=== PATIENT | female | born 1955 | race Caucasian/White ===

== ENCOUNTER 2016-11-12 10:17 | Emergency (ER) | payer MEDICARE ==
[2016-11-12 11:44] LABS: Add Diff/Slide Review? Manual Diff Added; Comments Flag Yes; Hematocrit 35 % (35-47); Hemoglobin 10.8 g/dl (12.0-16.0); Mean Corpuscular HGB Conc 31 g/dl (31-36); Mean Corpuscular Hemoglobin 25 pg (27-31); Mean Corpuscular Volume 81 fL (80-97); Mean Platelet Volume 10 um3 (7.4-10.4); Red Blood Count 4.38 10^6/ul (4.0-5.4); Red Cell Distribution Width 19 % (10.5-15); White Blood Count 8.1 10^3/ul (3.5-10.8)
[2016-11-12 11:49] LABS: BUN/Creatinine Ratio 10.8 (8-20); Potassium 4.1 mmol/L (3.5-5.0)
[2016-11-12 11:50] LABS: Albumin 3.7 g/dL (3.2-5.2); Calcium 10.3 mg/dL (8.6-10.3); EGFR African American 45.8 (>60); EGFR Non-African American 35.6 (>60); Globulin 3.8 g/dL (2-4); Total Bilirubin 0.9 mg/dL (0.2-1.0); Total Protein 7.5 g/dL (6.4-8.9)
[2016-11-12 12:14] LABS: Eosinophils % 4 % (0-6); Hypochromasia 1+; Neutrophil % 61 % (38-83)
[2016-11-12 12:15] LABS: Schistocytes 1+
--- NOTE | 2016-11-12 12:36 | RAD ---
INDICATION: Left hip and knee pain after a fall COMPARISON: Left hip radiograph dated November 12, 2013 TECHNIQUE: 4 views of the left hip and 5 views of the left knee were obtained. FINDINGS: Radiographic imaging of the left hip is obscured by the patient's obese body habitus. Mild degenerative changes are seen at the bilateral hips including joint space narrowing and mild sclerotic change of the acetabular roof. There is no definite fracture or dislocation identified at the left hip. Degenerative changes of the left knee include medial greater than lateral joint space narrowing and mild marginal osteophyte formation. There is a mild degree of patellofemoral joint space narrowing as well as superior patellar osteophyte formation. There is a small left joint effusion. IMPRESSION: 1. Degenerative changes of the left hip without identification of definite fracture or dislocation. 2. Degenerative changes of the left knee with a small joint effusion without radiographic evidence of acute fracture or dislocation. If the patient's symptoms persist follow-up imaging is recommended.
[2016-11-12] MEDS ORDERED: oxyCODONE/Acetamin 5/325 MG* TAB PO ONE (12:54)
[2016-11-12 13:23] VITALS: BP 145/64
--- NOTE | 2016-11-12 16:13 | ED ---
Almita Clancy SooYoung, scribed for Jose J Thompson MD on 11/12/16 at 1100 . Lower Extremity - HPI Summary HPI Summary: A 61 y/o F presents to ED with c/o L knee pain after a fall from standing this morning, hours KNIFER UP. She says she landed on her L-knee and L-side. Pain radiates down to L foot and up to hip. Associated sx: ecchymosis, edema. Denies CP, back pain. Pt has baseline edema in LLE. Pt is on Coumadin. She denies hitting her head. Non-smoker, non-drinker. - History of Current Complaint Chief Complaint: EDExtremityLower Stated Complaint: FALL Time Seen by Provider: 11/12/16 10:43 Hx Obtained From: Patient Mechanism Of Injury: Fall From A Standing Position Onset of Pain: Hours, Prior to Arrival Onset/Duration: Still Present Severity Currently: Moderate Timing: Constant Location: Radiates To - L knee radiates to hip and foot Associated Signs And Symptoms: Positive: Swelling, Bruising - Allergies/Home Medications Allergies/Adverse Reactions: Allergies Allergy/AdvReac Type Severity Reaction Status Date / Time Albuterol Allergy Tachycardia Verified 11/12/16 10:28 Amoxicillin [From Augmentin] Allergy Palpitation Verified 11/12/16 10:28 s Clavulanic Acid Allergy Palpitation Verified 11/12/16 10:28 [From Augmentin] s PMH/Surg Hx/FS Hx/Imm Hx Previously Healthy: No Endocrine/Hematology History: Reports: Hx Anticoagulant Therapy - on Coumadin, Hx Blood Disorders - TTP, Hx Blood Transfusions, Hx Thyroid Disease - s/p successful radio-iodine therapy, Hx Anemia, Other Endocrine/Hematological Disorders - TPP, hx bleeding Denies: Hx Diabetes, Hx Unexplained Bleeding - hemetemesis Cardiovascular History: Reports: Hx Congestive Heart Failure, Hx Deep Vein Thrombosis, Hx Embolism, Hx Hypertension, Other Cardiovascular Problems/ Disorders - DVT Denies: Hx Pacemaker/ICD, Hx Rheumatic Fever, Hx Syncope Respiratory History: Reports: Hx Asthma, Hx Chronic Bronchitis - frequent bronchitis, not chronic, Hx Chronic Obstructive Pulmonary Disease (COPD), Hx Pneumonia, Hx Pulmonary Edema, Hx Pulmonary Embolism, Hx Seasonal Allergies, Hx Sleep Apnea - has BIPAP at home, Other Respiratory Problems/Disorders - wears O2 at home GI History: Reports: Hx Gall Bladder Disease - removed 1979, Hx Gastroesophageal Reflux Disease, Hx Gastrointestinal Bleed - October 2012 admission, Hx Hiatal Hernia, Other GI Disorders - s/p bariatric surgery, hx GI bleed Denies: Hx Jaundice History: Denies: Hx Renal Disease Musculoskeletal History: Reports: Hx Arthritis, Hx Back Problems - neck, Hx Bursitis, Other Musculoskeletal History - lymphedema, goiter Denies: Hx Rheumatoid Arthritis, Hx Gout, Hx Orthopedic Injury, Hx Osteoporosis Sensory History: Reports: Hx Contacts or Glasses, Hx Vision Problem - 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 Denies: Hx Hearing Aid, Hx Hearing Problem Opthamlomology History: Reports: Hx Contacts or Glasses, Hx Vision Problem - 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 GROIN - SKIN GRAFTING DUE TO BLEEDING AND INFECTION. TONSILECTOMY Hx Anesthesia Reactions: No Infectious Disease History: No Infectious Disease History: Denies: Hx Clostridium Difficile, Hx Hepatitis, Hx Human Immunodeficiency Virus (HIV), Hx Shingles, Hx Tuberculosis, Traveled Outside the [place] in Last 30 Days - Family History Known Family History: Positive: Other - parents fhx gastric ulcers - Social History Occupation: Disabled Lives: Alone Alcohol Use: None Hx Substance Use: No Substance Use Type: Reports: None Hx Tobacco Use: Yes Smoking Status (MU): Former Smoker Type: Cigarettes Amount Used/How Often: 1-2 Length of Time of Smoking/Using Tobacco: 32 Have You Smoked in the Last Year: No Review of Systems Negative: Chest Pain Positive: Arthralgia - L knee pain, radiating to L hip, L foot, Other - neg: back pain All Other Systems Reviewed And Are Negative: Yes Physical Exam - Summary Physical Exam Summary: The patient is well-nourished in no acute distress and in no acute pain. The skin is warm and dry and skin color reflects adequate perfusion. HEENT: The head is normocephalic and atraumatic. The pupils are equal and reactive. The conjunctivae are clear and without drainage. Nares are patent and without drainage. Mouth reveals moist mucous membranes and the throat is without erythema and exudate. The external ears are intact. The ear canals are patent and without drainage. The tympanic membranes are intact. Neck is supple with full range of motion and non-tender. There are no carotid bruits. There is no neck vein distension. Respiratory: Chest is non-tender. Lungs are clear to auscultation and breath sounds are symmetrical and equal. Cardiovascular: Heart is regular rate and rhythm. There is no murmur or rub auscultated. There is no peripheral edema and pulses are symmetrical and equal. Abdomen: The abdomen is soft and non-tender and obese. There is no organomegaly palpated. Musculoskeletal: There is no back pain noted. Extremities are non-tender with full range of motion. There is good capillary refill. There is no peripheral edema or calf tenderness elicited. TENDERNESS OF L HIP, NO SHORTENING OF LEG. MARKED ECCHYMOSIS AND SWELLING OF L KNEE. UNABLE TO FLEX. MILD TENDERNESS AT PROXIMAL TIBIA AREA. LLE IS MARKEDLY EDEMATOUS COMPARED TO R, HX OF LYMPHADENOPAHTY. Neurological: Patient is alert and oriented to person, place and time. The patient has symmetrical motor strength in all four extremities. Cranial nerves are grossly intact. Deep tendon reflexes are symmetrical and equal in all four extremities. DENIES STRIKING HER HEAD. Psychiatric: The patient has an appropriate affect and does not exhibit any anxiety or depression. Triage Information Reviewed: Yes Vital Signs On Initial Exam: Initial Vitals Temp Pulse Resp BP Pulse Ox 97.4 F 64 16 125/69 98 11/12/16 10:19 11/12/16 10:19 11/12/16 10:19 11/12/16 10:19 11/12/16 10:19 Vital Signs Reviewed: Yes - [place] Coma Scale Coma Scale Total: 15 Diagnostics - Vital Signs Vital Signs Temp Pulse Resp BP Pulse Ox 11/12/16 10:26 67 76 11/12/16 10:20 97.4 F 64 16 125/69 98 11/12/16 10:19 97.4 F 64 16 125/69 98 - Laboratory Lab Results: Lab Results 11/12/16 11/12/16 11/12/16 Range/Units 11:26 11:26 11:26 WBC 8.1 (3.5-10.8) 10^3/ul RBC 4.38 (4.0-5.4) 10^6/ul Hgb 10.8 L (12.0-16.0) g/dl Hct 35 (35-47) % MCV 81 (80-97) fL MCH 25 L (27-31) pg MCHC 31 (31-36) g/dl RDW 19 H (10.5-15) % Plt Count 236 (150-450) 10^3/ul MPV 10 (7.4-10.4) um3 Absolute Neuts (auto) 4.9 (1.5-7.7) 10^3/ul Absolute Lymphs (auto) 2.0 (1.0-4.8) 10^3/ul Absolute Monos (auto) 0.8 (0-0.8) 10^3/ul Absolute Eos (auto) 0.3 (0-0.6) 10^3/ul Absolute Basos (auto) 0 (0-0.2) 10^3/ul Absolute Nucleated RBC Not Reportable Neutrophils % 61 (38-83) % Lymphocytes % 25 (25-47) % Monocytes % 10 (0-13) % Eosinophils % 4 (0-6) % Normal RBC Morphology Not Reportable Hypochromasia 1+ Elliptocytes 1+ Acanthocytes (Spur) 1+ Schistocytes 1+ INR (Anticoag Therapy) 1.72 H (0.89-1.11) Sodium 139 (133-145) mmol/L Potassium 4.1 (3.5-5.0) mmol/L Chloride 99 L (101-111) mmol/L Carbon Dioxide 37 H (22-32) mmol/L Anion Gap 3 (2-11) mmol/L BUN 16 (6-24) mg/dL Creatinine 1.48 H (0.51-0.95) mg/dL Est GFR ( Amer) 45.8 (>60) Est GFR (Non-Af Amer) 35.6 (>60) BUN/Creatinine Ratio 10.8 (8-20) Glucose 95 (70-100) mg/dL Calcium 10.3 (8.6-10.3) mg/dL Total Bilirubin 0.90 (0.2-1.0) mg/dL AST 15 (13-39) U/L ALT 6 L (7-52) U/L Alkaline Phosphatase 89 (34-104) U/L Total Protein 7.5 (6.4-8.9) g/dL Albumin 3.7 (3.2-5.2) g/dL Globulin 3.8 (2-4) g/dL Albumin/Globulin Ratio 1.0 (1-3) Result Diagrams: 11/12/16 11:26 11/12/16 11:26 Lab Statement: Any lab studies that have been ordered have been reviewed, and results considered in the medical decision making process. - Radiology L KNEE Xray Interpretation: No Acute Changes - IMPRESSION: 1. Degenerative changes of the left hip without identification of definite fracture or dislocation. 2. Degenerative changes of the left knee with a small joint effusion without radiographic evidence of acute fracture or dislocation. If the patient's symptoms persist follow-up imaging is recommended. Radiology Interpretation Completed By: Radiologist HIP/PELVIS Xray Interpretation: No Acute Changes - IMPRESSION: 1. Degenerative changes of the left hip without identification of definite fracture or dislocation. 2. Degenerative changes of the left knee with a small joint effusion without radiographic evidence of acute fracture or dislocation. If the patient's symptoms persist follow-up imaging is recommended. Radiology Interpretation Completed By: Radiologist Re-Evaluation - Re-Evaluation 1 Re-Evaluation Time: 13:16 Change: Improved Comment: Discussing XR results with pt. Lower Extremity Course/Dx - Course Course Of Treatment: Pt is a 61 y/o F presenting with c/o L knee pain after a fall from standing this morning. She says she landed on her L-knee and L-side, did not her head. Pain radiates down to L foot and up to hip. Associated sx: ecchymosis and edema at knee. Denies CP, back pain. Pt has baseline edema in LLE. Pt is on Coumadin. Pt given Percocet. Lab work shows elevated INR and CRP. Hip/Pelvis and L Knee XR impressions: 1. Degenerative changes of the left hip without identification of definite fracture or dislocation. 2. Degenerative changes of the left knee with a small joint effusion without radiographic evidence of acute fracture or dislocation. If the patient's symptoms persist follow-up imaging is recommended. Will D/C home with Percocet for pain. - Diagnoses Provider Diagnoses: Contusion of left hip, Contusion of left knee Discharge - Discharge Plan Condition: Stable Disposition: HOME Prescriptions: oxyCODONE/Acetamin 5/325 MG* [Percocet 5/325 TAB*] 1 tab PO Q6H PRN #20 tab MDD 4 PRN Reason: pain Patient Education Materials: Oxycodone/Acetaminophen (By mouth), Knee Pain (ED) , Hip Contusion (ED) Referrals: Scott Parkinson MD [Primary Care Provider] - The documentation as recorded by the Almita case SooYoung accurately reflects the service I personally performed and the decisions made by me, Jose J Thompson MD.
== END 2016-11-12 14:06 | disposition home or self-care (01) ==
LOC: ED 10:17
DX: S70.02XA Contusion of left hip, initial encounter (principal); S80.02XA Contusion of left knee, initial encounter; Z87.891 Personal history of nicotine dependence; Z79.01 Long term (current) use of anticoagulants; I50.9 Heart failure, unspecified; Z88.0 Allergy status to penicillin; W19.XXXA Unspecified fall, initial encounter; Y92.9 Unspecified place or not applicable
CPT/HCPCS: 36415; 80053; 85025; 85610; 99282; A9270-GY

== ENCOUNTER 2016-11-22 14:17 | Inpatient (IN) | payer MEDICARE ==
[2016-11-22] MEDS ORDERED: NS 0.9% 1000 ML* 2,000 ML IV ONE (15:45)
[2016-11-22 16:19] LABS: Albumin 3.8 g/dL (3.2-5.2); BUN/Creatinine Ratio 16.1 (8-20); Calcium 10.2 mg/dL (8.6-10.3); EGFR African American 59.5 (>60); EGFR Non-African American 46.3 (>60); Magnesium 1.7 mg/dL (1.9-2.7); Total Bilirubin 1.8 mg/dL (0.2-1.0); Total Protein 7.8 g/dL (6.4-8.9)
[2016-11-22 16:22] LABS: Hematocrit 39 % (35-47); Hemoglobin 12.3 g/dl (12.0-16.0); Mean Corpuscular HGB Conc 31 g/dl (31-36); Mean Corpuscular Hemoglobin 25 pg (27-31); Mean Corpuscular Volume 80 fL (80-97); Mean Platelet Volume 12 um3 (7.4-10.4); Red Blood Count 4.93 10^6/ul (4.0-5.4); Red Cell Distribution Width 19 % (10.5-15); White Blood Count 10.3 10^3/ul (3.5-10.8)
[2016-11-22 16:24] LABS: Add Diff/Slide Review? Slide Review Added; Comments Flag Yes
[2016-11-22 16:27] LABS: Troponin I 0.18 ng/mL (<0.04)
--- NOTE | 2016-11-22 17:09 | RAD ---
Indication: Fall, left facial swelling, headache. CT of the brain was performed without IV contrast. Comparison is made with previous exam dated November 12, 2013. Ventricular structures are midline. No midline shift is noted. The extra-axial spaces are unremarkable. Hypodensity is noted in the left occipital lobe from prior infarct unchanged from previous exam. Ex vacuo dilatation of the right lateral ventricle in the frontal horn is noted with adjacent encephalomalacia. Additional hypodensity is noted in the right insular cortex consistent with old infarct. Central and cortical atrophy is noted. There is no evidence of intracranial mass or hemorrhage. The orbits are grossly unremarkable. Air-fluid level is noted in the left maxillary sinus consistent with left maxillary sinusitis. Mastoid air cells are grossly unremarkable. 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 Findings are unchanged from previous examination. No intracranial mass or hemorrhage is noted. No changes noted since November 12, 2013.
--- NOTE | 2016-11-22 17:21 | RAD ---
Indication: Fall, neck injury. CT of the cervical spine was obtained in the axial plane. Sagittal and coronal reconstructed images were obtained. The skull base demonstrates mastoid air cells to be unremarkable. The C1 ring is intact. The vertebral bodies appear normal in height. No evidence of fracture is noted. Alignment appears to be satisfactory. At C2-C3 there may be a small central disc protrusion indenting the thecal sac. No central or foraminal stenosis is noted. At C3-C4 spondylitic ridge flattens the thecal sac. Bilateral uncovertebral joint hypertrophy narrows both foramen. At C4-C5 spondylitic ridge with broad-based protrusion flattens the thecal sac. No central or foraminal stenosis is noted. At C5-C6 spondylitic ridge with broad-based protrusion flattens the thecal sac. Bilateral uncovertebral joint hypertrophy is noted. At C6-C7 and C7-T1 spinal canal cannot be evaluated. The lung apices are unremarkable. IMPRESSION: Degenerative disc disease at C2-C3, C3-C4, C4-C5 and C5-C6. No fracture of the cervical spine is present.
--- NOTE | 2016-11-22 17:29 | RAD ---
Indication: Facial injury and swelling. CT of the facial bones was obtained in the axial plane. Sagittal and coronal reconstructed images were obtained. The orbits are intact. No evidence of fracture is noted. The zygomatic arch bilaterally are intact. No fractures identified. The maxilla and pterygoid plates are intact with no evidence of fracture. Air-fluid level is noted in the left maxillary sinus with mucosal thickening. Minimal air-fluid level is noted in the right maxillary sinus. The mandible demonstrates no evidence of fracture. The nasal arch is intact. There is soft tissue edema and reticulation likely representing a hematoma involving the left subcutaneous tissues superficial to the left zygomatic arch. The visualized cervical spine is unremarkable. IMPRESSION: NO FRACTURE OF THE FACIAL BONES IS IDENTIFIED. AIR-FLUID LEVELS IN BOTH MAXILLARY SINUSES WORSE ON THE LEFT THAN ON THE RIGHT. SOFT TISSUE SWELLING OVER THE LEFT ZYGOMATIC ARCH. THIS MAY BE FROM MINIMAL HEMATOMA.
[2016-11-22 18:22] LABS: Target Cells 2+
[2016-11-22 18:23] LABS: Hypochromasia 2+
--- NOTE | 2016-11-22 18:56 | RAD ---
Indication: Fall, chest pain. Single frontal view of the chest performed at 1811 hours was reviewed. Comparison is made with previous exam dated February 16, 2016. There is cardiomegaly noted. Interstitial edema consistent with vascular congestion is noted. No definite pneumonia is identified. IMPRESSION: CARDIOMEGALY WITH LIKELY INTERSTITIAL EDEMA.
--- NOTE | 2016-11-22 18:57 | RAD ---
Indication: Fall, pelvic pain. Single view of the pelvis demonstrates pelvic ring to be intact. There is no evidence of fracture. Sacroiliac joints are unremarkable. IMPRESSION: No fracture of the pelvis is noted.
--- NOTE | 2016-11-22 18:58 | RAD ---
Indication: Arm injury. 2 views of the right forearm demonstrates no fracture. No other bone or joint abnormality is identified. IMPRESSION: No fracture of the right humerus is noted.
--- NOTE | 2016-11-22 18:58 | RAD ---
Indication: Fall, arm injury 4 views of the right shoulder demonstrates no fracture or dislocation. AC joint arthritis is noted. IMPRESSION: No fracture of the right shoulder is noted.
[2016-11-22] MEDS ORDERED: Levalbuterol 1.25MG/0.5ML NEB INH PRN (19:17)
[2016-11-22] MEDS ORDERED: Cyclobenzaprine TAB* 10 MG PO PRN (19:17)
[2016-11-22] MEDS ORDERED: Ondansetron TAB* 4 MG PO PRN (19:17)
[2016-11-22] MEDS ORDERED: NS 0.9% 1000 ML* 1,000 ML IV SCH (19:45)
--- NOTE | 2016-11-22 19:52 | ED ---
Braden Clancy Anna, scribed for KarleyubirmaiMeri MD on 11/22/16 at 1532 . Syncope/Near Syncope - HPI Summary HPI Summary: Patient is a 61 y/o female coming to [facility] following ta fall that occurred yesterday at 1830. She states that her knees buckled, causing her to fall. She could not get up following the syncopal episode and stayed on the floor for 18 hours. She is unsure of whether or not she hit her head when she fell. There is blood on her mouth. She reports that she has bad denition and is missing teeth at baseline. The patient reports current hip pain, and right shoulder pain. Her history is significant for CVA, CHF, HTN, DVT, embolism, and a fib. She currently takes Coumadin. She has COPD and asthma and uses 2 L O2 at baseline. Patient medications were reviewed this visit. - History Of Current Complaint Chief Complaint: EDGeneral Hx Obtained From: Patient, EMS Onset/Duration: Sudden Onset, Resolved Context: Unwitnessed, Loss Of Consciousness Activity At Onset: Unknown - Allergies/Home Medications Allergies/Adverse Reactions: Allergies Allergy/AdvReac Type Severity Reaction Status Date / Time Amoxicillin [From Augmentin] Allergy Palpitation Verified 11/22/16 14:34 s Clavulanic Acid Allergy Palpitation Verified 11/22/16 14:34 [From Augmentin] s Albuterol AdvReac Tachycardia Verified 11/22/16 19:32 Home Medications: Home Medications Acetaminophen W/ Codeine [Acetaminophen/Codeine 300-15 mg] 1 - 2 tab PO Q4HR PRN 11/22/16 [History Confirmed 11/22/16] Cyclobenzaprine TAB* [Flexeril 10 MG TAB*] 10 mg PO TID PRN 11/22/16 [History Confirmed 11/22/16] Pantoprazole TAB (NF) [Protonix TAB (NF)] 40 mg PO DAILY 11/22/16 [History Confirmed 11/22/16] PMH/Surg Hx/FS Hx/Imm Hx Endocrine/Hematology History: Reports: Hx Anticoagulant Therapy - on Coumadin, Hx Blood Disorders - TTP, Hx Blood Transfusions, Hx Thyroid Disease - s/p successful radio-iodine therapy, Hx Anemia, Other Endocrine/Hematological Disorders - TPP, hx bleeding Denies: Hx Diabetes, Hx Unexplained Bleeding - hemetemesis Cardiovascular History: Reports: Hx Congestive Heart Failure, Hx Deep Vein Thrombosis, Hx Embolism, Hx Hypertension, Other Cardiovascular Problems/ Disorders - DVT Denies: Hx Pacemaker/ICD, Hx Rheumatic Fever, Hx Syncope Respiratory History: Reports: Hx Asthma, Hx Chronic Bronchitis - frequent bronchitis, not chronic, Hx Chronic Obstructive Pulmonary Disease (COPD), Hx Pneumonia, Hx Pulmonary Edema, Hx Pulmonary Embolism, Hx Seasonal Allergies, Hx Sleep Apnea - has BIPAP at home, Other Respiratory Problems/Disorders - wears O2 at home GI History: Reports: Hx Gall Bladder Disease - removed 1979, Hx Gastroesophageal Reflux Disease, Hx Gastrointestinal Bleed - October 2012 admission, Hx Hiatal Hernia, Other GI Disorders - s/p bariatric surgery, hx GI bleed Denies: Hx Jaundice History: Denies: Hx Renal Disease Musculoskeletal History: Reports: Hx Arthritis, Hx Back Problems - neck, Hx Bursitis, Other Musculoskeletal History - lymphedema, goiter Denies: Hx Rheumatoid Arthritis, Hx Gout, Hx Orthopedic Injury, Hx Osteoporosis Sensory History: Reports: Hx Contacts or Glasses, Hx Vision Problem - 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 Denies: Hx Hearing Aid, Hx Hearing Problem Opthamlomology History: Reports: Hx Contacts or Glasses, Hx Vision Problem - 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 GROIN - SKIN GRAFTING DUE TO BLEEDING AND INFECTION. TONSILECTOMY Hx Anesthesia Reactions: No Infectious Disease History: No Infectious Disease History: Denies: Hx Clostridium Difficile, Hx Hepatitis, Hx Human Immunodeficiency Virus (HIV), Hx Shingles, Hx Tuberculosis, Traveled Outside the [place] in Last 30 Days - Family History Known Family History: Positive: Other - parents fhx gastric ulcers - Social History Alcohol Use: None Hx Substance Use: No Substance Use Type: Reports: None Hx Tobacco Use: Yes Smoking Status (MU): Former Smoker Type: Cigarettes Amount Used/How Often: 1-2 Length of Time of Smoking/Using Tobacco: 32 Have You Smoked in the Last Year: No Review of Systems Positive: Arthralgia, Edema All Other Systems Reviewed And Are Negative: Yes Physical Exam Triage Information Reviewed: Yes Vital Signs On Initial Exam: Initial Vitals Temp Pulse Resp BP Pulse Ox 98.5 F 86 20 115/48 99 11/22/16 14:34 11/22/16 14:34 11/22/16 14:34 11/22/16 14:34 11/22/16 14:34 Vital Signs Reviewed: Yes Appearance: Positive: No Pain Distress, Well-Nourished Skin: Positive: Warm, Skin Color Reflects Adequate Perfusion, Dry, Other - + chronic venous stasis skin changes of b/l LE Head/Face: Positive: Other - edema of left eyelid and left cheek Eyes: Positive: EOMI, PIO, Conjunctiva Clear, Other: - edema of left eyelid ENT: Positive: Pharynx normal, TMs normal, Other - Dry, bloody lips Dental: Positive: Other - Several dental caries with missing teeth. Dry blood intraorally. No acute bleeding. Neck: Positive: Supple, Nontender Respiratory/Lung Sounds: Positive: Clear to Auscultation, Breath Sounds Present. Negative: Rales, Rhonchi, Wheezes Cardiovascular: Positive: IRR, Tachycardia, S1, S2 Abdomen Description: Positive: Nontender, Soft, Other: - Large pannus formation. No rebound.. Negative: Distended, Guarding Bowel Sounds: Positive: Present Musculoskeletal: Positive: Strength/ROM Intact, Other - Chronic venous stasis changes bilaterally with left leg larger than right, chronically. Ecchymosis of right arm. Right shoulder tender to palpation on lateral aspect. no deformity noted. Neurological: Positive: Normal, Sensory/Motor Intact, Alert, Oriented to Person Place, Time, CN Intact II-III. Negative: Cerebellar Dysfunction Psychiatric: Positive: Affect/Mood Appropriate Diagnostics - Vital Signs Vital Signs Temp Pulse Resp BP Pulse Ox 11/22/16 15:19 111 27 184/86 94 11/22/16 15:12 107 92 11/22/16 15:10 161/100 11/22/16 14:57 100 20 164/90 96 11/22/16 14:34 98.5 F 86 20 115/48 99 - Laboratory Lab Results: Lab Results 11/22/16 11/22/16 11/22/16 Range/Units 15:10 15:10 15:10 WBC 10.3 (3.5-10.8) 10^3/ul RBC 4.93 (4.0-5.4) 10^6/ul Hgb 12.3 (12.0-16.0) g/dl Hct 39 (35-47) % MCV 80 (80-97) fL MCH 25 L (27-31) pg MCHC 31 (31-36) g/dl RDW 19 H (10.5-15) % Plt Count 371 (150-450) 10^3/ul MPV 12 H (7.4-10.4) um3 Neut % (Auto) 79.7 (38-83) % Lymph % (Auto) 11.6 L (25-47) % Garfield % (Auto) 8.2 (1-9) % Eos % (Auto) 0.1 (0-6) % Baso % (Auto) 0.4 (0-2) % Absolute Neuts (auto) 8.2 H (1.5-7.7) 10^3/ul Absolute Lymphs (auto) 1.2 (1.0-4.8) 10^3/ul Absolute Monos (auto) 0.8 (0-0.8) 10^3/ul Absolute Eos (auto) 0 (0-0.6) 10^3/ul Absolute Basos (auto) 0 (0-0.2) 10^3/ul Absolute Nucleated RBC 0.01 10^3/ul Nucleated RBC % 0.1 Normal RBC Morphology Not Reportable Hypochromasia 2+ Target Cells 2+ Elliptocytes 1+ Acanthocytes (Spur) 2+ INR (Anticoag Therapy) 2.54 H (0.89-1.11) APTT 40.1 H (26.0-36.3) seconds Sodium 136 (133-145) mmol/L Potassium 4.0 (3.5-5.0) mmol/L Chloride 98 L (101-111) mmol/L Carbon Dioxide 30 (22-32) mmol/L Anion Gap 8 (2-11) mmol/L BUN 19 (6-24) mg/dL Creatinine 1.18 H (0.51-0.95) mg/dL Est GFR ( Amer) 59.5 (>60) Est GFR (Non-Af Amer) 46.3 (>60) BUN/Creatinine Ratio 16.1 (8-20) Glucose 136 H (70-100) mg/dL Lactic Acid (0.5-2.0) mmol/L Calcium 10.2 (8.6-10.3) mg/dL Magnesium 1.7 L (1.9-2.7) mg/dL Total Bilirubin 1.80 H (0.2-1.0) mg/dL AST 66 H (13-39) U/L ALT 16 (7-52) U/L Alkaline Phosphatase 106 H (34-104) U/L Total Creatine Kinase 2190 H (10-223) U/L CK-MB (CK-2) 28.5 H (0.6-6.3) ng/mL Troponin I 0.18 H* (<0.04) ng/mL B-Natriuretic Peptide ( - 100) pg/mL Total Protein 7.8 (6.4-8.9) g/dL Albumin 3.8 (3.2-5.2) g/dL Globulin 4.0 (2-4) g/dL Albumin/Globulin Ratio 1.0 (1-3) 11/22/16 11/22/16 Range/Units 15:10 15:10 WBC (3.5-10.8) 10^3/ul RBC (4.0-5.4) 10^6/ul Hgb (12.0-16.0) g/dl Hct (35-47) % MCV (80-97) fL MCH (27-31) pg MCHC (31-36) g/dl RDW (10.5-15) % Plt Count (150-450) 10^3/ul MPV (7.4-10.4) um3 Neut % (Auto) (38-83) % Lymph % (Auto) (25-47) % Garfield % (Auto) (1-9) % Eos % (Auto) (0-6) % Baso % (Auto) (0-2) % Absolute Neuts (auto) (1.5-7.7) 10^3/ul Absolute Lymphs (auto) (1.0-4.8) 10^3/ul Absolute Monos (auto) (0-0.8) 10^3/ul Absolute Eos (auto) (0-0.6) 10^3/ul Absolute Basos (auto) (0-0.2) 10^3/ul Absolute Nucleated RBC 10^3/ul Nucleated RBC % Normal RBC Morphology Hypochromasia Target Cells Elliptocytes Acanthocytes (Spur) INR (Anticoag Therapy) (0.89-1.11) APTT (26.0-36.3) seconds Sodium (133-145) mmol/L Potassium (3.5-5.0) mmol/L Chloride (101-111) mmol/L Carbon Dioxide (22-32) mmol/L Anion Gap (2-11) mmol/L BUN (6-24) mg/dL Creatinine (0.51-0.95) mg/dL Est GFR ( Amer) (>60) Est GFR (Non-Af Amer) (>60) BUN/Creatinine Ratio (8-20) Glucose (70-100) mg/dL Lactic Acid 2.0 (0.5-2.0) mmol/L Calcium (8.6-10.3) mg/dL Magnesium (1.9-2.7) mg/dL Total Bilirubin (0.2-1.0) mg/dL AST (13-39) U/L ALT (7-52) U/L Alkaline Phosphatase (34-104) U/L Total Creatine Kinase (10-223) U/L CK-MB (CK-2) (0.6-6.3) ng/mL Troponin I (<0.04) ng/mL B-Natriuretic Peptide 1127 H ( - 100) pg/mL Total Protein (6.4-8.9) g/dL Albumin (3.2-5.2) g/dL Globulin (2-4) g/dL Albumin/Globulin Ratio (1-3) Result Diagrams: 11/22/16 15:10 11/22/16 15:10 Lab Statement: Any lab studies that have been ordered have been reviewed, and results considered in the medical decision making process. - Radiology R humerus XR Xray Interpretation: No Acute Changes Radiology Interpretation Completed By: Radiologist - No evidence of fracture Pelvis XR Xray Interpretation: No Acute Changes Radiology Interpretation Completed By: Radiologist - No evidence of fracture R shoulder XR Xray Interpretation: No Acute Changes Radiology Interpretation Completed By: Radiologist - No evidence of fracture CXR Xray Interpretation: Positive (See Comments) Radiology Interpretation Completed By: Radiologist - IMPRESSION: CARDIOMEGALY WITH LIKELY INTERSTITIAL EDEMA. - CT Maxillofacial CT CT Interpretation: Positive (See Comments) CT Interpretation Completed By: Radiologist - IMPRESSION: NO FRACTURE OF THE FACIAL BONES IS IDENTIFIED. AIR-FLUID LEVELS IN BOTH MAXILLARY SINUSES WORSE ON THE LEFT THAN ON THE RIGHT. SOFT TISSUE SWELLING OVER THE LEFT ZYGOMATIC ARCH. THIS MAY BE FROM MINIMAL HEMATOMA. C-Spine CT CT Interpretation: No Acute Changes CT Interpretation Completed By: Radiologist - IMPRESSION: Degenerative disc disease at C2-C3, C3-C4, C4-C5 and C5-C6. No fracture of the cervical spine is present. Brain CT CT Interpretation: No Acute Changes CT Interpretation Completed By: Radiologist - IMPRESSION: Old infarct left occipital lobe and right frontal temporal area with ex vacuo dilatation of the frontal horn of the right lateral ventricle. Findings are unchanged from previous examination. No intracranial mass or hemorrhage is noted. No changes noted since November 12, 2013. Course/Dx Assessment/Plan: Patient is a 61 y/o female coming to [facility] following the sudden onset of a syncopal episode that occurred yesterday at 1830. Labs reveal INR of 2.54, APTT of 40.1, glucose of 136, magnesium of 1.7, AST of 66, Creatine Kinase of 2190, CK-MB of 28.5, troponin of 0.18, BNP of 1127. Right humerus XR, pelvis XR, and R shoulder XR reveal no evidence for fracture. CXR reveals cardiomegaly with likely interstitial edema. Maxillofacial CT reveals soft tissue swelling. C-Spine CT reveals degenerative disc disease but no evidence of fracture. Brain CT reveals old infarct, unchanged since 2013. Discussed care of patient with Dr. Robertson (hospitalist), who accepts patient for admission. - Diagnoses Provider Diagnoses: Fall, Closed head injury, Facial swelling, Anticoagulated, Cardiac enzymes elevated - Physician Notifications Discussed Care Of Patient With: Dr. Robertson (hospitalist) at 1805. Agrees to accept patient for admission. Discharge - Discharge Plan Condition: Fair Disposition: ADMITTED TO [facility] documentation as recorded by the Braden case Anna accurately reflects the service I personally performed and the decisions made by Fermín beltran,Meri Singh MD.
[2016-11-22] MEDS ORDERED: Spiriva Inhaler DEVICE* 1 EACH DEVICE INH ONE (20:00)
[2016-11-22] MEDS ORDERED: Warfarin TAB(*) 5 MG PO SCH (20:00)
[2016-11-22] MEDS: Diltiazem CD CAP* 120 MG PO SCH (21:16)
[2016-11-22] MEDS: Metoprolol Tartrate TAB* 25 MG PO SCH (21:16)
[2016-11-22] MEDS ORDERED: Warfarin TAB(*) 2.5 MG PO SCH (22:00)
--- NOTE | 2016-11-22 22:35 | HP ---
HISTORY AND PHYSICAL: DATE OF ADMISSION: 11/22/16 PRIMARY CARE PROVIDER: Scott Parkinson MD CHIEF COMPLAINT: Fall. HISTORY OF PRESENT ILLNESS: Ms. Roy is a 61-year-old female with a past medical history significant for atrial fibrillation; CHF; COPD with chronic hypoxic respiratory failure requiring 2 L of oxygen continuously and asthma who presents to the emergency room with complaints of fall. The patient states at approximately 8:30 last evening, she was doing her laundry. She states that she had just moved her clothes from the washer into dryer and walked back to her apartment. She states that once in her apartment, her legs "gave out" and she was unable to maintain a standing position despite having a walker with her. The patient landed on her left side. She did not have any loss of consciousness with this. The patient states that she did not have her Life Alert bracelet on despite having one and she was too far away from the pull cord to get help immediately. The patient believes that she had laid on her floor until approximately 3 p.m. when a neighbor noted that she had not picked up a package outside of her door. Neighbor knocked on her door and the patient was able to call out to her that she had fallen and needed help. The patient states that she fell this past Monday was well. At that time, she hurt her left knee. At this point, the patient does complain of pain in her left knee as well as her bilateral shoulders. She states that she again was lying on the left side and unable to even roll on to her back. The patient states that when she fell, she also did not have her oxygen on for the entire duration of the time that she was on the floor. PAST MEDICAL HISTORY: 1. AFib. 2. CHF. 3. Chronic hypoxic respiratory failure secondary to COPD, on 2 L O2 continuously. 4. Asthma. PAST SURGICAL HISTORY: None. MEDICATIONS: 1. Tramadol 50 mg p.o. q.6 hours p.r.n. pain. 2. Percocet 5/325 mg 1 tab p.o. q.6 hours p.r.n. pain. 3. Robitussin AC 5 mL p.o. q.h.s. p.r.n. cough. 4. Ambien 5 mg p.o. q.h.s. p.r.n. insomnia. 5. Coumadin 5 mg p.o. daily. 6. Spiriva 1 puff inhaled daily. 7. Protonix 40 mg daily. 8. Orphenadrine 100 mg p.o. b.i.d. 9. Zofran 4 mg p.o. q.6 hours p.r.n. nausea. 10. Metoprolol tartrate 25 mg p.o. b.i.d. 11. Melatonin 5 mg p.o. q.p.m. 12. Magnesium oxide 400 mg p.o. daily. 13. Xopenex 1 neb inhaled q.4 hours p.r.n. shortness of breath. 14. Gabapentin 600 mg p.o. t.i.d. 15. Lasix 20 mg p.o. daily. 16. Diltiazem CD 120 mg p.o. daily. 17. Flexeril 10 mg p.o. t.i.d. p.r.n. spasm. 18. Zyrtec 10 mg p.o. daily. 19. Tylenol with Codeine 1 to 2 tabs p.o. q.4 hours p.r.n. pain. ALLERGIES: ALBUTEROL and AUGMENTIN. FAMILY HISTORY: Mom at the age of 83 of heart failure. Dad in his 90s of a brain aneurysm. SOCIAL HISTORY: The patient is a former smoker. She quit approximately 3 years ago. She does not drink alcohol. 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 She is not . She has no children. She indicates that her sister, Rasheeda Chapman, would be her healthcare proxy. REVIEW OF SYSTEMS: The patient denies any fevers, chills, or anorexia. No chest pain. No palpations. She denies any cough or shortness of breath worse than usual. She states that she did vomit once overnight. She has no abdominal pain. No constipation, diarrhea, or hematochezia. No hematuria. No dysuria. No focal weakness or sensory loss. She denies any stroke-like symptoms. No sudden changes in vision. No dysphagia. She does complain again of bilateral shoulder pain and left knee pain. No rashes. No anxiety or depression. PHYSICAL EXAMINATION GENERAL: The patient is a well-developed, middle-aged obese female, sitting in the stretcher, appearing to be in no acute distress. VITAL SIGNS: Blood pressure 177/95, pulse 99, respirations 24, temp 98.5, and O2 sat is 99% on 2 L. HEENT: The left eyelid is swollen and partially covers the left eye. Otherwise , pupils are intact. Extraocular muscles are intact. Oropharynx is markedly dry. There is crusting on her tongue as well as thick secretions in the back of her mouth. NECK: There is no submandibular, cervical, or supraclavicular adenopathy. Thyroid is not enlarged. No thyroid nodules are noted. PULMONARY: Clear to auscultation bilaterally. CARDIAC: Normal S1, S2. Heart rate is irregularly irregular and tachycardic. The patient has marked left lower extremity edema. Right lower extremity does not appear edematous, so there is compression stocking in place. The patient states ordinarily she wears compression stockings on the left, but this was taken off prior to her fall last evening. She does state that the left leg is always larger than the right. ABDOMEN: Bowel sounds present. Abdomen is obese, soft, nontender, and nondistended. MUSCULOSKELETAL: There is mild cyanosis of the bilateral hands of the fingers. They are cool to touch. She states that this is chronic. There is no clubbing. Range of motion is limited due to pain but the patient is able to pull herself up to a seated position on the stretcher. NEUROLOGIC: Cranial nerves II through XII appeared to be grossly intact. Sensation is intact to light touch throughout. Strength is not tested at this time due to pain. SKIN: Warm and dry. There are no obvious rashes. There is a brownish color discoloration about the left eyebrow. She has erythema of the right cheek and again the swelling of the left upper eyelid. The patient has a bruise noted on the left lateral knee. No other obvious bruising is noted though it is difficult to perform this exam on the stretcher and in her current position. PSYCH: The patient is alert. She is oriented x3. Affect appears appropriate. DIAGNOSTIC STUDIES/LAB DATA: WBC 10.3, hemoglobin 12.3, hematocrit 39, and platelets 371. INR 2.54. Sodium 136, potassium 4.0, chloride 98, CO2 30, BUN 19, creatinine 1.18, glucose 136, lactic acid 2.0, calcium 10.2, and magnesium 1.7. Bilirubin 1.8, AST 66, ALT 16, and alk phos 106. CPK 2190 and CK-MB 28.5. Troponin 0.18. BNP 1127. Albumin 3.8. EKG reveals atrial fibrillation with rapid ventricular response with perhaps slight ST depression in the lateral leads. CT brain reveals old infarct in the left occipital lobe and right frontotemporal area with ex vacuo dilation of the frontal horn of the right lateral ventricle. Findings are unchanged from previous examination. No intracranial mass or hemorrhage is noted. No changes noted since November 2013. CT cervical spine: Degenerative disk disease at C2-3, C3-4, C4-5, and C5-6. No fracture of the cervical spine is present. Maxillofacial CT: No fracture of the facial bones is identified. Air fluid levels in both maxillary sinuses, worse on the left than the right. There is soft tissue swelling over the left zygomatic arch. This maybe from a minimal hematoma. X-rays of the humerus, pelvis, shoulder, and chest are pending. ASSESSMENT AND PLAN: Ms. Roy is a 61-year-old female who sustained a mechanical fall on the evening of 11/21/16 and was not found until the afternoon of 11/22/16 and presented to the emergency room, where she was found to be in rapid atrial fibrillation, rhabdomyolysis, and with an elevated troponin. 1. Fall: This sounds to be purely mechanical. The patient states that she has had recent falls. She will undergo PT and OT evaluations. I suspect given her rhabdomyolysis and prolonged time on the floor, she will need subacute rehab following this hospitalization. 2. Rhabdomyolysis: The patient states that the floor she laid on was carpet over cement. Her CPK level was 2190 on presentation to the emergency room. We will get a followup CPK tomorrow. The patient will be hydrated with normal saline at 75 mL per hour. We will have to be cautious with fluid, however, as she has history of congestive heart failure. 3. Elevated troponin: The patient's troponin is elevated and there is questionable ST depression in the lateral leads. I will go ahead and get a followup EKG with the next troponin draw as well as transthoracic echocardiogram. Her CK-MB percentage, however, is not elevated at 1.4%. I suspect the elevated troponin is most likely related to her rhabdomyolysis. This will, however, be trended and we will evaluate and monitor for signs of acute coronary syndrome. 4. Atrial fibrillation: Currently, the patient is in rapid atrial fibrillation. She has not had her medications today. She will go ahead and get her diltiazem and her metoprolol now. Additionally, she will have her usual dose of Coumadin. Her INR is therapeutic at this time, but we will need to watch this closely. 5. History of congestive heart failure: The patient's last echo in our system was from 2013. At that time, her EF was estimated to be 50% to 55% making her congestive heart failure likely diastolic in nature. Again, a followup echocardiogram will be obtained this hospitalization. 6. Chronic obstructive pulmonary disease: There are no signs of exacerbation at this time. She will be continued on her usual home inhaler regimen. She will continue on 2 L of nasal cannula oxygen. 7. DVT prophylaxis: According to the Adult Thrombosis Prophylaxis Risk Factor Assessment Guide, the patient has a total risk factor score of 5 making her the highest risk. She is already on Coumadin with a therapeutic INR. 8. Code status is full. TIME SPENT: 65 minutes were spent admitting this patient. CC: Dr. Parkinson* [id number]/CPS #: [id number]
[2016-11-23 00:41] LABS: Troponin I 0.32 ng/mL (<0.04)
[2016-11-23 04:29] LABS: Hematocrit 35 % (35-47); Hemoglobin 10.8 g/dl (12.0-16.0); Mean Corpuscular HGB Conc 31 g/dl (31-36); Mean Corpuscular Hemoglobin 25 pg (27-31); Mean Corpuscular Volume 79 fL (80-97); Mean Platelet Volume 10 um3 (7.4-10.4); Red Cell Distribution Width 18 % (10.5-15); White Blood Count 9.7 10^3/ul (3.5-10.8)
[2016-11-23 04:42] LABS: BUN/Creatinine Ratio 15.6 (8-20); Calcium 9.3 mg/dL (8.6-10.3); EGFR African American 65.2 (>60); EGFR Non-African American 50.7 (>60); Potassium 3.9 mmol/L (3.5-5.0)
[2016-11-23 05:12] LABS: Troponin I 0.28 ng/mL (<0.04)
[2016-11-23] MEDS: Omeprazole CAP* 20 MG PO SCH (08:05)
[2016-11-23] MEDS: Metoprolol Tartrate TAB* 25 MG PO SCH ×2 (08:05→19:37)
[2016-11-23] MEDS: Diltiazem CD CAP* 120 MG PO SCH (08:05)
[2016-11-23] MEDS: Tiotropium CAP.INH* CAP.INH/18 MCG INH SCH (08:05)
[2016-11-23] MEDS: oxyCODONE/Acetamin 5/325 MG* TAB PO PRN ×2 (13:00→19:38)
--- NOTE | 2016-11-23 17:58 | PN ---
Subjective Date of Service: 11/23/16 Interval History: Pt is feeling better. She does c/o pain in her R shoulder though this has been an ongoing issue. Additionally she c/o knee pain. No SOB. She did ok with walking with PT earlier today. Objective Active Medications: Cyclobenzaprine HCl (Flexeril Tab*) 10 mg PO TID PRN PRN Reason: PAIN Diltiazem HCl (Cardizem Cd Cap*) 120 mg PO DAILY [facility] Last Admin: 11/23/16 08:05 Dose: 120 mg Gabapentin (Neurontin Cap(*)) 600 mg PO TID [facility] Levalbuterol HCl (Xopenex 1.25 Mg/0.5 Ml Neb.[place]yanne*) 1.25 mg INH Q4HR PRN PRN Reason: SOB/WHEEZING Metoprolol Tartrate (Lopressor Tab*) 25 mg PO BID [facility] Last Admin: 11/23/16 08:05 Dose: 25 mg Omeprazole (Prilosec Cap*) 20 mg PO DAILY [facility] Last Admin: 11/23/16 08:05 Dose: 20 mg Ondansetron HCl (Zofran Tab*) 4 mg PO Q6HR PRN PRN Reason: HEARTBURN Oxycodone/Acetaminophen (Percocet 5/325 Tab*) 1 tab PO Q6H PRN PRN Reason: pain Last Admin: 11/23/16 13:00 Dose: 1 tab Tiotropium [place] (Spiriva Cap.Inh*) 1 cap INH DAILY [facility] Last Admin: 11/23/16 08:05 Dose: 1 cap Zolpidem Tartrate (Ambien Tab*) 5 mg PO BEDTIME PRN PRN Reason: SLEEP Vital Signs 11/22/16 11/22/16 11/22/16 19:30 19:36 19:59 Temperature Pulse Rate Respiratory 16 17 24 Rate Blood Pressure 161/104 161/97 (mmHg) O2 Sat by Pulse Oximetry 11/22/16 11/22/16 11/22/16 20:00 20:05 20:23 Temperature 99.0 F 98.4 F Pulse Rate 97 Respiratory 18 Rate Blood Pressure 171/85 158/84 (mmHg) O2 Sat by Pulse 100 Oximetry 11/23/16 11/23/16 11/23/16 00:03 03:59 04:44 Temperature 100.1 F 98.1 F Pulse Rate 92 134 118 Respiratory 24 20 Rate Blood Pressure 154/79 128/68 (mmHg) O2 Sat by Pulse 100 95 Oximetry 11/23/16 11/23/16 11/23/16 07:19 08:00 11:15 Temperature 98.9 F 98.1 F Pulse Rate 142 110 Respiratory 22 16 16 Rate Blood Pressure 143/71 135/80 (mmHg) O2 Sat by Pulse 97 98 Oximetry 11/23/16 11/23/16 11/23/16 13:00 15:00 15:24 Temperature 98.3 F Pulse Rate 77 Respiratory 16 16 20 Rate Blood Pressure 120/64 (mmHg) O2 Sat by Pulse 99 Oximetry Oxygen Devices in Use Now: Nasal Cannula - 2L Appearance: Middle aged female sitting up in bed, NAD Eyes: No Scleral Icterus Ears/Nose/Mouth/Throat: Mucous Membranes Moist Respiratory: Symmetrical Chest Expansion and Respiratory Effort, Clear to Auscultation Cardiovascular: NL Sounds; No Murmurs; No JVD, RRR, No Edema Abdominal: NL Sounds; No Tenderness; No Distention Extremities: No Clubbing, Cyanosis Skin: No Rash or Ulcers, No Nodules or Sclerosis Neurological: Alert and Oriented x 3 Result Diagrams: 11/23/16 04:16 11/23/16 04:16 Additional Lab and Data: Lab Results 11/22/16 11/22/16 11/22/16 Range/Units 15:10 15:10 15:10 WBC 10.3 (3.5-10.8) 10^3/ul RBC 4.93 (4.0-5.4) 10^6/ul Hgb 12.3 (12.0-16.0) g/dl Hct 39 (35-47) % MCV 80 (80-97) fL MCH 25 L (27-31) pg MCHC 31 (31-36) g/dl RDW 19 H (10.5-15) % Plt Count 371 (150-450) 10^3/ul MPV 12 H (7.4-10.4) um3 Neut % (Auto) 79.7 (38-83) % Lymph % (Auto) 11.6 L (25-47) % [place] % (Auto) 8.2 (1-9) % Eos % (Auto) 0.1 (0-6) % Baso % (Auto) 0.4 (0-2) % Absolute Neuts (auto) 8.2 H (1.5-7.7) 10^3/ul Absolute Lymphs (auto) 1.2 (1.0-4.8) 10^3/ul Absolute Monos (auto) 0.8 (0-0.8) 10^3/ul Absolute Eos (auto) 0 (0-0.6) 10^3/ul Absolute Basos (auto) 0 (0-0.2) 10^3/ul Absolute Nucleated RBC 0.01 10^3/ul Nucleated RBC % 0.1 Normal RBC Morphology Not Reportable Hypochromasia 2+ Target Cells 2+ Elliptocytes 1+ Acanthocytes (Spur) 2+ INR (Anticoag Therapy) 2.54 H (0.89-1.11) APTT 40.1 H (26.0-36.3) seconds Sodium 136 (133-145) mmol/L Potassium 4.0 (3.5-5.0) mmol/L Chloride 98 L (101-111) mmol/L Carbon Dioxide 30 (22-32) mmol/L Anion Gap 8 (2-11) mmol/L BUN 19 (6-24) mg/dL Creatinine 1.18 H (0.51-0.95) mg/dL Est GFR ( Amer) 59.5 (>60) Est GFR (Non-Af Amer) 46.3 (>60) BUN/Creatinine Ratio 16.1 (8-20) Glucose 136 H (70-100) mg/dL Lactic Acid (0.5-2.0) mmol/L Calcium 10.2 (8.6-10.3) mg/dL Magnesium 1.7 L (1.9-2.7) mg/dL Total Bilirubin 1.80 H (0.2-1.0) mg/dL AST 66 H (13-39) U/L ALT 16 (7-52) U/L Alkaline Phosphatase 106 H (34-104) U/L Total Creatine Kinase 2190 H (10-223) U/L CK-MB (CK-2) 28.5 H (0.6-6.3) ng/mL Troponin I 0.18 H* (<0.04) ng/mL B-Natriuretic Peptide ( - 100) pg/mL Total Protein 7.8 (6.4-8.9) g/dL Albumin 3.8 (3.2-5.2) g/dL Globulin 4.0 (2-4) g/dL Albumin/Globulin Ratio 1.0 (1-3) 11/22/16 11/22/16 Range/Units 15:10 15:10 WBC (3.5-10.8) 10^3/ul RBC (4.0-5.4) 10^6/ul Hgb (12.0-16.0) g/dl Hct (35-47) % MCV (80-97) fL MCH (27-31) pg MCHC (31-36) g/dl RDW (10.5-15) % Plt Count (150-450) 10^3/ul MPV (7.4-10.4) um3 Neut % (Auto) (38-83) % Lymph % (Auto) (25-47) % [place] % (Auto) (1-9) % Eos % (Auto) (0-6) % Baso % (Auto) (0-2) % Absolute Neuts (auto) (1.5-7.7) 10^3/ul Absolute Lymphs (auto) (1.0-4.8) 10^3/ul Absolute Monos (auto) (0-0.8) 10^3/ul Absolute Eos (auto) (0-0.6) 10^3/ul Absolute Basos (auto) (0-0.2) 10^3/ul Absolute Nucleated RBC 10^3/ul Nucleated RBC % Normal RBC Morphology Hypochromasia Target Cells Elliptocytes Acanthocytes (Spur) INR (Anticoag Therapy) (0.89-1.11) APTT (26.0-36.3) seconds Sodium (133-145) mmol/L Potassium (3.5-5.0) mmol/L Chloride (101-111) mmol/L Carbon Dioxide (22-32) mmol/L Anion Gap (2-11) mmol/L BUN (6-24) mg/dL Creatinine (0.51-0.95) mg/dL Est GFR ( Amer) (>60) Est GFR (Non-Af Amer) (>60) BUN/Creatinine Ratio (8-20) Glucose (70-100) mg/dL Lactic Acid 2.0 (0.5-2.0) mmol/L Calcium (8.6-10.3) mg/dL Magnesium (1.9-2.7) mg/dL Total Bilirubin (0.2-1.0) mg/dL AST (13-39) U/L ALT (7-52) U/L Alkaline Phosphatase (34-104) U/L Total Creatine Kinase (10-223) U/L CK-MB (CK-2) (0.6-6.3) ng/mL Troponin I (<0.04) ng/mL B-Natriuretic Peptide 1127 H ( - 100) pg/mL Total Protein (6.4-8.9) g/dL Albumin (3.2-5.2) g/dL Globulin (2-4) g/dL Albumin/Globulin Ratio (1-3) Assess/Plan/Problems-Billing Ms Roy is a 61 yo F who has a h/o COPD, afib and CHF who presented to the ER after being found down on her floor for approximately 18-19hr and was admitted for treatment of rhabdomyolysis and elevated troponin. - Patient Problems (1) Traumatic rhabdomyolysis Current Visit: Yes Status: Acute Code(s): T79.6XXA - TRAUMATIC ISCHEMIA OF MUSCLE, INITIAL ENCOUNTER SNOMED Code(s): 393162294 Comment: The patient had a fall with resultant development of rhabdomyolysis. Her CPK is trending down. PT has been working with the patient. Likely ready for home tomorrow. (2) HTN (hypertension) Current Visit: Yes Status: Chronic Code(s): I10 - ESSENTIAL (PRIMARY) HYPERTENSION SNOMED Code(s): 51335615 Comment: BP is under good control. Continue home medication regimen. (3) COPD (chronic obstructive pulmonary disease) Current Visit: Yes Status: Chronic Code(s): J44.9 - CHRONIC OBSTRUCTIVE PULMONARY DISEASE, UNSPECIFIED SNOMED Code(s): 12302913 Comment: No signs of exacerbation. Continue current inhaler/neb regimen. (4) GERD (gastroesophageal reflux disease) Current Visit: Yes Status: Chronic Code(s): K21.9 - GASTRO-ESOPHAGEAL REFLUX DISEASE WITHOUT ESOPHAGITIS SNOMED Code(s): 845463865 Comment: Continue omeprazole. (5) DVT prophylaxis Current Visit: Yes Status: Acute Code(s): DJP9603 - SNOMED Code(s): 219222072 Comment: Supratherapeutic INR (6) Full code status Current Visit: Yes Status: Acute Code(s): Z78.9 - OTHER SPECIFIED HEALTH STATUS SNOMED Code(s): 637377849
[2016-11-23] MEDS: Gabapentin CAP(*) 300 MG PO SCH (19:37)
[2016-11-23] MEDS ORDERED: Zolpidem TAB* 5 MG PO PRN (21:00)
[2016-11-24 05:00] LABS: Hematocrit 33 % (35-47); Hemoglobin 9.9 g/dl (12.0-16.0); Mean Corpuscular HGB Conc 31 g/dl (31-36); Mean Corpuscular Hemoglobin 25 pg (27-31); Mean Corpuscular Volume 82 fL (80-97); Mean Platelet Volume 11 um3 (7.4-10.4); Red Blood Count 3.99 10^6/ul (4.0-5.4); Red Cell Distribution Width 18 % (10.5-15); White Blood Count 7.6 10^3/ul (3.5-10.8)
[2016-11-24 05:04] LABS: Comments Flag Yes
[2016-11-24 05:11] LABS: BUN/Creatinine Ratio 15.4 (8-20); Calcium 8.8 mg/dL (8.6-10.3); EGFR African American 60.1 (>60); EGFR Non-African American 46.7 (>60); Potassium 3.7 mmol/L (3.5-5.0)
[2016-11-24] MEDS: Tiotropium CAP.INH* CAP.INH/18 MCG INH SCH (07:35)
[2016-11-24] MEDS: Omeprazole CAP* 20 MG PO SCH (08:57)
[2016-11-24] MEDS: Gabapentin CAP(*) 300 MG PO SCH ×2 (08:58→13:55)
[2016-11-24] MEDS: Metoprolol Tartrate TAB* 25 MG PO SCH (08:58)
[2016-11-24] MEDS: Diltiazem CD CAP* 120 MG PO SCH (08:58)
[2016-11-24] MEDS: oxyCODONE/Acetamin 5/325 MG* TAB PO PRN (08:58)
--- NOTE | 2016-11-24 09:48 | ECHO ---
Patient: LOBO WEEKS [facility] Rec#: [id number] : 1955 Date: 11/24/2016 Age: 61y Height: 177.8 cm / 70.0 in Weight: 123.4 kg / 272.0 lbs Sex: F BSA: 2.4 Room#: 440 Admit Date#: 11/22/2016 Type: Inpatient Referring: Raegan Robertson DO Reading: Mitra Hickey MD Purchasing Coordinator: Taryn Tucker RN RDCS CC: Mauro Gleason MD CC: Scott Parkinson MD Transthoracic Echocardiogram Indication: Atrial fib, elevated troponin levels BP: 112/61 HR: 82 Rhythm: A-Fib Findings History: COPD, CVA, A. fib, CHF, DVT, PE, SVT, asthma, former smoker Technical Comments: The study is technically limited due to patient body habitus. The study is technically limited due to the patient's history of COPD. The study is technically limited due to the patient's smoking history. The study was technically limited due to the patient's inability to lay in the left lateral decubitus position. Completed at 0905. Left Ventricle: The left ventricular chamber size is normal. Moderate concentric left ventricular hypertrophy is observed. Global left ventricular wall motion and contractility are within normal limits. Left ventricular systolic function is at the lower limits of normal. The estimated ejection fraction is 50-55%. There is septal flattening of the interventricular septum consistent with right ventricular volume or pressure overload. The assessment of diastolic function is non-diagnostic. Left Atrium: The left atrium is moderate to severely dilated. Right Ventricle: The right ventricle is mild to moderately dilated. The right ventricular global systolic function is mildly to moderately reduced. Right Atrium: The right atrial cavity size is severely dilated. Aortic Valve: The aortic valve is trileaflet. The aortic valve leaflets are moderately thickened. There is aortic annular calcification. There is no evidence of aortic regurgitation. There is no evidence of aortic stenosis. Mitral Valve: There is mitral annular calcification. The mitral valve leaflets are moderately thickened. There is mild to moderate mitral regurgitation. There is no evidence of mitral stenosis. Tricuspid Valve: The tricuspid valve leaflets are normal. There is moderate tricuspid regurgitation. There is evidence of mild pulmonary hypertension. There is no tricuspid stenosis. Pulmonic Valve: The pulmonic valve structure is not well visualized. There is trace to mild pulmonic regurgitation. There is no pulmonic stenosis. Pericardium: There is no significant pericardial effusion. A pericardial fat pad is visualized. Aorta: There is mild dilatation of the ascending aorta. There is no dilatation of the aortic arch. There is no dilation of the aortic root. Pulmonary Artery: The main pulmonary artery is not well visualized. Venous: The venous system is not well visualized. The inferior vena cava is not visualized. Summary: There are changes noted when compared to the previous study done on 11/11/2013, MR is now mild-moderate instead of mild then. PHTN is now mild instead of moderate then. TR is moderate now instead of moderate - severe then. Conclusions The study is technically limited due to patient body habitus. The left ventricular chamber size is normal. Moderate concentric left ventricular hypertrophy is observed. Left ventricular systolic function is at the lower limits of normal. The estimated ejection fraction is 50-55%. There is septal flattening of the interventricular septum consistent with right ventricular volume or pressure overload. The assessment of diastolic function is non-diagnostic. The left atrium is moderate to severely dilated. The right ventricle is mild to moderately dilated. The right ventricular global systolic function is mildly to moderately reduced. The right atrial cavity size is severely dilated. There is mild to moderate mitral regurgitation. There is moderate tricuspid regurgitation. There is evidence of mild pulmonary hypertension. There is trace to mild pulmonic regurgitation. There is no significant pericardial effusion. There is mild dilatation of the ascending aorta. There are changes noted when compared to the previous study done on 11/11/2013, MR is now mild-moderate instead of mild then. PHTN is now mild instead of moderate then. TR is moderate now instead of moderate - severe then. Measurements Name Value Normal Range RVDdMajor (2D) 4.7 cm (2.2 - 4.4) RAd ISD 4CH 7.3 cm (3.4 - 4.9) RA (A4C)W 4.2 cm (2.9 - 4.6) IVSd (2D) 1.6 cm (0.6 - 1) LVPWd (2D) 1.6 cm (0.6 - 1) LVIDd (2D) 4.2 cm (3.6 - 5.4) LVIDs (2D) 2.7 cm - LV FS (2D) 35 % (25 - 45) Aortic Annulus 1.8 cm (1.4 - 2.6) Ao root diameter (2D) 3 cm (2.1 - 3.5) Ascending Ao 3.6 cm (2.1 - 3.4) Aortic arch 2.4 cm (1.8 - 3.4) LA dimension (AP) 2D 3.9 cm (2.3 - 3.8) LAd ISD 4CH 6.3 cm (2.9 - 5.3) LA ISD 4CH W 5 cm (2.5 - 4.5) Name Value Normal Range MV E-wave Vmax 0.85 m/sec - MV deceleration time 187 msec - LV septal e' Vmax 0.07 m/sec - LV lateral e' Vmax 0.09 m/sec - LV E:e' septal ratio 12.1 ratio - LV E:e' lateral ratio 9.4 ratio - Name Value Normal Range AV Vmax 1.3 m/sec - AV VTI 25.3 cm - AV peak gradient 7 mmHg - AV mean gradient 4 mmHg - LVOT Vmax 0.83 m/sec - LVOT VTI 16 cm - LVOT peak gradient 3 mmHg - LVOT mean gradient 1.5 mmHg - [place] Vmax 0.54 m/sec - Name Value Normal Range TR Vmax 2.7 m/sec - TR peak gradient 29 mmHg - RAP 8 mmHg - RVSP 37 mmHg - Name Value Normal Range PV Vmax 0.54 m/sec -
[2016-11-24 13:25] VITALS: BP 120/49
--- NOTE | 2016-11-24 13:40 | PN ---
Subjective Date of Service: 11/24/16 Interval History: Pt is feeling well. She states she feels ready to go home. She had no difficult with getting in/out of bed today. She has no significant pain at this time. No SOB. Objective Active Medications: Cyclobenzaprine HCl (Flexeril Tab*) 10 mg PO TID PRN PRN Reason: PAIN Diltiazem HCl (Cardizem Cd Cap*) 120 mg PO DAILY [facility] Last Admin: 11/24/16 08:58 Dose: 120 mg Gabapentin (Neurontin Cap(*)) 600 mg PO TID [facility] Last Admin: 11/24/16 08:58 Dose: 600 mg Levalbuterol HCl (Xopenex 1.25 Mg/0.5 Ml Neb.[place]*) 1.25 mg INH Q4HR PRN PRN Reason: SOB/WHEEZING Metoprolol Tartrate (Lopressor Tab*) 25 mg PO BID [facility] Last Admin: 11/24/16 08:58 Dose: 25 mg Omeprazole (Prilosec Cap*) 20 mg PO DAILY [facility] Last Admin: 11/24/16 08:57 Dose: 20 mg Ondansetron HCl (Zofran Tab*) 4 mg PO Q6HR PRN PRN Reason: HEARTBURN Oxycodone/Acetaminophen (Percocet 5/325 Tab*) 1 tab PO Q6H PRN PRN Reason: pain Last Admin: 11/24/16 08:58 Dose: 1 tab Tiotropium [place] (Spiriva Cap.Inh*) 1 cap INH DAILY [facility] Last Admin: 11/24/16 07:35 Dose: 1 cap Zolpidem Tartrate (Ambien Tab*) 5 mg PO BEDTIME PRN PRN Reason: SLEEP Vital Signs 11/23/16 11/23/16 11/23/16 15:00 15:24 19:27 Temperature 98.3 F 98.6 F Pulse Rate 77 86 Respiratory 16 20 20 Rate Blood Pressure 120/64 122/56 (mmHg) O2 Sat by Pulse 99 100 Oximetry 11/23/16 11/23/16 11/23/16 19:37 19:38 20:00 Temperature Pulse Rate Respiratory 16 16 16 Rate Blood Pressure (mmHg) O2 Sat by Pulse Oximetry 11/23/16 11/23/16 11/23/16 21:37 21:38 23:21 Temperature 98.2 F Pulse Rate 69 Respiratory 16 16 16 Rate Blood Pressure 117/58 (mmHg) O2 Sat by Pulse 98 Oximetry 11/24/16 11/24/16 11/24/16 03:30 07:18 08:00 Temperature 97.6 F 97.3 F Pulse Rate 78 88 Respiratory 16 18 16 Rate Blood Pressure 113/53 112/61 (mmHg) O2 Sat by Pulse 98 100 Oximetry 11/24/16 11/24/16 11/24/16 08:58 10:58 11:07 Temperature 97.6 F Pulse Rate 89 Respiratory 16 16 16 Rate Blood Pressure 120/49 (mmHg) O2 Sat by Pulse 97 Oximetry Oxygen Devices in Use Now: Nasal Cannula - 2L Appearance: Middle aged female sitting up in a chair, NAD Eyes: No Scleral Icterus Ears/Nose/Mouth/Throat: Mucous Membranes Moist Respiratory: Symmetrical Chest Expansion and Respiratory Effort, Clear to Auscultation Cardiovascular: NL Sounds; No Murmurs; No JVD, RRR, - - trace-1+ pitting edema of the B/L LE Abdominal: NL Sounds; No Tenderness; No Distention Extremities: No Clubbing, Cyanosis Skin: No Rash or Ulcers, No Nodules or Sclerosis Neurological: Alert and Oriented x 3 Result Diagrams: 11/24/16 04:15 11/24/16 04:15 Additional Lab and Data: Lab Results 11/22/16 11/22/16 11/22/16 Range/Units 15:10 15:10 15:10 WBC 10.3 (3.5-10.8) 10^3/ul RBC 4.93 (4.0-5.4) 10^6/ul Hgb 12.3 (12.0-16.0) g/dl Hct 39 (35-47) % MCV 80 (80-97) fL MCH 25 L (27-31) pg MCHC 31 (31-36) g/dl RDW 19 H (10.5-15) % Plt Count 371 (150-450) 10^3/ul MPV 12 H (7.4-10.4) um3 Neut % (Auto) 79.7 (38-83) % Lymph % (Auto) 11.6 L (25-47) % [place] % (Auto) 8.2 (1-9) % Eos % (Auto) 0.1 (0-6) % Baso % (Auto) 0.4 (0-2) % Absolute Neuts (auto) 8.2 H (1.5-7.7) 10^3/ul Absolute Lymphs (auto) 1.2 (1.0-4.8) 10^3/ul Absolute Monos (auto) 0.8 (0-0.8) 10^3/ul Absolute Eos (auto) 0 (0-0.6) 10^3/ul Absolute Basos (auto) 0 (0-0.2) 10^3/ul Absolute Nucleated RBC 0.01 10^3/ul Nucleated RBC % 0.1 Normal RBC Morphology Not Reportable Hypochromasia 2+ Target Cells 2+ Elliptocytes 1+ Acanthocytes (Spur) 2+ INR (Anticoag Therapy) 2.54 H (0.89-1.11) APTT 40.1 H (26.0-36.3) seconds Sodium 136 (133-145) mmol/L Potassium 4.0 (3.5-5.0) mmol/L Chloride 98 L (101-111) mmol/L Carbon Dioxide 30 (22-32) mmol/L Anion Gap 8 (2-11) mmol/L BUN 19 (6-24) mg/dL Creatinine 1.18 H (0.51-0.95) mg/dL Est GFR ( Amer) 59.5 (>60) Est GFR (Non-Af Amer) 46.3 (>60) BUN/Creatinine Ratio 16.1 (8-20) Glucose 136 H (70-100) mg/dL Lactic Acid (0.5-2.0) mmol/L Calcium 10.2 (8.6-10.3) mg/dL Magnesium 1.7 L (1.9-2.7) mg/dL Total Bilirubin 1.80 H (0.2-1.0) mg/dL AST 66 H (13-39) U/L ALT 16 (7-52) U/L Alkaline Phosphatase 106 H (34-104) U/L Total Creatine Kinase 2190 H (10-223) U/L CK-MB (CK-2) 28.5 H (0.6-6.3) ng/mL Troponin I 0.18 H* (<0.04) ng/mL B-Natriuretic Peptide ( - 100) pg/mL Total Protein 7.8 (6.4-8.9) g/dL Albumin 3.8 (3.2-5.2) g/dL Globulin 4.0 (2-4) g/dL Albumin/Globulin Ratio 1.0 (1-3) 11/22/16 11/22/16 Range/Units 15:10 15:10 WBC (3.5-10.8) 10^3/ul RBC (4.0-5.4) 10^6/ul Hgb (12.0-16.0) g/dl Hct (35-47) % MCV (80-97) fL MCH (27-31) pg MCHC (31-36) g/dl RDW (10.5-15) % Plt Count (150-450) 10^3/ul MPV (7.4-10.4) um3 Neut % (Auto) (38-83) % Lymph % (Auto) (25-47) % [place] % (Auto) (1-9) % Eos % (Auto) (0-6) % Baso % (Auto) (0-2) % Absolute Neuts (auto) (1.5-7.7) 10^3/ul Absolute Lymphs (auto) (1.0-4.8) 10^3/ul Absolute Monos (auto) (0-0.8) 10^3/ul Absolute Eos (auto) (0-0.6) 10^3/ul Absolute Basos (auto) (0-0.2) 10^3/ul Absolute Nucleated RBC 10^3/ul Nucleated RBC % Normal RBC Morphology Hypochromasia Target Cells Elliptocytes Acanthocytes (Spur) INR (Anticoag Therapy) (0.89-1.11) APTT (26.0-36.3) seconds Sodium (133-145) mmol/L Potassium (3.5-5.0) mmol/L Chloride (101-111) mmol/L Carbon Dioxide (22-32) mmol/L Anion Gap (2-11) mmol/L BUN (6-24) mg/dL Creatinine (0.51-0.95) mg/dL Est GFR ( Amer) (>60) Est GFR (Non-Af Amer) (>60) BUN/Creatinine Ratio (8-20) Glucose (70-100) mg/dL Lactic Acid 2.0 (0.5-2.0) mmol/L Calcium (8.6-10.3) mg/dL Magnesium (1.9-2.7) mg/dL Total Bilirubin (0.2-1.0) mg/dL AST (13-39) U/L ALT (7-52) U/L Alkaline Phosphatase (34-104) U/L Total Creatine Kinase (10-223) U/L CK-MB (CK-2) (0.6-6.3) ng/mL Troponin I (<0.04) ng/mL B-Natriuretic Peptide 1127 H ( - 100) pg/mL Total Protein (6.4-8.9) g/dL Albumin (3.2-5.2) g/dL Globulin (2-4) g/dL Albumin/Globulin Ratio (1-3) Assess/Plan/Problems-Billing Ms Roy is a 61 yo F who has a h/o COPD, afib and CHF who presented to the ER after being found down on her floor for approximately 18-19hr and was admitted for treatment of rhabdomyolysis and elevated troponin. - Patient Problems (1) Traumatic rhabdomyolysis Current Visit: Yes Status: Acute Code(s): T79.6XXA - TRAUMATIC ISCHEMIA OF MUSCLE, INITIAL ENCOUNTER SNOMED Code(s): 710651266 Comment: The patient had a fall with resultant development of traumatic rhabdomyolysis. Her CPK is down further today. She has done well with PT and is ready for d/c home. (2) HTN (hypertension) Current Visit: Yes Status: Chronic Code(s): I10 - ESSENTIAL (PRIMARY) HYPERTENSION SNOMED Code(s): 65408329 Comment: BP is under good control. Continue home medication regimen. (3) COPD (chronic obstructive pulmonary disease) Current Visit: Yes Status: Chronic Code(s): J44.9 - CHRONIC OBSTRUCTIVE PULMONARY DISEASE, UNSPECIFIED SNOMED Code(s): 99791443 Comment: No signs of exacerbation. Continue current inhaler/neb regimen. (4) GERD (gastroesophageal reflux disease) Current Visit: Yes Status: Chronic Code(s): K21.9 - GASTRO-ESOPHAGEAL REFLUX DISEASE WITHOUT ESOPHAGITIS SNOMED Code(s): 851708368 Comment: Continue omeprazole. (5) DVT prophylaxis Current Visit: Yes Status: Acute Code(s): NVK5665 - SNOMED Code(s): 427884267 Comment: Supratherapeutic INR (6) Full code status Current Visit: Yes Status: Acute Code(s): Z78.9 - OTHER SPECIFIED HEALTH STATUS SNOMED Code(s): 125215247
--- NOTE | 2016-11-25 04:00 | DS ---
DISCHARGE SUMMARY: DATE OF ADMISSION: 11/22/16 DATE OF DISCHARGE: 11/24/16 PRIMARY CARE PROVIDER: Dr. Parkinson. PRINCIPAL DIAGNOSES: 1. Traumatic rhabdomyolysis. 2. Elevated troponin secondary to rhabdomyolysis. SECONDARY DIAGNOSES: 1. Chronic obstructive pulmonary disease. 2. Atrial fibrillation. 3. History of diastolic congestive heart failure. DISCHARGE MEDICATIONS: 1. Tramadol 50 mg p.o. q.6 hours p.r.n. pain. 2. Percocet 5/325 one tab p.o. q.6 hours p.r.n. pain. 3. Robitussin AC 5 mL p.o. q.h.s. p.r.n. cough. 4. Ambien 5 mg p.o. q.h.s. p.r.n. insomnia. 5. Coumadin 5 mg p.o. daily to be started on 11/25/16. 6. Spiriva 1 puff inhaled daily. 7. Protonix 40 mg p.o. daily. 8. Orphenadrine 100 mg p.o. b.i.d. 9. Zofran 4 mg p.o. q.6 hours p.r.n. nausea. 10. Metoprolol tartrate 25 mg p.o. b.i.d. 11. Melatonin 5 mg p.o. q.h.s. 12. Magnesium oxide 400 mg p.o. daily. 13. Xopenex 1 neb inhaled q.4 hours p.r.n. shortness of breath. 14. Gabapentin 600 mg p.o. t.i.d. 15. Lasix 20 mg p.o. daily. 16. Diltiazem CD 120 mg p.o. daily. 17. Flexeril 10 mg p.o. t.i.d. p.r.n. spasm. 18. Zyrtec 10 mg p.o. daily. Discontinued medications: Tylenol with codeine 1 to 2 tabs p.o. q.4 hours p.r.n. pain. HOSPITAL COURSE: Ms. Roy is a 61-year-old female who presented to the emergency room on 11/22/16 after being found on the floor for approximately 18 to 19 hours after sustaining a mechanical fall. The patient was found to have an elevated CPK consistent with traumatic rhabdomyolysis and an elevated troponin. The patient was aggressively hydrated and her CPK has trended down to the 650 range on the day of discharge. She did not have any evidence of kidney dysfunction related to the rhabdomyolysis. In evaluating the elevated troponin, her CK-MB presented as noted to be only 1.3% to 1.4%. This makes me believe that the elevated troponin was likely secondary to the rhabdomyolysis and not a cardiac issue. The patient did undergo transthoracic echocardiogram, which revealed a low normal EF, but no wall motion abnormalities. The patient has not had any further workup for the elevated troponin. Overall, the patient is feeling well and ready for discharge home. I have not made any adjustments to her home medication regimen outside of holding her Coumadin tonight as her INR is supratherapeutic and requesting an INR for tomorrow as well as discontinuing the Tylenol plus Codeine as she has 2 other pain medications ordered. FOLLOWUP CONCERNS: The patient is being discharged home today, 11/24/16. ACTIVITY LEVEL: As tolerated. DIET: Low fat. CONDITION ON DISCHARGE: Stable. TIME SPENT: 35 minutes were spent discharging this patient. CC: Dr. Parkinson* [id number]/CPS #: [id number] MTDD
== END 2016-11-24 15:07 | disposition home health service (06) | DRG 565 ==
LOC: ED 14:17 → MEDTELE 19:16
PROVIDERS: ADMIT Hospitalist; ATTEND Hospitalist
DX: T79.6XXA Traumatic ischemia of muscle, initial encounter (principal); J96.11 Chronic respiratory failure with hypoxia; I11.0 Hypertensive heart disease with heart failure; I50.32 Chronic diastolic (congestive) heart failure; I69.359 Hemiplegia and hemiparesis following cerebral infarction affecting unspecified side; W18.30XA Fall on same level, unspecified, initial encounter; I48.91 Unspecified atrial fibrillation; J44.9 Chronic obstructive pulmonary disease, unspecified; H54.7 Unspecified visual loss; M19.90 Unspecified osteoarthritis, unspecified site; R79.1 Abnormal coagulation profile; T45.515A Adverse effect of anticoagulants, initial encounter; K21.9 Gastro-esophageal reflux disease without esophagitis; K44.9 Diaphragmatic hernia without obstruction or gangrene; G47.30 Sleep apnea, unspecified; E66.9 Obesity, unspecified; R79.89 Other specified abnormal findings of blood chemistry; Z82.49 Family history of ischemic heart disease and other diseases of the circulatory system; Z68.39 Body mass index [BMI] 39.0-39.9, adult; Y92.009 Unspecified place in unspecified non-institutional (private) residence as the place of occurrence of the external cause; Z86.718 Personal history of other venous thrombosis and embolism; Z98.84 Bariatric surgery status; Z87.01 Personal history of pneumonia (recurrent); Z90.49 Acquired absence of other specified parts of digestive tract; Z83.79 Family history of other diseases of the digestive system; Z87.891 Personal history of nicotine dependence; Z86.711 Personal history of pulmonary embolism; Z99.81 Dependence on supplemental oxygen; Z88.8 Allergy status to other drugs, medicaments and biological substances; Z88.1 Allergy status to other antibiotic agents; Z88.0 Allergy status to penicillin; I69.398 Other sequelae of cerebral infarction; Z79.01 Long term (current) use of anticoagulants
CPT/HCPCS: 36415; 70450; 70486; 71010; 72125; 72170; 80048; 80053; 82550; 82553; 83605; 83735; 83880; 84484; 85025; 85027; 85610; 85730; 93005; 93306; 94640; A9270-GY

== ENCOUNTER 2017-02-24 14:48 | Emergency (ER) | payer MEDICARE ==
--- NOTE | 2017-02-24 16:48 | RAD ---
INDICATION: Left shoulder injury. TECHNIQUE: 4 views of the left shoulder were obtained. FINDINGS: The bones are in normal alignment. No fracture is seen. Joint spaces appear maintained. IMPRESSION: NO EVIDENCE OF FRACTURE.
[2017-02-24] MEDS ORDERED: Ketorolac INJ* 60 MG/2 ML VIAL IM ONE (16:53)
[2017-02-24 18:35] VITALS: BP 157/80
--- NOTE | 2017-02-25 11:58 | ED ---
Jerald Clancy Nikita, scribed for Patel Leong MD on 02/24/17 at 1610 . Upper Extremity Pain - HPI Summary HPI Summary: Pt is a 62 y/o F BIBA who presents to ED c/o L shoulder pain s/p mechanical fall. At approximately 1415 today the pt was walking off a curb, using her walker, and fell "in slow motion." Pt report she landed on the L shoulder and was unable to get up after fall. Pt had a sling applied [employer] and pain is currently moderate, ranked 6/10. Sx aggravated by movement, alleviated by nothing. Denies any other pain including hip and knee pain. - History of Current Complaint Chief Complaint: Yazan Stated Complaint: LT SHOUDER PAIN Time Seen by Provider: 02/24/17 15:34 Hx Obtained From: Patient Mechanism Of Injury: Fall From A Standing Position Onset/Duration: Started Hours Ago, Still Present Severity Currently: Moderate - 6/10 Pain Location: Shoulder - Left Aggravating Factor(s): Movement Alleviating Factor(s): Nothing Associated Signs & Symptoms: Positive: Negative - Allergies/Home Medications Allergies/Adverse Reactions: Allergies Allergy/AdvReac Type Severity Reaction Status Date / Time Amoxicillin [From Augmentin] Allergy Palpitation Verified 02/24/17 15:02 s Clavulanic Acid Allergy Palpitation Verified 02/24/17 15:02 [From Augmentin] s Albuterol AdvReac Tachycardia Verified 02/24/17 15:02 PMH/Surg Hx/FS Hx/Imm Hx Endocrine/Hematology History: Reports: Hx Anticoagulant Therapy - on Coumadin, Hx Blood Disorders - TTP, Hx Blood Transfusions, Hx Thyroid Disease - s/p successful radio-iodine therapy, Hx Anemia, Other Endocrine/Hematological Disorders - TPP, hx bleeding Denies: Hx Diabetes, Hx Unexplained Bleeding - hemetemesis Cardiovascular History: Reports: Hx Congestive Heart Failure, Hx Deep Vein Thrombosis, Hx Embolism, Hx Hypertension, Other Cardiovascular Problems/ Disorders - DVT Denies: Hx Pacemaker/ICD, Hx Rheumatic Fever, Hx Syncope Respiratory History: Reports: Hx Asthma, Hx Chronic Bronchitis - frequent bronchitis, not chronic, Hx Chronic Obstructive Pulmonary Disease (COPD) - chronic hypoxic resp failure, on 2L O2, Hx Pneumonia, Hx Pulmonary Edema, Hx Pulmonary Embolism, Hx Seasonal Allergies, Hx Sleep Apnea - has BIPAP at home, Other Respiratory Problems/Disorders - wears O2 at home GI History: Reports: Hx Gall Bladder Disease - removed 1979, Hx Gastroesophageal Reflux Disease, Hx Gastrointestinal Bleed - October 2012 admission, Hx Hiatal Hernia, Other GI Disorders - s/p bariatric surgery, hx GI bleed Denies: Hx Jaundice History: Denies: Hx Renal Disease Musculoskeletal History: Reports: Hx Arthritis, Hx Back Problems - neck, Hx Bursitis, Other Musculoskeletal History - lymphedema, goiter Denies: Hx Rheumatoid Arthritis, Hx Gout, Hx Orthopedic Injury, Hx Osteoporosis Sensory History: Reports: Hx Contacts or Glasses, Hx Vision Problem - 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 Denies: Hx Hearing Aid, Hx Hearing Problem Opthamlomology History: Reports: Hx Contacts or Glasses, Hx Vision Problem - 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 GROIN - SKIN GRAFTING DUE TO BLEEDING AND INFECTION. TONSILECTOMY Hx Anesthesia Reactions: No - Immunization History Date of Tetanus Vaccine: unknown Date of Influenza Vaccine: UTD Infectious Disease History: No Infectious Disease History: Denies: Hx Clostridium Difficile, Hx Hepatitis, Hx Human Immunodeficiency Virus (HIV), Hx Shingles, Hx Tuberculosis, Traveled Outside the [place] in Last 30 Days - Family History Known Family History: Positive: Other - parents fhx gastric ulcers - Social History Alcohol Use: None Hx Substance Use: No Substance Use Type: Reports: None Hx Tobacco Use: Yes Smoking Status (MU): Former Smoker Type: Cigarettes Amount Used/How Often: 1-2 Length of Time of Smoking/Using Tobacco: 32 Have You Smoked in the Last Year: No Review of Systems Negative: Fever Positive: Arthralgia - L shoulder pain; NEGATIVE: Hip and neck pain All Other Systems Reviewed And Are Negative: Yes Physical Exam Triage Information Reviewed: Yes Vital Signs On Initial Exam: Initial Vitals Pulse Ox 2 02/24/17 14:53 Vital Signs Reviewed: Yes Appearance: Positive: Well-Appearing, No Pain Distress Skin: Positive: Warm, Skin Color Reflects Adequate Perfusion, Dry Head/Face: Positive: Normal Head/Face Inspection Eyes: Positive: Normal ENT: Positive: Normal ENT inspection Neck: Positive: Supple, Nontender Respiratory/Lung Sounds: Positive: Clear to Auscultation, Breath Sounds Present Cardiovascular: Positive: RRR Abdomen Description: Positive: Nontender, Soft Bowel Sounds: Positive: Present Musculoskeletal: Positive: Other - Tender over her posterior shoulder, not very tender to passive ROM Neurological: Positive: Normal Psychiatric: Positive: Normal, Affect/Mood Appropriate Diagnostics - Vital Signs Vital Signs Temp Pulse Resp BP Pulse Ox 02/24/17 14:56 97.4 F 75 14 132/60 97 02/24/17 14:53 2 - Laboratory Lab Statement: Any lab studies that have been ordered have been reviewed, and results considered in the medical decision making process. - Radiology L shoulder XR Xray Interpretation: No Acute Changes - NO EVIDENCE OF FRACTURE. Radiology Interpretation Completed By: Radiologist Re-Evaluation - Re-Evaluation First Eval Re-Evaluation Time: 17:36 Change: Improved Comment: Discussed XR results and discharge plan. Will get a shoulder immobilizer for shoulder injury. Course/Dx - Course Course Of Treatment: Ms. Roy fell onto her left shoulder and presented with a lot of pain with movement. Her x-ray was negative and she was placed in an immobilizer, warned not to use it for longer than a week and sent for Ortho F/U. - Diagnoses Provider Diagnoses: Shoulder injury Discharge - Discharge Plan Condition: Stable Disposition: HOME Patient Education Materials: Shoulder Pain (ED) Referrals: Scott Parkinson MD [Primary Care Provider] - 7 Days (Follow up within a week.) The documentation as recorded by the Jerald case Nikita accurately reflects the service I personally performed and the decisions made by , Patel Leong MD.
== END 2017-02-24 18:37 | disposition home or self-care (01) ==
LOC: ED 14:48
DX: M25.512 Pain in left shoulder (principal); Z87.891 Personal history of nicotine dependence
CPT/HCPCS: 96372; 99283; J1885

== ENCOUNTER 2017-07-25 01:40 | Inpatient (IN) | payer MEDICARE ==
[2017-07-25] MEDS ORDERED: Levalbuterol 1.25MG/0.5ML NEB INH ONE ×2 (02:04→03:16)
[2017-07-25] MEDS ORDERED: Levofloxacin 750 MG IVPREMIX(* 750 MG/150 ML BAG IVPB ONE (02:05)
[2017-07-25] MEDS ORDERED: methylPREDNISolone 125 MG* 2 ML VIAL IV ONE (02:05)
[2017-07-25] MEDS ORDERED: Furosemide IV* 10 MG/ML VIAL (40 MG) IV ONE (02:41)
[2017-07-25 02:46] LABS: INR 1.96 (0.77-1.02)
[2017-07-25 02:48] LABS: Hematocrit 37 % (35-47); Hemoglobin 11.7 g/dl (12.0-16.0); Mean Corpuscular HGB Conc 31 g/dl (31-36); Mean Corpuscular Hemoglobin 25 pg (27-31); Mean Corpuscular Volume 81 fL (80-97); Mean Platelet Volume 11 um3 (7.4-10.4); Platelet Count 271 10^3/ul (150-450); Red Blood Count 4.62 10^6/ul (4.0-5.4); Red Cell Distribution Width 19 % (10.5-15); White Blood Count 6.9 10^3/ul (3.5-10.8)
[2017-07-25 02:49] LABS: ABS Basophils 0.1 10^3/ul (0-0.2); ABS Eosinophils 0.1 10^3/ul (0-0.6); ABS Lymphocytes 0.9 10^3/ul (1.0-4.8); ABS Monocytes 0.8 10^3/ul (0-0.8); ABS Nucleated RBC 0 10^3/ul; Eosinophil % 0.8 % (0-6); Lymphocyte % 13.2 % (25-47); Nucleated Red Blood Cells % 0.1
[2017-07-25] MEDS ORDERED: Magnesium Sulfate 2 GM IV* 2 GM/50 ML BAG IVPB ONE (03:15)
[2017-07-25 03:20] LABS: EGFR Non-African American 56.5 (>60)
[2017-07-25 03:43] LABS: Urine Appearance Clear; Urine Blood 2+ (Negative); Urine Color Yellow; Urine Ketones Trace (Negative); Urine Protein 1+(30 mg/dL) (Negative); Urine Specific Gravity 1.015 (1.010-1.030); Urine Urobilinogen Negative (Negative)
--- NOTE | 2017-07-25 04:46 | ED ---
Josie Clancy Nilda, scribed for Susie Clancy MD on 07/25/17 at 0207 . Shortness of Breath - HPI Summary HPI Summary: This patient is a 62 year old F BIBA with a chief complaint of constant SOB while at rest for the past 3 days. Patient reports fever (for 4 days, now resolved) and edema, but denies pain. PMHx includes CHF and lymphedema in left leg. Symptoms aggravated and alleviated by nothing. Pt states she had one nebulizer treatment [employer] with no relief. Medications include Lasix 40 mg. - History of Current Complaint Chief Complaint: EDShortnessOfBreath Time Seen by Provider: 07/25/17 01:49 Hx Obtained From: Patient Onset/Duration: Sudden Onset, Lasting Days, Still Present Timing: Constant Dyspnea At: Rest Aggrevating Factors: Nothing Alleviating Factors: Nothing Associated Signs & Symptoms: Fever - resolved, Edema - Allergy/Home Medications Allergies/Adverse Reactions: Allergies Allergy/AdvReac Type Severity Reaction Status Date / Time Amoxicillin [From Augmentin] Allergy Palpitation Verified 02/24/17 15:02 s Clavulanic Acid Allergy Palpitation Verified 02/24/17 15:02 [From Augmentin] s Albuterol AdvReac Tachycardia Verified 02/24/17 15:02 PMH/Surg Hx/FS Hx/Imm Hx Endocrine/Hematology History: Reports: Hx Anticoagulant Therapy - on Coumadin, Hx Blood Disorders - TTP, Hx Blood Transfusions, Hx Thyroid Disease - s/p successful radio-iodine therapy, Hx Anemia, Other Endocrine/Hematological Disorders - TPP, hx bleeding Denies: Hx Diabetes, Hx Unexplained Bleeding - hemetemesis Cardiovascular History: Reports: Hx Congestive Heart Failure, Hx Deep Vein Thrombosis, Hx Embolism, Hx Hypertension, Other Cardiovascular Problems/ Disorders - DVT Denies: Hx Pacemaker/ICD, Hx Rheumatic Fever, Hx Syncope Respiratory History: Reports: Hx Asthma, Hx Chronic Bronchitis - frequent bronchitis, not chronic, Hx Chronic Obstructive Pulmonary Disease (COPD) - chronic hypoxic resp failure, on 2L O2, Hx Pneumonia, Hx Pulmonary Edema, Hx Pulmonary Embolism, Hx Seasonal Allergies, Hx Sleep Apnea - has BIPAP at home, Other Respiratory Problems/Disorders - wears O2 at home GI History: Reports: Hx Gall Bladder Disease - removed 1979, Hx Gastroesophageal Reflux Disease, Hx Gastrointestinal Bleed - October 2012 admission, Hx Hiatal Hernia, Other GI Disorders - s/p bariatric surgery, hx GI bleed Denies: Hx Jaundice History: Denies: Hx Renal Disease Musculoskeletal History: Reports: Hx Arthritis, Hx Back Problems - neck, Hx Bursitis, Other Musculoskeletal History - lymphedema, goiter Denies: Hx Rheumatoid Arthritis, Hx Gout, Hx Orthopedic Injury, Hx Osteoporosis Sensory History: Reports: Hx Contacts or Glasses, Hx Vision Problem - 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 Denies: Hx Hearing Aid, Hx Hearing Problem Opthamlomology History: Reports: Hx Contacts or Glasses, Hx Vision Problem - 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 GROIN - SKIN GRAFTING DUE TO BLEEDING AND INFECTION. TONSILECTOMY Hx Anesthesia Reactions: No - Immunization History Date of Tetanus Vaccine: unknown Date of Influenza Vaccine: UTD Infectious Disease History: No Infectious Disease History: Denies: Hx Clostridium Difficile, Hx Hepatitis, Hx Human Immunodeficiency Virus (HIV), Hx Shingles, Hx Tuberculosis, Traveled Outside the [place] in Last 30 Days - Family History Known Family History: Positive: Other - parents fhx gastric ulcers - Social History Lives: Alone Alcohol Use: None Hx Substance Use: No Substance Use Type: Reports: None Hx Tobacco Use: Yes Smoking Status (MU): Former Smoker Type: Cigarettes Amount Used/How Often: 1-2 Length of Time of Smoking/Using Tobacco: 32 Have You Smoked in the Last Year: No Review of Systems Positive: Fever, Other - negative pain Positive: Shortness Of Breath Positive: Edema All Other Systems Reviewed And Are Negative: Yes Physical Exam - Summary Physical Exam Summary: VITAL SIGNS: Reviewed. GENERAL: Patient is a well-developed and nourished female who is lying comfortable in the stretcher. HEAD AND FACE: No signs of trauma. No ecchymosis, hematomas or skull depressions. No sinus tenderness. EYES: PERRLA, EOMI x 2, No injected conjunctiva, no nystagmus. EARS: Hearing grossly intact. Ear canals and tympanic membranes are within normal limits. MOUTH: Oropharynx within normal limits. NECK: Supple, trachea is midline, no adenopathy, no JVD, no carotid bruit, no c- spine tenderness, neck with full ROM. CHEST: Symmetric, no tenderness at palpation LUNGS: Bilat expiratory and inspiratory wheezes. CVS: Regular rate and rhythm, S1 and S2 present, no murmurs or gallops appreciated. ABDOMEN: Soft, non-tender. No signs of distention. No rebound no guarding, and no masses palpated. Bowel sounds are normal. EXTREMITIES: FROM in all major joints, no cyanosis or clubbing. Bilat LE edema 2 + NEURO: Alert and oriented x 3. No acute neurological deficits. Speech is normal and follows commands. SKIN: Dry and warm Triage Information Reviewed: Yes Vital Signs On Initial Exam: Initial Vitals Temp Pulse Resp BP Pulse Ox 98 F 100 26 171/101 100 07/25/17 01:45 07/25/17 01:45 07/25/17 01:45 07/25/17 01:45 07/25/17 01:45 Vital Signs Reviewed: Yes Diagnostics - Vital Signs Vital Signs Temp Pulse Resp BP Pulse Ox 07/25/17 01:45 98 F 100 26 171/101 100 - Laboratory Result Diagrams: 07/25/17 01:26 07/25/17 01:26 Lab Statement: Any lab studies that have been ordered have been reviewed, and results considered in the medical decision making process. - Radiology CXR Radiology Interpretation Completed By: ED Physician - Bilat interstitial infiltrate more over the bases. PNA cannot be ruled out. - EKG 225 Cardiac Rate: Other Rate EKG Rhythm: Atrial Fibrillation - 101 bpm EKG Interpretation: L-axis deviation. No ischemic changes Re-Evaluation - Re-Evaluation First Eval Re-Evaluation Time: 03:13 Comment: Reviewed imaging and lab results with pt. Discussed plan to admit. Course/Dx - Course Assessment/Plan: Pt is a 62 y/o F with Hx of COPD, CHF, and A-fib who presents to ED with dyspnea for last few days and fever. CXR consistent with PNA and volume overload. Pt was wheezing on exam. Pt did not receive IV fluid because shes in volume overload due to CHF. 0312 Dr. Peña (hospitalist) agrees to admit pt. Pt is stable and will be admitted with Dx of PNA, CHF, and COPD. Pt understands and is agreeable with this plan. - Diagnoses Provider Diagnoses: PNA (pneumonia), CHF (congestive heart failure), COPD (chronic obstructive pulmonary disease) - Physician Notifications Discussed Care of Patient With: Russel Peña - Hospitalist Time Discussed With Above Provider: 03:12 Instructed by Provider To: Admit As Inpatient Discharge - Discharge Plan Condition: Stable Disposition: ADMITTED TO [facility] Referrals: Scott Parkinson MD [Primary Care Provider] - The documentation as recorded by the Josie case Nilda accurately reflects the service I personally performed and the decisions made by Julieth beltran Abdul, MD.
[2017-07-25] MEDS: Bumetanide IV* 0.25 MG/ML 4 ML VIAL SLOW PUSH SCH ×2 (05:55→17:55)
--- NOTE | 2017-07-25 07:47 | RAD ---
INDICATION: Short of breath COMPARISON: November 22, 2016 TECHNIQUE: An AP portable view obtained at 0217 hours is submitted. FINDINGS: Bones/Soft Tissues: There are no acute bony findings. Cardiomediastinal: The cardiac silhouette is enlarged. There is central pulmonary vascular prominence with interstitial and alveolar edema. Lungs: Interstitial and alveolar infiltrate consistent with edema. Given these diffuse abnormalities, coexistent infiltrates are not excluded. Pleura: Suspect small bilateral effusions. Other: None IMPRESSION: MODERATE VASCULAR CONGESTION WITH MILD IMPROVEMENT
[2017-07-25] MEDS: Tiotropium CAP.INH* CAP.INH/18 MCG (USE ORDER SET !) INH SCH (08:25)
[2017-07-25] MEDS: Omeprazole CAP* 20 MG PO SCH (08:57)
[2017-07-25] MEDS: Metoprolol Tartrate TAB* 25 MG PO SCH ×2 (08:58→21:36)
[2017-07-25] MEDS: traMADol TAB* 50 MG PO PRN ×2 (08:58→17:53)
[2017-07-25] MEDS: Magnesium Oxide TAB* 400 MG PO SCH (08:59)
[2017-07-25] MEDS: Diltiazem CD CAP* 120 MG PO SCH (08:59)
[2017-07-25] MEDS: predniSONE TAB* 20 MG PO SCH (08:59)
[2017-07-25] MEDS ORDERED: Spiriva Inhaler DEVICE* 1 EACH DEVICE INH ONE (09:00)
[2017-07-25] MEDS ORDERED: Perflutren Lipid Microsphere* 3 ML VIAL ONE (10:15)
[2017-07-25 11:28] LABS: EGFR Non-African American 52.8 (>60)
--- NOTE | 2017-07-25 12:02 | ECHO ---
Patient: LOBO WEEKS [facility] Rec#: [id number] : 1955 Date: 07/25/2017 Age: 62y Height: 177.8 cm / 70.0 in Weight: 113.4 kg / 249.9 lbs Sex: F BSA: 2.29 Room#: [facility] Admit Date#: 07/25/2017 Type: Inpatient Referring: Russel Peña Reading: Syd Bowser MD Belting Cutter: Naa Li RDCS CC: Scott Parkinson MD Transthoracic Echocardiogram Indication: Acute CHF BP: 156/81 HR: 112 Rhythm: A-Fib Findings History: COPD, CVA, A-fib, CHF, DVT, PE, SVT, former smoker. Technical Comments: The study is technically difficult. The study is technically limited due to patient body habitus. Completed at 1100. Left Ventricle: The left ventricular chamber size is normal. Moderate concentric left ventricular hypertrophy is observed. There is a prominent septal knuckle. Global left ventricular wall motion and contractility are within normal limits. There is normal left ventricular systolic function. The estimated ejection fraction is 60-65%. The assessment of diastolic function is non-diagnostic. Left Atrium: The left atrium is not well visualized. The left atrium is moderate to severely dilated. Right Ventricle: Moderator Band present. The right ventricle is mild to moderately dilated. The right ventricular global systolic function is low normal. Right Atrium: The right atrial cavity size is severely dilated. Aortic Valve: The aortic valve is trileaflet. The aortic valve leaflets are mildly thickened. There is evidence of aortic sclerosis without stenosis. There is no evidence of aortic regurgitation. There is no evidence of aortic stenosis. Mitral Valve: There is mitral annular calcification. The mitral valve leaflets are mildly thickened. There is mild mitral regurgitation. There is no evidence of mitral stenosis. Tricuspid Valve: The tricuspid valve leaflets are normal. There is mild to moderate tricuspid regurgitation.Not seen well in multiple views, may be underestimated. The right ventricular systolic pressure is estimated at 49 mmHg. There is evidence of moderate pulmonary hypertension. There is no tricuspid stenosis. Pulmonic Valve: The pulmonic valve appears normal. There is a trace pulmonic regurgitation. There is no pulmonic stenosis. Pericardium: There is no significant pericardial effusion. A pericardial fat pad is visualized. Aorta: There is mild dilatation of the ascending aorta. There is no dilatation of the aortic arch. The aortic root is normal in size. Pulmonary Artery: The main pulmonary artery appears normal. Venous: The inferior vena cava is dilated. There is less than 50% respiratory change in the inferior vena cava dimension. Contrast: Definity was used to optimize study. 2 mL of diluted Definity was utilized. Intravenous contrast was used to enhance endocardial border definition. Conclusions The study is technically limited due to patient body habitus. Suboptimal and at times off axis views limits accurate interpretation. Moderate concentric left ventricular hypertrophy is observed. Global left ventricular wall motion and contractility are within normal limits. The estimated ejection fraction is 60-65%. There is mild mitral regurgitation. There is mild to moderate tricuspid regurgitation.Not seen well in multiple views, may be underestimated. There is evidence of moderate pulmonary hypertension. There is a trace pulmonic regurgitation. Compared to report of study from 11/11/2013 the degree of tricuspid regurgitation is less, however it may be due to poor visualization. Overall LV systolic function is better (was 50-55%). Measurements Name Value Normal Range RVIDd (AP) 2D 3.3 cm (0.9 - 2.6) RVDdMajor (2D) 5.2 cm (2.2 - 4.4) RAd ISD 4CH 8.9 cm (3.4 - 4.9) RA (A4C)W 6.8 cm (2.9 - 4.6) IVSd (2D) 1.4 cm (0.6 - 1) LVPWd (2D) 1.4 cm (0.6 - 1) LVIDd (2D) 4.2 cm (3.6 - 5.4) LVIDs (2D) 3.6 cm - LV FS (2D) 14 % (25 - 45) Aortic Annulus 1.6 cm (1.4 - 2.6) Ao root diameter (2D) 3.4 cm (2.1 - 3.5) Ascending Ao 3.5 cm (2.1 - 3.4) Aortic arch 2.2 cm (1.8 - 3.4) LA dimension (AP) 2D 4.3 cm (2.3 - 3.8) LAd ISD 4CH 7 cm (2.9 - 5.3) LA ISD 4CH W 5.9 cm (2.5 - 4.5) Name Value Normal Range LA ESV SP 4CH (A/L) 242 ml - LA ESV SP 2CH (A/L) 120 ml - LA ESV BP (A/L) 172 ml - LA ESV BP (A/L) index 75 ml/m2 - LA ESV SP 4CH (MOD) 205 ml - LA ESV SP 2CH (MOD) 109 ml - Name Value Normal Range MV E-wave Vmax 0.88 m/sec - MV deceleration time 114.9 msec - LV septal e' Vmax 0.09 m/sec - LV lateral e' Vmax 0.12 m/sec - LV E:e' septal ratio 9.78 ratio - LV E:e' lateral ratio 7.33 ratio - Name Value Normal Range AV Vmax 1.8 m/sec - AV VTI 28.18 cm - AV peak gradient 13.9 mmHg - AV mean gradient 7.25 mmHg - LVOT diameter 2.1 cm - LVOT Vmax 0.99 m/sec - LVOT VTI 18.67 cm - LVOT peak gradient 3.98 mmHg - LVOT mean gradient 2.44 mmHg - NORMA (continuity Vmax) 1.9 cm2 - NORMA (continuity VTI) 2.29 cm2 - STAN[place]ORD Vmax 0.74 m/sec - Name Value Normal Range TR Vmax 2.9 m/sec - TR peak gradient 34 mmHg - RAP 15 mmHg - RVSP 49 mmHg - IVC diameter 3 cm - Name Value Normal Range PV Vmax 1.02 m/sec - PV peak gradient 4.3 mmHg -
--- NOTE | 2017-07-25 13:16 | HP ---
HISTORY AND PHYSICAL: DATE OF ADMISSION: 07/25/17 ADMITTING PROVIDER: Russel Peña MD. PRIMARY CARE PROVIDER: Scott Parkinson MD. CHIEF COMPLAINT: Shortness of breath, wheezing, subjective fevers. HISTORY OF PRESENT ILLNESS: Ms. Jess Roy is a 62-year-old female with past medical history of paroxysmal AFib, on Coumadin; congestive heart failure; chronic hypoxic respiratory failure secondary to COPD, on 2 L home oxygen; asthma, presenting with increasing shortness of breath 6 days prior to admission , starting on 07/19/17. The patient started developing a sneeze and thought she had cold like symptoms. Next day she developed subjective fevers, felt miserable. Next day, 07/21/17 developed a cough with clear scant sputum production. Monday she developed trouble breathing, which was progressive throughout the next 3 days up until admission. She denied any palpitations, but historically cannot sense when she has her atrial fibrillation episodes. Denies any chest pain, chest pressure, she noticed some increase in swelling in her right lower extremity. She does have lymphedema in the left extremity, chronically at baseline. She presents to the emergency room , was found to have elevated BNP at 1862, troponin 0.06, flu negative, chest x- ray with evidence of pulmonary edema. She was in AFib with heart rates in the low 100s, and she was given 1 dose of Levaquin, 40mg of IV Lasix, Xopenex and Solu-Medrol 125 mg x1 by the ED physician. She is being admitted to inpatient status for acute CHF with a likely multifactorial respiratory failure. MEDICATIONS: Verified medications include, 1. Tramadol 50 mg p.o. q. 6 hours p.r.n. 2. Coumadin 2.5 mg. 3. Spiriva 1 capsule inhaled daily. 4. Protonix 40 mg daily. 5. Metoprolol 25 mg p.o. b.i.d. 6. Xopenex 1.25 mg inhaled q. 4 hours p.r.n. 7. Lasix 40 mg p.o. daily. 8. Diltiazem 120 mg p.o. daily. 9. Flexeril 10 mg p.o. t.i.d. p.r.n. (but needs refill, for the last week has not been taking it). The following have not been verified yet, they are listed as, 1. Robitussin AC 5 mg q. h.s. p.r.n. 2. Percocet 5/325 mg q. 6 hours p.r.n. 3. Orphenadrine citrate CR 100 mg p.o. b.i.d. 4. Zofran 4 mg p.o. q. 6 hours p.r.n. 5. Melatonin 5/10. 6. Paroxetine 5 mg p.o. q. p.m. 7. Magnesium oxide 400 mg p.o. daily. 8. Gabapentin 600 mg p.o. t.i.d. 9. Zyrtec 10 mg p.o. daily. ALLERGIES: Include AMOXICILLIN/CLAVULANIC ACID, ALBUTEROL, (which gives heart racing, palpitations). FAMILY HISTORY: Mom in age 80s, dad age 79 of a burst blood vessel in his brain. SOCIAL HISTORY: The patient is a former smoker, quit 5 years ago, no current alcohol use. Medical surrogate is sister Ynes Chapman. She desires to be full code. REVIEW OF SYSTEMS: Complete 12-point review of systems was negative except as per HPI. PHYSICAL EXAMINATION GENERAL APPEARANCE: No acute distress. VITAL SIGNS: Pulse rate 100 to 112, irregularly irregular; respiratory rate 18 to 26, Sat'ting 95% to 100% on 4 L nasal cannula. Blood pressure 171/101 initially now 157/84, repeat 191/100. HEENT: Normocephalic, atraumatic. Pupils equal, round, and reactive to light. NECK: Supple. PULMONARY: Decreased at bilateral bases. Slightly decreased air exchange bilaterally. No cristina wheezing currently. CARDIOVASCULAR: Irregularly irregular, tachycardic. No murmurs appreciated. ABDOMEN: Soft, nontender, slightly distended/obese. No peritoneal signs. EXTREMITIES: Lymphedema in the left leg with 1 to 2+ pitting edema in the right lower extremity, some erythema in both feet bilaterally and chronic venous stasis changes. NEUROLOGIC: Cranial nerves II through XII grossly intact, moving all extremities. Sensation intact. SKIN: No other lesions or rashes. LABORATORY DATA: White count 6.9, hemoglobin 11.7, platelets 271, INR 1.96. Sodium 133, potassium 4.0, chloride 96, carbon dioxide 31, BUN 21, creatinine 0.99, glucose 95, lactic acid 1.6. Total bili 1.40, magnesium pending. Troponin 0.06. CRP 30. BNP 1862. Urinalysis 1+ protein, trace ketones, 2+ blood. Chest x-ray, per my read: Pulmonary vascular congestion, difficult to exclude other infiltrates. EKG: Atrial fibrillation, heart rate 101, no T-wave inversions, poor R-wave progression. No ST changes. ASSESSMENT AND PLAN: Jess Roy is a 62-year-old female with complex past medical history with chronic hypoxic respiratory failure, chronic obstructive pulmonary disease, congestive heart failure, atrial fibrillation presenting with likely multifactorial worsening hypoxic respiratory failure and signs of acute congestive heart failure exacerbation. She is status post 40 mg IV Lasix in the ED, did not put out much. I am going to give her 2 mg IV Bumex every 8 hours x2 doses, strict I's and O's, daily weights, repeat transthoracic echo last in our system was November 2013 with preserved ejection fraction at 50% to 55%, trace aortic regurgitation and mild mitral valve regurgitation. Continue her Xopenex inhalers, Spiriva. Continue rapid prednisone taper as I suspect this is more cardiogenic. She is status post 125 mg of Solu-Medrol in the ED, we will give prednisone 40 mg daily for now. Try to confirm the rest of her medication list, continue her metoprolol tartrate 25 mg p.o. b.i.d. and diltiazem 120 mg p.o. daily. Aggressively replete lytes, follow up her mag level , consider digoxin if hemodynamically unstable. Consider cardiology consult ( Dr. Mauro Gleason follows her). Continue on telemetry. She is a full code. Medical surrogate is her sister Ynes Chapman. She can eat a cardiac heart healthy diet. We will trend troponins (initial 0.06), every 4 hours to peak. [id number]/[facility] #: [id number] [facility]
[2017-07-25] MEDS ORDERED: Bumetanide IV* 0.25 MG/ML 4 ML VIAL SLOW PUSH ONE (14:00)
[2017-07-25] MEDS ORDERED: Furosemide IV* 10 MG/ML VIAL (40 MG) IV SLOW PU ONE (16:33)
--- NOTE | 2017-07-25 16:40 | PN ---
Subjective Date of Service: 07/25/17 Interval History: Feels "100%" better Oxygen requirement still higher than home has not been OOB to ambulate Objective Active Medications: Diltiazem HCl (Cardizem Cd Cap*) 120 mg PO DAILY [facility] Last Admin: 07/25/17 08:59 Dose: 120 mg Furosemide (Lasix Iv*) 40 mg IV SLOW PU ONCE ONE Stop: 07/25/17 16:34 Magnesium Oxide (Magox 400 Tab*) 400 mg PO DAILY [facility] Last Admin: 07/25/17 08:59 Dose: 400 mg Metoprolol Tartrate (Lopressor Tab*) 25 mg PO BID [facility] Last Admin: 07/25/17 08:58 Dose: 25 mg Omeprazole (Prilosec Cap*) 20 mg PO DAILY@0730 [facility] Last Admin: 07/25/17 08:57 Dose: 20 mg Prednisone (Deltasone Tab*) 40 mg PO DAILY [facility] Last Admin: 07/25/17 08:59 Dose: 40 mg Tiotropium [place] (Spiriva Cap.Inh*) 1 cap INH DAILY [facility] Last Admin: 07/25/17 08:25 Dose: 1 cap Tramadol HCl (Ultram*) 50 mg PO Q6H PRN PRN Reason: PAIN Last Admin: 07/25/17 08:58 Dose: 50 mg Warfarin Sodium (Coumadin Tab(*)) 2.5 mg PO DAILY@1700 [facility] PRN Reason: Protocol Vital Signs - 8 hr 07/25/17 08:58 Respiratory 20 Rate Oxygen Devices in Use Now: Nasal Cannula Appearance: obese, NAD Eyes: No Scleral Icterus, PERRLA Ears/Nose/Mouth/Throat: Clear Oropharnyx, Mucous Membranes Moist Neck: NL Appearance and Movements; NL JVP, Trachea Midline Respiratory: Symmetrical Chest Expansion and Respiratory Effort, - - rhonchi 1/ 3 up b/l Cardiovascular: - - IRIR Extremities: - - left 2+ pitting edema Result Diagrams: 07/25/17 01:26 07/25/17 10:53 Assess/Plan/Problems-Billing Assessment: 62 yo F p/w acute hyspoci resp failure 1 week after viral prodrome - Patient Problems (1) Acute respiratory failure with hypoxia Comment: In setting of COPD and acute dCHF exacerbation c/w steroids PO lasix 40IV now check BMP in AM (2) Afib Comment: coumadin diltiazem
[2017-07-25] MEDS: Warfarin TAB(*) 2.5 MG PO SCH (17:53)
[2017-07-26 06:53] LABS: EGFR Non-African American 44.8 (>60)
[2017-07-26 07:00] LABS: INR 2.61 (0.77-1.02)
[2017-07-26] MEDS: Tiotropium CAP.INH* CAP.INH/18 MCG (USE ORDER SET !) INH SCH (08:04)
[2017-07-26] MEDS: Omeprazole CAP* 20 MG PO SCH (08:29)
[2017-07-26] MEDS: Metoprolol Tartrate TAB* 25 MG PO SCH (08:29)
[2017-07-26] MEDS: Diltiazem CD CAP* 120 MG PO SCH (08:30)
[2017-07-26] MEDS: predniSONE TAB* 20 MG PO SCH (08:30)
[2017-07-26] MEDS: Magnesium Oxide TAB* 400 MG PO SCH (08:30)
[2017-07-26] MEDS: traMADol TAB* 50 MG PO PRN (08:30)
[2017-07-26] MEDS ORDERED: Potassium Chlor TAB* 20 MEQ TAB.ER PO ONE (11:17)
[2017-07-26 15:55] VITALS: BP 133/49
[2017-07-26] MEDS: Warfarin TAB(*) 2.5 MG PO SCH (17:00)
--- NOTE | 2017-07-27 01:25 | DS ---
CC: Scott Parkinson MD * DISCHARGE SUMMARY: DATE OF ADMISSION: 07/25/17 DATE OF DISCHARGE: 07/26/17 PRIMARY CARE PROVIDER: Scott Parkinson MD. PRIMARY DIAGNOSIS: Congestive heart failure exacerbation. SECONDARY DIAGNOSES: Include: 1. Atrial fibrillation. 2. Chronic obstructive pulmonary disease with chronic respiratory failure. 3. Morbid obesity. 4. Suspected diastolic heart dysfunction. 5. Moderate pulmonary hypertension. MEDICATIONS ON DISCHARGE: Include: 1. Cetirizine 10 mg daily. 2. Melatonin with pyridoxine 5 mg in the evening. 3. Magnesium 400 mg daily. 4. Gabapentin 900 mg 3 times daily. 5. Flexeril 10 mg 3 times a day as needed. 6. Guaifenesin and codeine 5 mL at bedtime as needed. 7. Zofran 4 mg every 6 hours as needed. 8. Metoprolol tartrate 25 mg twice daily. 9. Xopenex 1.25 mg inhaler every 4 hours as needed. 10. Tramadol 50 mg every 6 hours as needed for pain. 11. Coumadin 2.5 mg daily. 12. Tiotropium 1 cap inhale daily. 13. Pantoprazole 40 mg daily. 14. Lasix 20 mg daily. 15. Diltiazem CD 120 mg daily. 16. Prednisone 50 mg for 5 additional days. PERTINENT LABORATORY DATA: Troponin I 0.06 on 3 consecutive checks. BNP 1862. Influenza A and B negative. PERTINENT IMAGING DATA: Transthoracic echocardiogram; moderate concentric left ventricular hypertrophy is observed. LVEF is estimated at 60% to 65% with mild MR, [id number] TR, evidence of moderate pulmonary hypertension and trace pulmonary regurgitation. Diastolic dysfunction was not characterized on this exam. Chest x-ray on presentation; moderate vascular congestion with mild improvement from prior exam. HISTORY OF PRESENT ILLNESS AND HOSPITAL COURSE: A 62-year-old female with past medical history as outlined in history of present illness on the day of admission including paroxysmal atrial fibrillation, on anticoagulation, congestive heart failure, and chronic respiratory failure secondary to COPD, presented to the hospital with several days of increasing shortness of breath associated with upper respiratory tract infection, infectious symptomatology. Presumptive diagnosis of CHF exacerbation was made and the patient received treatment for both COPD exacerbation with steroids as well as diuresis with Bumex and then Lasix. On the day of discharge, her respiratory status has improved. She is back to baseline using 2 L oxygen. It was notable that her BUN was 23 and creatinine increased to 1.21 from 0.99 on admission, evidence that the patient was now at or near her dry weight. Her weight on the day of discharge was 109.3 kilograms compared to 113 on presentation. Approximately negative 2000 cc was recorded over 24 hours of her hospital stay. The patient felt back to her baseline on the day of discharge, was able to ambulate back and forth to the bathroom without difficulty, was tolerating her diet. We counseled the patient on low sodium diet. She felt comfortable returning home. At followup, please; 1. Evaluate continued stability of the patient's respiratory status. Extend steroid taper longer as needed or consider further diuresis. 2. Recheck BMP in 2 to 4 weeks to evaluate for resolution of slowly increased creatinine in the setting of diuresis in the hospital. 3. No other specific labs or vitals that need followup. Reasons to return to the hospital including, but not limited to recurrent or worsening symptoms, chest pain, shortness of breath, nausea, vomiting, lightheadedness, loss of consciousness, fevers, chills, night sweats, inability to obtain or tolerate medications were discussed with the patient. Greater than 45 minutes were spent on the discharge of this patient, greater than half was spent [id number] with the patient. [id number]/[facility] #: [id number] [facility]
== END 2017-07-26 17:07 | disposition home or self-care (01) | DRG 291 ==
LOC: ED 01:40 → MEDTELE 03:39
PROVIDERS: ADMIT Internal Medicine; ATTEND Internal Medicine
DX: I11.0 Hypertensive heart disease with heart failure (principal); J96.21 Acute and chronic respiratory failure with hypoxia; I27.20 Pulmonary hypertension, unspecified; E66.01 Morbid (severe) obesity due to excess calories; I07.1 Rheumatic tricuspid insufficiency; I08.1 Rheumatic disorders of both mitral and tricuspid valves; J44.1 Chronic obstructive pulmonary disease with (acute) exacerbation; Z99.81 Dependence on supplemental oxygen; I48.0 Paroxysmal atrial fibrillation; I50.33 Acute on chronic diastolic (congestive) heart failure; G47.30 Sleep apnea, unspecified; K21.9 Gastro-esophageal reflux disease without esophagitis; M19.90 Unspecified osteoarthritis, unspecified site; Z90.81 Acquired absence of spleen; Z87.891 Personal history of nicotine dependence; Z79.01 Long term (current) use of anticoagulants; Z86.718 Personal history of other venous thrombosis and embolism; Z86.711 Personal history of pulmonary embolism; Z90.49 Acquired absence of other specified parts of digestive tract; Z98.84 Bariatric surgery status; Z68.34 Body mass index [BMI] 34.0-34.9, adult; Z88.8 Allergy status to other drugs, medicaments and biological substances; Z88.0 Allergy status to penicillin
CPT/HCPCS: 36415; 71045; 80048; 80053; 81003; 81015; 83605; 83735; 83880; 84484; 85025; 85610; 85730; 86140; 87040; 87502; 93005; 93306; 94640; 94760; 99284; A9270-GY; C8929; J1940; J2930; J3475; J7512

== ENCOUNTER 2017-11-21 11:06 | Inpatient (IN) | payer MEDICARE ==
[2017-11-21] MEDS ORDERED: Levalbuterol 1.25MG/0.5ML NEB INH ONE (11:09)
[2017-11-21] MEDS ORDERED: cefTRIAXone(*) 1 GM in NS 0.9% 50 ML* 50 ML IVPB ONE (11:11)
[2017-11-21] MEDS ORDERED: Azithromycin IV(*) 500 MG in NS 0.9% 250 ML* 250 ML IVPB ONE (11:11)
[2017-11-21] MEDS ORDERED: methylPREDNISolone 125 MG* 2 ML VIAL IV ONE (11:11)
[2017-11-21] MEDS ORDERED: Furosemide IV* 10 MG/ML VIAL (40 MG) IV ONE (11:24)
[2017-11-21 11:42] LABS: ABS Basophils 0.1 10^3/ul (0-0.2); ABS Eosinophils 0.2 10^3/ul (0-0.6); ABS Lymphocytes 1.4 10^3/ul (1.0-4.8); ABS Monocytes 0.8 10^3/ul (0-0.8); ABS Neutrophils 9.1 10^3/ul (1.5-7.7); ABS Nucleated RBC 0 10^3/ul; Eosinophil % 1.3 % (0-6); Hematocrit 36 % (35-47); Hemoglobin 11.2 g/dl (12.0-16.0); Lymphocyte % 11.9 % (25-47); Mean Corpuscular HGB Conc 31 g/dl (31-36); Mean Corpuscular Hemoglobin 26 pg (27-31); Mean Corpuscular Volume 84 fL (80-97); Nucleated Red Blood Cells % 0.1; Platelet Count 260 10^3/ul (150-450); Red Blood Count 4.34 10^6/ul (4.0-5.4); Red Cell Distribution Width 19 % (10.5-15); White Blood Count 11.5 10^3/ul (3.5-10.8)
[2017-11-21 11:55] LABS: INR 2.06 (0.77-1.02)
--- NOTE | 2017-11-21 11:59 | RAD ---
HISTORY: Shortness of breath COMPARISONS: July 25, 2015 VIEWS: 1: frontal portable view of the chest at 11:34 AM. The patient is obliqued to the left. FINDINGS: LINES AND TUBES: None. CARDIOMEDIASTINAL SILHOUETTE: The cardiac silhouette is enlarged. The cardiomediastinal silhouette is otherwise normal for portable technique. PLEURA: The costophrenic angles are sharp. No pleural abnormalities are noted. LUNG PARENCHYMA: There is a diffuse reticular pattern with indistinct pulmonary vessels. There is confluent alveolar opacification of the left upper lung. ABDOMEN: The upper abdomen is clear. There is no subphrenic gas. BONES AND SOFT TISSUES: No bone or soft tissue abnormalities are noted. IMPRESSION: 1. CARDIOMEGALY. 2. PULMONARY INTERSTITIAL EDEMA. 3. LEFT UPPER LUNG CONSOLIDATION. 4. RECOMMEND FOLLOW-UP UNTIL RESOLUTION TO EXCLUDE UNDERLYING PULMONARY PARENCHYMAL PATHOLOGY.
[2017-11-21] MEDS ORDERED: Cyclobenzaprine TAB* 10 MG PO PRN (13:07)
[2017-11-21] MEDS ORDERED: Albuterol 2.5 MG/3 ML NEB.SOL* (0.083%) INH PRN (13:25)
[2017-11-21] MEDS ORDERED: Ipratropium 0.5MG/2.5ML NEB* 0.5 MG/2.5 ML NEB.SOLN INH PRN (13:25)
--- NOTE | 2017-11-21 13:25 | HP ---
H&P (Free Text) History and Physical: History and Physical - Critical Care Limitations in history/physical: none Date of admission: 11/21/2017 HPI: 62y F pmhx of Afib on AC, LV diastolic dysfunction, pulmonary hypertension , COPD on 2L home O2, Obesity, ROSENDO; comes to hospital for complaints of increasing SOB for 1 day. Started yesterday with increasing sob overnight, no cough/sputum. Sneezing past few days. No chest pain. No abd pain/n/v/diarrhea. No sick contacts. No recent hospitalization, last time was 07/2017. No fever/ chills. No change in weights or increase in LE swelling, has chronic lymphedema as per patient. Compliant with Lasix and other medications. Patient brought in by EMS, they noted sats in 80s at home, started on oxygen and changed to CPAP, and they noted temp 100.3. in ER, kept on NIV, tmax 97, mild tachycardia, stats 90s on 40% fio2. CXR noted to have mild congestion as prior but left upper lobe infiltrate/ consolidation+ Currently awake/alert, tachypnea+ but no acc muscle use. Speaking through NIV mask clearly. ED/floor Course: as above ROS: negative except for pertinent positives mentioned above. PMHx: Afib on warfarin, LV diastolic dysfunction, pulmonary hypertension, COPD on 2L home O2, Obesity, ROSENDO PSHx: cholecystectomy, splenectomy, IVF filter+, abd surgeries for stomach stapling and GI hemorrhage, tonsillectomy. Family History: gastric ulcers Social History: Alcohol-none, Smoking-former smoker for 32 years, Drug use-none Allergies: Allergies Allergy/AdvReac Type Severity Reaction Status Date / Time albuterol Allergy Tachycardia Verified 11/21/17 11:31 amoxicillin [From Augmentin] Allergy Palpitation Verified 11/21/17 11:31 s clavulanic acid Allergy Palpitation Verified 11/21/17 11:31 [From Augmentin] s Home Medications: Ondansetron TAB* [Zofran 4 MG Tab*] 4 mg PO Q6HR PRN 08/01/12 [History Confirmed 11/21/17] Tiotropium CAP.INH* [Spiriva CAP.INH*] 1 cap INH DAILY 08/01/12 [History Confirmed 11/21/17] traMADol TAB* [Ultram*] 50 mg PO Q6HR PRN 08/01/12 [History Confirmed 11/21/17] Metoprolol Tartrate TAB* [Lopressor TAB*] 25 mg PO BID 10/16/12 [History Confirmed 11/21/17] Furosemide TAB* [Lasix TAB*] 20 mg PO DAILY 08/07/13 [History Confirmed 11/21/17 ] Pantoprazole TAB (NF) [Protonix TAB (NF)] 40 mg PO DAILY 11/22/16 [History Confirmed 11/21/17] Warfarin TAB(*) [Coumadin TAB(*)] 2.5 mg PO QPM 07/25/17 [History Confirmed ] Cyclobenzaprine (NF) [Cyclobenzaprine 5 MG (NF)] 5 mg PO TID PRN 11/21/17 [ History Confirmed 11/21/17] Diclofenac 1% GEL (NF) [Voltaren 1% GEL (NF)] 1 applic TOPICAL QID PRN 11/21/17 [History Confirmed 11/21/17] Gabapentin TAB(NF) [Neurontin 600 mg TAB(NF)] 600 mg PO TID 11/21/17 [History Confirmed 11/21/17] Levalbuterol HCl [Xopenex] 1.25 mg INH QID PRN 11/21/17 [History Confirmed 11/21] Lisinopril TAB* [Prinivil TAB*] 5 mg PO DAILY 11/21/17 [History Confirmed ] Magnesium Oxide TAB* [MagOx 400 TAB*] 400 mg PO DAILY 11/21/17 [History Confirmed 11/21/17] Melatonin 5 mg PO BEDTIME PRN 11/21/17 [History Confirmed 11/21/17] dilTIAZem HCl [Diltiazem 24Hr ER] 180 mg PO DAILY 11/21/17 [History Confirmed ] Tele: afib Vitals: Vital Signs Temp 97.0 F 11/21/17 11:07 Pulse 94 11/21/17 12:12 Resp 26 11/21/17 12:12 BP 174/114 11/21/17 12:12 Pulse Ox 75 11/21/17 12:12 Intake & Output 11/20/17 11/21/17 11/21/17 18:59 06:59 18:59 Weight 241 lb O2/Vent: NIV 12/5 40% Infusions: heplock Current Medications: Cyclobenzaprine HCl (Cyclobenzaprine (Nf)) 5 mg PO TID PRN PRN Reason: PAIN Diltiazem HCl (Cardizem Cd Cap*) 180 mg PO DAILY [facility] Furosemide (Lasix Tab*) 20 mg PO DAILY [facility] Azithromycin 500 mg/ Dextrose 250 mls @ 250 mls/hr IVPB Q24H [facility] Stop: 11/26/17 09:59 Ceftriaxone Sodium 1 gm/ (Sodium Chloride) 50 mls @ 200 mls/hr IVPB Q24H [facility] Lisinopril (Prinivil Tab*) 5 mg PO DAILY [facility] Metoprolol Tartrate (Lopressor Tab*) 25 mg PO BID [facility] Pantoprazole Sodium (Protonix Tab (Nf)) 40 mg PO DAILY [facility] Tiotropium [place] (Spiriva Cap.Inh*) 1 cap INH DAILY [facility] Warfarin Sodium (Coumadin Tab(*)) 2.5 mg PO QPM [facility] PRN Reason: Protocol Physical Exam: General: awake, alert, mild tachypnea/resp distress, no diaphoresis Head: normocephalic, atraumatic HEENT: no pallor, no icterus, moist mucous membranes Neck: soft, supple, no jvd, no stridor CVS: mild tachy, irregular, no murmur Resp: dec air entry on left with scattered rhales on left; no wheezing; right side with distant but clear air entry. Abdomen: soft, nontender, nondistended, bowel sounds present Ext: pulses+, warm, mild LE edema, chronic changes+ Skin: intact, no breakdown, no dryness Neuro: awake, alert, orientedx3, moving all extremities, no gross focal deficit Labs: Laboratory Results - last 24 hr 11/21/17 11/21/17 11/21/17 11:23 11:23 11:23 WBC 11.5 H RBC 4.34 Hgb 11.2 L Hct 36 MCV 84 MCH 26 L MCHC 31 RDW 19 H Plt Count 260 MPV 10.0 Neut % (Auto) 79.1 Lymph % (Auto) 11.9 L [place] % (Auto) 6.6 Eos % (Auto) 1.3 Baso % (Auto) 1.1 Absolute Neuts (auto) 9.1 H Absolute Lymphs (auto) 1.4 Absolute Monos (auto) 0.8 Absolute Eos (auto) 0.2 Absolute Basos (auto) 0.1 Absolute Nucleated RBC 0 Nucleated RBC % 0.1 INR (Anticoag Therapy) APTT D-Dimer, Quantitative VBG pH VBG pCO2 VBG pO2 VBG HCO3 VBG O2 Saturation VBG Base Excess Sodium 139 Potassium 4.0 Chloride 99 L Carbon Dioxide 35 H Anion Gap 5 BUN 17 Creatinine 1.16 H Est GFR ( Amer) 60.5 Est GFR (Non-Af Amer) 47.0 BUN/Creatinine Ratio 14.7 Glucose 143 H Lactic Acid Calcium 9.2 Magnesium 1.8 L Total Bilirubin 0.90 AST 15 ALT 4 L Alkaline Phosphatase 111 H Total Creatine Kinase 27 CK-MB (CK-2) 1.6 Troponin I 0.03 C-Reactive Protein 6.26 H B-Natriuretic Peptide 947 H Total Protein 7.5 Albumin 3.7 Globulin 3.8 Albumin/Globulin Ratio 1.0 Lipase 23 TSH 2.10 11/21/17 11/21/17 11/21/17 11:23 11:24 11:33 WBC RBC Hgb Hct MCV MCH MCHC RDW Plt Count MPV Neut % (Auto) Lymph % (Auto) [place] % (Auto) Eos % (Auto) Baso % (Auto) Absolute Neuts (auto) Absolute Lymphs (auto) Absolute Monos (auto) Absolute Eos (auto) Absolute Basos (auto) Absolute Nucleated RBC Nucleated RBC % INR (Anticoag Therapy) 2.06 H APTT 38.7 H D-Dimer, Quantitative 216 VBG pH 7.31 L VBG pCO2 67 H VBG pO2 34 L VBG HCO3 28.5 H VBG O2 Saturation 67.2 L VBG Base Excess 5.6 H Sodium Potassium Chloride Carbon Dioxide Anion Gap BUN Creatinine Est GFR ( Amer) Est GFR (Non-Af Amer) BUN/Creatinine Ratio Glucose Lactic Acid 1.7 Calcium Magnesium Total Bilirubin AST ALT Alkaline Phosphatase Total Creatine Kinase CK-MB (CK-2) Troponin I C-Reactive Protein B-Natriuretic Peptide Total Protein Albumin Globulin Albumin/Globulin Ratio Lipase TSH Imaging: cxr 11/21 - mild congestion, left upper lobe consolidation Assessment: 62y F pmhx of Afib on AC, LV diastolic dysfunction, pulmonary hypertension, COPD on 2L home O2, Obesity, ROSENDO; comes to hospital for complaints of increasing SOB for 1 day. Started yesterday with increasing sob overnight. EMS found her be sats 80s, started on NIV. CXR with congestion and left upper lobe consolidation -Acute on chronic hypoxic respiratory failure -Suspected left upper lobe pneumonia -acute on chronic decompensated LV diastolic heart failure COPD, without exaccerbation Chronic hypercapnea Afib Plan: Neuro- awake/alert. no distress. delirium prec. CVS- afib, rate controlled. cont CCB. cont antihypertensives. some volume overload but picture more suspicious for pneumonia than CHF exaccerbation. Cont lasix daily PO. re-eval if IVF needed. IV abx. Cont warfarin for Afib AC, target INR 2-3. Resp- acute on chr hypoxia; Cont NIV for now. CXR with congestion + left upper lobe consolidation. IV abx. Bronchodilators prn. No wheezing, hold IV steroids. sputum culture if able. ID- tmax 97. wbc 11. CXR with congestion + likely left upper lobe consolidation. suspicious viral symptoms prior to this exaccerbation. nontoxic appearing. WIll tx with CAP coverage, Ceftriaxone and Azithro IV. CXR tomorrow. Send urine leg/strept ag. sputum culture. blood culture. GI- cardiac diet. cont PPI. Renal- Chronic renal insuff, last Cr 1-1.2. K okay, no acidosis. Monitor urine output. no whitt indicated at this time. Heme- mild anemia, hg 11s. Plt okay. INR 2.0, cont warfarin for Afib AC. DVT proph with scd/warfarin Endo- fingersticks as needed. Musculsk- pressure ulcer proph. Wounds- LE wounds with excoriations noted, local wound care. Nutrition- cardiac diet DVT prophylaxis: scds, warfarin GI prophylaxis: protonix po Central Line: no Arterial Line: no Whitt Cathetor: no Disposition: admit to ICU expected length of stay >2 midnights Code Status: full code Total Critical Care time is 50 minutes, excluding procedures/teaching Clyde Doherty MD Transitional Care Manager (Electronically Signed)
--- NOTE | 2017-11-21 14:12 | ED ---
Laci Clancy Natalie, scribed for Luc Mcmahan MD on 11/21/17 at 1120 . Shortness of Breath - HPI Summary HPI Summary: The patient is a 62 y/o F BIBA to ED c/o SOB starting this morning. Per EMS, the pt woke up this morning, fell back asleep, and awoke again at 10:00 and was unable to breathe. In the ambulance, the pt's O2 Sat% was ranging from 70s-80s with the CPAP on. Arriving to the ED, the pt's O2: 93%, BP: 136, Temp: 100.3F. The pt states that she is "breathing through concrete." She additionally c/o coughing and feeling sick for a few days. The pt denies pain, CP, abnormal edema in BLE. She has hx of Afib, COPD, and CHF. She uses 2L O2 at home. She is allergic to Albuterol, so she takes Xopenex. - History of Current Complaint Time Seen by Provider: 11/21/17 11:07 Hx Obtained From: Patient Onset/Duration: Sudden Onset, Still Present Timing: Constant Current Severity: Severe Alleviating Factors: Other - CPAP Associated Signs & Symptoms: Negative - CP, edema, Cough (Productive), Fever - 100.3F - Allergy/Home Medications Allergies/Adverse Reactions: Allergies Allergy/AdvReac Type Severity Reaction Status Date / Time albuterol Allergy Tachycardia Verified 11/21/17 11:31 amoxicillin [From Augmentin] Allergy Palpitation Verified 11/21/17 11:31 s clavulanic acid Allergy Palpitation Verified 11/21/17 11:31 [From Augmentin] s Home Medications: Home Medications Cyclobenzaprine (NF) [Cyclobenzaprine 5 MG (NF)] 5 mg PO TID PRN 11/21/17 [ History Confirmed 11/21/17] Diclofenac 1% GEL (NF) [Voltaren 1% GEL (NF)] 1 applic TOPICAL QID PRN 11/21/17 [History Confirmed 11/21/17] Gabapentin TAB(NF) [Neurontin 600 mg TAB(NF)] 600 mg PO TID 11/21/17 [History Confirmed 11/21/17] Levalbuterol HCl [Xopenex] 1.25 mg INH QID PRN 11/21/17 [History Confirmed 11/21] Lisinopril TAB* [Prinivil TAB*] 5 mg PO DAILY 11/21/17 [History Confirmed ] Magnesium Oxide TAB* [MagOx 400 TAB*] 400 mg PO DAILY 11/21/17 [History Confirmed 11/21/17] Melatonin 5 mg PO BEDTIME PRN 11/21/17 [History Confirmed 11/21/17] dilTIAZem HCl [Diltiazem 24Hr ER] 180 mg PO DAILY 11/21/17 [History Confirmed ] PMH/Surg Hx/FS Hx/Imm Hx Endocrine/Hematology History: Reports: Hx Anticoagulant Therapy - on Coumadin, Hx Blood Disorders - TTP, Hx Blood Transfusions, Hx Thyroid Disease - s/p successful radio-iodine therapy, Hx Anemia, Other Endocrine/Hematological Disorders - TPP, hx bleeding Denies: Hx Diabetes, Hx Unexplained Bleeding - hemetemesis Cardiovascular History: Reports: Hx Congestive Heart Failure, Hx Deep Vein Thrombosis, Hx Embolism, Hx Hypertension, Other Cardiovascular Problems/ Disorders - DVT Denies: Hx Pacemaker/ICD, Hx Rheumatic Fever, Hx Syncope Respiratory History: Reports: Hx Asthma, Hx Chronic Bronchitis - frequent bronchitis, not chronic, Hx Chronic Obstructive Pulmonary Disease (COPD) - chronic hypoxic resp failure, on 2L O2, Hx Pneumonia, Hx Pulmonary Edema, Hx Pulmonary Embolism, Hx Seasonal Allergies, Hx Sleep Apnea - has BIPAP at home, Other Respiratory Problems/Disorders - wears O2 at home GI History: Reports: Hx Gall Bladder Disease - 1979, Hx Gastroesophageal Reflux Disease, Hx Gastrointestinal Bleed - October 2012 admission, Hx Hiatal Hernia, Other GI Disorders - s/p bariatric surgery, hx GI bleed Denies: Hx Jaundice History: Denies: Hx Renal Disease Musculoskeletal History: Reports: Hx Arthritis, Hx Back Problems - neck, Hx Bursitis, Other Musculoskeletal History - lymphedema, goiter Denies: Hx Rheumatoid Arthritis, Hx Gout, Hx Orthopedic Injury, Hx Osteoporosis Sensory History: Reports: Hx Contacts or Glasses, Hx Vision Problem - 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 Denies: Hx Hearing Aid, Hx Hearing Problem Opthamlomology History: Reports: Hx Contacts or Glasses, Hx Vision Problem - 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 GROIN - SKIN GRAFTING DUE TO BLEEDING AND INFECTION. TONSILECTOMY Hx Anesthesia Reactions: No - Immunization History Date of Tetanus Vaccine: unknown Date of Influenza Vaccine: UTD Infectious Disease History: Denies: Hx Clostridium Difficile, Hx Hepatitis, Hx Human Immunodeficiency Virus (HIV), Hx Shingles, Hx Tuberculosis - Family History Known Family History: Positive: Other - parents fhx gastric ulcers - Social History Alcohol Use: None Hx Substance Use: No Substance Use Type: Reports: None Hx Tobacco Use: Yes Smoking Status (MU): Former Smoker Type: Cigarettes Amount Used/How Often: 1-2 Length of Time of Smoking/Using Tobacco: 32 Have You Smoked in the Last Year: No Review of Systems Positive: Fever Negative: Chest Pain Positive: Shortness Of Breath, Cough Negative: Edema All Other Systems Reviewed And Are Negative: Yes Physical Exam - Summary Physical Exam Summary: General: well-appearing, mild respiratory distress Skin: warm, color reflects adequate perfusion, dry, erythema in LLE Head: normal Eyes: EOMI, PIO ENT: normal Neck: supple, nontender Respiratory: Breath sounds present, rhonchi bilaterally, on CPAP in ED, mild respiratory distress Cardiovascular: RRR Abdomen: soft, nontender Bowel: present Musculoskeletal: normal, strength/ROM intact, bilateral pitting edema Neurological: normal, sensory/motor intact, A&O x3 Psychological: affect/mood appropriate Triage Information Reviewed: Yes Vital Signs On Initial Exam: Initial Vitals Temp Pulse Resp BP Pulse Ox 97.0 F 92 34 197/113 97 11/21/17 11:07 11/21/17 11:07 11/21/17 11:07 11/21/17 11:07 11/21/17 11:07 Vital Signs Reviewed: Yes Diagnostics - Vital Signs Vital Signs Temp Pulse Resp BP Pulse Ox 11/21/17 13:00 85 20 98 11/21/17 12:12 94 26 174/114 75 05/15/18 12:00 100 94 11/21/17 11:42 92 26 197/118 86 11/21/17 11:27 93 24 95 11/21/17 11:13 94 35 194/137 92 11/21/17 11:11 88 33 100 11/21/17 11:07 97.0 F 92 34 197/113 97 - Laboratory Lab Results: Lab Results 11/21/17 11/21/17 11/21/17 Range/Units 11:23 11:23 11:23 WBC 11.5 H (3.5-10.8) 10^3/ul RBC 4.34 (4.0-5.4) 10^6/ul Hgb 11.2 L (12.0-16.0) g/dl Hct 36 (35-47) % MCV 84 (80-97) fL MCH 26 L (27-31) pg MCHC 31 (31-36) g/dl RDW 19 H (10.5-15) % Plt Count 260 (150-450) 10^3/ul MPV 10.0 (7.4-10.4) um3 Neut % (Auto) 79.1 (38-83) % Lymph % (Auto) 11.9 L (25-47) % [place] % (Auto) 6.6 (0-7) % Eos % (Auto) 1.3 (0-6) % Baso % (Auto) 1.1 (0-2) % Absolute Neuts (auto) 9.1 H (1.5-7.7) 10^3/ul Absolute Lymphs (auto) 1.4 (1.0-4.8) 10^3/ul Absolute Monos (auto) 0.8 (0-0.8) 10^3/ul Absolute Eos (auto) 0.2 (0-0.6) 10^3/ul Absolute Basos (auto) 0.1 (0-0.2) 10^3/ul Absolute Nucleated RBC 0 10^3/ul Nucleated RBC % 0.1 INR (Anticoag Therapy) (0.77-1.02) APTT (26.0-36.3) seconds D-Dimer, Quantitative (Less Than 230) ng/mL VBG pH (7.33-7.43) VBG pCO2 (41-51) mmHg VBG pO2 (35-45) mmHg VBG HCO3 (24-28) mmol/L VBG O2 Saturation (70-80) % VBG Base Excess (0-4) Sodium 139 (139-145) mmol/L Potassium 4.0 (3.5-5.0) mmol/L Chloride 99 L (101-111) mmol/L Carbon Dioxide 35 H (22-32) mmol/L Anion Gap 5 (2-11) mmol/L BUN 17 (6-24) mg/dL Creatinine 1.16 H (0.51-0.95) mg/dL Est GFR ( Amer) 60.5 (>60) Est GFR (Non-Af Amer) 47.0 (>60) BUN/Creatinine Ratio 14.7 (8-20) Glucose 143 H (70-100) mg/dL Lactic Acid (0.5-2.0) mmol/L Calcium 9.2 (8.6-10.3) mg/dL Magnesium 1.8 L (1.9-2.7) mg/dL Total Bilirubin 0.90 (0.2-1.0) mg/dL AST 15 (13-39) U/L ALT 4 L (7-52) U/L Alkaline Phosphatase 111 H (34-104) U/L Total Creatine Kinase 27 (10-223) U/L CK-MB (CK-2) 1.6 (0.6-6.3) ng/mL Troponin I 0.03 (<0.04) ng/mL C-Reactive Protein 6.26 H (< 5.00) mg/L B-Natriuretic Peptide 947 H ( - 100) pg/mL Total Protein 7.5 (6.4-8.9) g/dL Albumin 3.7 (3.2-5.2) g/dL Globulin 3.8 (2-4) g/dL Albumin/Globulin Ratio 1.0 (1-3) Lipase 23 (11.0-82.0) U/L TSH 2.10 (0.34-5.60) mcIU/mL 11/21/17 11/21/17 11/21/17 Range/Units 11:23 11:24 11:33 WBC (3.5-10.8) 10^3/ul RBC (4.0-5.4) 10^6/ul Hgb (12.0-16.0) g/dl Hct (35-47) % MCV (80-97) fL MCH (27-31) pg MCHC (31-36) g/dl RDW (10.5-15) % Plt Count (150-450) 10^3/ul MPV (7.4-10.4) um3 Neut % (Auto) (38-83) % Lymph % (Auto) (25-47) % [place] % (Auto) (0-7) % Eos % (Auto) (0-6) % Baso % (Auto) (0-2) % Absolute Neuts (auto) (1.5-7.7) 10^3/ul Absolute Lymphs (auto) (1.0-4.8) 10^3/ul Absolute Monos (auto) (0-0.8) 10^3/ul Absolute Eos (auto) (0-0.6) 10^3/ul Absolute Basos (auto) (0-0.2) 10^3/ul Absolute Nucleated RBC 10^3/ul Nucleated RBC % INR (Anticoag Therapy) 2.06 H (0.77-1.02) APTT 38.7 H (26.0-36.3) seconds D-Dimer, Quantitative 216 (Less Than 230) ng/mL VBG pH 7.31 L (7.33-7.43) VBG pCO2 67 H (41-51) mmHg VBG pO2 34 L (35-45) mmHg VBG HCO3 28.5 H (24-28) mmol/L VBG O2 Saturation 67.2 L (70-80) % VBG Base Excess 5.6 H (0-4) Sodium (139-145) mmol/L Potassium (3.5-5.0) mmol/L Chloride (101-111) mmol/L Carbon Dioxide (22-32) mmol/L Anion Gap (2-11) mmol/L BUN (6-24) mg/dL Creatinine (0.51-0.95) mg/dL Est GFR ( Amer) (>60) Est GFR (Non-Af Amer) (>60) BUN/Creatinine Ratio (8-20) Glucose (70-100) mg/dL Lactic Acid 1.7 (0.5-2.0) mmol/L Calcium (8.6-10.3) mg/dL Magnesium (1.9-2.7) mg/dL Total Bilirubin (0.2-1.0) mg/dL AST (13-39) U/L ALT (7-52) U/L Alkaline Phosphatase (34-104) U/L Total Creatine Kinase (10-223) U/L CK-MB (CK-2) (0.6-6.3) ng/mL Troponin I (<0.04) ng/mL C-Reactive Protein (< 5.00) mg/L B-Natriuretic Peptide ( - 100) pg/mL Total Protein (6.4-8.9) g/dL Albumin (3.2-5.2) g/dL Globulin (2-4) g/dL Albumin/Globulin Ratio (1-3) Lipase (11.0-82.0) U/L TSH (0.34-5.60) mcIU/mL Result Diagrams: 11/21/17 11:23 11/21/17 11:23 Lab Statement: Any lab studies that have been ordered have been reviewed, and results considered in the medical decision making process. - Radiology CXR Xray Interpretation: Positive (See Comments) - 1. Cardiomegaly. 2. Pulmonary interstitial edema. 3. Left upper lung consolidation. 4. Recommend follow-up until resolution to exclude underlying pulmonary parenchymal pathology. ED physician has reviewed this report. Radiology Interpretation Completed By: Radiologist - EKG 11:11 Cardiac Rate: NL EKG Rhythm: Atrial Fibrillation - [address] Segment: Normal Ectopy: PVCs Course/Dx - Course Course Of Treatment: Pts medications reviewed this visit. Allergies noted. High blood pressure noted and patient advised to follow up with PCP. dr fan, icu, saw the patient in the ed. - Diagnoses Provider Diagnoses: Poorly controlled blood pressure, CHF (congestive heart failure), Hypoxia - Physician Notifications Discussed Care of Patient With: Ysabel Medrano Time Discussed With Above Provider: 12:15 - I spoke with Dr. Medrano, hospitalist, concerning possible admittance of the patient to [facility]. Pt will be admitted. - Critical Care Time Critical Care Time: 30-74 min Discharge - Sign-Out/Discharge Documenting (check all that apply): Discharge/Admit/Transfer - Discharge Plan Condition: Guarded Disposition: ADMITTED TO [facility] - Billing Disposition and Condition Condition: GUARDED Disposition: HOSP-[facility] The documentation as recorded by the Laci case Natalie accurately reflects the service I personally performed and the decisions made by me, Luc Mcmahan MD.
[2017-11-21] MEDS ORDERED: Levalbuterol 1.25MG/0.5ML NEB INH PRN (14:22)
[2017-11-21 17:15] LABS: Urine Appearance Clear; Urine Blood 1+ (Negative); Urine Color Straw; Urine Ketones Negative (Negative); Urine Protein Negative (Negative); Urine Specific Gravity 1.006 (1.010-1.030); Urine Urobilinogen Negative (Negative)
[2017-11-21] MEDS: Warfarin TAB(*) 2.5 MG PO SCH (17:45)
[2017-11-21] MEDS: Metoprolol Tartrate TAB* 25 MG PO SCH (20:38)
[2017-11-22 05:36] LABS: Hematocrit 33 % (35-47); Hemoglobin 10.1 g/dl (12.0-16.0); Mean Corpuscular HGB Conc 31 g/dl (31-36); Mean Corpuscular Hemoglobin 26 pg (27-31); Mean Corpuscular Volume 83 fL (80-97); Mean Platelet Volume 9.6 um3 (7.4-10.4); Platelet Count 217 10^3/ul (150-450); Red Cell Distribution Width 20 % (10.5-15); White Blood Count 17.3 10^3/ul (3.5-10.8)
[2017-11-22 05:39] LABS: INR 2.26 (0.77-1.02)
--- NOTE | 2017-11-22 08:24 | RAD ---
HISTORY: Pneumonia COMPARISONS: November 21, 2017 VIEWS: 2: frontal portable view of the chest at 6:04 AM. The patient is obliqued to the left. FINDINGS: LINES AND TUBES: None. CARDIOMEDIASTINAL SILHOUETTE: The cardiac silhouette is enlarged. The cardiomediastinal silhouette is otherwise normal for portable technique. PLEURA: The costophrenic angles are sharp. No pleural abnormalities are noted. LUNG PARENCHYMA: There is a diffuse reticular pattern with indistinct pulmonary vessels. There has been improved aeration of the left upper lung. ABDOMEN: The upper abdomen is clear. There is no subphrenic gas. BONES AND SOFT TISSUES: No bone or soft tissue abnormalities are noted. IMPRESSION: 1. CARDIOMEGALY. 2. PULMONARY INTERSTITIAL EDEMA. 3. THERE HAS BEEN IMPROVED AERATION OF THE LEFT UPPER LUNG.
[2017-11-22] MEDS: Tiotropium CAP.INH* CAP.INH/18 MCG (USE ORDER SET !) INH SCH (08:28)
[2017-11-22] MEDS: Omeprazole CAP* 20 MG PO SCH (08:32)
[2017-11-22] MEDS: Metoprolol Tartrate TAB* 25 MG PO SCH ×2 (08:32→21:11)
[2017-11-22] MEDS: Diltiazem CD CAP* 180 MG PO SCH (08:32)
[2017-11-22] MEDS: Lisinopril TAB* 5 MG PO SCH (08:32)
[2017-11-22] MEDS ORDERED: Spiriva Inhaler DEVICE* 1 EACH DEVICE INH ONE (09:00)
[2017-11-22] MEDS ORDERED: Furosemide IV* 10 MG/ML 2 ML VIAL (20 MG) IV SLOW PU ONE ×2 (09:00)
[2017-11-22] MEDS ORDERED: Furosemide TAB* 20 MG PO SCH (09:00)
--- NOTE | 2017-11-22 09:04 | PN ---
Progress Note - Progress Note Date of Service: 11/22/17 Note: Progress Note - Critical Care 24 hour events -on NC and NIV overnight for ROSENDO -slept well, no cough/sob/cp -made adequate urine yesterday -no fevers/chills/abd pain/n/v Tele: afib Vitals: Vital Signs Temp 97.1 F 11/22/17 07:40 Pulse 81 11/22/17 08:28 Resp 17 11/22/17 08:28 BP 125/71 11/22/17 08:00 Pulse Ox 100 11/22/17 08:00 Intake & Output 11/21/17 11/22/17 11/22/17 18:59 06:59 18:59 Intake Total 300 50 Output Total 1350 250 0 Balance -1050 -200 0 Weight 241 lb 256 lb 13.416 oz Intake: Oral 300 50 Output: Urine 1350 250 0 O2/Vent: NC 3 L Infusions: heplock Current Medications: Cyclobenzaprine HCl (Flexeril Tab*) 5 mg PO TID PRN PRN Reason: PAIN Diltiazem HCl (Cardizem Cd Cap*) 180 mg PO DAILY [facility] Last Admin: 11/22/17 08:32 Dose: 180 mg Furosemide (Lasix Tab*) 20 mg PO DAILY [facility] Furosemide (Lasix Iv*) 20 mg IV SLOW PU ONCE ONE Stop: 11/22/17 09:01 Azithromycin 500 mg/ Sodium (Chloride) 250 mls @ 250 mls/hr IVPB Q24H AZAEL Stop: 11/26/17 10:59 Ceftriaxone Sodium 1 gm/ (Sodium Chloride) 50 mls @ 200 mls/hr IVPB Q24H [facility] Ipratropium [place] (Atrovent 0.5 Mg Neb.[place]*) 0.5 mg INH Q6H PRN PRN Reason: SOB/WHEEZING Levalbuterol HCl (Xopenex 1.25 Mg/0.5 Ml Neb.[place]*) 1.25 mg INH Q6H PRN PRN Reason: SOB/WHEEZING Lisinopril (Prinivil Tab*) 5 mg PO DAILY [facility] Last Admin: 11/22/17 08:32 Dose: 5 mg Metoprolol Tartrate (Lopressor Tab*) 25 mg PO BID [facility] Last Admin: 11/22/17 08:32 Dose: 25 mg Omeprazole (Prilosec Cap*) 20 mg PO DAILY@0730 [facility] Last Admin: 11/22/17 08:32 Dose: 20 mg Tiotropium [place] (Spiriva Cap.Inh*) 1 cap INH DAILY [facility] Last Admin: 11/22/17 08:28 Dose: 1 cap Warfarin Sodium (Coumadin Tab(*)) 2.5 mg PO DAILY@1700 [facility] PRN Reason: Protocol Last Admin: 11/21/17 17:45 Dose: 2.5 mg Physical Exam: General: awake, alert, no resp distress, no diaphoresis Head: normocephalic, atraumatic HEENT: no pallor, no icterus, moist mucous membranes Neck: soft, supple, no jvd, no stridor CVS: mild tachy, irregular, no murmur Resp: improved air entry on left, mild scattered crackles at base and midway, improved from yesterday; no wheezing; right side with distant but clear air entry. Abdomen: soft, nontender, nondistended, bowel sounds present Ext: pulses+, warm, mild LE edema, chronic changes+ Skin: intact, no breakdown, no dryness Neuro: awake, alert, orientedx3, moving all extremities, no gross focal deficit Labs: Laboratory Results - last 24 hr 11/21/17 11/21/17 11/21/17 11:23 11:23 11:23 WBC 11.5 H RBC 4.34 Hgb 11.2 L Hct 36 MCV 84 MCH 26 L MCHC 31 RDW 19 H Plt Count 260 MPV 10.0 Neut % (Auto) 79.1 Lymph % (Auto) 11.9 L [place] % (Auto) 6.6 Eos % (Auto) 1.3 Baso % (Auto) 1.1 Absolute Neuts (auto) 9.1 H Absolute Lymphs (auto) 1.4 Absolute Monos (auto) 0.8 Absolute Eos (auto) 0.2 Absolute Basos (auto) 0.1 Absolute Nucleated RBC 0 Nucleated RBC % 0.1 INR (Anticoag Therapy) APTT D-Dimer, Quantitative VBG pH VBG pCO2 VBG pO2 VBG HCO3 VBG O2 Saturation VBG Base Excess Sodium 139 Potassium 4.0 Chloride 99 L Carbon Dioxide 35 H Anion Gap 5 BUN 17 Creatinine 1.16 H Est GFR ( Amer) 60.5 Est GFR (Non-Af Amer) 47.0 BUN/Creatinine Ratio 14.7 Glucose 143 H Lactic Acid Calcium 9.2 Magnesium 1.8 L Total Bilirubin 0.90 AST 15 ALT 4 L Alkaline Phosphatase 111 H Total Creatine Kinase 27 CK-MB (CK-2) 1.6 Troponin I 0.03 C-Reactive Protein 6.26 H B-Natriuretic Peptide 947 H Total Protein 7.5 Albumin 3.7 Globulin 3.8 Albumin/Globulin Ratio 1.0 Lipase 23 TSH 2.10 Urine Color Urine Appearance Urine pH Ur Specific [place] Urine Protein Urine Ketones Urine Blood Urine Nitrate Urine Bilirubin Urine Urobilinogen Ur Leukocyte Esterase Urine WBC (Auto) Urine RBC (Auto) Ur Squamous Epith Cells Urine Bacteria Hyaline Casts Urine Glucose 11/21/17 11/21/17 11/21/17 11:23 11:24 11:33 WBC RBC Hgb Hct MCV MCH MCHC RDW Plt Count MPV Neut % (Auto) Lymph % (Auto) [place] % (Auto) Eos % (Auto) Baso % (Auto) Absolute Neuts (auto) Absolute Lymphs (auto) Absolute Monos (auto) Absolute Eos (auto) Absolute Basos (auto) Absolute Nucleated RBC Nucleated RBC % INR (Anticoag Therapy) 2.06 H APTT 38.7 H D-Dimer, Quantitative 216 VBG pH 7.31 L VBG pCO2 67 H VBG pO2 34 L VBG HCO3 28.5 H VBG O2 Saturation 67.2 L VBG Base Excess 5.6 H Sodium Potassium Chloride Carbon Dioxide Anion Gap BUN Creatinine Est GFR ( Amer) Est GFR (Non-Af Amer) BUN/Creatinine Ratio Glucose Lactic Acid 1.7 Calcium Magnesium Total Bilirubin AST ALT Alkaline Phosphatase Total Creatine Kinase CK-MB (CK-2) Troponin I C-Reactive Protein B-Natriuretic Peptide Total Protein Albumin Globulin Albumin/Globulin Ratio Lipase TSH Urine Color Urine Appearance Urine pH Ur Specific [place] Urine Protein Urine Ketones Urine Blood Urine Nitrate Urine Bilirubin Urine Urobilinogen Ur Leukocyte Esterase Urine WBC (Auto) Urine RBC (Auto) Ur Squamous Epith Cells Urine Bacteria Hyaline Casts Urine Glucose 11/21/17 11/21/17 11/22/17 16:40 17:44 05:24 WBC RBC Hgb Hct MCV MCH MCHC RDW Plt Count MPV Neut % (Auto) Lymph % (Auto) [place] % (Auto) Eos % (Auto) Baso % (Auto) Absolute Neuts (auto) Absolute Lymphs (auto) Absolute Monos (auto) Absolute Eos (auto) Absolute Basos (auto) Absolute Nucleated RBC Nucleated RBC % INR (Anticoag Therapy) APTT D-Dimer, Quantitative VBG pH VBG pCO2 VBG pO2 VBG HCO3 VBG O2 Saturation VBG Base Excess Sodium 140 Potassium 3.9 Chloride 100 L Carbon Dioxide 36 H Anion Gap 4 BUN 19 Creatinine 1.16 H Est GFR ( Amer) 60.5 Est GFR (Non-Af Amer) 47.0 BUN/Creatinine Ratio 16.4 Glucose 152 H Lactic Acid Calcium 9.0 Magnesium Total Bilirubin AST ALT Alkaline Phosphatase Total Creatine Kinase CK-MB (CK-2) Troponin I 0.22 H* 0.15 H* C-Reactive Protein B-Natriuretic Peptide Total Protein Albumin Globulin Albumin/Globulin Ratio Lipase TSH Urine Color Straw Urine Appearance Clear Urine pH 5.0 Ur Specific [place] 1.006 L Urine Protein Negative Urine Ketones Negative Urine Blood 1+ A Urine Nitrate Negative Urine Bilirubin Negative Urine Urobilinogen Negative Ur Leukocyte Esterase Negative Urine WBC (Auto) Trace(0-5/hpf) Urine RBC (Auto) Trace(0-2/hpf) Ur Squamous Epith Cells Present A Urine Bacteria Absent Hyaline Casts Present A Urine Glucose Negative 11/22/17 11/22/17 05:24 05:24 WBC 17.3 H RBC 3.90 L Hgb 10.1 L Hct 33 L MCV 83 MCH 26 L MCHC 31 RDW 20 H Plt Count 217 MPV 9.6 Neut % (Auto) Lymph % (Auto) [place] % (Auto) Eos % (Auto) Baso % (Auto) Absolute Neuts (auto) Absolute Lymphs (auto) Absolute Monos (auto) Absolute Eos (auto) Absolute Basos (auto) Absolute Nucleated RBC Nucleated RBC % INR (Anticoag Therapy) 2.26 H APTT D-Dimer, Quantitative VBG pH VBG pCO2 VBG pO2 VBG HCO3 VBG O2 Saturation VBG Base Excess Sodium Potassium Chloride Carbon Dioxide Anion Gap BUN Creatinine Est GFR ( Amer) Est GFR (Non-Af Amer) BUN/Creatinine Ratio Glucose Lactic Acid Calcium Magnesium Total Bilirubin AST ALT Alkaline Phosphatase Total Creatine Kinase CK-MB (CK-2) Troponin I C-Reactive Protein B-Natriuretic Peptide Total Protein Albumin Globulin Albumin/Globulin Ratio Lipase TSH Urine Color Urine Appearance Urine pH Ur Specific [place] Urine Protein Urine Ketones Urine Blood Urine Nitrate Urine Bilirubin Urine Urobilinogen Ur Leukocyte Esterase Urine WBC (Auto) Urine RBC (Auto) Ur Squamous Epith Cells Urine Bacteria Hyaline Casts Urine Glucose Imaging: cxr 11/21 - mild congestion, left upper lobe consolidation cxr 11/22 - left sided infiltrates improved, +pulm congestion Assessment: 62y F pmhx of Afib on AC, LV diastolic dysfunction, pulmonary hypertension, COPD on 2L home O2, Obesity, ROSENDO; comes to hospital for complaints of increasing SOB for 1 day. Started yesterday with increasing sob overnight. EMS found her be sats 80s, started on NIV. CXR with congestion and left upper lobe consolidation -Acute on chronic hypoxic respiratory failure -Suspected left upper lobe pneumonia -pulmonary edema+ -acute on chronic decompensated LV diastolic heart failure COPD, without exaccerbation Chronic hypercapnea Afib Plan: Neuro- awake/alert. no distress. delirium prec. CVS- afib, rate controlled. cont CCB. cont antihypertensives. some volume overload, chest xray and clinicaly hypoxia improved. cont lasix 40mg iv x1 today. IV abx empiric tx. Cont warfarin for Afib AC, target INR 2-3. Resp- acute on chr hypoxia; on NC and less distress. Bipap at night for ROSENDO. CXR improved congestio and left sided infiltrate. Will cont diuretics and empiric abx. no sputum prod. Bronchodilators prn. ID- tmax 97. wbc 17. CXR with improved congestion and left upper infiltrate. Cont empiric CAP coverage, Ceftriaxone and Azithro IV. Urine leg/strept neg. GI- cardiac diet. cont PPI. Renal- Chronic renal insuff, last Cr 1-1.2. K okay, no acidosis. Monitor urine output. no whitt indicated at this time. Good urine output, repeat lasix 40mg iv x1 today Heme- mild anemia, hg 11s. Plt okay. INR 2.0, cont warfarin for Afib AC. DVT proph with warfarin Endo- fingersticks as needed. Musculsk- pressure ulcer proph; can d/c scds and ambulate patient as tolerated Wounds- LE wounds with excoriations noted, local wound care. Nutrition- cardiac diet DVT prophylaxis: warfarin GI prophylaxis: protonix po Central Line: no Arterial Line: no Whitt Cathetor: no Disposition: can be stable for transfer to medical floor Code Status: full code Clyde Doherty MD Film Printer (Electronically Signed)
[2017-11-22] MEDS: Azithromycin IV(*) 500 MG in NS 0.9% 250 ML* 250 ML IVPB SCH (09:22)
[2017-11-22] MEDS: cefTRIAXone(*) 1 GM in NS 0.9% 50 ML* 50 ML IVPB SCH (14:15)
[2017-11-22] MEDS: Warfarin TAB(*) 2.5 MG PO SCH (17:24)
[2017-11-22] MEDS ORDERED: Ondansetron ODT TAB* 4 MG SL PRN (18:18)
[2017-11-23] MEDS: Lisinopril TAB* 5 MG PO SCH (08:01)
[2017-11-23] MEDS: Furosemide TAB* 20 MG PO SCH (08:01)
[2017-11-23] MEDS: Diltiazem CD CAP* 180 MG PO SCH (08:01)
[2017-11-23] MEDS: Omeprazole CAP* 20 MG PO SCH (08:01)
[2017-11-23] MEDS: Metoprolol Tartrate TAB* 25 MG PO SCH ×2 (08:01→20:40)
[2017-11-23] MEDS: Tiotropium CAP.INH* CAP.INH/18 MCG (USE ORDER SET !) INH SCH (08:46)
[2017-11-23 09:05] LABS: INR 2.72 (0.77-1.02)
[2017-11-23 09:07] LABS: EGFR Non-African American 43.5 (>60)
[2017-11-23 09:17] LABS: Hematocrit 34 % (35-47); Hemoglobin 10.4 g/dl (12.0-16.0); Mean Corpuscular HGB Conc 31 g/dl (31-36); Mean Corpuscular Hemoglobin 25 pg (27-31); Mean Corpuscular Volume 82 fL (80-97); Mean Platelet Volume 9.6 um3 (7.4-10.4); Platelet Count 230 10^3/ul (150-450); Red Blood Count 4.14 10^6/ul (4.0-5.4); Red Cell Distribution Width 20 % (10.5-15); White Blood Count 8.9 10^3/ul (3.5-10.8)
[2017-11-23] MEDS ORDERED: Perflutren Lipid Microsphere* 3 ML VIAL ONE (10:35)
[2017-11-23] MEDS: Azithromycin IV(*) 500 MG in NS 0.9% 250 ML* 250 ML IVPB SCH (10:59)
[2017-11-23] MEDS: cefTRIAXone(*) 1 GM in NS 0.9% 50 ML* 50 ML IVPB SCH (12:27)
--- NOTE | 2017-11-23 14:06 | ECHO ---
Patient: LOBO WEEKS [facility] Rec#: [id number] : 1955 Date: 11/23/2017 Age: 62y Height: 179.07 cm / 70.5 in Weight: 114.31 kg / 251.9 lbs Sex: F BSA: 2.31 Room#: [facility] Admit Date#: 11/21/2017 Type: Inpatient Referring: Siomne Campbell Reading: Bahman Spann MD [place] Service Captain: Naa Li RDCS CC: Scott Parkinson MD Transthoracic Echocardiogram Indication: CHF, elevated troponin level. BP: 122/53 HR: 79 Rhythm: A-Fib Findings History: COPD, CVA, A-fib, CHF, DVT, PE, SVT, former smoker, obesity, home O2, ROSENDO. Technical Comments: The study is technically difficult. The study is technically limited due to patient body habitus. Completed at 1250. Left Ventricle: The left ventricular chamber size is normal. Moderate concentric left ventricular hypertrophy is observed. Global left ventricular wall motion and contractility are within normal limits. There is normal left ventricular systolic function. The estimated ejection fraction is 55-60%. There is septal flattening of the interventricular septum consistent with right ventricular volume or pressure overload. The assessment of diastolic function is non-diagnostic. Left Atrium: The left atrium is severely dilated. Right Ventricle: The right ventricle is moderate to severely dilated. The right ventricular global systolic function is mildly to moderately reduced. Right Atrium: The right atrial cavity size is severely dilated. Aortic Valve: The aortic valve is trileaflet. The aortic valve leaflets are mildly thickened. There is evidence of aortic sclerosis without stenosis. There is no evidence of aortic regurgitation. There is no evidence of aortic stenosis. Mitral Valve: There is mitral annular calcification. The mitral valve leaflets are mildly thickened. There is trace to mild mitral regurgitation. Tricuspid Valve: The tricuspid valve leaflets are normal. There is moderate tricuspid regurgitation. The right ventricular systolic pressure is estimated at 42 mmHg. There is evidence of mild to moderate pulmonary hypertension. Pulmonic Valve: The pulmonic valve appears normal. There is a trace pulmonic regurgitation. There is no pulmonic stenosis. Pericardium: There is no significant pericardial effusion. A pericardial fat pad is visualized. Aorta: There is mild dilatation of the ascending aorta. There is no dilatation of the aortic arch. The aortic root is normal in size. Pulmonary Artery: The main pulmonary artery is not well visualized. Venous: The inferior vena cava is dilated. There is less than 50% respiratory change in the inferior vena cava dimension. Contrast: Definity was used to optimize study. 3 mL of diluted Definity was utilized. Intravenous contrast was used to enhance endocardial border definition. Conclusions There is normal left ventricular systolic function. The estimated ejection fraction is 55-60%. Global left ventricular wall motion and contractility are within normal limits. The left ventricular chamber size is normal. Moderate concentric left ventricular hypertrophy is observed. There is septal flattening of the interventricular septum consistent with right ventricular volume or pressure overload. The left atrium is severely dilated. The right ventricle is moderate to severely dilated. The right ventricular global systolic function is mildly to moderately reduced. The right atrial cavity size is severely dilated. There is moderate tricuspid regurgitation. There is evidence of mild to moderate pulmonary hypertension. There is mild dilatation of the ascending aorta. Since the prior echocardiogram completed 07/25/17, pertinent changes are prior mild to moderately dilated right ventricular size noted and prior low normal right ventricular function noted. Measurements Name Value Normal Range RVIDd (AP) 2D 3.8 cm (0.9 - 2.6) RVDdMajor (2D) 6.1 cm (2.2 - 4.4) RAd ISD 4CH 8.7 cm (3.4 - 4.9) RA (A4C)W 5.7 cm (2.9 - 4.6) IVSd (2D) 1.6 cm (0.6 - 1) LVPWd (2D) 1.6 cm (0.6 - 1) LVIDd (2D) 3.6 cm (3.6 - 5.4) LVIDs (2D) 2.7 cm - LV FS (2D) 25 % (25 - 45) Aortic Annulus 2 cm (1.4 - 2.6) Ao root diameter (2D) 3.4 cm (2.1 - 3.5) Ascending Ao 3.6 cm (2.1 - 3.4) Aortic arch 2.5 cm (1.8 - 3.4) LA dimension (AP) 2D 4.3 cm (2.3 - 3.8) LAd ISD 4CH 7.6 cm (2.9 - 5.3) LA ISD 4CH W 6.2 cm (2.5 - 4.5) Name Value Normal Range LA ESV SP 4CH (A/L) 228 ml - LA ESV SP 2CH (A/L) 166 ml - LA ESV BP (A/L) 203 ml - LA ESV BP (A/L) index 87 ml/m2 - LA ESV SP 4CH (MOD) 192 ml - LA ESV SP 2CH (MOD) 158 ml - Name Value Normal Range MV E-wave Vmax 0.81 m/sec - MV deceleration time 221.1 msec - LV septal e' Vmax 0.09 m/sec - LV lateral e' Vmax 0.12 m/sec - LV E:e' septal ratio 10.13 ratio - LV E:e' lateral ratio 6.75 ratio - Name Value Normal Range AV Vmax 1.59 m/sec - AV VTI 31.55 cm - AV peak gradient 10.15 mmHg - AV mean gradient 5.54 mmHg - LVOT diameter 2 cm - LVOT Vmax 0.82 m/sec - LVOT VTI 15.72 cm - LVOT peak gradient 2.7 mmHg - LVOT mean gradient 1.38 mmHg - DOI (VTI) 0.5 ratio - NORMA (continuity Vmax) 1.66 cm2 - NORMA (continuity VTI) 1.61 cm2 - STANFORD Vmax 1 m/sec - Name Value Normal Range MR Vmax 3.99 m/sec - MR VTI 101.3 cm - MR flow (PISA) 70.3 ml/sec - MR ERO 0.18 cm2 - MR PISA radius 0.6 cm - MR alias Vmax 32 cm/sec - Name Value Normal Range TR Vmax 2.6 m/sec - TR peak gradient 27 mmHg - RAP 15 mmHg - RVSP 42 mmHg - IVC diameter 3.2 cm - Name Value Normal Range PV Vmax 0.73 m/sec - PV peak gradient 2.17 mmHg -
[2017-11-23] MEDS: Warfarin TAB(*) 2.5 MG PO SCH (16:38)
--- NOTE | 2017-11-23 17:41 | PN ---
Hospitalist Progress Note Date of Service: 11/23/17 Pt seen and examined. Meds and labs reviewed. ROS: Denied LORENZO/dizziness, F/C, N/V, CP, SOB, increased cough, sputum production , abd pain, diarrhea, constipation, dysuria, myalgias, arthralgias, throat pain , and new skin lesions. The rest of the 14 point ROS are unremarkable. PHYSICAL EXAM: GEN APPEARANCE: Awake, not in acute distress HEENT: NC/AT, PERRLA, moist oral mucosa, (-) throat erythema NECK: Soft, supple, (-) cervical LAD, (-)JVD HEART: S1S2 WNL, RRR, No MRG CHEST: CTA, BL, GAE, No W/R/R ABD: Soft, ND/NT, NABS 4x Q EXT: No C/C/E SKIN: Warm to touch PSYCH: No active psychosis, hallucinations, depression, SI/HI ASSESSMENT AND PLAN: #PNA: -Continue Rocephin and Azithromycin -(-)Legionella and S. pna antigen -Urine Cx (-), final -Blood Cx (-)x2D #CHF: -Continue Lasix #COPD: -Continue Tiotropium and Levalbuterol #Mildly elevated troponin, likely due to demand ischemia: -2D echo done today does not show any wall motion abnormalities with preserved EF = 55-60% #A. fib: -Continue Warfarin, Metoprolol, and Diltiazem -Continue to follow INR #DVT Prophylaxis: -Pt fully anticoagulated on Coumadin as described #Dispo: -For PT eval
[2017-11-23] MEDS: Gabapentin CAP(*) 300 MG PO SCH (20:39)
[2017-11-24] MEDS ORDERED: traMADol TAB* 50 MG PO PRN (00:17)
[2017-11-24] MEDS: Tiotropium CAP.INH* CAP.INH/18 MCG (USE ORDER SET !) INH SCH (08:25)
[2017-11-24 08:39] LABS: INR 2.51 (0.77-1.02)
[2017-11-24 08:46] LABS: Hematocrit 34 % (35-47); Hemoglobin 10.4 g/dl (12.0-16.0); Mean Corpuscular HGB Conc 31 g/dl (31-36); Mean Corpuscular Hemoglobin 26 pg (27-31); Mean Corpuscular Volume 82 fL (80-97); Mean Platelet Volume 9.5 um3 (7.4-10.4); Platelet Count 239 10^3/ul (150-450); Red Cell Distribution Width 19 % (10.5-15); White Blood Count 6.2 10^3/ul (3.5-10.8)
[2017-11-24] MEDS: Gabapentin CAP(*) 300 MG PO SCH ×2 (09:15→13:18)
[2017-11-24] MEDS: Diltiazem CD CAP* 180 MG PO SCH (09:15)
[2017-11-24] MEDS: Metoprolol Tartrate TAB* 25 MG PO SCH (09:16)
[2017-11-24] MEDS: Omeprazole CAP* 20 MG PO SCH (09:16)
[2017-11-24] MEDS: Furosemide TAB* 20 MG PO SCH (09:16)
[2017-11-24] MEDS: Lisinopril TAB* 5 MG PO SCH (09:16)
[2017-11-24] MEDS: Azithromycin IV(*) 500 MG in NS 0.9% 250 ML* 250 ML IVPB SCH (09:50)
[2017-11-24] MEDS: cefTRIAXone(*) 1 GM in NS 0.9% 50 ML* 50 ML IVPB SCH (13:18)
[2017-11-24] MEDS: Warfarin TAB(*) 2.5 MG PO SCH (16:09)
[2017-11-24 18:45] VITALS: BP 102/57
--- NOTE | 2017-11-25 05:35 | DS ---
CC: Dr. Tang; Dr. Mcmahan; Scott Parkinson MD DISCHARGE SUMMARY: DATE OF ADMISSION: 11/21/17 DATE OF DISCHARGE: 11/24/17 DISCHARGE DIAGNOSES: 1. Community acquired pneumonia. 2. Mild congestive heart failure likely induced by #1, improved now at baseline. 3. Chronic obstructive pulmonary disease, not in acute exacerbation. 4. Mildly elevated troponins likely due to demand ischemia, a 2D echo did not show any wall motion abnormalities. 5. History of atrial fibrillation. DISCHARGE MEDICATIONS: 1. Cyclobenzaprine 5 mg p.o. t.i.d. 2. Diltiazem 180 mg p.o. daily. 3. Furosemide 20 mg p.o. daily. 4. Gabapentin 600 mg p.o. t.i.d. 5. Lisinopril 5 mg p.o. daily. 6. Metoprolol tartrate 25 mg p.o. b.i.d. 7. Pantoprazole 40 mg p.o. daily. 8. Tiotropium 1 cap inhalation daily. 9. Tramadol 50 mg p.o. q.6 p.r.n. 10. Warfarin 2.5 mg p.o. q.p.m. 11. Azithromycin 250 mg p.o. daily for the next 3 days. 12. Cefpodoxime 200 mg p.o. q.12 for the next 8 days. 13. Diclofenac 1% gel 1 application topical 4 times a day, which is her home med. 14. L acidophilus and L bulgaricus 1 tab p.o. q.12. 15. Magnesium oxide 400 mg p.o. daily. 16. Melatonin 5 mg p.o. q.h.s. 17. Ondansetron 4 mg p.o. q.6 p.r.n. HISTORY OF PRESENT ILLNESS/HOSPITAL COURSE: The patient is a 62-year-old lady with history of atrial fibrillation on warfarin, LV diastolic dysfunction, pulmonary dysfunction, COPD on 2 L of home O2 who presented to the hospital for complaints of increasing shortness of breath for 1 day. She denied any chest pain. She was then found to have community acquired pneumonia with possible mild CHF exacerbation, which has subsequently improved with continuation of her diuretics and treatment of her pneumonia. She was initially admitted to the ICU and was subsequently transferred to the floor on 11/23/17 for a step down of care given her improvement. Today, she appears clinically improved, and her activity is at baseline per physical therapy. VNS has been set up for her as an outpatient upon discharge. Of note, during her evaluation she had mildly elevated troponins with a peak of 0.22. She did have a transthoracic echocardiogram on 11/23/17, which revealed no wall motion abnormalities with a preserved EF of 55% to 60%. Hence, her elevated troponin was thought to be due to demand ischemia. She had been advised to take her azithromycin for 3 more days and 8 more days of Vantin. The patient was also advised to follow up with her primary care physician within 3 days to 1 week post discharge and to take her medications as prescribed. PHYSICAL EXAMINATION: Reveals the most recent vitals signs of records with blood pressure of 103/54, heart rate of 60 per minute, 24 per minute respiratory rate, temperature of 97.6 degrees Fahrenheit. General Appearance: The patient is awake, alert and oriented x3, not in acute distress. HEENT: Normocephalic, atraumatic. PERRLA. Extraocular muscles intact. Negative for icterus. Moist oral mucosa. Negative throat erythema. Neck is soft, supple with no cervical lymphadenopathy. No JVD. Heart: S1, S2 within normal limits. Regular rate and rhythm. No murmurs, rubs and gallops. Chest is clear to auscultation bilaterally. Good air entry. No wheezes, rales or rhonchi. Abdomen is soft, nondistended, nontender. Normoactive bowel sounds x4. Extremities: No cyanosis, clubbing. With 1+ bilateral lower extremity edema. Psychiatric: No active psychosis, depression. No suicidal or homicidal ideation. Skin is warm to touch. TIME SPENT: The total time spent evaluating the patient, reviewing pertinent data and appropriate documentation is greater than 30 minutes. [id number]/[facility] #: [id number] HODA
== END 2017-11-24 18:15 | disposition home health service (06) | DRG 291 ==
LOC: ED 11:06 → ICU 13:01 → MED 11-22 12:16
PROVIDERS: ADMIT Internal Medicine Critical Care Medicine; ATTEND Student in an Organized Health Care Education/Training Program
DX: I13.0 Hypertensive heart and chronic kidney disease with heart failure and stage 1 through stage 4 chronic kidney disease, or unspecified chronic kidney disease (principal); J18.9 Pneumonia, unspecified organism; J96.21 Acute and chronic respiratory failure with hypoxia; I50.33 Acute on chronic diastolic (congestive) heart failure; J44.0 Chronic obstructive pulmonary disease with (acute) lower respiratory infection; J96.12 Chronic respiratory failure with hypercapnia; I24.8 Other forms of acute ischemic heart disease; K21.9 Gastro-esophageal reflux disease without esophagitis; M19.90 Unspecified osteoarthritis, unspecified site; E04.9 Nontoxic goiter, unspecified; I27.20 Pulmonary hypertension, unspecified; G47.33 Obstructive sleep apnea (adult) (pediatric); E66.9 Obesity, unspecified; N18.9 Chronic kidney disease, unspecified; D63.1 Anemia in chronic kidney disease; I48.91 Unspecified atrial fibrillation; Z86.73 Personal history of transient ischemic attack (TIA), and cerebral infarction without residual deficits; Z83.79 Family history of other diseases of the digestive system; Z90.49 Acquired absence of other specified parts of digestive tract; Z98.84 Bariatric surgery status; Z90.81 Acquired absence of spleen; Z87.891 Personal history of nicotine dependence; Z68.36 Body mass index [BMI] 36.0-36.9, adult; Z88.1 Allergy status to other antibiotic agents; Z88.0 Allergy status to penicillin; Z88.8 Allergy status to other drugs, medicaments and biological substances; Z86.718 Personal history of other venous thrombosis and embolism; Z86.711 Personal history of pulmonary embolism; Z99.81 Dependence on supplemental oxygen; Z79.01 Long term (current) use of anticoagulants
CPT/HCPCS: 36415; 71045; 80048; 80053; 81003; 81015; 82550; 82553; 82803; 83605; 83690; 83735; 83880; 84443; 84484; 85025; 85027; 85379; 85610; 85730; 86140; 87040; 87077; 87086; 87150; 87205; 87641; 87899; 93005; 93306; 94640; 94660; 99285; A9270-GY; C8929; G8978-GP-CH; G8979-GP-CH; G8980-GP-CH; J0456; J0696; J1940; J2930

== ENCOUNTER 2018-02-06 12:40 | Inpatient (IN) | payer MEDICARE, OTHER ==
--- NOTE | 2018-02-06 13:02 | ED ---
Respiratory - HPI Summary HPI Summary: This is evie Marques documenting for attending Roberth Smyth MD. This patient is a 62 year old F presenting to ED with a chief complaint of difficulty breathing since this morning s/p waking up around 0800. The patient rates the pain 6/10 in severity. Symptoms aggravated by nothing. Symptoms alleviated by nothing. Patient reports bilateral leg swelling, fever, and non- productive cough. Patient denies CP and chills. Patient uses 2L O2 at home. PMHx of COPD, CHF, and afib. - History of Current Complaint Chief Complaint: EDShortnessOfBreath Stated Complaint: DIFF BREATHING Hx Obtained From: Patient Onset/Duration: Sudden Onset, Lasting Hours - since 0800 this morning, Still Present Timing: Constant Initial Severity: Moderate Current Severity: Moderate Pain Intensity: 6 Character: Cough (Nonproductive) Sputum Amount: None Aggravating Factor(s): Nothing Alleviating Factor(s): Nothing Associated Signs and Symptoms: Fever - Patient reports bilateral leg swelling, fever, and non-productive cough. Patient denies CP and chills. - Allergy/Home Medications Allergies/Adverse Reactions: Allergies Allergy/AdvReac Type Severity Reaction Status Date / Time albuterol AdvReac Tachycardia Verified 02/06/18 14:02 amoxicillin [From Augmentin] AdvReac vomiting Verified 02/06/18 14:02 and diarrhea clavulanic acid AdvReac vomiting Verified 02/06/18 14:02 [From Augmentin] and diarrhea PMH/Surg Hx/FS Hx/Imm Hx Endocrine/Hematology History: Reports: Hx Anticoagulant Therapy, Hx Thyroid Disease - HYPERTHYROID, Hx Anemia Denies: Hx Blood Disorders, Hx Blood Transfusions, Hx Bone Marrow Disease, Hx Diabetes, Hx Systemic Lupus Erythematosus, Hx Sickle Cell Disease, Hx Unexplained Bleeding - hemetemesis, Other Endocrine/Hematological Disorders Cardiovascular History: Reports: Hx Congestive Heart Failure, Hx Deep Vein Thrombosis, Hx Embolism, Hx Hypertension, Other Cardiovascular Problems/ Disorders - DVT, IVF FILTER, LV DIASTOLIC DYSFUNCTION Denies: Hx Aneurysm, Hx Angina, Hx Angioplasty, Hx Auto Implanted Cardiovert Defib, Hx Cardiac Arrest, Hx Cardiomegaly, Hx Congenital Heart Disease, Hx Hypercholesterolemia, Hx Hypotension, Hx Pacemaker/ICD, Hx Peripheral Vascular Disease, Hx Rheumatic Fever, Hx Syncope, Hx Valvular Heart Disease Respiratory History: Reports: Hx Asthma, Hx Chronic Bronchitis - frequent bronchitis, not chronic, Hx Chronic Obstructive Pulmonary Disease (COPD) - chronic hypoxic resp failure, on 2L O2, Hx Pneumonia, Hx Pulmonary Edema, Hx Pulmonary Embolism, Hx Seasonal Allergies, Hx Sleep Apnea - has BIPAP at home, Other Respiratory Problems/Disorders - wears O2 at home Denies: Hx Cystic Fibrosis, Hx Lung Cancer, Hx Pleural Effusion GI History: Reports: Hx Gall Bladder Disease - removed 1979, Hx Gastroesophageal Reflux Disease, Hx Gastrointestinal Bleed - October 2012 admission, Hx Hiatal Hernia, Other GI Disorders - s/p bariatric surgery, hx GI bleed Denies: Hx Cirrhosis, Hx Crohn's Disease, Hx Diverticulosis, Hx Irritable Bowel, Hx Jaundice, Hx Obstructive Bowel, Hx Ileostomy, Hx Pyloric Stenosis, Hx Ulcer History: Denies: Hx Renal Disease Musculoskeletal History: Reports: Hx Arthritis, Hx Back Problems - neck, Hx Bursitis, Other Musculoskeletal History - lymphedema, goiter Denies: Hx Rheumatoid Arthritis, Hx Congenital Bone Abnormalities, Hx Fibromyalgia, Hx Gout, Hx Orthopedic Injury, Hx Osteoporosis, Hx Scoliosis, Hx Tendonitis Sensory History: Reports: Hx Contacts or Glasses, Hx Vision Problem - 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 Denies: Hx Cataracts, Hx Eye Injury, Hx Eye Prosthesis, Hx Glaucoma, Hx Legally Blind, Hx Macular Degeneration, Hx Deafness, Hx Hearing Aid, Hx Hearing Problem, Other Sensory Impairments Opthamlomology History: Reports: Hx Contacts or Glasses, Hx Vision Problem - 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 Denies: Hx Cataracts, Hx Eye Injury, Hx Eye Prosthesis, Hx Glaucoma, Hx Legally Blind, Hx Macular Degeneration, Other Sensory Impairments Neurological History: Denies: Hx Dementia, Hx Developmental Delay, Hx Headaches, Hx Migraine, Hx Nerve Disease, Hx Seizures, Hx Spinal Cord Injury, Hx Transient Ischemic Attacks (TIA), Other Neuro Impairments/Disorders - PT DENIES RESIDUAL FROM CVA Psychiatric History: Denies: Hx Panic Disorder - Surgical History Surgery Procedure, Year, and Place: Cholecystectomy, splenectomy, stomach stapling surgery 1978,avery filter placed ,2 exploratory surgeries for unexplained bleeding in 1996;blood clot removed from right arm 2012;. GROIN - SKIN GRAFTING DUE TO BLEEDING AND INFECTION. TONSILECTOMY Hx Anesthesia Reactions: No - Immunization History Date of Tetanus Vaccine: unknown Date of Influenza Vaccine: UTD Infectious Disease History: Yes Infectious Disease History: Denies: Hx Clostridium Difficile, Hx Hepatitis, Hx Human Immunodeficiency Virus (HIV), Hx Shingles, Hx Tuberculosis, Traveled Outside the [place] in Last 30 Days - Family History Known Family History: Positive: Other - parents fhx gastric ulcers Family History: parents fhx gastric ulcers - Social History Alcohol Use: None Hx Substance Use: No Substance Use Type: Reports: None Hx Tobacco Use: Yes Smoking Status (MU): Former Smoker Type: Cigarettes Amount Used/How Often: 1-2 Length of Time of Smoking/Using Tobacco: 32 Have You Smoked in the Last Year: No Review of Systems Positive: Fever. Negative: Chills Negative: Chest Pain Positive: Shortness Of Breath - difficulty breathing, Cough - non-productive Positive: Other - bilateral leg swelling All Other Systems Reviewed And Are Negative: Yes Physical Exam - Summary Physical Exam Summary: VITAL SIGNS: Reviewed. GENERAL: Patient is an elderly FEMALE who is lying comfortable in the stretcher. Patient is in mild acute respiratory distress. She is able to speak full sentences. HEAD AND FACE: No signs of trauma. No ecchymosis, hematomas or skull depressions. No sinus tenderness. EYES: PERRLA, EOMI x 2, No injected conjunctiva, no nystagmus. EARS: Hearing grossly intact. Ear canals and tympanic membranes are within normal limits. MOUTH: Oropharynx within normal limits. NECK: Supple, trachea is midline, no adenopathy, no JVD, no carotid bruit, no c- spine tenderness, neck with full ROM. CHEST: Symmetric, no tenderness at palpation LUNGS: She is in mild respiratory distress. Crackles in both bases of the lungs. CVS: Regular rate and rhythm, S1 and S2 present, no murmurs or gallops appreciated. ABDOMEN: Soft, non-tender. No signs of distention. No rebound no guarding, and no masses palpated. Bowel sounds are normal. EXTREMITIES: FROM in all major joints, no cyanosis or clubbing. Bilateral lower extremity swelling. NEURO: Alert and oriented x 3. No acute neurological deficits. Speech is normal and follows commands. SKIN: Dry and warm Triage Information Reviewed: Yes Vital Signs On Initial Exam: Initial Vitals Temp Pulse Resp BP Pulse Ox 98.7 F 102 32 215/101 93 02/06/18 12:51 02/06/18 12:51 02/06/18 12:51 02/06/18 12:51 02/06/18 12:51 Vital Signs Reviewed: Yes Diagnostics - Vital Signs Vital Signs Temp Pulse Resp BP Pulse Ox 02/06/18 12:51 98.7 F 102 32 215/101 93 - Laboratory Result Diagrams: 02/06/18 12:57 02/06/18 12:57 Lab Statement: Any lab studies that have been ordered have been reviewed, and results considered in the medical decision making process. - Radiology CXR Radiology Interpretation Completed By: Radiologist - 1. CARDIOMEGALY. 2. MULTIFOCAL CONSOLIDATION IN BOTH LUNGS. RECOMMEND FOLLOW-UP UNTIL RESOLUTION TO EXCLUDE UNDERLYING PULMONARY PARENCHYMAL PATHOLOGY. ED physician has reviewed this radiology report. - EKG 1314 Cardiac Rate: Other Rate - afib at 100 BPM EKG Rhythm: Atrial Fibrillation EKG Comparison: No Significant Change - similar to EKG done on 11/21/17 Disposition - Course Assessment/Plan: This patient is a 62 year old F presenting to ED with a chief complaint of difficulty breathing since this morning s/p waking up around 0800. The patient rates the pain 6/10 in severity. Symptoms aggravated by nothing. Symptoms alleviated by nothing. Patient reports bilateral leg swelling, fever, and non-productive cough. Patient denies CP and chills. Patient uses 2L O2 at home. PMHx of COPD, CHF, and afib. Blood test results without any significant abnormality except for what was a count of 15.8, chloride 96, CO2 34, creatinine 1.06, glucose 137, alkaline phosphatase 133, BNP 630. In the ER course the patient was recently therefore the patient was given 1 DuoNeb. Chest x-ray impression: Cardiomegaly. Multifocal consolidations in both lungs resolution to exclude underlying pulmonary parenchymal pathology. Patient also was given cefepime and levofloxacin here the patient is allergic to amoxicillin. The patient is feeling better. Therefore I discussed my physical exam, findings and test results with Dr. Robertson from the hospitalist services who accepted the patient for admission. The patient is hemodynamically stable and she is alert and oriented 3. - Differential Dx - Cardiopulmonary Differential Diagnoses - Cardiopulmonary: Atrial Fibrillation, Bronchitis, CHF, Chest Wall Pain, Exacerbation Of COPD, Lower Resp Infection, Myocardial Infarction, Pneumothorax, Pulmonary Edema - Diagnoses Provider Diagnoses: Bilateral pneumonia, CHF (congestive heart failure) - Physician Notifications Discussed Care Of Patient With: Raegan Robertson Time Discussed With Above Provider: 14:22 Instructed by Provider To: Other - Consulted Dr. Robertson at 1422 who accepts the patient for admission. Discharge - Sign-Out/Discharge Documenting (check all that apply): Patient Departure - Discharge Plan Condition: Stable Disposition: ADMITTED TO [facility] Referrals: Scott Parkinson MD [Primary Care Provider] - - Billing Disposition and Condition Condition: STABLE Disposition: Admitted to [facility]
[2018-02-06 13:33] LABS: EGFR Non-African American 52.2 (>60)
[2018-02-06 13:40] LABS: ABS Nucleated RBC 0 10^3/ul; Hematocrit 39 % (35-47); Hemoglobin 12.2 g/dl (12.0-16.0); Mean Corpuscular HGB Conc 31 g/dl (31-36); Mean Corpuscular Hemoglobin 26 pg (27-31); Mean Corpuscular Volume 83 fL (80-97); Mean Platelet Volume 9.4 um3 (7.4-10.4); Nucleated Red Blood Cells % 0.1; Platelet Count 293 10^3/ul (150-450); Red Blood Count 4.72 10^6/ul (4.00-5.40); Red Cell Distribution Width 21 % (10.5-15); White Blood Count 15.8 10^3/ul (3.5-10.8)
[2018-02-06 13:45] LABS: ABS Basophils 0 10^3/ul (0-0.2); ABS Neutrophils 14.4 10^3/ul (1.5-7.7); Monocytes % 3 % (0-7)
[2018-02-06] MEDS ORDERED: Albuterol/Ipratropium NEB.SOL* Albuterol 2.5 MG/Ipratropium 0.5 MG 3 ML INH ONE (14:01)
--- NOTE | 2018-02-06 14:12 | RAD ---
HISTORY: SOB COMPARISONS: November 22, 2017 VIEWS: 2: Frontal and lateral views of the chest. FINDINGS: CARDIOMEDIASTINAL SILHOUETTE: The cardiac silhouette is enlarged. The cardiomediastinal silhouette is otherwise normal. ADAIR: The adair are normal. PLEURA: The costophrenic angles are sharp. No pleural abnormalities are noted. LUNG PARENCHYMA: There is multifocal confluent alveolar opacification throughout both lungs. This has developed from the previous examination. ABDOMEN: The upper abdomen is clear. There is no subphrenic gas. BONES AND SOFT TISSUES: No bone or soft tissue abnormalities are noted. OTHER: None. IMPRESSION: 1. CARDIOMEGALY. 2. MULTIFOCAL CONSOLIDATION IN BOTH LUNGS. RECOMMEND FOLLOW-UP UNTIL RESOLUTION TO EXCLUDE UNDERLYING PULMONARY PARENCHYMAL PATHOLOGY.
[2018-02-06] MEDS ORDERED: Levalbuterol 1.25MG/0.5ML NEB ONE (14:15)
[2018-02-06] MEDS ORDERED: Ipratropium 0.5MG/2.5ML NEB* 0.5 MG/2.5 ML NEB.SOLN ONE (14:16)
[2018-02-06] MEDS ORDERED: Levalbuterol 1.25MG/0.5ML NEB INH ONE (14:22)
[2018-02-06] MEDS ORDERED: Cefepime(*) 2 GM in NS 0.9% 50 ML* 50 ML IVPB ONE (14:26)
[2018-02-06] MEDS ORDERED: Levofloxacin 750 MG IVPREMIX(* 750 MG/150 ML BAG IVPB ONE (14:26)
[2018-02-06] MEDS ORDERED: Cefepime 2 GM in Dextrose(*) 2 GM/50 ML BAG IV ONE (15:00)
[2018-02-06] MEDS ORDERED: Al Hydrox/Mg Hydrox/Simet LIQ* 30 ML UDC PO PRN (15:50)
[2018-02-06] MEDS ORDERED: Acetaminophen TAB* 325 MG PO PRN (15:50)
[2018-02-06] MEDS ORDERED: Cyclobenzaprine TAB* 10 MG PO PRN (15:54)
[2018-02-06] MEDS ORDERED: Diclofenac 1% GEL (NF) 100 GM TUBE TOPICAL PRN (15:54)
[2018-02-06] MEDS ORDERED: guaiFENesin LIQ* 100 MG/5 ML UDC PO PRN (15:54)
[2018-02-06] MEDS ORDERED: Levalbuterol 1.25MG/0.5ML NEB INH PRN (15:54)
[2018-02-06] MEDS ORDERED: Ondansetron TAB* 4 MG PO PRN (15:54)
[2018-02-06] MEDS ORDERED: Melatonin 3 MG TAB PO PRN (15:54)
[2018-02-06] MEDS ORDERED: hydrALAZINE IV* 20 MG/ML VIAL IV SLOW PU PRN (16:15)
[2018-02-06 16:39] LABS: INR 1.44 (0.77-1.02)
[2018-02-06] MEDS ORDERED: cefTAZidime* 1 GM in NS 0.9% 50 ML* 50 ML IVPB SCH (17:00)
[2018-02-06] MEDS ORDERED: Vancomycin 1500 MG IV - x ONCE IVPB ONE ×2 (17:00)
[2018-02-06] MEDS ORDERED: Ciprofloxacin 400MG IVPREMIX(* 400 MG/200 ML BAG IVPB SCH (17:00)
[2018-02-06] MEDS ORDERED: Vancomycin per Pharmacy* NOTE FOLLOW UP SCH (17:00)
[2018-02-06] MEDS ORDERED: Albuterol/Ipratropium NEB.SOL* Albuterol 2.5 MG/Ipratropium 0.5 MG 3 ML INH SCH (17:00)
[2018-02-06] MEDS ORDERED: Vancomycin(*) 1,250 MG in NS 0.9% 250 ML* 250 ML IVPB SCH (17:00)
[2018-02-06] MEDS: methylPREDNISolone SOD 40 MG* 1 ML VIAL IV SCH (18:35)
[2018-02-06] MEDS: Warfarin TAB(*) 2.5 MG PO SCH (18:35)
[2018-02-06] MEDS: traMADol TAB* 50 MG PO PRN (18:53)
[2018-02-06] MEDS: Gabapentin CAP(*) 300 MG PO SCH (19:47)
[2018-02-06] MEDS: Metoprolol Tartrate TAB* 25 MG PO SCH (19:48)
[2018-02-06] MEDS: Ciprofloxacin 400MG IVPREMIX(* 400 MG/200 ML BAG IVPB SCH (19:53)
[2018-02-06] MEDS: Levalbuterol 1.25MG/0.5ML NEB INH SCH (20:24)
[2018-02-06] MEDS: cefTAZidime* 1 GM in NS 0.9% 50 ML* 50 ML IVPB SCH (21:01)
[2018-02-06 21:05] LABS: Urine Appearance Clear; Urine Blood 1+ (Negative); Urine Color Straw; Urine Ketones Negative (Negative); Urine Protein Negative (Negative); Urine Red Blood Cell Trace(0-2/hpf) (Absent); Urine Specific Gravity 1.008 (1.010-1.030); Urine Urobilinogen Negative (Negative); Urine White Blood Cell Trace(0-5/hpf) (Absent)
--- NOTE | 2018-02-06 21:52 | HP ---
ADMISSION HISTORY AND PHYSICAL: DATE OF ADMISSION: 02/06/18 CHIEF COMPLAINT: Shortness of breath. HISTORY OF PRESENT ILLNESS: The patient is a 62-year-old lady with a history of atrial fibrillation, on warfarin; left ventricular diastolic dysfunction and pulmonary dysfunction; COPD, on 2 L of home O2 who was recently admitted to our facility on 11/21/17 and subsequently discharged 3 days later on 11/24/17 due to community-acquired pneumonia as well as mild CHF. Upon discharge, she was in her usual state of health until a few hours prior to admission when she mentioned that she woke up feeling very short of breath with subjective febrile episodes and chills. She also complains of some increasing cough without any sputum production and because of her complicated medical history, she presented to the ED for further evaluation where she was diagnosed to have pneumonia. In the ED, she had been given cefepime, levalbuterol, DuoNebs. PAST MEDICAL HISTORY: 1. Atrial fibrillation, on warfarin. 2. Left ventricular diastolic dysfunction. 3. Pulmonary hypertension. 4. COPD, on 2 L of O2. 5. Obesity. 6. ROSENDO. PAST SURGICAL HISTORY: 1. Cholecystectomy. 2. Splenectomy. 3. Abdominal surgeries for stomach stapling and GI hemorrhage. 4. Tonsillectomy. ALLERGIES: ALBUTEROL, AMOXICILLIN, and CLAVULANIC ACID. FAMILY HISTORY: Gastric ulcers. SOCIAL HISTORY: Alcohol, none. Smoking, former smoker for 32 years. Drug use , none. REVIEW OF SYSTEMS: The patient denied any recent incidents of chest pain. She does complain of some undocumented fever, chills, as well as increasing cough without any sputum production. She denied any headaches, dizziness, nausea, vomiting, chest pain, any abdominal pain, diarrhea, constipation, pain and/or increased frequency on urination, myalgias, arthralgias, throat pain, or new skin lesions. The rest of the 14-point review of systems are otherwise unremarkable. PHYSICAL EXAMINATION GENERAL APPEARANCE: The patient is awake, alert, and oriented x3, slightly tachypneic with respiratory rate in the 21 to 22. VITAL SIGNS: Most recent vital signs of records with blood pressure of 189/125 , heart rate of 100 per minute, saturating at 96%. CHEST: Positive bibasilar crackles from the mid through bibasilar area of the lungs. No rales, no rhonchi appreciated. ABDOMEN: Soft, nondistended, nontender. Normoactive bowel sounds x4 quadrants. EXTREMITIES: No cyanosis, clubbing with 3+ edema on the left with 1 to 2+ on the right. She mentions that this is chronic due to previous lymph node resection of the aforementioned extremity on the left. PSYCHIATRIC: No active psychosis, depression, suicidal or homicidal ideations. SKIN: Warm to touch. LABORATORY DATA/DIAGNOSTIC STUDIES: Most recent and pertinent laboratories shows leukocytosis of 15.8, normal H and H, and platelet count. BUN and creatinine of 20 and 1.06. BNP of 630, which is lower than previous data and troponin of 0.03. Chest x-ray shows multifocal consolidation of the bilateral lungs. ASSESSMENT AND PLAN: As follows: 1. Healthcare associated pneumonia. We will place the patient on cefepime, Levaquin, and vancomycin and we will continue watchful waiting. We would also check urinary Strep pneumoniae antigen as well as Legionella antigen. We will place the patient on DuoNebs q.4 [id number] while awake and albuterol q.2 p.r.n. as ordered. We will also order a VBG to determine whether she has any significant chronic obstructive pulmonary disease exacerbation given she does have history of chronic obstructive pulmonary disease; however, at this time, we will place her on rapid Solu-Medrol at 40 mg daily and certainly if VBG suggests significant hypoxia and/or hypercarbia or both, this should be readjusted as well. 2. Atrial fibrillation, on Coumadin. We will check INR stat. Continue Coumadin levels for now and we will recheck INR daily. We will continue with diltiazem. 3. Gastroesophageal reflux disease. Continue pantoprazole. 4. Hypertension. Uncontrolled. We will place the patient on p.r.n. 10 mg of hydralazine with threshold blood pressure of greater than or equal to 160/90. 5. DVT prophylaxis. The patient is on warfarin awaiting INR to check whether the patient is fully anticoagulated. 6. Disposition for PT maribellal. [id number]/[facility] #: [id number] MTDD
[2018-02-07] MEDS: Levalbuterol 1.25MG/0.5ML NEB INH SCH (00:56)
[2018-02-07] MEDS: Vancomycin(*) 1,000 MG in NS 0.9% 250 ML* 250 ML IVPB SCH ×3 (02:07→17:16)
[2018-02-07] MEDS: cefTAZidime* 1 GM in NS 0.9% 50 ML* 50 ML IVPB SCH ×3 (04:12→21:26)
[2018-02-07 05:50] LABS: Hematocrit 34 % (35-47); Hemoglobin 10.2 g/dl (12.0-16.0); Mean Corpuscular HGB Conc 31 g/dl (31-36); Mean Corpuscular Hemoglobin 25 pg (27-31); Mean Corpuscular Volume 82 fL (80-97); Mean Platelet Volume 9.5 um3 (7.4-10.4); Platelet Count 237 10^3/ul (150-450); Red Blood Count 4.07 10^6/ul (4.00-5.40); Red Cell Distribution Width 20 % (10.5-15); White Blood Count 17.2 10^3/ul (3.5-10.8)
[2018-02-07 05:55] LABS: INR 1.67 (0.77-1.02)
[2018-02-07] MEDS: Lisinopril TAB* 5 MG PO SCH (07:43)
[2018-02-07] MEDS: Metoprolol Tartrate TAB* 25 MG PO SCH ×3 (07:43→21:51)
[2018-02-07] MEDS: Gabapentin CAP(*) 300 MG PO SCH ×3 (07:47→21:26)
[2018-02-07] MEDS: Diltiazem CD CAP* 180 MG PO SCH (07:47)
[2018-02-07] MEDS: Magnesium Oxide TAB* 400 MG PO SCH (07:48)
[2018-02-07] MEDS: Cetirizine* 10 MG TAB PO SCH (07:48)
[2018-02-07] MEDS: Omeprazole CAP* 20 MG PO SCH (07:48)
[2018-02-07] MEDS: Furosemide TAB* 40 MG PO SCH (07:48)
[2018-02-07] MEDS: Tiotropium CAP.INH* CAP.INH/18 MCG (USE ORDER SET !) INH SCH (07:51)
[2018-02-07] MEDS: Ciprofloxacin 400MG IVPREMIX(* 400 MG/200 ML BAG IVPB SCH (08:55)
[2018-02-07] MEDS: methylPREDNISolone SOD 40 MG* 1 ML VIAL IV SCH (08:55)
[2018-02-07] MEDS ORDERED: Spiriva Inhaler DEVICE* 1 EACH DEVICE INH ONE (09:00)
[2018-02-07 09:34] LABS: EGFR Non-African American 50.5 (>60)
[2018-02-07] MEDS: traMADol TAB* 50 MG PO PRN (14:48)
[2018-02-07] MEDS ORDERED: Vancomycin Trough Check NOTE FOLLOW UP ONE (16:00)
[2018-02-07] MEDS: Warfarin TAB(*) 2.5 MG PO SCH (16:49)
--- NOTE | 2018-02-07 20:20 | PN ---
Subjective Date of Service: 02/07/18 Interval History: SOB feeling much improved today. Denies F/C, N/V, CP, abdominal pain, diarrhea, Dysuria, dizziness, SOb with exertion, or other pain. Feels as if she is back to baseline and able to ambulate around unit with PT. Family History: Unchanged from Admission Social History: Unchanged from Admission Past Medical History: Unchanged from Admission Objective Active Medications: Acetaminophen (Tylenol Tab*) 650 mg PO Q4H PRN PRN Reason: FEVER/PAIN Al Hydrox/Mg Hydrox/Simethicone (Maalox Plus*) 30 ml PO Q6H PRN PRN Reason: INDIGESTION Cetirizine HCl (Zyrtec*) 10 mg PO DAILY [facility]; Protocol Last Admin: 02/07/18 07:48 Dose: 10 mg Cyclobenzaprine HCl (Flexeril Tab*) 5 mg PO TID PRN PRN Reason: PAIN Diclofenac Sodium (Voltaren 1% Gel (Nf)) 1 applic TOPICAL QID PRN; Protocol PRN Reason: PAIN - ARTHRITIS Diltiazem HCl (Cardizem Cd Cap*) 180 mg PO DAILY [facility] Last Admin: 02/07/18 07:47 Dose: 180 mg Furosemide (Lasix Tab*) 40 mg PO DAILY [facility] Last Admin: 02/07/18 07:48 Dose: 40 mg Gabapentin (Neurontin Cap(*)) 600 mg PO TID [facility] Last Admin: 02/07/18 13:46 Dose: 600 mg Guaifenesin (Robitussin*) 10 ml PO BEDTIME PRN PRN Reason: COUGH Hydralazine HCl (Apresoline Iv*) 10 mg IV SLOW PU Q6H PRN PRN Reason: BLOOD PRESSURE Ceftazidime 1 gm/ Sodium (Chloride) 50 mls @ 100 mls/hr IVPB 0330,1130,1930 [facility] Last Admin: 02/07/18 11:53 Dose: 100 mls/hr Vancomycin HCl 1,000 mg/ (Sodium Chloride) 250 mls @ 166.667 mls/hr IVPB Q12H [facility] Levalbuterol HCl (Xopenex 1.25 Mg/0.5 Ml Neb.[place]yanne*) 1.25 mg INH QID PRN PRN Reason: SOB/WHEEZING Lisinopril (Prinivil Tab*) 5 mg PO DAILY [facility] Last Admin: 02/07/18 07:43 Dose: Not Given Magnesium Oxide (Magox 400 Tab*) 400 mg PO DAILY [facility] Last Admin: 02/07/18 07:48 Dose: 400 mg Melatonin (Melatonin) 3 mg PO BEDTIME PRN PRN Reason: SLEEP Metoprolol Tartrate (Lopressor Tab*) 25 mg PO BID [facility] Last Admin: 02/07/18 07:43 Dose: Not Given Omeprazole (Prilosec Cap*) 20 mg PO DAILY@0730 [facility] Last Admin: 02/07/18 07:48 Dose: 20 mg Ondansetron HCl (Zofran Tab*) 4 mg PO Q6HR PRN PRN Reason: NAUSEA Pharmacy Consult (Vancomycin Per Pharmacy*) 1 note FOLLOW UP .VANC PER PHARMACY [facility] Pharmacy Profile Note (Vancomycin Trough Check) 1 note FOLLOW UP ONCE ONE Stop: 02/09/18 08:31 Prednisone (Deltasone Tab*) 40 mg PO DAILY [facility] Tiotropium [place] (Spiriva Cap.Inh*) 1 cap INH DAILY [facility] Last Admin: 02/07/18 07:51 Dose: 1 cap Tramadol HCl (Ultram*) 50 mg PO Q6HR PRN PRN Reason: PAIN Last Admin: 02/07/18 14:48 Dose: 50 mg Warfarin Sodium (Coumadin Tab(*)) 2.5 mg PO 1700 [facility]; Protocol Last Admin: 02/07/18 16:49 Dose: 2.5 mg Vital Signs - 8 hr 02/07/18 02/07/18 02/07/18 12:21 13:46 14:48 Temperature 98.3 F Pulse Rate 58 Respiratory 16 18 18 Rate Blood Pressure 112/61 (mmHg) O2 Sat by Pulse 94 Oximetry 02/07/18 02/07/18 16:12 16:48 Temperature 97.6 F Pulse Rate 67 Respiratory 16 18 Rate Blood Pressure 113/62 (mmHg) O2 Sat by Pulse 100 Oximetry Oxygen Devices in Use Now: Nasal Cannula Appearance: Patient is a 62yo female who appears stated age and is sitting in the bed in [facility]. Eyes: No Scleral Icterus, PERRLA Ears/Nose/Mouth/Throat: NL Teeth, Lips, Gums, Clear Oropharnyx, Mucous Membranes Moist Neck: NL Appearance and Movements; NL JVP, Trachea Midline, No Thyroid Enlargement, Masses Respiratory: Symmetrical Chest Expansion and Respiratory Effort, Clear to Auscultation, - - Diminished throughout. Cardiovascular: NL Sounds; No Murmurs; No JVD, RRR, No Edema Abdominal: NL Sounds; No Tenderness; No Distention, No Hepatosplenomegaly Lymphatic: No Cervical Adenopathy Extremities: No Edema, No Clubbing, Cyanosis Skin: No Rash or Ulcers, No Nodules or Sclerosis Neurological: Alert and Oriented x 3, NL Sensation, NL Muscle Strength and Tone , - - CN II-XII intact. Result Diagrams: 02/07/18 05:34 02/07/18 05:34 Microbiology and Other Data: Microbiology 02/06/18 13:22 Aerobic Blood Culture - Preliminary Blood Venous No Growth Day 1 Anaerobic Blood Culture - Preliminary No Growth Day 1 02/06/18 13:06 Aerobic Blood Culture - Preliminary Blood Venous No Growth Day 1 Anaerobic Blood Culture - Preliminary No Growth Day 1 02/06/18 20:44 Legionella Urinary Antigen - Final Urine Negative Legionella Antigen Streptococcus pneumoniae Ag Screen - Final Negative S. pneumo Antigen 02/06/18 16:00 Nasal Screen MRSA (PCR) - Final Nasal Mrsa Not Detected Assess/Plan/Problems-Billing Assessment: Patient is a 62yo female with a PMH for COPD, Recent Pneumonia, ROSENDO, Afib, splenectomy, here with recurrent Pneumonia, concern for hospital acquired pneumonia due to recent IV antibiotic treatment in November who is greatly improved on IV antibiotics and steroids. - Patient Problems (1) Acute respiratory failure with hypoxia Current Visit: No Status: Acute Code(s): J96.01 - ACUTE RESPIRATORY FAILURE WITH HYPOXIA SNOMED Code(s): 18003617 Comment: Acute on Chronic, now back to home O2 requirement. PO steroids, IV antibiotics. Treatment for HAP. Home lasix dose. No signs of fluid overload. (2) Afib Current Visit: No Status: Acute Code(s): I48.91 - UNSPECIFIED ATRIAL FIBRILLATION SNOMED Code(s): 39936687 Comment: Rate controlled. On Coumadin and Diltiazem. Subtherapeutic. (3) COPD (chronic obstructive pulmonary disease) Current Visit: No Status: Chronic Code(s): J44.9 - CHRONIC OBSTRUCTIVE PULMONARY DISEASE, UNSPECIFIED SNOMED Code(s): 16460407 Comment: Likely mild exacerbation with pneumonia. Continue steroids, Inhalers. (4) GERD (gastroesophageal reflux disease) Current Visit: No Status: Chronic Code(s): K21.9 - GASTRO-ESOPHAGEAL REFLUX DISEASE WITHOUT ESOPHAGITIS SNOMED Code(s): 652673115 Comment: Continue omeprazole. (5) HTN (hypertension) Current Visit: No Status: Chronic Code(s): I10 - ESSENTIAL (PRIMARY) HYPERTENSION SNOMED Code(s): 68547414 Comment: Normotensive. Continue home medications. (6) Sleep apnea Current Visit: No Status: Chronic Code(s): G47.30 - SLEEP APNEA, UNSPECIFIED SNOMED Code(s): 50789270 Comment: Uses home O2. Not on PPV (7) DVT prophylaxis Current Visit: No Status: Acute Code(s): ZRO0438 - SNOMED Code(s): 325374226 Comment: Warfarin (8) Full code status Current Visit: No Status: Acute Code(s): Z78.9 - OTHER SPECIFIED HEALTH STATUS SNOMED Code(s): 888452456 Status and Disposition: Inpatient.
[2018-02-08] MEDS: cefTAZidime* 1 GM in NS 0.9% 50 ML* 50 ML IVPB SCH ×3 (03:49→20:21)
[2018-02-08] MEDS: traMADol TAB* 50 MG PO PRN ×2 (06:24→17:49)
[2018-02-08 06:54] LABS: ABS Basophils 0.1 10^3/ul (0-0.2); ABS Eosinophils 0 10^3/ul (0-0.6); ABS Lymphocytes 0.5 10^3/ul (1.0-4.8); ABS Monocytes 0.6 10^3/ul (0-0.8); ABS Neutrophils 12.2 10^3/ul (1.5-7.7); ABS Nucleated RBC 0 10^3/ul; Eosinophil % 0 % (0-6); Hematocrit 33 % (35-47); Hemoglobin 10.2 g/dl (12.0-16.0); INR 2.07 (0.77-1.02); Lymphocyte % 3.6 % (25-47); Mean Corpuscular HGB Conc 32 g/dl (31-36); Mean Corpuscular Hemoglobin 26 pg (27-31); Mean Corpuscular Volume 81 fL (80-97); Mean Platelet Volume 9.8 um3 (7.4-10.4); Nucleated Red Blood Cells % 0; Platelet Count 238 10^3/ul (150-450); Red Cell Distribution Width 20 % (10.5-15); White Blood Count 13.4 10^3/ul (3.5-10.8)
[2018-02-08] MEDS ORDERED: Magnesium Sulfate 2 GM IV* 2 GM/50 ML BAG IVPB ONE (07:16)
[2018-02-08] MEDS: Gabapentin CAP(*) 300 MG PO SCH ×3 (08:13→20:25)
[2018-02-08] MEDS: Magnesium Oxide TAB* 400 MG PO SCH (08:14)
[2018-02-08] MEDS: Diltiazem CD CAP* 180 MG PO SCH (08:14)
[2018-02-08] MEDS: Metoprolol Tartrate TAB* 25 MG PO SCH ×2 (08:15→20:31)
[2018-02-08] MEDS: Furosemide TAB* 40 MG PO SCH (08:16)
[2018-02-08] MEDS: Lisinopril TAB* 5 MG PO SCH (08:16)
[2018-02-08] MEDS: Omeprazole CAP* 20 MG PO SCH (08:17)
[2018-02-08] MEDS: Cetirizine* 10 MG TAB PO SCH (08:17)
[2018-02-08] MEDS ORDERED: predniSONE TAB* 20 MG PO SCH (09:00)
[2018-02-08] MEDS: Tiotropium CAP.INH* CAP.INH/18 MCG (USE ORDER SET !) INH SCH (09:36)
[2018-02-08] MEDS: Vancomycin(*) 1,000 MG in NS 0.9% 250 ML* 250 ML IVPB SCH ×2 (10:16→21:24)
[2018-02-08] MEDS: methylPREDNISolone SOD 40 MG* 1 ML VIAL IV SCH ×2 (12:29→23:56)
--- NOTE | 2018-02-08 17:08 | PN ---
Subjective Date of Service: 02/08/18 Interval History: Patient feels significantly worse from yesterday. Significantly more SOB with ambulation about unit. Feels more fatigue. No wheezing, cough, sputum production , Possible chills overnight. Denies CP, N/V, abdominal pain, fevers, dysuria, dizziness, or other pain. Family History: Unchanged from Admission Social History: Unchanged from Admission Past Medical History: Unchanged from Admission Objective Active Medications: Acetaminophen (Tylenol Tab*) 650 mg PO Q4H PRN PRN Reason: FEVER/PAIN Al Hydrox/Mg Hydrox/Simethicone (Maalox Plus*) 30 ml PO Q6H PRN PRN Reason: INDIGESTION Cetirizine HCl (Zyrtec*) 10 mg PO DAILY [facility]; Protocol Last Admin: 02/08/18 08:17 Dose: 10 mg Cyclobenzaprine HCl (Flexeril Tab*) 5 mg PO TID PRN PRN Reason: PAIN Diclofenac Sodium (Voltaren 1% Gel (Nf)) 1 applic TOPICAL QID PRN; Protocol PRN Reason: PAIN - ARTHRITIS Diltiazem HCl (Cardizem Cd Cap*) 180 mg PO DAILY [facility] Last Admin: 02/08/18 08:14 Dose: 180 mg Furosemide (Lasix Tab*) 40 mg PO DAILY [facility] Last Admin: 02/08/18 08:16 Dose: 40 mg Gabapentin (Neurontin Cap(*)) 600 mg PO TID [facility] Last Admin: 02/08/18 13:23 Dose: 600 mg Guaifenesin (Robitussin*) 10 ml PO BEDTIME PRN PRN Reason: COUGH Ceftazidime 1 gm/ Sodium (Chloride) 50 mls @ 100 mls/hr IVPB 0330,1130,1930 [facility] Last Admin: 02/08/18 12:31 Dose: 100 mls/hr Vancomycin HCl 1,000 mg/ (Sodium Chloride) 250 mls @ 166.667 mls/hr IVPB Q12H [facility] Last Admin: 02/08/18 10:16 Dose: 166.667 mls/hr Levalbuterol HCl (Xopenex 1.25 Mg/0.5 Ml Neb.[place]yanne*) 1.25 mg INH QID PRN PRN Reason: SOB/WHEEZING Lisinopril (Prinivil Tab*) 5 mg PO DAILY [facility] Last Admin: 02/08/18 08:16 Dose: 5 mg Magnesium Oxide (Magox 400 Tab*) 400 mg PO DAILY [facility] Last Admin: 02/08/18 08:14 Dose: 400 mg Melatonin (Melatonin) 3 mg PO BEDTIME PRN PRN Reason: SLEEP Methylprednisolone Sodium Succinate (Solu-Medrol 40 Mg) 40 mg IV Q12H [facility] Last Admin: 02/08/18 12:29 Dose: 40 mg Metoprolol Tartrate (Lopressor Tab*) 25 mg PO BID [facility] Last Admin: 02/08/18 08:15 Dose: 25 mg Omeprazole (Prilosec Cap*) 20 mg PO DAILY@0730 [facility] Last Admin: 02/08/18 08:17 Dose: 20 mg Ondansetron HCl (Zofran Tab*) 4 mg PO Q6HR PRN PRN Reason: NAUSEA Pharmacy Consult (Vancomycin Per Pharmacy*) 1 note FOLLOW UP .VANC PER PHARMACY [facility] Pharmacy Profile Note (Vancomycin Trough Check) 1 note FOLLOW UP ONCE ONE Stop: 02/09/18 08:31 Tiotropium [place] (Spiriva Cap.Inh*) 1 cap INH DAILY [facility] Last Admin: 02/08/18 09:36 Dose: 1 cap Tramadol HCl (Ultram*) 50 mg PO Q6HR PRN PRN Reason: PAIN Last Admin: 02/08/18 06:24 Dose: 50 mg Warfarin Sodium (Coumadin Tab(*)) 2.5 mg PO 1700 [facility]; Protocol Last Admin: 02/07/18 16:49 Dose: 2.5 mg Vital Signs - 8 hr 02/08/18 02/08/18 02/08/18 09:38 10:19 11:20 Temperature 98.3 F Pulse Rate 66 82 Respiratory 14 16 16 Rate Blood Pressure 124/62 (mmHg) O2 Sat by Pulse 99 100 Oximetry 02/08/18 02/08/18 13:23 15:00 Temperature 98.0 F Pulse Rate 76 Respiratory 16 16 Rate Blood Pressure 109/51 (mmHg) O2 Sat by Pulse 100 Oximetry Oxygen Devices in Use Now: Nasal Cannula Appearance: Patient is a 62yo female who appears stated age and is sitting in the bed in [facility]. Eyes: No Scleral Icterus, PERRLA Ears/Nose/Mouth/Throat: NL Teeth, Lips, Gums, Clear Oropharnyx, Mucous Membranes Moist Neck: NL Appearance and Movements; NL JVP, Trachea Midline Respiratory: Symmetrical Chest Expansion and Respiratory Effort, Clear to Auscultation, - - Diminished. Cardiovascular: NL Sounds; No Murmurs; No JVD, RRR, No Edema Abdominal: NL Sounds; No Tenderness; No Distention, No Hepatosplenomegaly Lymphatic: No Cervical Adenopathy Extremities: No Edema, No Clubbing, Cyanosis Skin: No Rash or Ulcers, No Nodules or Sclerosis Neurological: Alert and Oriented x 3, NL Sensation, NL Muscle Strength and Tone , - - CN II-XII intact. Result Diagrams: 02/08/18 06:27 02/08/18 06:27 Microbiology and Other Data: Microbiology 02/06/18 13:22 Aerobic Blood Culture - Preliminary Blood Venous No Growth Day 1 Anaerobic Blood Culture - Preliminary No Growth Day 1 02/06/18 13:06 Aerobic Blood Culture - Preliminary Blood Venous No Growth Day 1 Anaerobic Blood Culture - Preliminary No Growth Day 1 02/06/18 20:44 Legionella Urinary Antigen - Final Urine Negative Legionella Antigen Streptococcus pneumoniae Ag Screen - Final Negative S. pneumo Antigen 02/06/18 16:00 Nasal Screen MRSA (PCR) - Final Nasal Mrsa Not Detected Assess/Plan/Problems-Billing Assessment: Patient is a 62yo female with a PMH for COPD, Recent Pneumonia, ROSENDO, Afib, splenectomy, here with recurrent Pneumonia, concern for hospital acquired pneumonia due to recent IV antibiotic treatment in November who is greatly improved on IV antibiotics and steroids. - Patient Problems (1) Acute respiratory failure with hypoxia Current Visit: No Status: Acute Code(s): J96.01 - ACUTE RESPIRATORY FAILURE WITH HYPOXIA SNOMED Code(s): 50053724 Comment: Acute on Chronic, now back to home O2 requirement. IV steroids due to increased SOB, IV antibiotics. Treatment for HAP. Unable to determin pathogen. No growth on blood culture. Sputum culture pending if possible. Negative urine antigens. Home lasix dose. No signs of fluid overload. (2) Afib Current Visit: No Status: Acute Code(s): I48.91 - UNSPECIFIED ATRIAL FIBRILLATION SNOMED Code(s): 29900393 Comment: Rate controlled. On Coumadin and Diltiazem. Therapeutic. (3) COPD (chronic obstructive pulmonary disease) Current Visit: No Status: Chronic Code(s): J44.9 - CHRONIC OBSTRUCTIVE PULMONARY DISEASE, UNSPECIFIED SNOMED Code(s): 17004012 Comment: Likely mild exacerbation with pneumonia. Continue steroids, Inhalers. (4) GERD (gastroesophageal reflux disease) Current Visit: No Status: Chronic Code(s): K21.9 - GASTRO-ESOPHAGEAL REFLUX DISEASE WITHOUT ESOPHAGITIS SNOMED Code(s): 835497407 Comment: Continue omeprazole. (5) HTN (hypertension) Current Visit: No Status: Chronic Code(s): I10 - ESSENTIAL (PRIMARY) HYPERTENSION SNOMED Code(s): 38897946 Comment: Normotensive. Continue home medications. (6) Sleep apnea Current Visit: No Status: Chronic Code(s): G47.30 - SLEEP APNEA, UNSPECIFIED SNOMED Code(s): 39316345 Comment: Uses home O2. Not on PPV (7) DVT prophylaxis Current Visit: No Status: Acute Code(s): RRY7564 - SNOMED Code(s): 525923189 Comment: Warfarin, Therapeutic. (8) Full code status Current Visit: No Status: Acute Code(s): Z78.9 - OTHER SPECIFIED HEALTH STATUS SNOMED Code(s): 597675647 Status and Disposition: Inpatient.
[2018-02-08] MEDS: Warfarin TAB(*) 2.5 MG PO SCH (17:49)
[2018-02-09] MEDS: traMADol TAB* 50 MG PO PRN (00:01)
[2018-02-09] MEDS: cefTAZidime* 1 GM in NS 0.9% 50 ML* 50 ML IVPB SCH (03:33)
[2018-02-09 06:04] LABS: Hematocrit 32 % (35-47); Hemoglobin 9.8 g/dl (12.0-16.0); Mean Corpuscular HGB Conc 31 g/dl (31-36); Mean Corpuscular Hemoglobin 25 pg (27-31); Mean Corpuscular Volume 81 fL (80-97); Platelet Count 233 10^3/ul (150-450); Red Blood Count 3.89 10^6/ul (4.00-5.40); Red Cell Distribution Width 20 % (10.5-15); White Blood Count 6.6 10^3/ul (3.5-10.8)
[2018-02-09 06:19] LABS: EGFR Non-African American 51.1 (>60); INR 2.34 (0.77-1.02)
[2018-02-09 06:30] LABS: ABS Basophils 0 10^3/ul (0-0.2); ABS Eosinophils 0 10^3/ul (0-0.6); ABS Lymphocytes 0.2 10^3/ul (1.0-4.8); ABS Monocytes 0.3 10^3/ul (0-0.8); ABS Neutrophils 6.1 10^3/ul (1.5-7.7); ABS Nucleated RBC 0 10^3/ul; Eosinophil % 0 % (0-6); Lymphocyte % 3.7 % (25-47); Nucleated Red Blood Cells % 0.1; Tear Drop Cells 1+
[2018-02-09] MEDS: Tiotropium CAP.INH* CAP.INH/18 MCG (USE ORDER SET !) INH SCH (07:21)
[2018-02-09] MEDS ORDERED: Vancomycin Trough Check NOTE FOLLOW UP ONE (08:30)
[2018-02-09] MEDS: Magnesium Oxide TAB* 400 MG PO SCH (09:23)
[2018-02-09] MEDS: Lisinopril TAB* 5 MG PO SCH (09:23)
[2018-02-09] MEDS: Furosemide TAB* 40 MG PO SCH (09:23)
[2018-02-09] MEDS: Omeprazole CAP* 20 MG PO SCH (09:23)
[2018-02-09] MEDS: Cetirizine* 10 MG TAB PO SCH (09:24)
[2018-02-09] MEDS: Metoprolol Tartrate TAB* 25 MG PO SCH (09:25)
[2018-02-09] MEDS: Gabapentin CAP(*) 300 MG PO SCH (09:25)
[2018-02-09] MEDS: Diltiazem CD CAP* 180 MG PO SCH (09:25)
[2018-02-09] MEDS: Vancomycin(*) 1,000 MG in NS 0.9% 250 ML* 250 ML IVPB SCH (09:28)
[2018-02-09 11:49] VITALS: BP 117/48
[2018-02-10] MEDS ORDERED: Vancomycin Random Level* NOTE FOLLOW UP ONE (06:00)
--- NOTE | 2018-02-10 14:04 | DS ---
CC: Dr. Scott Parkinson * DISCHARGE SUMMARY: DATE OF ADMISSION: 02/06/18 DATE OF DISCHARGE: 02/09/18 PRIMARY CARE PROVIDER: Scott Parkinson MD MY ATTENDING WHILE IN THE HOSPITAL: Dr. Ysabel Medrano * (DICTATEED BY AUBREY MULLIGAN) PRIMARY DISCHARGE DIAGNOSIS: Pneumonia, concern for hospital-acquired pneumonia. SECONDARY DISCHARGE DIAGNOSES: 1. Atrial fibrillation, on warfarin. 2. Systolic dysfunction. 3. Pulmonary hypertension. 4. Chronic obstructive pulmonary disease with chronic respiratory failure, on 2 L of oxygen. 5. Obesity. 6. Obstructive sleep apnea. 7. Cervical spinal stenosis and radiculopathy. 8. Chronic lymphedema of the left lower extremity. 9. Severe osteoarthritis. STUDIES DONE WHILE IN THE HOSPITAL: Chest x-ray 02/06/18 read as multifocal consolidations in both lungs, recommended followup for resolution, to exclude underlying pulmonary parenchymal pathology, cardiomegaly. Electrocardiogram read as atrial fibrillation rate of 100, QTC of 451, left axis deviation, no hypertrophy or enlargement. No ST segment abnormalities. Consistent with previous exam. MEDICATIONS AT DISCHARGE: 1. Spiriva 1 cap inhalation daily. 2. Tramadol 50 mg p.o. q.6 hours as needed. 3. Zofran 4 mg p.o. q.6 hours as needed. 4. Metoprolol tartrate 25 mg p.o. b.i.d. 5. Furosemide 40 mg p.o. daily. 6. Pantoprazole 40 mg p.o. daily. 7. Warfarin 2.5 mg p.o. q.p.m. 8. Lisinopril 5 mg p.o. daily. 9. Magnesium oxide 400 mg p.o. daily. 10. Gabapentin 600 mg p.o. t.i.d. 11. Levalbuterol nebulizer 1.25 mg inhalation 4 times a day as needed. 12. Diltiazem 180 mg p.o. daily. 13. Cyclobenzaprine 5 mg p.o. t.i.d. as needed. 14. Diclofenac 1 application topically 4 times a day as needed. 15. Melatonin 5 mg p.o. at bedtime as needed. 16. Guaifenesin 5 to 10 mL p.o. at bedtime as needed. 17. Cetirizine 10 mg p.o. daily. 18. Tylenol 650 mg p.o. q.4 hours as needed. 19. Levofloxacin 750 mg p.o. daily x7. 20. Prednisone 60 mg p.o. daily, taper. New medications at discharge: 1. Tylenol. 2. Levofloxacin. 3. Prednisone. Medications discontinued at discharge: None. HOSPITAL COURSE: This is a brief summary of the patient's presentation. For more details, please see history and physical from Dr. Nasir Campbell on . In brief, the patient is a 62-year-old female with a past medical history significant for the above, presented to the emergency department with sudden onset of shortness of breath with febrile chills and cough without sputum production. Patient, in the emergency department, was given antibiotic including cefepime, levalbuterol, and DuoNeb. The patient's recent IV antibiotic administration with hospitalization were broadened to include cefepime, Levaquin, and vancomycin. The patient was also started on Solu- Medrol 40 mg IV daily. Continued on her chronic medical treatments. The patient was subtherapeutic on her Coumadin with an INR of 1.67, which increased to 2.07 on her second day of her hospitalization. The patient initially had a white blood cell count of 15.8, which increased to 17.2 and then decreased to 13.6. The patient had an ABG, which showed pCO2 of 64, pO2 of 71, elevated bicarbonate of 31.5, which was confirmed by a VBG, which was consistent with her ABG findings. Patient on admission had an elevated BNP, but appeared clinically euvolemic. The patient's BNP is improved from previous exam. The patient had a slightly elevated creatinine, also improved consistent with her baseline. The patient was continued on IV antibiotics and improved greatly from 02/06/18 to 02/07/18. The patient's IV Solu-Medrol was changed to p.o. prednisone. The patient felt worse again on 02/08/18 and the patient was given another dose of IV Solu-Medrol, which made her to feel better. The patient with nursing staff was able to ambulate entirely on the unit initially without getting short of breath, but with tapering off her steroids, she felt worse and got short of breath at the end of her walk, which was similar to the day before. The patient was initially on 4 L of oxygen, was able to taper down to her home dose of 2 L of oxygen. The patient had no fevers. The patient was initially tachycardic, but this resolved. Patient had no hypotension. The patient was initially hypertensive in the emergency department that has resolved without intervention. On 02/09/18, the patient felt she was back to her baseline and was stable and amenable for discharge to home. PHYSICAL EXAM ON THE DAY OF DISCHARGE: General: The patient is a 62-year-old female, who appears stated age, sitting comfortably in bed, in no acute distress. Vital Signs: At the time of evaluation, temperature 98.5, pulse rate 50, respiratory rate 16, oxygen saturation 100% on 2 L of oxygen, blood pressure 117/48. HEENT: Head, normocephalic, atraumatic. Sclerae anicteric. No conjunctival injection. Nasal mucosa moist. Oral mucosa moist. No pharyngeal erythema, discharge, or exudate. Neck: Supple, nontender. No lymphadenopathy. No carotid bruits auscultated. No JVD. Cardiac: Irregularly irregular rhythm. No clicks, murmurs, gallops, or rubs. Pulses 2+ in the bilateral dorsalis pedis, posterior tibialis, and radial areas. Respiratory: Clear to auscultation bilaterally, diminished throughout. No wheezing present. Abdomen: Soft, nontender, nondistended. Bowel sounds present. Normoactive in all 4 quadrants. No hepatosplenomegaly. No abdominal bruits auscultated. No hepatojugular reflux. Skin: Severe varicose and lymphedema with chronic ischemic changes in the left lower extremity. Severe varicose veins in the right lower extremity. Trace lower extremity edema. No other rash. Neuro: Cranial nerves II through XII intact. No focal deficits. Alert and oriented x3. Psychiatric: Pleasant and cooperative. DIAGNOSTIC STUDIES/LAB DATA: Laboratory data on day of discharge: White blood cell count is 6.6, hemoglobin 9.8, INR 2.34. Sodium 138, potassium 3.8, chloride 97, carbon dioxide 35, anion gap 6, BUN 25, creatinine 1.08, glucose 162, calcium 9.7, magnesium 2.1, , INR 2.34. DISCHARGE PLAN: The patient will be discharged to home with 7 more days of Levaquin for possible pneumonia. The patient will follow up primary care provider within 1 week or as soon as possible for general medical management. The patient's main complaint on her day of discharge was issues with her chronic pain. The patient to follow up with the pain clinic and her orthopedist as needed for her control her osteoarthritis and cervical spinal pathology. The patient has never seen a program developer, Pulmonary referral should be considered due to the patient's complex respiratory issues. The patient should return hospital for severe shortness of breath, chest pain, syncope or other alarming symptoms. The patient should have INR monitored as above. The patient should take her nebulizers as needed for wheezing or increased shortness of breath. TIME SPENT: Approximately 60 minutes were spent on this discharge of this patient, 30 of which were spent [id number] with the patient obtaining history and physical and discussing treatment plan. AUBREY MULLIGAN [id number]/[facility] #: [id number] HODA
== END 2018-02-09 13:55 | disposition home or self-care (01) | DRG 193 ==
LOC: ED 12:40 → MEDTELE 15:50
PROVIDERS: ADMIT Student in an Organized Health Care Education/Training Program; ATTEND Internal Medicine
DX: J18.9 Pneumonia, unspecified organism (principal); J96.21 Acute and chronic respiratory failure with hypoxia; J44.1 Chronic obstructive pulmonary disease with (acute) exacerbation; I50.20 Unspecified systolic (congestive) heart failure; I48.91 Unspecified atrial fibrillation; I11.0 Hypertensive heart disease with heart failure; I27.20 Pulmonary hypertension, unspecified; E66.9 Obesity, unspecified; G47.33 Obstructive sleep apnea (adult) (pediatric); M19.90 Unspecified osteoarthritis, unspecified site; I89.0 Lymphedema, not elsewhere classified; M54.12 Radiculopathy, cervical region; M48.02 Spinal stenosis, cervical region; K21.9 Gastro-esophageal reflux disease without esophagitis; Z99.81 Dependence on supplemental oxygen; Z68.34 Body mass index [BMI] 34.0-34.9, adult; Z79.01 Long term (current) use of anticoagulants; Z88.1 Allergy status to other antibiotic agents; Z88.8 Allergy status to other drugs, medicaments and biological substances; Z87.891 Personal history of nicotine dependence
CPT/HCPCS: 36415; 71046; 80048; 80053; 80202; 81003; 81015; 82550; 82553; 82803; 83605; 83735; 83880; 84100; 84145; 84484; 85025; 85027; 85610; 86140; 87040; 87086; 87641; 87899; 93005; 94640; 99284; A9270-GY; G8978-GP-CJ; G8979-GP-CJ; G8980-GP-CJ; J0692; J0713; J0744; J2920; J3370; J3475; J7512

== ENCOUNTER 2018-12-30 03:24 | Inpatient (IN) | payer MEDICARE ==
--- NOTE | 2018-12-30 03:42 | ED ---
Complex/Multi-Sys Presentation - HPI Summary HPI Summary: This patient is a 63 year old F brought in by ambulance to [facility] after two falls slid out of her lift chair at home tonight. She states the first time EMS was needed to help her off the ground, but after attempting to get out of her chair a second time she fell again. She reports a fever and weakness. Additionally reports mild headache, cough, rhinorrhea, and decreased PO intake due to inability to get herself out of the chair. Denies chills, abdominal pain , n/v/d, and SOB. Reports chronic LE edema and redness. PMHx of COPD, afib, CHF , and TTP - History Of Current Complaint Chief Complaint: EDWeakness Time Seen by Provider: 12/30/18 03:36 Hx Obtained From: Patient Onset/Duration: Lasting Days Timing: Constant Associated Signs And Symptoms: Positive: Weakness, Headache, Cough, Decreased Oral Intake, Fever. Negative: SOB, Abdominal Pain - Allergies/Home Medications Allergies/Adverse Reactions: Allergies Allergy/AdvReac Type Severity Reaction Status Date / Time albuterol AdvReac Tachycardia Verified 12/30/18 03:37 amoxicillin [From Augmentin] AdvReac vomiting Verified 12/30/18 03:37 and diarrhea clavulanic acid AdvReac vomiting Verified 12/30/18 03:37 [From Augmentin] and diarrhea PMH/Surg Hx/FS Hx/Imm Hx Endocrine/Hematology History: Reports: Hx Anticoagulant Therapy, Hx Thyroid Disease - HYPERTHYROID, goiter, radioactive iodine treatment, Hx Anemia Denies: Hx Blood Disorders, Hx Blood Transfusions, Hx Bone Marrow Disease, Hx Diabetes, Hx Systemic Lupus Erythematosus, Hx Sickle Cell Disease, Hx Unexplained Bleeding - hemetemesis, Other Endocrine/Hematological Disorders Cardiovascular History: Reports: Hx Congestive Heart Failure, Hx Deep Vein Thrombosis, Hx Embolism, Hx Hypertension, Other Cardiovascular Problems/ Disorders - DVT, IVF FILTER, LV DIASTOLIC DYSFUNCTION Denies: Hx Aneurysm, Hx Angina, Hx Angioplasty, Hx Auto Implanted Cardiovert Defib, Hx Cardiac Arrest, Hx Cardiomegaly, Hx Congenital Heart Disease, Hx Hypercholesterolemia, Hx Hypotension, Hx Pacemaker/ICD, Hx Peripheral Vascular Disease, Hx Rheumatic Fever, Hx Syncope, Hx Valvular Heart Disease Respiratory History: Reports: Hx Asthma, Hx Chronic Bronchitis - frequent bronchitis, not chronic, Hx Chronic Obstructive Pulmonary Disease (COPD) - chronic hypoxic resp failure, on 2L O2, Hx Pneumonia, Hx Pulmonary Edema, Hx Pulmonary Embolism, Hx Seasonal Allergies, Hx Sleep Apnea - has BIPAP at home, Other Respiratory Problems/Disorders - wears O2 at home Denies: Hx Cystic Fibrosis, Hx Lung Cancer, Hx Pleural Effusion GI History: Reports: Hx Gall Bladder Disease - removed 1979, Hx Gastroesophageal Reflux Disease, Hx Gastrointestinal Bleed - October 2012 admission, Hx Hiatal Hernia, Other GI Disorders - s/p bariatric surgery, history of bezoars Denies: Hx Cirrhosis, Hx Crohn's Disease, Hx Diverticulosis, Hx Irritable Bowel, Hx Jaundice, Hx Obstructive Bowel, Hx Ileostomy, Hx Pyloric Stenosis, Hx Ulcer History: Denies: Hx Renal Disease Musculoskeletal History: Reports: Hx Arthritis, Hx Back Problems - neck, Hx Bursitis, Other Musculoskeletal History - lymphedema Denies: Hx Rheumatoid Arthritis, Hx Congenital Bone Abnormalities, Hx Fibromyalgia, Hx Gout, Hx Orthopedic Injury, Hx Osteoporosis, Hx Scoliosis, Hx Tendonitis Sensory History: Reports: Hx Contacts or Glasses, Hx Vision Problem - r/t stroke Denies: Hx Cataracts, Hx Eye Injury, Hx Eye Prosthesis, Hx Glaucoma, Hx Legally Blind, Hx Macular Degeneration, Hx Deafness, Hx Hearing Aid, Hx Hearing Problem, Other Sensory Impairments Opthamlomology History: Reports: Hx Contacts or Glasses, Hx Vision Problem - r/ t stroke Denies: Hx Cataracts, Hx Eye Injury, Hx Eye Prosthesis, Hx Glaucoma, Hx Legally Blind, Hx Macular Degeneration, Other Sensory Impairments Neurological History: Denies: Hx Dementia, Hx Developmental Delay, Hx Headaches, Hx Migraine, Hx Nerve Disease, Hx Seizures, Hx Spinal Cord Injury, Hx Transient Ischemic Attacks (TIA), Other Neuro Impairments/Disorders Psychiatric History: Reports: Hx Depression - since of her sister/PCG Denies: Hx Panic Disorder - Surgical History Surgery Procedure, Year, and Place: Cholecystectomy, splenectomy, stomach stapling surgery 1978,avery filter placed ,2 exploratory surgeries for unexplained bleeding in 1996;blood clot removed from right arm 2012;. GROIN - SKIN GRAFTING DUE TO BLEEDING AND INFECTION. TONSILECTOMY Hx Anesthesia Reactions: No - Immunization History Date of Tetanus Vaccine: unknown Date of Influenza Vaccine: UTD Infectious Disease History: No Infectious Disease History: Denies: Hx Clostridium Difficile, Hx Hepatitis, Hx Human Immunodeficiency Virus (HIV), Hx Shingles, Hx Tuberculosis, Traveled Outside the [place] in Last 30 Days - Family History Known Family History: Positive: Other - parents fhx gastric ulcers Family History: parents fhx gastric ulcers - Social History Alcohol Use: None Hx Substance Use: No Substance Use Type: Reports: None Substance Use Comment - Amount & Last Used: hydrocodone Hx Tobacco Use: Yes Smoking Status (MU): Unknown if Ever Smoked Type: Cigarettes Amount Used/How Often: 1-2 Length of Time of Smoking/Using Tobacco: 32 Have You Smoked in the Last Year: No Review of Systems Positive: Fever, Chills Positive: Nasal Discharge Positive: Cough. Negative: Shortness Of Breath Negative: Abdominal Pain, Vomiting, Diarrhea, Nausea Positive: Headache, Weakness - general All Other Systems Reviewed And Are Negative: Yes Physical Exam - Summary Physical Exam Summary: Appearance: elderly woman in the stretcher appearing older than stated age with no respiratory distress Skin: Warm, dry, no obvious rash Superficial excoriations on the LLE Eyes: sclera anicteric, no conjunctival pallor ENT: mucous membranes moist, pharynx appears normal Neck: Supple, nontender Respiratory: Clear to auscultation, no signs of respiratory distress Cardiovascular: Normal S1, S2. No murmurs. Normal distal pulses in tibial and radial bilaterally. Abdomen: Soft, nontender, normal active bowel sounds present Musculoskeletal: , Strength/ROM Intact, Lower extremities have marked lymphedema especially on left Neurological: A&Ox3, awake and alert, mentation is normal, speech is fluent and appropriate Psychiatric: affect is normal, does not appear anxious or depressed Triage Information Reviewed: Yes Vital Signs On Initial Exam: Initial Vitals Temp Pulse Resp BP Pulse Ox 98.9 F 97 18 147/85 97 12/30/18 03:30 12/30/18 03:30 12/30/18 03:30 12/30/18 03:30 12/30/18 03:30 Vital Signs Reviewed: Yes Diagnostics - Vital Signs Vital Signs Temp Pulse Resp BP Pulse Ox 12/30/18 03:30 98.9 F 97 18 147/85 97 - Laboratory Result Diagrams: 01/03/19 05:43 01/03/19 05:43 Lab Statement: Any lab studies that have been ordered have been reviewed, and results considered in the medical decision making process. - Radiology CXR Radiology Interpretation Completed By: ED Physician Summary of Radiographic Findings: Marked cardiomegally. No acute process. - EKG 0355 Cardiac Rate: Tachycardia - 105 EKG Rhythm: Atrial Fibrillation - 105 BPM Summary of EKG Findings: A-Fib at a rate 105BPM with RVR Complex Multi-Symp Course/Dx Course Of Treatment: 63 year old F brought in by ambulance to [facility] after two falls slid out of her lift chair at home tonight. She reports a fever, mild headache, cough, rhinorrhea, and decreased PO intake due to inability to get herself out of the chair. Bloodwork and UA obtained with a troponin of 0.05. EKG reveals a-fib at 105BPM. CXR reveals cardiomegally with no acute process. Workup is consistent with patietnt PMHx. Patient is able to get up out of bed and ambulate without assistance. She will be discharged home and is agreeable with this plan. - Diagnoses Provider Diagnoses: Generalized weakness, CHF (congestive heart failure) Discharge - Sign-Out/Discharge Documenting (check all that apply): Patient Departure - discharge Patient Received Moderate/Deep Sedation with Procedure: No - Discharge Plan Condition: Fair Disposition: ADMITTED TO [facility] - Billing Disposition and Condition Condition: FAIR Disposition: Admitted to [facility] - Attestation Statements Document Initiated by Duartee: Yes Documenting Scribe: Sheri Mcqueen Provider For Whom Angelina is Documenting (Include Credential): Patel Devries MD Scribe Attestation: Sheri Clancy, scribed for Patel Devries MD on 01/03/19 at 1847. Scribe Documentation Reviewed: Yes Provider Attestation: The documentation as recorded by the Sheri case accurately reflects the service I personally performed and the decisions made by me, Patel Devries MD Status of Scribe Document: Viewed
[2018-12-30 03:55] LABS: Hematocrit 36 % (35-47); Hemoglobin 11.3 g/dL (12.0-16.0); Mean Corpuscular HGB Conc 32 g/dL (31-36); Mean Corpuscular Hemoglobin 27 pg (27-31); Mean Corpuscular Volume 86 fL (80-97); Mean Platelet Volume 10.3 fL (7.4-10.4); Platelet Count 234 10^3/uL (150-450); Red Blood Count 4.18 10^6 /uL (3.70-4.87); Red Cell Distribution Width 19 % (10-15); White Blood Count 6.1 10^3/uL (3.5-10.8)
[2018-12-30 04:14] LABS: ALT 4 U/L (7-52); AST 13 U/L (13-39); Albumin 3.6 g/dL (3.2-5.2); Alkaline Phosphatase 88 U/L (34-104); Anion Gap 5 mmol/L (2-11); Blood Urea Nitrogen 18 mg/dL (6-24); C Reactive Protein 7.91 mg/L (<8.01); CO2 Carbon Dioxide 33 mmol/L (22-32); Calcium 10.1 mg/dL (8.6-10.3); Chloride 97 mmol/L (101-111); EGFR African American 54.6 (>60); EGFR Non-African American 45.1 (>60); Globulin 3.6 g/dL (2-4); Glucose 119 mg/dL (70-100); Magnesium 1.7 mg/dL (1.9-2.7); Potassium 4.1 mmol/L (3.5-5.0); Sodium 135 mmol/L (135-145); Total Protein 7.2 g/dL (6.4-8.9)
[2018-12-30 04:17] LABS: Alcohol < 10 mg/dL (<10)
[2018-12-30 04:24] LABS: Troponin I 0.05 ng/mL (<0.04)
[2018-12-30 04:32] LABS: TSH (Thyroid Stimulating Horm) 1.84 mcIU/mL (0.34-5.60)
[2018-12-30 04:54] LABS: ABS Lymphocytes 0.7 10^3/ul (1.0-4.8); ABS Monocytes 0.7 10^3/ul (0-0.8); ABS Neutrophils 4.6 10^3/ul (1.5-7.7); Eosinophil % 0.5 %; Lymphocyte % 11.6 %
[2018-12-30 06:10] LABS: Urine Appearance Turbid; Urine Bacteria Absent (Absent); Urine Bilirubin Negative (Negative); Urine Blood 1+ (Negative); Urine Color Yellow; Urine Glucose Negative (Negative); Urine Ketones Negative (Negative); Urine Nitrite Negative (Negative); Urine Protein Negative (Negative); Urine Red Blood Cell 2+(6-10/hpf) (Absent); Urine Specific Gravity 1.013 (1.010-1.030); Urine Squamous Epithelial Cell Present (Absent); Urine Urobilinogen Negative (Negative); Urine White Blood Cell Trace(0-5/hpf) (Absent)
--- NOTE | 2018-12-30 07:37 | ED ---
Progress - Progress Note Progress Note: This patient was initially seen by Dr. Devries and was planned to be discharged. However, the patient cannot walk without assistance but lives in independent living and needs a higher level of care. Reportedly the patient can barely walk with a walker. CXR impression: Alveolar and interstitial pulmonary edema similar to the prior exam. ED physician has reviewed this imaging report. The patient will be admitted. Case discussed with Dr. Medrano hospitalist. I discussed results with patient. The patient agrees with this plan. - EKG/XRAY/CT XRAY: chest - Alveolar and interstitial pulmonary edema similar to the prior exam. ED physician has reviewed this imaging report. Re-Evaluation - Re-Evaluation First Eval Re-Evaluation Time: 09:47 Change: Unchanged Comment: Discussed results Course/Dx - Course Course Of Treatment: This patient was initially seen by Dr. Devries and was planned to be discharged. However, the patient cannot walk without assistance but lives in independent living and needs a higher level of care. Reportedly the patient can barely walk with a walker. CXR impression: Alveolar and interstitial pulmonary edema similar to the prior exam. ED physician has reviewed this imaging report. The patient will be admitted. Case discussed with Dr. Medrano, hospitalist. I discussed results with patient. The patient agrees with this plan. - Diagnoses Provider Diagnoses: Generalized weakness, CHF (congestive heart failure) - Provider Notifications Discussed Care Of Patient With: Ysabel Medrano Time Discussed With Above Provider: 07:54 Instructed by Provider To: Admit As Inpatient Discharge - Sign-Out/Discharge Documenting (check all that apply): Patient Departure - admit Patient Received Moderate/Deep Sedation with Procedure: No - Discharge Plan Condition: Fair Disposition: ADMITTED TO [facility] - Billing Disposition and Condition Condition: FAIR Disposition: Admitted to [facility] - Attestation Statements Document Initiated by Scribe: Yes Documenting Scribe: Syd Le Provider For Whom Scribe is Documenting (Include Credential): Teo Davidson MD Scribe Attestation: Syd Clancy, scribed for Teo Davidson MD on 12/30/18 at 1800. Scribe Documentation Reviewed: Yes Provider Attestation: The documentation as recorded by the scribSyd nieves accurately reflects the service I personally performed and the decisions made by me, Negro Davidson MD Status of Scribe Document: Viewed
[2018-12-30] MEDS ORDERED: Furosemide IV* 10 MG/ML VIAL (40 MG) IV ONE (08:40)
[2018-12-30 09:33] LABS: Troponin I 0.06 ng/mL (<0.04)
[2018-12-30] MEDS ORDERED: Acetaminophen TAB* 325 MG PO PRN (09:51)
--- NOTE | 2018-12-30 11:59 | HP ---
HISTORY AND PHYSICAL: DATE OF ADMISSION: 12/30/18 TIME OF ADMISSION: 10:00 a.m. PRIMARY CARE PHYSICIAN: Dr. Parkinson. MISSILE MECHANIC: Dr. Gleason. CHIEF COMPLAINT: Fall. HISTORY OF PRESENT ILLNESS: This is a 63-year-old woman with history of remote CVA, CHF, AFib, and chronic hypoxic respiratory failure, who lives at [facility] and called EMS after a fall early this morning. She was sitting in a lift chair and had a silk mumu and when she tried to stay onto the lift chair up , she slid out of it and could not get up. She initially blamed it on her silk mumu; however, when EMS arrived and put her in her desk chair, she also could not get out of her desk chair. She normally walks around with a cane and has no trouble getting in and out of chairs; however, this was not particularly concerning to her. Still, EMS recommended she come to the emergency department and she agreed. She initially offers no complaints; however, on further questioning, review of systems was positive for occasional nausea, no vomiting, some shortness of breath, no orthopnea, no chest pain. She sleeps on 1 pillow and has not had any weight gain. She also notes that she has not eaten in a few days. She says she does have food in her house, but just has not had an appetite. She denies diarrhea, fever, or abdominal pain; and the review of systems is otherwise negative. In the emergency department, she was going to be discharged back to [facility] but nursing noted that she was greater than a 2-person assist and so we were called for possible admission. PAST MEDICAL HISTORY: 1. Bezoar syndrome. 2. CHF. 3. AFib, on anticoagulation. 4. Osteoarthritis. 5. COPD, on 2 L round the clock. 6. Left leg lymphedema from lymph node dissection in the . 7. 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 ALLERGIES: ALBUTEROL and AUGMENTIN. SOCIAL HISTORY: She is a former smoker and quit 6 years ago. She lives at [facility]. She has an aide who comes in 3 hours per week. Her healthcare proxy is her sister, Rasheeda Chapman, who lives in [place]. She normally ambulates with a cane. PHYSICAL EXAMINATION GENERAL: Alert female, in no distress, who appears older than her stated age. VITAL SIGNS: Temperature 98.9, heart rate 86, respiratory rate 22, pulse ox 92 % on 4 L, blood pressure 152/85. HEENT: Pupils are 3 mm bilaterally and reactive to light. Her left eye deviates slightly outward, which she says is unchanged since her stroke. She also has a slight left lid droop, which she also says is unchanged. Her face is otherwise symmetric. Her oral mucosa is moist with no pharyngeal exudates or erythema. NECK: She has JVP to 14 cm of water. LUNGS: A few crackles at the bases. CHEST: She is in her regular rhythm with no murmurs. ABDOMEN: Obese, soft, nontender, nondistended with an old laparotomy incision. EXTREMITIES: Her left leg is much bigger than her right leg, which she says is unchanged from baseline. She has erythema on both shins with excoriations and 3 + pitting edema bilaterally. NEUROLOGIC: Her strength is 5/5 in all extremities. She has no pronator drift and she is oriented x3. LABORATORY DATA: Sodium 135, potassium 4.1, chloride 97, bicarb 33, creatinine 1.20, glucose 119, lactic acid is 1.2, magnesium 1.7. Total bilirubin 1.6. Troponin 0.05, 0.06. BNP over 1300. CRP 7.91. TSH 1.84. Urinalysis is negative for nitrites and wbc's. IMAGING: A chest x-ray shows alveolar and interstitial pulmonary edema similar to the prior exam. On my review, I would add that there is also cardiomegaly and agree that the congestion is similar to her last chest x-ray. An EKG shows atrial fibrillation with left axis deviation, nearly prolonged QRS of [address] changes isolated to V2, no other ST changes. ASSESSMENT AND PLAN: This is a 63-year-old woman with history of hypoxic respiratory failure, heart failure, chronic kidney disease, who presented to the emergency department after a fall from her lift chair and was noted to be weak by EMS, so was transferred to the emergency department. 1. Weakness. It seems that she has had a sudden decompensation in her subacute weakness over the past few days. Objectively, she has good strength; however, nursing reports that she lacks strength with transferring. I am ordering PT and OT consult and also a CT head. I suspect; however, that this is mostly related to decompensated heart failure as below. 2. Acute on chronic diastolic and right-sided heart failure. Ms. Roy was noted to have preserved LV function a year ago, but decreased RV function and has evidence of RV failure on exam; however, she also has evidence of pulmonary edema, so I am concerned that her LV may also be affected. I would like to repeat an echocardiogram. She takes Lasix 40 mg daily at home. I will increase that to Lasix 40 mg IV daily and see how she responds and I will add daily weights. The etiology of her decompensation is unclear. It does not seem that she had an ischemic event. However, we will trend her troponins and monitor her on telemetry. 3. Decreased appetite. She says she has been unable to eat for the past few days and she has had an elevated bilirubin. I suspect this also may be related to right- sided heart failure and may improve with IV diuresis. She has no exam findings in her abdomen. 4. Elevated troponin. I suspect this is related to demand in the setting of decompensated heart failure. Continue to trend. 5. Chronic kidney disease. Her renal function is at baseline. 6. Atrial fibrillation, on warfarin. Check an INR stat and resume her Coumadin if her INR is therapeutic or subtherapeutic. 7. Acute on chronic hypoxic respiratory failure. She normally wears 2 L round the clock and is currently requiring 4 L. I suspect this is a reflection of worsening pulmonary edema. I will diurese her as above. I have a low suspicion for pulmonary embolism as she is therapeutically anticoagulated. 8. DVT prophylaxis. Therapeutic anticoagulation with warfarin. 9. Disposition: Admit to [address] [place] [id number] for telemetry and troponin trend and treatment for decompensated heart failure. She needs PT and OT consults for a possible higher level of care at the time of discharge. [id number]/CPS #: [id number] HODA
[2018-12-30 15:32] LABS: INR 2.03 (0.82-1.09)
[2018-12-30] MEDS: Gabapentin CAP(*) 300 MG PO SCH ×2 (15:33→21:53)
[2018-12-30 15:48] LABS: Troponin I 0.06 ng/mL (<0.04)
[2018-12-30] MEDS: Metoprolol Tartrate TAB* 25 MG PO SCH (21:53)
[2018-12-30] MEDS: HYDROcodone/ACETAMIN 5-325 MG* 1 TAB PO SCH (21:53)
[2018-12-31 06:25] LABS: Hematocrit 35 % (35-47); Hemoglobin 11.4 g/dL (12.0-16.0); Mean Corpuscular HGB Conc 32 g/dL (31-36); Mean Corpuscular Hemoglobin 28 pg (27-31); Mean Corpuscular Volume 86 fL (80-97); Red Blood Count 4.11 10^6 /uL (3.70-4.87); Red Cell Distribution Width 19 % (10-15); White Blood Count 5.2 10^3/uL (3.5-10.8)
[2018-12-31 06:29] LABS: Potassium 3.8 mmol/L (3.5-5.0)
[2018-12-31 06:35] LABS: BUN/Creatinine Ratio 15.8 (8-20); EGFR African American 54.6 (>60); EGFR Non-African American 45.1 (>60); HDL Cholesterol 37.7 mg/dL
[2018-12-31 06:50] LABS: ABS Basophils 0.1 10^3/ul (0-0.2); ABS Eosinophils 0.1 10^3/ul (0-0.6); ABS Lymphocytes 1.5 10^3/ul (1.0-4.8); ABS Monocytes 0.9 10^3/ul (0-0.8); ABS Neutrophils 2.6 10^3/ul (1.5-7.7); Eosinophil % 2.4 %; Lymphocyte % 28.5 %; Mean Platelet Volume 10.6 fL (7.4-10.4); Nucleated Red Blood Cells % 0.2; Platelet Count 75 10^3/uL (150-450)
[2018-12-31] MEDS ORDERED: Tiotropium CAP.INH* CAP.INH/18 MCG (USE ORDER SET !) INH ONE (06:58)
[2018-12-31] MEDS: Tiotropium CAP.INH* CAP.INH/18 MCG (USE ORDER SET !) INH SCH (07:35)
[2018-12-31] MEDS ORDERED: Furosemide IV* 10 MG/ML VIAL (40 MG) IV SCH (09:00)
[2018-12-31] MEDS ORDERED: Spiriva Inhaler DEVICE* 1 EACH DEVICE INH ONE (09:00)
[2018-12-31] MEDS: Gabapentin CAP(*) 300 MG PO SCH ×3 (09:27→20:34)
[2018-12-31] MEDS: HYDROcodone/ACETAMIN 5-325 MG* 1 TAB PO SCH ×2 (09:29→20:41)
[2018-12-31] MEDS: Lisinopril TAB* 5 MG PO SCH (09:29)
[2018-12-31] MEDS: Metoprolol Tartrate TAB* 25 MG PO SCH ×2 (09:29→20:41)
[2018-12-31] MEDS: Pantoprazole TAB * 40 MG TAB PO SCH (09:29)
[2018-12-31] MEDS: Magnesium Oxide TAB* 400 MG PO SCH (09:29)
[2018-12-31] MEDS: Diltiazem CD CAP* 180 MG PO SCH (09:30)
[2018-12-31] MEDS: Cetirizine* 10 MG TAB PO SCH (09:30)
[2018-12-31] MEDS ORDERED: Perflutren Lipid Microsphere* 3 ML VIAL ONE (11:00)
--- NOTE | 2018-12-31 12:19 | PN ---
Subjective Date of Service: 12/31/18 Interval History: Jess feels good today. She is sitting up in the chair eating lunch. She has no shortness of breath. SHe walked with PT this morning and said it went well. She revealed to her RN Dominique that she coughs when she eats which she believes is related to a goiter for which she follows with Dr. Steele. She has no pain and no other complaints at this time. Objective Active Medications: Acetaminophen (Tylenol Tab*) 650 mg PO Q4H PRN PRN Reason: FEVER/PAIN Hydrocodone Bitart/Acetaminophen ([place] 5-325 Tab*) 1 tab PO BID COUNTS INCLUDE 234 BEDS AT THE [facility] Last Admin: 12/31/18 09:29 Dose: 1 tab Al Hydrox/Mg Hydrox/Simethicone (Maalox Plus*) 30 ml PO Q6H PRN PRN Reason: INDIGESTION Cetirizine HCl (Zyrtec*) 10 mg PO DAILY COUNTS INCLUDE 234 BEDS AT THE [facility] Last Admin: 12/31/18 09:30 Dose: 10 mg Diltiazem HCl (Cardizem Cd Cap*) 180 mg PO DAILY COUNTS INCLUDE 234 BEDS AT THE [facility] Last Admin: 12/31/18 09:30 Dose: 180 mg Furosemide (Lasix Iv*) 40 mg IV DAILY COUNTS INCLUDE 234 BEDS AT THE [facility] Last Admin: 12/31/18 09:18 Dose: 40 mg Gabapentin (Neurontin Cap(*)) 600 mg PO TID COUNTS INCLUDE 234 BEDS AT THE [facility] Last Admin: 12/31/18 09:27 Dose: 600 mg Levalbuterol HCl (Xopenex 1.25 Mg/0.5 Ml Neb.Cheyanne*) 1.25 mg INH QID PRN PRN Reason: SOB/WHEEZING Lisinopril (Prinivil Tab*) 5 mg PO DAILY COUNTS INCLUDE 234 BEDS AT THE [facility] Last Admin: 12/31/18 09:29 Dose: 5 mg Magnesium Oxide (Magox 400 Tab*) 400 mg PO DAILY COUNTS INCLUDE 234 BEDS AT THE [facility] Last Admin: 12/31/18 09:29 Dose: 400 mg Metoprolol Tartrate (Lopressor Tab*) 25 mg PO BID COUNTS INCLUDE 234 BEDS AT THE [facility] Last Admin: 12/31/18 09:29 Dose: 25 mg Ondansetron HCl (Zofran Tab*) 4 mg PO Q6HR PRN PRN Reason: NAUSEA Pantoprazole Sodium (Protonix Tab*) 40 mg PO DAILY COUNTS INCLUDE 234 BEDS AT THE [facility] Last Admin: 12/31/18 09:29 Dose: 40 mg Pharmacy Profile Note (Coumadin Daily Reminder*) 1 note FOLLOW UP 1700 [facility] Tiotropium Willis (Spiriva Cap.Inh*) 1 cap INH DAILY [facility] Last Admin: 12/31/18 07:35 Dose: Not Given Warfarin Sodium (Coumadin Tab(*)) 2.5 mg PO 1700 [facility]; Protocol Vital Signs - 8 hr 12/31/18 12/31/18 12/31/18 08:00 08:30 09:27 Temperature 97.6 F Pulse Rate 71 Respiratory 16 16 16 Rate Blood Pressure 112/61 (mmHg) O2 Sat by Pulse 100 Oximetry 12/31/18 09:29 Temperature Pulse Rate Respiratory 16 Rate Blood Pressure (mmHg) O2 Sat by Pulse Oximetry Oxygen Devices in Use Now: Nasal Cannula Appearance: alert, well appearing Eyes: No Scleral Icterus Ears/Nose/Mouth/Throat: - - left eye droop at baseline Neck: - - JVP 10 cm sitting up right Respiratory: Symmetrical Chest Expansion and Respiratory Effort, Clear to Auscultation Cardiovascular: - - irregular rhythm Abdominal: NL Sounds; No Tenderness; No Distention Extremities: - - 3+ edema b/l with chronic stasis changes, R leg < L leg Neurological: Alert and Oriented x 3 Result Diagrams: 12/31/18 05:52 12/31/18 05:52 Microbiology and Other Data: Microbiology 12/30/18 05:55 Urine Culture - Final Urine No Growth (<1,000 CFU/mL) Assess/Plan/Problems-Billing Assessment: This is a 63 year old woman with history of afib, chronic hypoxic resp failure, right-sided heart failure who presented to the Ed 12/30 with a fall out of her recliner and weakness and was found to be in decompesnated heart failure - Patient Problems (1) RVF (right ventricular failure) Current Visit: Yes Status: Acute Code(s): I50.810 - RIGHT HEART FAILURE, UNSPECIFIED SNOMED Code(s): 664728277 Comment: continue IV diuresis; awaiting read of repeat TTE today (2) Weakness Current Visit: Yes Status: Acute Code(s): R53.1 - WEAKNESS SNOMED Code(s) : 02274058 Comment: CT head significant for encephalomalacia which does not likely explain her weakness likely related to decompensated heart failure continue PT, she would agree to STR if recommended (3) Acute diastolic CHF (congestive heart failure) Current Visit: No Status: Acute Code(s): I50.31 - ACUTE DIASTOLIC ( CONGESTIVE) HEART FAILURE SNOMED Code(s): 803140076 Comment: repeat TTE continue iv diuresis and daily weights (4) Poor appetite Current Visit: Yes Status: Acute Code(s): R63.0 - ANOREXIA SNOMED Code(s) : 68294054 Comment: I suspect related to RV failure, improving with diuresis (5) Atrial fibrillation Current Visit: No Status: Acute Priority: High Code(s): I48.91 - UNSPECIFIED ATRIAL FIBRILLATION SNOMED Code(s): 92871887 Comment: Continue Diltiazem and Warfarin--INR 2.03 yesterday. (6) Thyroid nodule Current Visit: No Status: Acute Priority: High Code(s): E04.1 - NONTOXIC SINGLE THYROID NODULE SNOMED Code(s): 261732879 Comment: goiter, follows with Law cough when she coughs is concerning--will request an official swallow eval from speech Status and Disposition: inpatient; may need higher level of care at discharge
--- NOTE | 2018-12-31 13:35 | ECHO ---
*[facility]* [place] [address] Fax #: [phone] Transthoracic Echocardiogram Patient: Kirill, Height: 71 in / Jess Hernandez 180.3 cm : 1955 Weight: 224.5 lb / Study Date: 12/31/2018 102.1 kg Age: 63 BP: 104 / 53 Gender: F BMI/BSA: 31.4 kg/m^2 HR: 68 bpm / 2.29 m^2 *Plastics Tooling Engineer: * Rasheeda Barron [facility] *Referring Physician: * Ysabel Medrano *Reading Physician: * Mauro Gleason MD Indications: Congestive Heart Failure. History: COPD,lymphedema,prior cerebrovascular accident. Conclusions Summary: 1. Left ventricle: The cavity size is normal. Wall thickness is mildly to moderately increased. Systolic function is normal. The estimated ejection fraction is 55-60%. Wall motion is normal; there are no regional wall motion abnormalities. 2. Right ventricle: Systolic function is normal. 3. Left atrium: The atrium is moderately dilated. 4. Mitral valve: There is mild to moderate regurgitation. 5. Aortic valve: The valve is trileaflet. The leaflets are mildly thickened. There is no significant regurgitation. 6. Tricuspid valve: There is mild-moderate regurgitation. 7. Pericardium, extracardiac: There is no pericardial effusion. 8. Compared to study of11/23/17, there ia little change. Study data: Transthoracic echocardiogram. Procedure: Transthoracic echocardiography was performed. Image quality was fair. The study was technically limited due to body habitus. Intravenous Definity , 4 mlswas administered. Complete 2D, spectral Doppler, and color flow Doppler. Patient status: Inpatient. Patient room number: 444. Rhythm: Normal sinus rhythm with PVC's. Findings Left ventricle: The cavity size is normal. Wall thickness is mildly to moderately increased. Systolic function is normal. The estimated ejection fraction is 55-60%. Wall motion is normal; there are no regional wall motion abnormalities. Left ventricular diastolic function parameters are indeterminate. Right ventricle: Well visualized. The cavity size is normal. Wall thickness is normal. Systolic function is normal. Ventricular septum: Well visualized. Left atrium: Well visualized. The atrium is moderately dilated. Right atrium: Well visualized. The atrium is moderately to severely dilated. Atrial septum: Well visualized. Mitral valve: Well visualized. The leaflets are normal thickness. No echocardiographic evidence for prolapse. There is no evidence of stenosis. There is mild to moderate regurgitation. Aortic valve: Well visualized. The valve is trileaflet. The leaflets are mildly thickened. Thickening, consistent with sclerosis. There is no significant regurgitation. Tricuspid valve: Well visualized. The leaflets are normal thickness. There is no evidence of stenosis. There is mild-moderate regurgitation. Pulmonic valve: Well visualized. The leaflets are normal thickness. There is no evidence of stenosis. There is trivial regurgitation. Aorta: The aorta is not visualized. Pericardium: There is no pericardial effusion. No evidence of pleural fluid accumulation. Pulmonary arteries: Well visualized. Systemic veins: Not well visualized. Pulmonary veins: Visualization of the pulmonary venous anatomy is incomplete, but a significant abnormality is unlikely. Measurements Left ventricle Value Ref Right atrium continued Value Ref PRITI, LAX 4.0 cm 3.8 - 5.2 SI dim, ES, A4C (H) 8.9 cm 3.4 - ESD, LAX 2.8 cm 2.2 - 3.5 5.3 FS, LAX 30 % 45 SI dim/bsa, ES, (H) 3.9 cm/m^2 1.9 - PW, ED, LAX (H) 1.4 cm 0.6 - 0.9 A4C 3.1 FS 30 % 45 Estimated RAP 8 mm Hg -------- Mid-wall FS 9 % --------- PW, ED (H) 1.4 cm 0.6 - 0.9 Aortic valve Value Ref PW/ID, ED 0.35 --------- Peak v, S 1.71 m/sec -------- VTI, S 32.8 cm -------- LVOT Value Ref Mean grad, S 5.9 mm Hg -------- Peak ebony, S 0.83 m/sec --------- Peak grad, S 11.7 mm Hg -------- VTI, S 15.7 cm --------- LVOT/AV, VTI ratio 0.48 -------- Peak grad, S 3 mm Hg --------- Mean grad, S 1 mm Hg --------- Mitral valve Value Ref Peak E 0.93 m/sec -------- Ventricular septum Value Ref Peak A 0.19 m/sec -------- IVS, ED (H) 1.5 cm 0.6 - 0.9 Decel time 216 ms -------- Peak grad, D 3.5 mm Hg -------- Right ventricle Value Ref Peak E/A ratio 5.04 -------- PRITI, LAX 3.7 cm --------- MR peak v 4.47 m/sec -------- Left atrium Value Ref Pulmonic valve Value Ref LA ID 4.8 cm --------- Peak v, S 0.73 m/sec -------- SI dim ES, LAX 4.8 cm --------- Peak grad, S 2.1 mm Hg -------- ML dim, A4C 5.3 cm --------- SI dim, A4C 8.7 cm --------- Aortic root Value Ref Root diam 1.7 cm <4.4 Right atrium Value Ref SI dim, ES (H) 8.9 cm 3.4 - 5.3 Ascending aorta Value Ref ML dim, ES, A4C (H) 7.6 cm 2.6 - 4.4 AAo AP diam, S 2.9 cm -------- AAo AP diam/bsa, S 1.3 cm/m^2 -------- Legend: (L) and (H) lele values outside specified reference range. Prepared and electronically signed by Mauro Gleasno MD 12/31/2018 13:35
[2018-12-31] MEDS ORDERED: Warfarin TAB(*) 2.5 MG PO SCH (17:00)
[2018-12-31] MEDS: Nystatin TOP POWDER* 15 GM BTL TOPICAL SCH ×2 (17:01→21:29)
[2018-12-31] MEDS ORDERED: Senna TAB PO PRN (18:13)
[2018-12-31] MEDS ORDERED: Docusate CAP* 100 MG PO PRN (18:13)
[2018-12-31] MEDS ORDERED: Polyethylene Glycol 3350* 17 GM PACKET PO PRN (18:13)
[2018-12-31] MEDS ORDERED: NS 0.9% 250 ML* 250 ML IV ONE (20:00)
[2018-12-31] MEDS: Ondansetron TAB* 4 MG PO PRN (20:35)
[2019-01-01 07:48] LABS: BUN/Creatinine Ratio 17.4 (8-20); Calcium 9.6 mg/dL (8.6-10.3); EGFR African American 57.3 (>60); EGFR Non-African American 47.4 (>60); Potassium 3.5 mmol/L (3.5-5.0)
[2019-01-01 07:49] LABS: ABS Basophils 0.1 10^3/ul (0-0.2); ABS Eosinophils 0.2 10^3/ul (0-0.6); ABS Lymphocytes 0.9 10^3/ul (1.0-4.8); ABS Monocytes 0.9 10^3/ul (0-0.8); ABS Neutrophils 5.3 10^3/ul (1.5-7.7); Eosinophil % 3.3 %; Hematocrit 37 % (35-47); Hemoglobin 11.9 g/dL (12.0-16.0); Lymphocyte % 11.9 %; Mean Corpuscular HGB Conc 32 g/dL (31-36); Mean Corpuscular Hemoglobin 28 pg (27-31); Mean Corpuscular Volume 86 fL (80-97); Mean Platelet Volume 10.7 fL (7.4-10.4); Nucleated Red Blood Cells % 0.1; Platelet Count 220 10^3/uL (150-450); Red Blood Count 4.31 10^6 /uL (3.70-4.87); Red Cell Distribution Width 19 % (10-15); White Blood Count 7.5 10^3/uL (3.5-10.8)
[2019-01-01 07:52] LABS: INR 2.05 (0.82-1.09)
[2019-01-01] MEDS: Ondansetron TAB* 4 MG PO PRN (09:17)
[2019-01-01] MEDS: Diltiazem CD CAP* 180 MG PO SCH (09:52)
[2019-01-01] MEDS: Gabapentin CAP(*) 300 MG PO SCH ×3 (09:52→20:05)
[2019-01-01] MEDS: Cetirizine* 10 MG TAB PO SCH (09:52)
[2019-01-01] MEDS: HYDROcodone/ACETAMIN 5-325 MG* 1 TAB PO SCH ×2 (09:53→20:05)
[2019-01-01] MEDS: Magnesium Oxide TAB* 400 MG PO SCH (09:53)
[2019-01-01] MEDS: Pantoprazole TAB * 40 MG TAB PO SCH (09:53)
[2019-01-01] MEDS: Metoprolol Tartrate TAB* 25 MG PO SCH ×2 (09:53→20:05)
[2019-01-01] MEDS: Lisinopril TAB* 5 MG PO SCH (09:53)
[2019-01-01] MEDS ORDERED: Ondansetron INJ* 2 MG/ML VIAL IV PRN (10:24)
[2019-01-01] MEDS ORDERED: PROCHLORPERAZINE INJ 5 MG/ML 2 ML VIAL IV PRN (10:25)
[2019-01-01] MEDS ORDERED: Famotidine IV* 10 MG/ML 2 ML (20 mg) IV SLOW PU ONE (10:27)
[2019-01-01] MEDS: Tiotropium CAP.INH* CAP.INH/18 MCG (USE ORDER SET !) INH SCH (10:30)
--- NOTE | 2019-01-01 10:31 | PN ---
Subjective Date of Service: 01/01/19 Interval History: HD # 3 on 01/01 63 F AFib on AC, COPD and chronic hypoxic resp failure, HFpEF, hx of CVA with resiudal L weakness, hx of lymphedema, presented to the ED 12/30 with a fall out of her recliner and weakness and was found to be in decompensated heart failure Overnight, VSS, did have some N/V, continued this AM Labs unremarkable This morning she reports 2 episodes of emesis, described as "dark and chunky", no abdominal pain, just a constant nausea, has a desire to have a BM. Otherwise pleasant and well, no shortness of breath or chest pain, no diaphoresis. Objective Active Medications: Acetaminophen (Tylenol Tab*) 650 mg PO Q4H PRN PRN Reason: FEVER/PAIN Hydrocodone Bitart/Acetaminophen ([place] 5-325 Tab*) 1 tab PO BID [facility] Last Admin: 01/01/19 09:53 Dose: Not Given Al Hydrox/Mg Hydrox/Simethicone (Maalox Plus*) 30 ml PO Q6H PRN PRN Reason: INDIGESTION Cetirizine HCl (Zyrtec*) 10 mg PO DAILY [facility] Last Admin: 01/01/19 09:52 Dose: Not Given Diltiazem HCl (Cardizem Cd Cap*) 180 mg PO DAILY [facility] Last Admin: 01/01/19 09:52 Dose: Not Given Docusate Sodium (Colace Cap*) 100 mg PO BID PRN PRN Reason: CONSTIPATION Last Admin: 12/31/18 20:34 Dose: 100 mg Gabapentin (Neurontin Cap(*)) 600 mg PO TID [facility] Last Admin: 01/01/19 09:52 Dose: Not Given Levalbuterol HCl (Xopenex 1.25 Mg/0.5 Ml Neb.Cheyanne*) 1.25 mg INH QID PRN PRN Reason: SOB/WHEEZING Lisinopril (Prinivil Tab*) 5 mg PO DAILY [facility] Last Admin: 01/01/19 09:53 Dose: Not Given Magnesium Oxide (Magox 400 Tab*) 400 mg PO DAILY [facility] Last Admin: 01/01/19 09:53 Dose: Not Given Metoprolol Tartrate (Lopressor Tab*) 25 mg PO BID [facility] Last Admin: 06/25/19 09:53 Dose: Not Given Nystatin (Nystatin Top Powder*) 1 applic TOPICAL BID [facility] Last Admin: 12/31/18 21:29 Dose: 1 powder Ondansetron HCl (Zofran Inj*) 4 mg IV Q6H PRN PRN Reason: NAUSEA Pantoprazole Sodium (Protonix Tab*) 40 mg PO DAILY [facility] Last Admin: 01/01/19 09:53 Dose: Not Given Pharmacy Profile Note (Coumadin Daily Reminder*) 1 note FOLLOW UP [facility]00 [facility] Last Admin: 12/31/18 17:58 Dose: 1 note Polyethylene Glycol/Electrolytes (Miralax*) 17 gm PO DAILY PRN PRN Reason: CONSTIPATION Last Admin: 12/31/18 20:35 Dose: 17 gm Prochlorperazine Edisylate (Compazine Inj*) 5 mg IV Q6H PRN PRN Reason: NAUSEA/VOMITING Senna (Senokot Tab*) 1 tab PO DAILY PRN PRN Reason: CONSTIPATION Last Admin: 12/31/18 20:34 Dose: 1 tab Tiotropium [place] (Spiriva Cap.Inh*) 1 cap INH DAILY [facility] Last Admin: 12/31/18 07:35 Dose: Not Given Warfarin Sodium (Coumadin Tab(*)) 2.5 mg PO 1700 [facility]; Protocol Last Admin: 12/31/18 17:01 Dose: 2.5 mg Vital Signs - 8 hr 01/01/19 03:24 Temperature 98.2 F Pulse Rate 70 Respiratory 18 Rate Blood Pressure 106/55 (mmHg) O2 Sat by Pulse 100 Oximetry Oxygen Devices in Use Now: Nasal Cannula Appearance: Pleasant woman in NAD Eyes: No Scleral Icterus, PERRLA Ears/Nose/Mouth/Throat: Mucous Membranes Moist, - - Poor dentition Neck: NL Appearance and Movements; NL JVP Respiratory: Symmetrical Chest Expansion and Respiratory Effort, Clear to Auscultation Cardiovascular: - - Irreg irreg Abdominal: NL Sounds; No Tenderness; No Distention, No Hepatosplenomegaly, - - Prior surgical scar Lymphatic: No Cervical Adenopathy Extremities: - - 2+ edema blt LE, L > R Neurological: Alert and Oriented x 3 Result Diagrams: 01/01/19 15:59 01/01/19 07:12 Microbiology and Other Data: Microbiology 12/30/18 05:55 Urine Culture - Final Urine No Growth (<1,000 CFU/mL) Diagnostic Imaging: TTE: Echo 55-60%, dilated LA CTH: Unchanged encephalomalacia chronic hygromas Assess/Plan/Problems-Billing Assessment: 63 F AFib on AC, COPD and chronic hypoxic resp failure, HFpEF, hx of CVA with residual L weakness, hx of lymphedema, presented to the ED 12/30 with a fall out of her recliner and weakness and was found to be in decompensated heart failure - Patient Problems (1) Acute diastolic CHF (congestive heart failure) Current Visit: No Status: Acute Code(s): I50.31 - ACUTE DIASTOLIC ( CONGESTIVE) HEART FAILURE SNOMED Code(s): 558082443 Comment: - TTE with preserved EF 12/31/18 - Furosemide held this morning / to bolus given last night, will resume daily 01/01 - Daily weights (2) Nausea & vomiting Current Visit: Yes Status: Acute Code(s): R11.2 - NAUSEA WITH VOMITING, UNSPECIFIED SNOMED Code(s): 63167839 Comment: - New onset today, dark green? in color, bilious - Will check EKG, troponin in event any atypical cardiac component - Did have BM, is tolerating liquids, no e/o SBO on exam, CTM - Check H/H if any concern for coffee ground emesis, change to IV PPI - Clear liquid diet - Treat with Zofran and Compazine PRN (3) History of CVA (cerebrovascular accident) Current Visit: Yes Status: Acute Code(s): Z86.73 - PRSNL HX OF TIA (TIA), AND CEREB INFRC W/O RESID DEFICITS SNOMED Code(s): 147524367 Comment: - Currently holding AC 2/2 to emsis of "dark bile" possible hematemsis - Not optimized on statin, will start low dose Atorva (4) Lymphedema Current Visit: Yes Status: Acute Code(s): I89.0 - LYMPHEDEMA, NOT ELSEWHERE CLASSIFIED SNOMED Code(s): 884223849 Comment: - Chronic 2/2 to lymph node dissection (5) Weakness Current Visit: Yes Status: Acute Code(s): R53.1 - WEAKNESS SNOMED Code(s) : 65784867 Comment: - CT head significant for encephalomalacia, stable, likely not contributing to weakness - Decompensated heart failure - continue PT, she would agree to STR if recommended (6) Afib Current Visit: No Status: Acute Code(s): I48.91 - UNSPECIFIED ATRIAL FIBRILLATION SNOMED Code(s): 45997688 Comment: - Rate controlled. On Coumadin and Diltiazem. - Holding coumadin for now (7) GERD (gastroesophageal reflux disease) Current Visit: No Status: Chronic Code(s): K21.9 - GASTRO-ESOPHAGEAL REFLUX DISEASE WITHOUT ESOPHAGITIS SNOMED Code(s): 818926532 Comment: - Continue PPI, x 1 dose H2 shannan (8) COPD (chronic obstructive pulmonary disease) Current Visit: No Status: Chronic Code(s): J44.9 - CHRONIC OBSTRUCTIVE PULMONARY DISEASE, UNSPECIFIED SNOMED Code(s): 02327942 Comment: - Continue home inhalers (9) DVT prophylaxis Current Visit: No Status: Acute Code(s): HCY5323 - SNOMED Code(s): 658361732 Comment: - Holding therapeutic warfarin, resume as N/V improves (10) Full code status Current Visit: No Status: Acute Code(s): Z78.9 - OTHER SPECIFIED HEALTH STATUS SNOMED Code(s): 755542653 Status and Disposition: Inpatient; may need higher level of care at discharge
[2019-01-01] MEDS: Nystatin TOP POWDER* 15 GM BTL TOPICAL SCH ×2 (10:55→20:13)
[2019-01-01] MEDS: Levalbuterol 1.25MG/0.5ML NEB INH PRN (11:19)
[2019-01-01 16:18] LABS: Hematocrit 37 % (35-47)
[2019-01-01] MEDS ORDERED: Morphine INJ* 2 MG/ML 1 ML SYRINGE (TWO MG - NEW SYRINGE VERSION) IV PRN (17:58)
[2019-01-01] MEDS: Pantoprazole IV* 40 MG IV SCH (19:09)
[2019-01-01] MEDS ORDERED: Bisacodyl SUPP* 10 MG SUPP PR PRN (19:39)
[2019-01-01] MEDS: Metoclopramide IV* 5 MG/ML 2 ML VIAL IV PRN (20:08)
[2019-01-01 20:27] LABS: Hematocrit 36 % (35-47); Hemoglobin 11.6 g/dL (12.0-16.0)
[2019-01-01 20:45] LABS: Troponin I 0.04 ng/mL (<0.04)
[2019-01-02] MEDS ORDERED: Metoprolol Tartrate IV* 1 MG/ML 5 ML VIAL IV ONE (00:56)
[2019-01-02] MEDS ORDERED: Acetaminophen SUPP* 650 MG SUPP PR PRN (03:13)
[2019-01-02] MEDS: Pantoprazole IV* 40 MG IV SCH (05:40)
[2019-01-02 06:22] LABS: Hematocrit 34 % (35-47); Hemoglobin 10.7 g/dL (12.0-16.0); Mean Corpuscular HGB Conc 32 g/dL (31-36); Mean Corpuscular Hemoglobin 27 pg (27-31); Mean Corpuscular Volume 85 fL (80-97); Mean Platelet Volume 10.4 fL (7.4-10.4); Platelet Count 198 10^3/uL (150-450); Red Blood Count 3.93 10^6 /uL (3.70-4.87); Red Cell Distribution Width 19 % (10-15)
[2019-01-02 06:40] LABS: INR 2.88 (0.82-1.09)
[2019-01-02 07:01] LABS: ALT 8 U/L (7-52); AST 30 U/L (13-39); Albumin 2.9 g/dL (3.2-5.2); Albumin/Globulin Ratio 0.9 (1-3); Alkaline Phosphatase 67 U/L (34-104); Anion Gap 5 mmol/L (2-11); BUN/Creatinine Ratio 23.7 (8-20); Blood Urea Nitrogen 28 mg/dL (6-24); CO2 Carbon Dioxide 37 mmol/L (22-32); Calcium 8.8 mg/dL (8.6-10.3); Chloride 96 mmol/L (101-111); EGFR African American 55.6 (>60); Globulin 3.1 g/dL (2-4); Glucose 113 mg/dL (70-100); Potassium 3.7 mmol/L (3.5-5.0); Sodium 138 mmol/L (135-145)
[2019-01-02 07:15] LABS: Troponin I 0.06 ng/mL (<0.04)
[2019-01-02] MEDS: Tiotropium CAP.INH* CAP.INH/18 MCG (USE ORDER SET !) INH SCH (07:21)
[2019-01-02 07:52] LABS: ABS Lymphocytes 0.8 10^3/ul (1.0-4.8); ABS Monocytes 1.4 10^3/ul (0-0.8); ABS Neutrophils 14.8 10^3/ul (1.5-7.7); Eosinophil % 0.1 %; Lymphocyte % 4.7 %
[2019-01-02] MEDS ORDERED: Furosemide IV* 10 MG/ML VIAL (40 MG) IV SCH (09:00)
[2019-01-02] MEDS: Gabapentin CAP(*) 300 MG PO SCH ×3 (09:25→21:51)
[2019-01-02] MEDS: Lisinopril TAB* 5 MG PO SCH (09:26)
[2019-01-02] MEDS: Metoprolol Tartrate TAB* 25 MG PO SCH ×2 (09:26→21:14)
[2019-01-02] MEDS: Diltiazem CD CAP* 180 MG PO SCH (09:26)
[2019-01-02] MEDS: Cetirizine* 10 MG TAB PO SCH (09:26)
[2019-01-02] MEDS: Magnesium Oxide TAB* 400 MG PO SCH (09:26)
[2019-01-02] MEDS: HYDROcodone/ACETAMIN 5-325 MG* 1 TAB PO SCH (09:27)
[2019-01-02] MEDS ORDERED: Vancomycin(*) 1,000 MG in NS 0.9% 250 ML* 250 ML IVPB SCH (10:18)
[2019-01-02] MEDS ORDERED: Vancomycin 1500 MG IV - x ONCE IVPB ONE ×2 (11:00)
[2019-01-02] MEDS ORDERED: Vancomycin per Pharmacy* NOTE FOLLOW UP SCH (11:00)
[2019-01-02] MEDS: cefTRIAXone(*) 1 GM in NS 0.9% 50 ML* 50 ML IVPB SCH (11:00)
[2019-01-02] MEDS: metroNIDAZOLE IV 500 MG/100ML* 500 MG/100 ML BAG IVPB SCH ×2 (11:49→23:45)
--- NOTE | 2019-01-02 12:08 | PN ---
Subjective Date of Service: 01/02/19 Interval History: HD # 4 on 01/02 63 F AFib on AC, COPD and chronic hypoxic resp failure, HFpEF, hx of CVA with resiudal L weakness, hx of lymphedema, presented to the ED 12/30 with a fall out of her recliner and weakness and was found to be in decompensated heart failure , hospital course c/b new sepsis of presumed abdominal source. Yesterday had new N/V x2, tx symptomatically and also got an EKG to r/o atypical angina EKG normal without acute ischemia, mildly elevated troponin not much different than prior on admission Overnight, febrile to 101 x1 patient also was reported to be mildly altered at this time. Blood cultures were sent, CXR showed worsening pulmonary edema, no clear focal finding and stable cardiomegaly. UA not done yet, awaiting straight cath Labs new leukocytosis, mild anemia, ammonia elevated at 84, T Bili 1.2, normal LFTs, elevated CO2 This morning, pt still has mild nausea but no vomiting, some mild abdominal pain , oriented x 3 but pt reports she feels "fuzzy on the details" also reports R hip pain, initially reporting this was new but then saying its old. No other specific localizing findings, denies SOB, CP, no diarrhea, no new MSK pain, no LORENZO, no new weakness. Objective Active Medications: Acetaminophen (Tylenol Supp*) 650 mg LA Q4H PRN PRN Reason: FEVER/PAIN Last Admin: 01/02/19 03:24 Dose: 650 mg Al Hydrox/Mg Hydrox/Simethicone (Maalox Plus*) 30 ml PO Q6H PRN PRN Reason: INDIGESTION Bisacodyl (Dulcolax Supp*) 10 mg LA DAILY PRN PRN Reason: CONSTIPATION Cetirizine HCl (Zyrtec*) 10 mg PO DAILY [facility] Last Admin: 01/02/19 09:26 Dose: 10 mg Diltiazem HCl (Cardizem Cd Cap*) 180 mg PO DAILY [facility] Last Admin: 01/02/19 09:26 Dose: 180 mg Docusate Sodium (Colace Cap*) 100 mg PO BID PRN PRN Reason: CONSTIPATION Last Admin: 12/31/18 20:34 Dose: 100 mg Gabapentin (Neurontin Cap(*)) 600 mg PO TID [facility] Last Admin: 01/02/19 09:25 Dose: 600 mg Metronidazole/Sodium Chloride (Flagyl 500 Mg Ivpb*) 500 mg in 100 mls @ 100 mls /hr IVPB Q12H [facility] Last Admin: 01/02/19 11:49 Dose: 100 mls/hr Ceftriaxone Sodium 1 gm/ (Sodium Chloride) 50 mls @ 200 mls/hr IVPB Q24H [facility] Last Admin: 01/02/19 11:00 Dose: 200 mls/hr Vancomycin HCl 1,500 mg/ (Sodium Chloride) 250 mls @ 166.667 mls/hr IVPB ONCE ONE Stop: 01/02/19 12:29 Last Admin: 01/02/19 11:36 Dose: 166.667 mls/hr Vancomycin HCl 1,000 mg/ (Sodium Chloride) 250 mls @ 166.667 mls/hr IVPB Q12H [facility] Lactulose (Lactulose*) 15 ml PO TID [facility] Levalbuterol HCl (Xopenex 1.25 Mg/0.5 Ml Neb.[place]*) 1.25 mg INH QID PRN PRN Reason: SOB/WHEEZING Last Admin: 01/01/19 11:19 Dose: 1.25 mg Magnesium Oxide (Magox 400 Tab*) 400 mg PO DAILY [facility] Last Admin: 01/02/19 09:26 Dose: 400 mg Metoclopramide HCl (Reglan Iv*) 5 mg IV Q6H PRN PRN Reason: NAUSEA/VOMITING Last Admin: 01/01/19 20:08 Dose: 5 mg Metoprolol Tartrate (Lopressor Tab*) 25 mg PO BID [facility] Last Admin: 01/02/19 09:26 Dose: 25 mg Morphine Sulfate (Morphine Inj (Syringe))*) 1 mg IV Q4H PRN PRN Reason: PAIN Last Admin: 01/01/19 22:36 Dose: 1 mg Nystatin (Nystatin Top Powder*) 1 applic TOPICAL BID [facility] Last Admin: 01/01/19 20:13 Dose: 1 powder Ondansetron HCl (Zofran Inj*) 4 mg IV Q6H PRN PRN Reason: NAUSEA Pantoprazole Sodium (Protonix Iv*) 40 mg IV Q12H [facility] Last Admin: 01/02/19 05:40 Dose: 40 mg Pharmacy Consult (Vancomycin Per Pharmacy*) 1 note FOLLOW UP .VANC PER PHARMACY [facility]; Protocol Pharmacy Profile Note (Coumadin Daily Reminder*) 1 note FOLLOW UP 1700 [facility] Last Admin: 01/01/19 19:09 Dose: 1 note Pharmacy Profile Note (Vancomycin Trough Check) 1 note FOLLOW UP 1200 ONE Stop: 01/04/19 12:01 Polyethylene Glycol/Electrolytes (Miralax*) 17 gm PO DAILY PRN PRN Reason: CONSTIPATION Last Admin: 12/31/18 20:35 Dose: 17 gm Prochlorperazine Edisylate (Compazine Inj*) 5 mg IV Q6H PRN PRN Reason: NAUSEA/VOMITING Senna (Senokot Tab*) 1 tab PO DAILY PRN PRN Reason: CONSTIPATION Last Admin: 12/31/18 20:34 Dose: 1 tab Tiotropium [place] (Spiriva Cap.Inh*) 1 cap INH DAILY [facility] Last Admin: 01/02/19 07:21 Dose: 1 cap Vital Signs - 8 hr 01/02/19 01/02/19 09:25 09:27 Respiratory 20 18 Rate Oxygen Devices in Use Now: Nasal Cannula Appearance: Ill appearing woman in no distress, mildly diaphoretic Eyes: No Scleral Icterus, - - L eye droop, unchanged from prior, EOMI Ears/Nose/Mouth/Throat: - - Poor dentition, dry MM Respiratory: - - Crackles blt Cardiovascular: - - Irreg irreg no MRG Abdominal: - - Distended with prior surgical scar, hernia mild TTP to LLQ no gaurding or rebound Lymphatic: No Cervical Adenopathy Extremities: - - R hip mild TTP to trochanter no overlying skin changes, Edema to L LE > R, with chronic venous changes with no sign of cellulitis Neurological: Alert and Oriented x 3, NL Muscle Strength and Tone, - - XN 2-12 intact, does have chronic eyelid droop and stabismus on L eye Result Diagrams: 01/02/19 06:12 01/02/19 06:12 Microbiology and Other Data: Microbiology 12/30/18 05:55 Urine Culture - Final Urine No Growth (<1,000 CFU/mL) Diagnostic Imaging: TTE: Echo 55-60%, dilated LA CTH: Unchanged encephalomalacia chronic hygromas Assess/Plan/Problems-Billing Assessment: 63 F AFib on AC, COPD and chronic hypoxic resp failure, HFpEF, hx of CVA with resiudal L weakness, hx of lymphedema, presented to the ED 12/30 with a fall out of her recliner and weakness and was found to be in decompensated heart failure , hospital course c/b new sepsis of presumed abdominal source, possible occult GIB. - Patient Problems (1) Sepsis Current Visit: Yes Status: Acute Comment: - New onset, fever, tachycardia and leukocytosis 3/4 SIRS, presumed abdominal source - Panculture, Blood Cx, Urine Cx, CXR (no obvious new infiltrate), no new skin lesions on exam - Lactic acid and blood pressure normal, hold on fluid bolus 2/2 to sig edema already present, will bolus gentle for hypotension - Holding anti HTN other than rate control agents dilt and metop - Vanc, Ceftriaxone, Flagyl for now while following culture data (2) Nausea & vomiting Current Visit: Yes Status: Acute Code(s): R11.2 - NAUSEA WITH VOMITING, UNSPECIFIED SNOMED Code(s): 05621104 Comment: - New onset 01/01, only 2 episodes, dark green? in color - Concern for occult bleed given increased ammonia and BUN, mild drop in H/H today only - Elevated ammonia, will order a few doses of lactulose - Did have BM, is tolerating liquids, no e/o SBO on exam, consult to GI for possible EGD, FU FOTB - NPO for CTAP today and NPO tonight for GI consult - Treat with Zofran and Compazine PRN - IV PPI continued (3) Acute diastolic CHF (congestive heart failure) Current Visit: No Status: Acute Code(s): I50.31 - ACUTE DIASTOLIC ( CONGESTIVE) HEART FAILURE SNOMED Code(s): 336109416 Comment: - Considerable pulmonary edema and cardiomegaly on exam. Holding fluid boluses if possible - TTE with preserved EF 12/31/18 - Furosemide held 2/2 to sepsis this morning - Daily weights (4) History of CVA (cerebrovascular accident) Current Visit: Yes Status: Acute Code(s): Z86.73 - PRSNL HX OF TIA (TIA), AND CEREB INFRC W/O RESID DEFICITS SNOMED Code(s): 390483011 Comment: - Currently holding AC 2/2 to emsis of "dark bile" possible hematemsis - Not optimized on statin, will start low dose Atorva (5) Lymphedema Current Visit: Yes Status: Acute Code(s): I89.0 - LYMPHEDEMA, NOT ELSEWHERE CLASSIFIED SNOMED Code(s): 388791238 Comment: - Chronic 2/2 to lymph node dissection (6) Weakness Current Visit: Yes Status: Acute Code(s): R53.1 - WEAKNESS SNOMED Code(s) : 11844451 Comment: - CT head significant for encephalomalacia, stable, likely not contributing to weakness - Decompensated heart failure - Sepsis now affecting her weakness - continue PT, she would agree to STR if recommended (7) Afib Current Visit: No Status: Acute Code(s): I48.91 - UNSPECIFIED ATRIAL FIBRILLATION SNOMED Code(s): 41761860 Comment: - Rate controlled. On Coumadin and Diltiazem. - Holding coumadin for now for concern for UGIB (8) GERD (gastroesophageal reflux disease) Current Visit: No Status: Chronic Code(s): K21.9 - GASTRO-ESOPHAGEAL REFLUX DISEASE WITHOUT ESOPHAGITIS SNOMED Code(s): 163367928 Comment: - Continue PPI, x 1 dose H2 shannan (9) COPD (chronic obstructive pulmonary disease) Current Visit: No Status: Chronic Code(s): J44.9 - CHRONIC OBSTRUCTIVE PULMONARY DISEASE, UNSPECIFIED SNOMED Code(s): 09458858 Comment: - Continue home inhalers (10) DVT prophylaxis Current Visit: No Status: Acute Code(s): LBI8942 - SNOMED Code(s): 872901326 Comment: - Holding therapeutic warfarin (11) DNR (do not resuscitate) Current Visit: Yes Status: Acute Comment: - Per patients MOLST done with nursing patient is DNR, unfortunely this was not signed by a provider, 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 I have refilled out MOLST and signed it based on todays conversation Status and Disposition: Inpatient; gaurded as patient may decompensate given clinical status changes
[2019-01-02] MEDS ORDERED: Iodixanol* (CONTRAST) 320 MG/ML 100 ML SDV IV ONE (13:41)
[2019-01-02] MEDS: Nystatin TOP POWDER* 15 GM BTL TOPICAL SCH ×2 (14:40→21:53)
[2019-01-02] MEDS: Lactulose* 15 ML UDC PO SCH ×2 (16:27→22:00)
[2019-01-02 16:55] LABS: Urine Appearance Clear; Urine Bacteria Absent (Absent); Urine Bilirubin Negative (Negative); Urine Blood 1+ (Negative); Urine Color Yellow; Urine Glucose Negative (Negative); Urine Ketones Negative (Negative); Urine Nitrite Negative (Negative); Urine Protein Negative (Negative); Urine Red Blood Cell Trace(0-2/hpf) (Absent); Urine Specific Gravity 1.014 (1.010-1.030); Urine Squamous Epithelial Cell Present (Absent); Urine Urobilinogen Negative (Negative); Urine White Blood Cell Absent (Absent)
--- NOTE | 2019-01-02 17:43 | PN ---
Hospitalist Progress Note Date of Service: 01/02/19 Clinical update 63 yo F with HFpEF, admitted for diastolic CHF, initially diuresing but hospital course c/b development of N/V/fever on 01/01, 01/02 -Echo, EF intact, diastolic dysfxn, RV function OK -CTAP done on 01/02 for persistent N/V, has complicated anatomy per old reports and discussion with GI, hx of Bezoar and suggestion of this on CTAP, though no other definitive source of infection--holding on scope for now, but considering promotility agent, continuing broad coverage for now -Worsening signs of pleural effusion and also a loculated effusion? L bibasilar w/ rind? Pulm consulted, restarted Lasix 01/02 PM, she is maintaining sats Clinical status remains tenuous, will sign off to night patrol inspector.
--- NOTE | 2019-01-02 18:51 | CONS ---
CC: Karlie Hamilton MD * GASTROENTEROLOGY CONSULT REPORT: DATE OF CONSULT: 01/02/19 CONSULTING PROVIDER: Karlie Hamilton MD REASON FOR CONSULT: Nausea, vomiting, and anemia. HISTORY OF PRESENT ILLNESS: Ms. Roy is a 63-year-old woman with a history of atrial fibrillation on Coumadin, COPD, diastolic heart failure, history of stroke with residual left-sided weakness, lymphedema, and history of remote gastric stapling with subsequent gastric dysmotility, who is admitted with decompensated heart failure. Ms. Roy was admitted on 12/30/18. She has been undergoing diuresis. She was noted yesterday to have nausea and vomiting. Hemoglobin has trended down a bit this morning to a hemoglobin of 10.7 from 11.3 on admission. The patient reports seeing some dark colored emesis raising concern for possible upper GI bleeding. She was febrile to a 101 overnight and also demonstrated mildly altered mentation. She is currently on antibiotics given concern for sepsis of unclear source. GI consulted. On interview, Ms. Roy states that she does not know how long she has nausea and vomiting, although she thinks it was for a few days only. She had mild nausea without any episodes of vomiting today. She said the emesis was dark brown to black. No bright red blood noted. She has a history of constipation, but she had a bowel movement yesterday and today. She thinks the bowel movement was normal, although she did not look at it closely to determine if there was any black color to the stool. She has not seen bright red blood per rectum in the past. She denies any abdominal pain today. She has a longstanding history of GERD, which has been fairly well controlled on Protonix. The patient reports that her breathing is not significantly changed from her baseline. No other complaints. On review of chart, Ms. Roy was noted to have a GI bleed with hematemesis in 2012. EGD at that time demonstrated a large gastric bezoar and red blood of unclear source. She had subsequent EGD the following day and then 2 days later. The gastric bezoar was noted to slowly resolve. 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 The gastric mucosa was unremarkable at that exam, so the etiology of the upper GI bleed was not identified. The patient was last seen in clinic in November 2012, at which point the recommendation was to follow a low fiber diet and consider gastric revision or gastric stenting if dysmotility issues persisted. The patient has not had a colonoscopy in the past and has not expressed any interest in having a colonoscopy. PAST MEDICAL HISTORY: 1. DVT, status post Bradford filter. 2. Atrial fibrillation, on Coumadin. 3. History of stroke. 4. History of chronic hypoxic respiratory failure and COPD, on 2 L oxygen. 5. Heart failure with preserved ejection fraction. 6. Lymphedema. 7. GERD. 8. Osteoarthritis. 9. History of TTP in 1986, preceding stroke. PAST SURGICAL HISTORY: 1. Gastric stapling in 1978. 2. Cholecystectomy. 3. Splenectomy. MEDICATIONS AT HOME: Include: 1. Zyrtec 10 mg daily. 2. Diltiazem 180 mg daily. 3. Furosemide 40 mg daily. 4. Gabapentin 600 mg 3 times a day. 5. Hydrocodone/Tylenol 1 tablet twice a day. 6. Xopenex. 7. Lisinopril. 8. Mag oxide daily. 9. Metoprolol 25 mg b.i.d. 10. Protonix 40 mg daily. 11. Spiriva daily. 12. Coumadin. 13. Tylenol p.r.n. ALLERGIES: ALBUTEROL, AMOXICILLIN, and CLAVULANIC ACID. FAMILY HISTORY: No relevant family history. SOCIAL HISTORY: The patient lives alone in an apartment. She is a nonsmoker. Denies any alcohol or drug use. 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 REVIEW OF SYSTEMS: A 12-point review of systems is negative except as mentioned in the HPI. PHYSICAL EXAM: Vital Signs: Temp 98.6 with a T-max of 101 at 3 a.m. Heart rate 88, blood pressure 112/48, 97% on supplemental oxygen. General: Chronically ill- appearing woman. Lying in bed. Appears mildly uncomfortable. Speaks in short sentences with some conversational dyspnea as well as pursed lip breathing. HEENT: Mildly dry mucous membranes. No scleral icterus. Pulmonary: Increased work of breathing with conversation. Pursed lip breathing. Crackles in anterior lung williamson bilaterally. Cardiovascular: Irregularly irregular. Abdomen: Soft. Not significantly distended, nontender. Abdominal hernia. Extremities: Edema left greater than right. Neuro: A and O x3. Provides relatively complete history. DIAGNOSTIC STUDIES/LAB DATA: Labs: White count 17 (compared to 7.5 yesterday) , hemoglobin 10.7 compared to 11.6 yesterday evening and 11.3 on admission. Platelet count 198,000. INR 2.88. Comprehensive panel notable for creatinine of 1.18, BUN of 28, lactic acid of 1.9, total bilirubin of 1.2, AST 30, ALT 8, alk phos 67, ammonia 84, troponin 0.06, albumin 2.9. Studies: Abdominal and pelvis CT performed this morning demonstrated distended stomach with liquid and solid food. No suspicious CT abnormality noted of the upper GI or small bowel. There was a moderate sized umbilical level transverse colon containing hernia. There was also severe cardiomegaly. Distention of the IVC consistent with high volume state, interstitial edema, and atelectasis at the left lower lobe. IMPRESSION AND RECOMMENDATIONS: Ms. Roy is a 63-year-old woman with multiple medical comorbidities including chronic obstructive pulmonary disease on continuous supplemental oxygen, atrial fibrillation on anticoagulation, heart failure with preserved ejection fraction, history of stroke, and history of gastric dysmotility secondary to gastric stapling surgery, who is admitted with decompensated heart failure. Hospital course complicated by nausea and vomiting , mild anemia, and suspected sepsis of unclear etiology. The patient had 1 to 2 days of nausea and vomiting. Unclear if there was possible coffee-ground emesis as the patient describes the emesis as being dark in color. Hemoglobin is mildly down from admission and BUN is slightly up. She is hemodynamically stable and Hct drop is small at this point, so I did not suspect that she is having a significant active GI bleed. Abdominal CT demonstrates distention of the stomach with liquid and solid food, which is consistent with the patient's history of gastric dysmotility and raises concern for gastric dysmotility +/- recurrent bezoar as contributing to her nausea and vomiting. The patient states that she has not had any further vomiting today, which is encouraging. - Continue observation and close monitoring of her CBC. - Clear diet until she has resolution of the upper abdominal symptoms. - PPI IV BID for now - Defer endoscopic evaluation at this point. Could consider upper endoscopy if anemia significantly worsens, nausea/vomiting persists or overt bleeding develops. The patient is a higher risk for procedure and sedation given her current cardiopulmonary issues. Thank you very much for this consult. GI will continue to follow along. Please contact with any acute clinical change or further questions. [id number]/[facility] #: [id number] HODA
[2019-01-02] MEDS: Furosemide IV* 10 MG/ML VIAL (40 MG) IV SCH (20:05)
[2019-01-02] MEDS ORDERED: NS 0.9% 500 ML* 500 ML IV ONE (20:30)
--- NOTE | 2019-01-02 21:15 | PN ---
Hospitalist Progress Note Date of Service: 01/02/19 CAT Call Called to bedside for patient with AMS and hypotension, HR and O2 sats normal afebrile PE: Patient is reponsive but slow, ultimately oriented but delerious, PEERLA EOMI, CN 2-12 intact, waxing and waining IRREG IRREG soft murmur Crackels blt Belly distended but soft non tender NABS Ext warm and well perfused mild edema on R with CVS Meds; Did rec Lasix x1 tonight On [employer] abx AP 63 yo F with known HFpEF and diastolic heart failure, admitted volume overloaded with hospital stay c/b sepsis from abd? possible pulmonary source (w known pleural effusion, loculated)--possible occlut GI bleed with her current beazor who is hypotensive and showing some delerium #Hypontension-possibly from overdiuresis while septic, gentle IVF bolus 500cc x 1 then stop -Trend lactic #AMS: -ABG to r/o hypercarbia -Known elevated ammonia, likely from occult upper GIB, no liver path, on Lactulose -CTH non con, likely low yield -Unlikely HOP PICKER source of infection as patient has no mengiial signs or c/o headache, if again becomes unresponsive or MS worsens consider LP given fever -Will xfer to ICU given acuity, mental status, and hypotension
[2019-01-03] MEDS: Nystatin TOP POWDER* 15 GM BTL TOPICAL SCH ×3 (00:28→20:50)
[2019-01-03] MEDS: Vancomycin(*) 1,000 MG in NS 0.9% 250 ML* 250 ML IVPB SCH ×2 (01:16→13:34)
[2019-01-03 05:54] LABS: Hematocrit 32 % (35-47); Hemoglobin 10.3 g/dL (12.0-16.0); Mean Corpuscular HGB Conc 32 g/dL (31-36); Mean Corpuscular Hemoglobin 27 pg (27-31); Mean Corpuscular Volume 86 fL (80-97); Mean Platelet Volume 10.7 fL (7.4-10.4); Platelet Count 177 10^3/uL (150-450); Red Blood Count 3.79 10^6 /uL (3.70-4.87); Red Cell Distribution Width 19 % (10-15); White Blood Count 10.4 10^3/uL (3.5-10.8)
[2019-01-03 06:01] LABS: INR 3.01 (0.82-1.09)
[2019-01-03 06:08] LABS: Albumin 2.7 g/dL (3.2-5.2); Albumin/Globulin Ratio 0.9 (1-3); BUN/Creatinine Ratio 28.6 (8-20); Calcium 8.8 mg/dL (8.6-10.3); EGFR African American 48.4 (>60); Globulin 3.1 g/dL (2-4); Magnesium 1.6 mg/dL (1.9-2.7); Potassium 3.1 mmol/L (3.5-5.0); Total Protein 5.8 g/dL (6.4-8.9)
[2019-01-03] MEDS: Tiotropium CAP.INH* CAP.INH/18 MCG (USE ORDER SET !) INH SCH (07:50)
[2019-01-03] MEDS: Levalbuterol 1.25MG/0.5ML NEB INH PRN (08:11)
--- NOTE | 2019-01-03 08:44 | PN ---
Subjective Date of Service: 01/03/19 Interval History: Events from overnight reviewed. In summary, Ms. Roy became hypotensive and delirious around 11pm and was transferred to the ICU. She received 250cc normal saline with some response, continued to be drowsy but requested to be allowed to sleep, which was respected and her vitals were stable. This morning she was easy to arouse and has been awake and alert. She has no complaints other than being hungry. She has no nausea or vomiting, no abdominal pain, no diarrhea, no cough or shortness of breath. Objective Active Medications: Acetaminophen (Tylenol Supp*) 650 mg MA Q4H PRN PRN Reason: FEVER/PAIN Last Admin: 01/02/19 03:24 Dose: 650 mg Al Hydrox/Mg Hydrox/Simethicone (Maalox Plus*) 30 ml PO Q6H PRN PRN Reason: INDIGESTION Bisacodyl (Dulcolax Supp*) 10 mg MA DAILY PRN PRN Reason: CONSTIPATION Cetirizine HCl (Zyrtec*) 10 mg PO DAILY [facility] Last Admin: 01/02/19 09:26 Dose: 10 mg Diltiazem HCl (Cardizem Cd Cap*) 180 mg PO DAILY [facility] Last Admin: 01/02/19 09:26 Dose: 180 mg Docusate Sodium (Colace Cap*) 100 mg PO BID PRN PRN Reason: CONSTIPATION Last Admin: 12/31/18 20:34 Dose: 100 mg Furosemide (Lasix Iv*) 40 mg IV DAILY [facility] Last Admin: 01/02/19 20:05 Dose: 40 mg Gabapentin (Neurontin Cap(*)) 600 mg PO TID [facility] Last Admin: 01/02/19 21:51 Dose: Not Given Metronidazole/Sodium Chloride (Flagyl 500 Mg Ivpb*) 500 mg in 100 mls @ 100 mls /hr IVPB Q12H [facility] Last Admin: 01/02/19 23:45 Dose: 100 mls/hr Ceftriaxone Sodium 1 gm/ (Sodium Chloride) 50 mls @ 200 mls/hr IVPB Q24H [facility] Last Admin: 01/02/19 11:00 Dose: 200 mls/hr Vancomycin HCl 1,000 mg/ (Sodium Chloride) 250 mls @ 166.667 mls/hr IVPB Q12H [facility] Last Admin: 01/03/19 01:16 Dose: 166.667 mls/hr Lactulose (Lactulose*) 15 ml PO TID [facility] Stop: 01/03/19 09:01 Last Admin: 01/02/19 22:00 Dose: 15 ml Levalbuterol HCl (Xopenex 1.25 Mg/0.5 Ml Neb.[place]yanne*) 1.25 mg INH QID PRN PRN Reason: SOB/WHEEZING Last Admin: 01/03/19 08:11 Dose: 1.25 mg Magnesium Oxide (Magox 400 Tab*) 400 mg PO DAILY [facility] Last Admin: 01/02/19 09:26 Dose: 400 mg Metoclopramide HCl (Reglan Iv*) 5 mg IV Q6H PRN PRN Reason: NAUSEA/VOMITING Last Admin: 01/01/19 20:08 Dose: 5 mg Metoprolol Tartrate (Lopressor Tab*) 25 mg PO BID [facility] Last Admin: 01/02/19 21:14 Dose: Not Given Morphine Sulfate (Morphine Inj (Syringe))*) 1 mg IV Q4H PRN PRN Reason: PAIN Last Admin: 01/01/19 22:36 Dose: 1 mg Nystatin (Nystatin Top Powder*) 1 applic TOPICAL BID [facility] Last Admin: 01/03/19 00:28 Dose: 1 powder Ondansetron HCl (Zofran Inj*) 4 mg IV Q6H PRN PRN Reason: NAUSEA Pantoprazole Sodium (Protonix Iv*) 40 mg IV DAILY [facility] Pharmacy Consult (Vancomycin Per Pharmacy*) 1 note FOLLOW UP .VANC PER PHARMACY [facility]; Protocol Pharmacy Profile Note (Coumadin Daily Reminder*) 1 note FOLLOW UP 1700 [facility] Last Admin: 01/02/19 17:07 Dose: 1 note Pharmacy Profile Note (Vancomycin Trough Check) 1 note FOLLOW UP 1200 [facility] Stop: 01/04/19 12:01 Polyethylene Glycol/Electrolytes (Miralax*) 17 gm PO DAILY PRN PRN Reason: CONSTIPATION Last Admin: 12/31/18 20:35 Dose: 17 gm Prochlorperazine Edisylate (Compazine Inj*) 5 mg IV Q6H PRN PRN Reason: NAUSEA/VOMITING Senna (Senokot Tab*) 1 tab PO DAILY PRN PRN Reason: CONSTIPATION Last Admin: 12/31/18 20:34 Dose: 1 tab Tiotropium [place] (Spiriva Cap.Inh*) 1 cap INH DAILY [facility] Last Admin: 01/03/19 07:50 Dose: 1 cap Vital Signs - 8 hr 01/03/19 01/03/19 01/03/19 00:45 01:00 01:07 Temperature Pulse Rate 78 84 75 Respiratory 17 15 16 Rate Blood Pressure 94/48 80/46 75/39 (mmHg) O2 Sat by Pulse 98 98 97 Oximetry 01/03/19 01/03/19 01/03/19 01:09 01:15 01:25 Temperature Pulse Rate 79 76 Respiratory 13 17 18 Rate Blood Pressure 96/42 97/45 (mmHg) O2 Sat by Pulse 97 97 Oximetry 01/03/19 01/03/19 01/03/19 01:30 01:31 01:45 Temperature Pulse Rate 81 83 93 Respiratory 16 21 18 Rate Blood Pressure 75/38 77/44 (mmHg) O2 Sat by Pulse 97 97 97 Oximetry 01/03/19 01/03/19 01/03/19 02:00 02:10 02:15 Temperature Pulse Rate 84 74 83 Respiratory 14 15 13 Rate Blood Pressure 88/39 83/50 90/48 (mmHg) O2 Sat by Pulse 97 97 97 Oximetry 01/03/19 01/03/19 01/03/19 02:30 02:45 03:00 Temperature Pulse Rate 88 83 80 Respiratory 16 18 14 Rate Blood Pressure 95/38 96/46 (mmHg) O2 Sat by Pulse 97 96 97 Oximetry 01/03/19 01/03/19 01/03/19 03:01 03:15 03:23 Temperature Pulse Rate 81 84 91 Respiratory 27 15 19 Rate Blood Pressure 88/41 77/37 95/46 (mmHg) O2 Sat by Pulse 97 97 97 Oximetry 01/03/19 01/03/19 01/03/19 03:30 03:45 04:00 Temperature 98.8 F Pulse Rate 90 81 86 Respiratory 13 14 19 Rate Blood Pressure 81/39 89/46 74/38 (mmHg) O2 Sat by Pulse 97 97 97 Oximetry 01/03/19 01/03/19 01/03/19 04:13 04:15 04:30 Temperature Pulse Rate 86 85 83 Respiratory 17 13 16 Rate Blood Pressure 71/36 91/37 85/39 (mmHg) O2 Sat by Pulse 97 97 97 Oximetry 01/03/19 01/03/19 01/03/19 04:45 05:00 05:30 Temperature Pulse Rate 84 84 Respiratory 14 19 19 Rate Blood Pressure 107/61 86/32 (mmHg) O2 Sat by Pulse 88 96 Oximetry 01/03/19 01/03/19 01/03/19 06:00 06:11 06:15 Temperature Pulse Rate 90 82 88 Respiratory 18 12 13 Rate Blood Pressure 87/45 (mmHg) O2 Sat by Pulse 97 96 97 Oximetry 01/03/19 01/03/19 01/03/19 06:30 06:45 07:00 Temperature Pulse Rate 89 82 79 Respiratory 19 16 16 Rate Blood Pressure 86/45 83/56 (mmHg) O2 Sat by Pulse 96 96 95 Oximetry 01/03/19 01/03/19 01/03/19 07:15 07:30 07:31 Temperature Pulse Rate 83 85 82 Respiratory 16 16 19 Rate Blood Pressure 68/34 73/37 (mmHg) O2 Sat by Pulse 96 97 97 Oximetry 01/03/19 01/03/19 01/03/19 07:32 07:34 07:45 Temperature Pulse Rate 87 85 81 Respiratory 17 19 22 Rate Blood Pressure 85/34 93/46 (mmHg) O2 Sat by Pulse 97 96 95 Oximetry 01/03/19 01/03/19 01/03/19 07:51 08:00 08:01 Temperature 98.6 F Pulse Rate 80 79 82 Respiratory 24 14 21 Rate Blood Pressure 103/84 101/43 (mmHg) O2 Sat by Pulse 96 96 95 Oximetry 01/03/19 01/03/19 08:13 08:15 Temperature Pulse Rate 76 84 Respiratory 16 20 Rate Blood Pressure (mmHg) O2 Sat by Pulse 97 100 Oximetry Oxygen Devices in Use Now: Nasal Cannula Appearance: alert, sitting up in bed, no distress Eyes: No Scleral Icterus Ears/Nose/Mouth/Throat: NL Teeth, Lips, Gums Neck: NL Appearance and Movements; NL JVP Respiratory: Symmetrical Chest Expansion and Respiratory Effort, - - crackles both bases Cardiovascular: - - irregularly irregular Abdominal: NL Sounds; No Tenderness; No Distention Lymphatic: No Cervical Adenopathy Extremities: - - edema is markedly decreased from 4 days ago. L>R. excoriations and venous stasis changes. Neurological: Alert and Oriented x 3 Result Diagrams: 01/03/19 05:43 01/03/19 05:43 Microbiology and Other Data: Microbiology 12/30/18 05:55 Urine Culture - Final Urine No Growth (<1,000 CFU/mL) Diagnostic Imaging: TTE: Echo 55-60%, dilated LA CTH: Unchanged encephalomalacia chronic hygromas Assess/Plan/Problems-Billing Assessment: 63 F AFib on AC, COPD and chronic hypoxic resp failure, HFpEF, hx of CVA with resiudal L weakness, hx of lymphedema, presented to the ED 12/30 with a fall out of her recliner and weakness and was found to be in decompensated heart failure , hospital course c/b new sepsis of presumed abdominal source, possible occult GIB. - Patient Problems (1) SIRS (systemic inflammatory response syndrome) Current Visit: Yes Status: Acute Code(s): R65.10 - SIRS OF NON-INFECTIOUS ORIGIN W/O ACUTE ORGAN DYSFUNCTION SNOMED Code(s): 249243585 Comment: with leukocytosis, fever, hypotension on 01/02 with unclear source blood cultures negative, cxr okay, CT a/p okay (chronic loculated pleural effusion), urine okay give another bolus this am and trend her BPs GI consulted yesterday (2) Weakness Current Visit: Yes Status: Acute Code(s): R53.1 - WEAKNESS SNOMED Code(s) : 47017072 Comment: CT head significant only for encephalomalacia, stable, likely not contributing to weakness Decompensated heart failure Sepsis now affecting her weakness continue PT, she would agree to STR if recommended (3) Acute diastolic CHF (congestive heart failure) Current Visit: No Status: Acute Code(s): I50.31 - ACUTE DIASTOLIC ( CONGESTIVE) HEART FAILURE SNOMED Code(s): 609539291 Comment: Holding fluid boluses if possible in the setting of sepsis TTE with preserved EF 12/31/18, some valvular disease Furosemide on hold 2/2 to sepsis this morning Daily weights (4) Poor appetite Current Visit: Yes Status: Acute Code(s): R63.0 - ANOREXIA SNOMED Code(s) : 39417959 Comment: I suspect related to RV failure, improving with diuresis (5) Atrial fibrillation Current Visit: No Status: Acute Priority: High Code(s): I48.91 - UNSPECIFIED ATRIAL FIBRILLATION SNOMED Code(s): 16339790 Comment: Continue Diltiazem, warfarin on hold for possible procedure (6) Thyroid nodule Current Visit: No Status: Acute Priority: High Code(s): E04.1 - NONTOXIC SINGLE THYROID NODULE SNOMED Code(s): 092184777 Comment: goiter, follows with Law cough when she coughs is concerning--will request an official swallow eval from speech Status and Disposition: Inpatient requiring ICU level of care
[2019-01-03] MEDS: Diltiazem CD CAP* 180 MG PO SCH (08:56)
[2019-01-03] MEDS ORDERED: NS 0.9% 500 ML* 500 ML IV ONE (08:57)
[2019-01-03] MEDS ORDERED: Pantoprazole IV* 40 MG IV SCH (09:00)
[2019-01-03] MEDS: Gabapentin CAP(*) 300 MG PO SCH ×3 (09:10→21:23)
[2019-01-03] MEDS: Magnesium Oxide TAB* 400 MG PO SCH (09:11)
[2019-01-03] MEDS: Lactulose* 15 ML UDC PO SCH (09:11)
[2019-01-03] MEDS: Cetirizine* 10 MG TAB PO SCH (09:11)
[2019-01-03 09:26] LABS: ABS Basophils 0.1 10^3/ul (0-0.2); ABS Eosinophils 0.2 10^3/ul (0-0.6); ABS Monocytes 0.9 10^3/ul (0-0.8); ABS Neutrophils 8.3 10^3/ul (1.5-7.7); Eosinophil % 1.9 %; Lymphocyte % 9.5 %; Nucleated Red Blood Cells % 0.1
[2019-01-03] MEDS: Metoprolol Tartrate TAB* 25 MG PO SCH ×2 (10:17→20:51)
[2019-01-03] MEDS: KCL 20 MEQ/100 ML IVPREMIX* 20 MEQ/100 ML BAG IV SCH ×2 (10:18→12:25)
[2019-01-03] MEDS: cefTRIAXone(*) 1 GM in NS 0.9% 50 ML* 50 ML IVPB SCH (11:19)
[2019-01-03] MEDS: metroNIDAZOLE IV 500 MG/100ML* 500 MG/100 ML BAG IVPB SCH ×2 (12:26→23:26)
[2019-01-03] MEDS ORDERED: NS 0.9% 250 ML* 250 ML IV ONE (12:33)
[2019-01-03] MEDS: Al Hydrox/Mg Hydrox/Simet LIQ* 30 ML UDC PO PRN (20:45)
[2019-01-03] MEDS: Pantoprazole IV* 40 MG IV SCH (20:46)
[2019-01-04] MEDS: Vancomycin(*) 1,000 MG in NS 0.9% 250 ML* 250 ML IVPB SCH (00:34)
[2019-01-04] MEDS: Furosemide IV* 10 MG/ML VIAL (40 MG) IV SCH (07:43)
[2019-01-04] MEDS: Tiotropium CAP.INH* CAP.INH/18 MCG (USE ORDER SET !) INH SCH (08:12)
[2019-01-04] MEDS: Gabapentin CAP(*) 300 MG PO SCH ×3 (08:26→21:12)
[2019-01-04] MEDS: Cetirizine* 10 MG TAB PO SCH (08:27)
[2019-01-04] MEDS: Magnesium Oxide TAB* 400 MG PO SCH (08:27)
[2019-01-04] MEDS: Diltiazem CD CAP* 180 MG PO SCH (08:27)
[2019-01-04] MEDS: Metoprolol Tartrate TAB* 25 MG PO SCH ×2 (08:39→21:16)
[2019-01-04] MEDS: Nystatin TOP POWDER* 15 GM BTL TOPICAL SCH ×2 (08:45→21:21)
[2019-01-04] MEDS: Levalbuterol 1.25MG/0.5ML NEB INH PRN (09:52)
[2019-01-04] MEDS: Pantoprazole IV* 40 MG IV SCH ×2 (10:13→21:12)
[2019-01-04] MEDS: cefTRIAXone(*) 1 GM in NS 0.9% 50 ML* 50 ML IVPB SCH (11:08)
[2019-01-04] MEDS: metroNIDAZOLE IV 500 MG/100ML* 500 MG/100 ML BAG IVPB SCH (11:53)
[2019-01-04] MEDS ORDERED: Vancomycin Trough Check NOTE FOLLOW UP ONE (12:00)
[2019-01-04] MEDS ORDERED: Magnesium Sulfate 2 GM IV* 2 GM/50 ML BAG IVPB ONE (12:04)
[2019-01-04 12:45] LABS: INR 3.28 (0.82-1.09)
[2019-01-04] MEDS: KCL 10 MEQ/50 ML IVPREMIX* 10 MEQ/50 ML BAG IV SCH ×3 (13:26→17:23)
--- NOTE | 2019-01-04 17:24 | PN ---
Subjective Date of Service: 01/04/19 Interval History: HOSPITALIST PROGRESS NOTE Patient seen and examined at bedside. Care reviewed and d/w Marcos Mireles RN. She feels a little better today. Breathing is easier. Still has some nausea, but denies vomiting and is tolerating diet so far. Family History: Unchanged from Admission Social History: Unchanged from Admission Past Medical History: Unchanged from Admission Objective Active Medications: Acetaminophen (Tylenol Supp*) 650 mg [place] Q4H PRN PRN Reason: FEVER/PAIN Last Admin: 01/02/19 03:24 Dose: 650 mg Al Hydrox/Mg Hydrox/Simethicone (Maalox Plus*) 30 ml PO Q6H PRN PRN Reason: INDIGESTION Last Admin: 01/03/19 20:45 Dose: 30 ml Bisacodyl (Dulcolax Supp*) 10 mg GA DAILY PRN PRN Reason: CONSTIPATION Cetirizine HCl (Zyrtec*) 10 mg PO DAILY [facility] Last Admin: 01/04/19 08:27 Dose: 10 mg Diltiazem HCl (Cardizem Cd Cap*) 180 mg PO DAILY [facility] Last Admin: 01/04/19 08:27 Dose: 180 mg Docusate Sodium (Colace Cap*) 100 mg PO BID PRN PRN Reason: CONSTIPATION Last Admin: 12/31/18 20:34 Dose: 100 mg Gabapentin (Neurontin Cap(*)) 600 mg PO TID [facility] Last Admin: 01/04/19 13:09 Dose: 600 mg Metronidazole/Sodium Chloride (Flagyl 500 Mg Ivpb*) 500 mg in 100 mls @ 100 mls /hr IVPB Q12H [facility] Last Admin: 01/04/19 11:53 Dose: 100 mls/hr Ceftriaxone Sodium 1 gm/ (Sodium Chloride) 50 mls @ 200 mls/hr IVPB Q24H [facility] Last Admin: 01/04/19 11:08 Dose: 200 mls/hr Lactulose (Lactulose*) 30 ml PO BID [facility] Last Admin: 01/04/19 08:45 Dose: Not Given Levalbuterol HCl (Xopenex 1.25 Mg/0.5 Ml Neb.[place]*) 1.25 mg INH QID PRN PRN Reason: SOB/WHEEZING Last Admin: 01/04/19 09:52 Dose: 1.25 mg Magnesium Oxide (Magox 400 Tab*) 400 mg PO DAILY [facility] Last Admin: 01/04/19 08:27 Dose: 400 mg Metoclopramide HCl (Reglan Iv*) 5 mg IV Q6H PRN PRN Reason: NAUSEA/VOMITING Last Admin: 01/01/19 20:08 Dose: 5 mg Metoprolol Tartrate (Lopressor Tab*) 25 mg PO BID [facility] Last Admin: 01/04/19 08:39 Dose: 25 mg Nystatin (Nystatin Top Powder*) 1 applic TOPICAL BID [facility] Last Admin: 01/04/19 08:45 Dose: 1 powder Ondansetron HCl (Zofran Inj*) 4 mg IV Q6H PRN PRN Reason: NAUSEA Pantoprazole Sodium (Protonix Iv*) 40 mg IV BID [facility] Last Admin: 01/04/19 10:13 Dose: 40 mg Polyethylene Glycol/Electrolytes (Miralax*) 17 gm PO DAILY PRN PRN Reason: CONSTIPATION Last Admin: 12/31/18 20:35 Dose: 17 gm Prochlorperazine Edisylate (Compazine Inj*) 5 mg IV Q6H PRN PRN Reason: NAUSEA/VOMITING Senna (Senokot Tab*) 1 tab PO DAILY PRN PRN Reason: CONSTIPATION Last Admin: 12/31/18 20:34 Dose: 1 tab Tiotropium [place] (Spiriva Cap.Inh*) 1 cap INH DAILY [facility] Last Admin: 01/04/19 08:12 Dose: 1 cap Vital Signs - 8 hr 01/04/19 01/04/19 01/04/19 09:52 10:53 10:55 Temperature 97.6 F Pulse Rate 83 75 Respiratory 16 18 Rate Blood Pressure 102/46 (mmHg) O2 Sat by Pulse 97 93 Oximetry 01/04/19 01/04/19 13:09 15:54 Temperature Pulse Rate Respiratory 18 18 Rate Blood Pressure (mmHg) O2 Sat by Pulse Oximetry Oxygen Devices in Use Now: Nasal Cannula Appearance: Obese elderly lady lying in bed in NAD Eyes: No Scleral Icterus Ears/Nose/Mouth/Throat: Mucous Membranes Moist Neck: Trachea Midline Respiratory: Symmetrical Chest Expansion and Respiratory Effort, - - BS+ bilaterally, diminished in both bases Cardiovascular: RRR - Normal S1 and S2 Abdominal: NL Sounds; No Tenderness; No Distention - obese Neurological: Alert and Oriented x 3, NL Muscle Strength and Tone Result Diagrams: 01/03/19 05:43 01/03/19 05:43 Assess/Plan/Problems-Billing Assessment: Mrs Roy is a 63 yo F AFib on AC, COPD and chronic hypoxic respiratory failure, HFpEF, hx of CVA with resiudal L weakness, hx of lymphedema, who presented to the ED 12/30 after a fall out of her recliner and weakness. She was found to be in decompensated heart failure, and her hospital course has been complicated by severe sepsis of presumed abdominal source and possible GIB. - Patient Problems (1) Severe sepsis Comment: - Of unclear etiology. - On 01/02 patient developed fever 101, leukocytosis 17K, altered MS, hypotension (SBP in the low 70s), compatible with severe sepsis. - Source is unclear - urine and blood cultures show no growth to date; CxR showed vascular congestion, but no acute infiltrate. - CT abd/pelvis did not show source, but she did have GI symptoms, and is responding to Ceftriaxone/Metronidazole. (2) Acute diastolic CHF (congestive heart failure) Comment: - Echo showed EF 55-60%, with no wall motion abnormalities. - Furosemide was held due to sepsis/hypotension. - BP still on low side of normal - will continue to monitor. (3) GI bleed Comment: - Patient has ah/o GI bleed in 2012; EGD at that time showed blood and a bezoar, but no clear source of bleeding. - Had GI complaints - d/w Dr Jossue Potts, will start Metoclopramide 5mg BID. - Stool for occult blood is positive. - Continue PPI IV. - H/H is a little lower, but no significant drop. - Will wait GI input. (4) Afib Comment: - Continue Diltiazem. - Warfarin on hold due to possible GI bleed, but INR is still elevated. (5) DVT prophylaxis Comment: - Warfarin is on hold, but INR is still therapeutic. (6) DNR (do not resuscitate) Status and Disposition: Inpatient.
[2019-01-05] MEDS: metroNIDAZOLE IV 500 MG/100ML* 500 MG/100 ML BAG IVPB SCH ×3 (00:08→23:25)
[2019-01-05 06:18] LABS: Hematocrit 31 % (35-47); Hemoglobin 9.8 g/dL (12.0-16.0); Mean Corpuscular HGB Conc 32 g/dL (31-36); Mean Corpuscular Hemoglobin 28 pg (27-31); Mean Corpuscular Volume 86 fL (80-97); Mean Platelet Volume 10.8 fL (7.4-10.4); Platelet Count 207 10^3/uL (150-450); Red Blood Count 3.57 10^6 /uL (3.70-4.87); Red Cell Distribution Width 19 % (10-15); White Blood Count 8.4 10^3/uL (3.5-10.8)
[2019-01-05 06:22] LABS: ABS Basophils 0.1 10^3/ul (0-0.2); ABS Eosinophils 0.2 10^3/ul (0-0.6); ABS Lymphocytes 1.1 10^3/ul (1.0-4.8); ABS Monocytes 1.2 10^3/ul (0-0.8); ABS Neutrophils 5.9 10^3/ul (1.5-7.7); Lymphocyte % 12.6 %; Nucleated Red Blood Cells % 0.1
[2019-01-05 06:44] LABS: Albumin 2.9 g/dL (3.2-5.2); Albumin/Globulin Ratio 0.9 (1-3); BUN/Creatinine Ratio 33.9 (8-20); C Reactive Protein 103.2 mg/L (<8.01); Calcium 8.9 mg/dL (8.6-10.3); EGFR African American 59.1 (>60); EGFR Non-African American 48.8 (>60); Globulin 3.2 g/dL (2-4); Potassium 3.8 mmol/L (3.5-5.0); Total Bilirubin 0.8 mg/dL (0.2-1.0); Total Protein 6.1 g/dL (6.4-8.9)
[2019-01-05] MEDS: Tiotropium CAP.INH* CAP.INH/18 MCG (USE ORDER SET !) INH SCH (08:03)
[2019-01-05] MEDS: Metoprolol Tartrate TAB* 25 MG PO SCH ×2 (09:48→22:49)
[2019-01-05] MEDS: Gabapentin CAP(*) 300 MG PO SCH ×3 (10:33→22:49)
[2019-01-05] MEDS: Diltiazem CD CAP* 180 MG PO SCH (10:33)
[2019-01-05] MEDS: Cetirizine* 10 MG TAB PO SCH (10:33)
[2019-01-05] MEDS: Metoclopramide TAB* 10 MG PO SCH ×2 (10:33→15:06)
[2019-01-05] MEDS: Nystatin TOP POWDER* 15 GM BTL TOPICAL SCH ×2 (10:34→22:59)
[2019-01-05] MEDS: Magnesium Oxide TAB* 400 MG PO SCH (10:34)
[2019-01-05] MEDS: cefTRIAXone(*) 1 GM in NS 0.9% 50 ML* 50 ML IVPB SCH (10:47)
[2019-01-05] MEDS: Pantoprazole IV* 40 MG IV SCH ×2 (10:47→23:05)
--- NOTE | 2019-01-05 11:52 | PN ---
Progress Note - Progress Note Date of Service: 01/05/19 Note: BRIEF GI FOLLOW-UP S: - Patient denies any nausea. No vomiting. Large episode of diarrhea witnessed last night. Appetite decreased. O: VSS Chronically ill appearing woman. NAD. Appropriately answers questions. Breathing relatively comfortably. Improved as compared to mid-week. Soft, NTND abdomen. Labs reviewed. H/H without significant change today as compared to 01/03. A/P: 63yF with multiple medical comorbidities, including A fib on Coumadin, COPD on O2, remote gastric stapling surgery c/b gastric dysmotility, HFpEF who is admitted with decompensated heart failure. GI consulted for nausea/vomiting with mild Hgb drop. CT abdomen/pelvis noted solid and liquid material remaining in stomach. No ongoing nausea/vomiting. H/H without significant change. Presentation not consistent with acute significant GI bleed. - Continue PPI -- can change to po twice daily if tolerating diet. - Diet per primary team. Goal diet should be low-fiber. - Can continue Reglan 5 mg BID x 5 days to promote gastric emptying in setting of known dysmotility with imaging demonstrating retained food/liquid. Can give this medication orally. If nausea/decreased appetite persists, then would increase to 10 mg BID for 5-7 days. - No plan for endoscopy at this point given improvement in GI symptoms and relative stability in blood counts in setting of significant cardiopulmonary disease. - Consider checking C diff if diarrhea persists. Thank you for this consult. Please contact GI with any questions or concerns. Pam Thornton MD Gastroenterology
--- NOTE | 2019-01-05 13:02 | PN ---
Subjective Date of Service: 01/05/19 Interval History: HOSPITALIST PROGRESS NOTE Patient seen and examined at bedside. Care reviewed and d/w Maldonado Hernandez RN. She feels better today. Had copious diarrhea last night, but this seems to be improved now. Feels weak, but thinks she's getting better. Appetite is still poor, but she'll try lunch today. Family History: Unchanged from Admission Social History: Unchanged from Admission Past Medical History: Unchanged from Admission Objective Active Medications: Acetaminophen (Tylenol Supp*) 650 mg [place] Q4H PRN PRN Reason: FEVER/PAIN Last Admin: 01/02/19 03:24 Dose: 650 mg Al Hydrox/Mg Hydrox/Simethicone (Maalox Plus*) 30 ml PO Q6H PRN PRN Reason: INDIGESTION Last Admin: 01/03/19 20:45 Dose: 30 ml Bisacodyl (Dulcolax Supp*) 10 mg [place] DAILY PRN PRN Reason: CONSTIPATION Cetirizine HCl (Zyrtec*) 10 mg PO DAILY [facility] Last Admin: 01/05/19 10:33 Dose: 10 mg Diltiazem HCl (Cardizem Cd Cap*) 180 mg PO DAILY [facility] Last Admin: 01/05/19 10:33 Dose: 180 mg Docusate Sodium (Colace Cap*) 100 mg PO BID PRN PRN Reason: CONSTIPATION Last Admin: 12/31/18 20:34 Dose: 100 mg Gabapentin (Neurontin Cap(*)) 600 mg PO TID [facility] Last Admin: 01/05/19 10:33 Dose: 600 mg Metronidazole/Sodium Chloride (Flagyl 500 Mg Ivpb*) 500 mg in 100 mls @ 100 mls /hr IVPB Q12H [facility] Last Admin: 01/05/19 11:23 Dose: 100 mls/hr Ceftriaxone Sodium 1 gm/ (Sodium Chloride) 50 mls @ 200 mls/hr IVPB Q24H [facility] Last Admin: 01/05/19 10:47 Dose: 200 mls/hr Levalbuterol HCl (Xopenex 1.25 Mg/0.5 Ml Neb.[place]*) 1.25 mg INH QID PRN PRN Reason: SOB/WHEEZING Last Admin: 01/04/19 09:52 Dose: 1.25 mg Magnesium Oxide (Magox 400 Tab*) 400 mg PO DAILY [facility] Last Admin: 01/05/19 10:34 Dose: 400 mg Metoclopramide HCl (Reglan Iv*) 5 mg IV Q6H PRN PRN Reason: NAUSEA/VOMITING Last Admin: 01/01/19 20:08 Dose: 5 mg Metoclopramide HCl (Reglan Tab*) 5 mg PO 0800,1600 [facility] Last Admin: 01/05/19 10:33 Dose: 5 mg Metoprolol Tartrate (Lopressor Tab*) 25 mg PO BID [facility] Last Admin: 01/05/19 09:48 Dose: Not Given Nystatin (Nystatin Top Powder*) 1 applic TOPICAL BID [facility] Last Admin: 01/05/19 10:34 Dose: 1 powder Ondansetron HCl (Zofran Inj*) 4 mg IV Q6H PRN PRN Reason: NAUSEA Pantoprazole Sodium (Protonix Iv*) 40 mg IV BID [facility] Last Admin: 01/05/19 10:47 Dose: 40 mg Polyethylene Glycol/Electrolytes (Miralax*) 17 gm PO DAILY PRN PRN Reason: CONSTIPATION Last Admin: 12/31/18 20:35 Dose: 17 gm Senna (Senokot Tab*) 1 tab PO DAILY PRN PRN Reason: CONSTIPATION Last Admin: 12/31/18 20:34 Dose: 1 tab Tiotropium [place] (Spiriva Cap.Inh*) 1 cap INH DAILY [facility] Last Admin: 01/05/19 08:03 Dose: 1 cap Vital Signs - 8 hr 01/05/19 01/05/19 01/05/19 07:22 08:05 10:30 Temperature 98.2 F Pulse Rate 82 68 Respiratory 18 18 18 Rate Blood Pressure 101/48 (mmHg) O2 Sat by Pulse 96 94 Oximetry 01/05/19 01/05/19 10:33 11:48 Temperature 98.4 F Pulse Rate 64 Respiratory 14 18 Rate Blood Pressure 108/56 (mmHg) O2 Sat by Pulse 96 Oximetry Oxygen Devices in Use Now: Nasal Cannula Appearance: Pleasant chronically ill appearing lady sitting up in bed in NAD. Eyes: No Scleral Icterus Ears/Nose/Mouth/Throat: Mucous Membranes Moist Neck: Trachea Midline Respiratory: Symmetrical Chest Expansion and Respiratory Effort, Clear to Auscultation Cardiovascular: RRR - Normal S1 and S2 Abdominal: NL Sounds; No Tenderness; No Distention Neurological: Alert and Oriented x 3 Result Diagrams: 01/05/19 05:54 01/05/19 05:54 Assess/Plan/Problems-Billing Assessment: Mrs Roy is a 63 yo F AFib on AC, COPD and chronic hypoxic respiratory failure, HFpEF, hx of CVA with resiudal L weakness, hx of lymphedema, who presented to the ED 12/30 after a fall out of her recliner and weakness. She was found to be in decompensated heart failure, and her hospital course has been complicated by severe sepsis of presumed abdominal source and possible GIB. - Patient Problems (1) Severe sepsis Comment: - Of unclear etiology, but suspect intraabdominal source. - On 01/02 patient developed fever 101, leukocytosis 17K, altered MS, hypotension (SBP in the low 70s), compatible with severe sepsis. - Source is unclear - urine and blood cultures show no growth to date; CxR showed vascular congestion, but no acute infiltrate. - CRP elevated at 103. - CT abd/pelvis did not show source, but she did have GI symptoms, and is responding to Ceftriaxone/Metronidazole. - If diarrhea reccurs, will check stool w/u. (2) Acute diastolic CHF (congestive heart failure) Comment: - Echo showed EF 55-60%, with no wall motion abnormalities. - Furosemide was held due to sepsis/hypotension. - BP still on low side of normal - will continue to monitor. - No signs of fluid overload at this time. (3) GI bleed Comment: - Patient has a h/o GI bleed in 2012; EGD at that time showed blood and a bezoar, but no clear source of bleeding. - Had GI complaints - d/w Dr Jossue Potts, will start Metoclopramide 5mg BID. - Stool for occult blood is positive. - Continue PPI IV. - H/H is a little lower, but no significant drop. - Will wait GI input re: indication for EGD. (4) Afib Comment: - Continue Diltiazem. - Warfarin on hold due to possible GI bleed, but INR is still elevated. (5) Physical deconditioning Comment: - PT input appreciated - will likely need ZAINAB. (6) DVT prophylaxis Comment: - Warfarin is on hold, but INR is still therapeutic. (7) DNR (do not resuscitate) Status and Disposition: Inpatient.
[2019-01-05] MEDS: Levalbuterol 1.25MG/0.5ML NEB INH PRN (14:40)
[2019-01-06 07:35] LABS: INR 2.88 (0.82-1.09)
[2019-01-06 07:36] LABS: Hematocrit 31 % (35-47); Mean Corpuscular HGB Conc 32 g/dL (31-36); Mean Corpuscular Hemoglobin 28 pg (27-31); Mean Corpuscular Volume 86 fL (80-97); Mean Platelet Volume 10.8 fL (7.4-10.4); Platelet Count 219 10^3/uL (150-450); Red Blood Count 3.59 10^6 /uL (3.70-4.87); Red Cell Distribution Width 19 % (10-15); White Blood Count 7.5 10^3/uL (3.5-10.8)
[2019-01-06] MEDS: Tiotropium CAP.INH* CAP.INH/18 MCG (USE ORDER SET !) INH SCH (07:38)
[2019-01-06 07:50] LABS: BUN/Creatinine Ratio 35.8 (8-20); EGFR African American 71.4 (>60)
[2019-01-06] MEDS: Pantoprazole IV* 40 MG IV SCH (07:50)
[2019-01-06] MEDS: Metoclopramide TAB* 10 MG PO SCH ×2 (07:53→14:55)
[2019-01-06] MEDS: Cetirizine* 10 MG TAB PO SCH (07:53)
[2019-01-06] MEDS: Gabapentin CAP(*) 300 MG PO SCH ×3 (07:53→22:56)
[2019-01-06] MEDS: Diltiazem CD CAP* 180 MG PO SCH (07:53)
[2019-01-06] MEDS: Magnesium Oxide TAB* 400 MG PO SCH (07:53)
[2019-01-06] MEDS: Metoprolol Tartrate TAB* 25 MG PO SCH ×2 (07:53→22:56)
[2019-01-06] MEDS: Nystatin TOP POWDER* 15 GM BTL TOPICAL SCH ×2 (07:55→22:58)
[2019-01-06 08:00] LABS: ABS Basophils 0.1 10^3/ul (0-0.2); ABS Eosinophils 0.3 10^3/ul (0-0.6); ABS Monocytes 1.3 10^3/ul (0-0.8); ABS Neutrophils 4.8 10^3/ul (1.5-7.7); Eosinophil % 4.1 %; Lymphocyte % 12.7 %; Nucleated Red Blood Cells % 0.3
[2019-01-06] MEDS: cefTRIAXone(*) 1 GM in NS 0.9% 50 ML* 50 ML IVPB SCH (11:49)
--- NOTE | 2019-01-06 11:58 | PN ---
Subjective Date of Service: 01/06/19 Interval History: Pt still c/o diarrhea and episodes of bowel incontinence 3/5 x/day, denies abd pain. Uses 02 at home and breathing feels like her baseline Family History: Unchanged from Admission Social History: Unchanged from Admission Past Medical History: Unchanged from Admission Objective Active Medications: Acetaminophen (Tylenol Supp*) 650 mg DC Q4H PRN PRN Reason: FEVER/PAIN Last Admin: 01/02/19 03:24 Dose: 650 mg Al Hydrox/Mg Hydrox/Simethicone (Maalox Plus*) 30 ml PO Q6H PRN PRN Reason: INDIGESTION Last Admin: 01/03/19 20:45 Dose: 30 ml Bisacodyl (Dulcolax Supp*) 10 mg DC DAILY PRN PRN Reason: CONSTIPATION Cetirizine HCl (Zyrtec*) 10 mg PO DAILY [facility] Last Admin: 01/06/19 07:53 Dose: 10 mg Diltiazem HCl (Cardizem Cd Cap*) 180 mg PO DAILY [facility] Last Admin: 01/06/19 07:53 Dose: 180 mg Docusate Sodium (Colace Cap*) 100 mg PO BID PRN PRN Reason: CONSTIPATION Last Admin: 12/31/18 20:34 Dose: 100 mg Gabapentin (Neurontin Cap(*)) 600 mg PO TID [facility] Last Admin: 01/06/19 07:53 Dose: 600 mg Metronidazole/Sodium Chloride (Flagyl 500 Mg Ivpb*) 500 mg in 100 mls @ 100 mls /hr IVPB Q12H [facility] Last Admin: 01/05/19 23:25 Dose: 100 mls/hr Ceftriaxone Sodium 1 gm/ (Sodium Chloride) 50 mls @ 200 mls/hr IVPB Q24H [facility] Last Admin: 01/06/19 11:49 Dose: 200 mls/hr Levalbuterol HCl (Xopenex 1.25 Mg/0.5 Ml Neb.[place]*) 1.25 mg INH QID PRN PRN Reason: SOB/WHEEZING Last Admin: 01/05/19 14:40 Dose: 1.25 mg Magnesium Oxide (Magox 400 Tab*) 400 mg PO DAILY [facility] Last Admin: 01/06/19 07:53 Dose: 400 mg Metoclopramide HCl (Reglan Iv*) 5 mg IV Q6H PRN PRN Reason: NAUSEA/VOMITING Last Admin: 01/01/19 20:08 Dose: 5 mg Metoclopramide HCl (Reglan Tab*) 5 mg PO 0800,1600 [facility] Last Admin: 01/06/19 07:53 Dose: 5 mg Metoprolol Tartrate (Lopressor Tab*) 25 mg PO BID [facility] Last Admin: 01/06/19 07:53 Dose: 25 mg Nystatin (Nystatin Top Powder*) 1 applic TOPICAL BID [facility] Last Admin: 01/06/19 07:55 Dose: 1 applic Ondansetron HCl (Zofran Inj*) 4 mg IV Q6H PRN PRN Reason: NAUSEA Pantoprazole Sodium (Protonix Iv*) 40 mg IV BID [facility] Last Admin: 01/06/19 07:50 Dose: 40 mg Polyethylene Glycol/Electrolytes (Miralax*) 17 gm PO DAILY PRN PRN Reason: CONSTIPATION Last Admin: 12/31/18 20:35 Dose: 17 gm Senna (Senokot Tab*) 1 tab PO DAILY PRN PRN Reason: CONSTIPATION Last Admin: 12/31/18 20:34 Dose: 1 tab Tiotropium [place] (Spiriva Cap.Inh*) 1 cap INH DAILY [facility] Last Admin: 01/06/19 07:38 Dose: 1 cap Vital Signs - 8 hr 01/06/19 01/06/19 01/06/19 07:38 07:53 07:56 Temperature 98 F Pulse Rate 71 65 Respiratory 18 18 18 Rate Blood Pressure 113/51 (mmHg) O2 Sat by Pulse 99 100 Oximetry 01/06/19 11:49 Temperature Pulse Rate Respiratory 18 Rate Blood Pressure (mmHg) O2 Sat by Pulse Oximetry Oxygen Devices in Use Now: Nasal Cannula Appearance: 63 yo F in nAD, aAOx3 Eyes: No Scleral Icterus, PERRLA Ears/Nose/Mouth/Throat: NL Teeth, Lips, Gums, Mucous Membranes Moist Neck: NL Appearance and Movements; NL JVP, Trachea Midline Respiratory: Symmetrical Chest Expansion and Respiratory Effort, Clear to Auscultation Cardiovascular: NL Sounds; No Murmurs; No JVD, RRR Abdominal: NL Sounds; No Tenderness; No Distention Lymphatic: No Cervical Adenopathy Extremities: No Edema, No Clubbing, Cyanosis Skin: No Rash or Ulcers, No Nodules or Sclerosis Neurological: Alert and Oriented x 3 Result Diagrams: 01/06/19 07:13 01/06/19 07:13 Microbiology and Other Data: Microbiology 12/30/18 05:55 Urine Culture - Final Urine No Growth (<1,000 CFU/mL) Diagnostic Imaging: TTE: Echo 55-60%, dilated LA CTH: Unchanged encephalomalacia chronic hygromas Assess/Plan/Problems-Billing Assessment: Mrs Roy is a 63 yo F AFib on AC, COPD and chronic hypoxic respiratory failure ( on 02 at 2L at home), HFpEF, hx of CVA with residual L weakness, hx of lymphedema, who presented to the ED 12/30 after a fall out of her recliner and weakness. She was found to be in decompensated heart failure, and her hospital course has been complicated by severe sepsis of presumed abdominal source and possible GIB. - Patient Problems (1) Severe sepsis Comment: - Of unclear etiology, but suspect intraabdominal source. - On 01/02 patient developed fever 101, leukocytosis 17K, altered MS, hypotension (SBP in the low 70s), compatible with severe sepsis. - Source is unclear - urine and blood cultures show no growth to date; CxR showed vascular congestion, but no acute infiltrate. - CRP elevated at 103. - CT abd/pelvis did not show source, but she did have GI symptoms, and is responding to Ceftriaxone/Metronidazole. - due to diarrhea reccurs, will check stool C. diff, cx pending (2) Acute diastolic CHF (congestive heart failure) Comment: - Echo showed EF 55-60%, with no wall motion abnormalities. - Furosemide was held due to sepsis/hypotension.will restart 01/07/19 - BP still on low side of normal - will continue to monitor. - No signs of fluid overload at this time. (3) Afib Comment: - Continue Diltiazem. - Warfarin on hold due to possible GI bleed, but INR is still elevated. -in regular rhythm today (4) GI bleed Comment: - Patient has a h/o GI bleed in 2012; EGD at that time showed blood and a bezoar, but no clear source of bleeding. - Had GI complaints - d/w Dr Jossue Potts, resolved on Metoclopramide 5mg BID. - Stool for occult blood is positive. - Continue PPI -switch to PO - H/H stable now - as per GI -no indication for EGD. (5) Physical deconditioning Comment: - PT input appreciated - will likely need ZAINAB. (6) DVT prophylaxis Comment: - Warfarin is on hold, but INR is still therapeutic. Status and Disposition: Inpatient.
[2019-01-06] MEDS: Levalbuterol 1.25MG/0.5ML NEB INH PRN (12:34)
[2019-01-06] MEDS: metroNIDAZOLE IV 500 MG/100ML* 500 MG/100 ML BAG IVPB SCH (12:40)
[2019-01-06] MEDS: Pantoprazole TAB * 40 MG TAB PO SCH (22:56)
[2019-01-07] MEDS: metroNIDAZOLE IV 500 MG/100ML* 500 MG/100 ML BAG IVPB SCH (00:19)
[2019-01-07] MEDS: Al Hydrox/Mg Hydrox/Simet LIQ* 30 ML UDC PO PRN (04:21)
[2019-01-07 06:18] LABS: Hematocrit 32 % (35-47); Mean Corpuscular HGB Conc 32 g/dL (31-36); Mean Corpuscular Hemoglobin 28 pg (27-31); Mean Corpuscular Volume 87 fL (80-97); Mean Platelet Volume 10.9 fL (7.4-10.4); Platelet Count 255 10^3/uL (150-450); Red Blood Count 3.64 10^6 /uL (3.70-4.87); Red Cell Distribution Width 19 % (10-15); White Blood Count 7.9 10^3/uL (3.5-10.8)
[2019-01-07 06:37] LABS: INR 2.77 (0.82-1.09)
[2019-01-07 06:41] LABS: BUN/Creatinine Ratio 34.4 (8-20); Calcium 9.2 mg/dL (8.6-10.3); EGFR Non-African American 62.8 (>60); Potassium 3.8 mmol/L (3.5-5.0)
[2019-01-07 07:50] LABS: ABS Basophils 0.1 10^3/ul (0-0.2); ABS Eosinophils 0.3 10^3/ul (0-0.6); ABS Monocytes 1.6 10^3/ul (0-0.8); ABS Neutrophils 4.9 10^3/ul (1.5-7.7); Eosinophil % 4.2 %; Large Platelets Present; Nucleated Red Blood Cells % 0.2
[2019-01-07] MEDS: Furosemide TAB* 20 MG PO SCH (07:57)
[2019-01-07] MEDS: Metoclopramide TAB* 10 MG PO SCH ×2 (07:57→16:47)
[2019-01-07] MEDS: Pantoprazole TAB * 40 MG TAB PO SCH ×2 (07:57→21:46)
[2019-01-07] MEDS: Gabapentin CAP(*) 300 MG PO SCH ×3 (07:57→21:46)
[2019-01-07] MEDS: Magnesium Oxide TAB* 400 MG PO SCH (07:57)
[2019-01-07] MEDS: Diltiazem CD CAP* 180 MG PO SCH (07:57)
[2019-01-07] MEDS: Cetirizine* 10 MG TAB PO SCH (07:57)
[2019-01-07] MEDS: Metoprolol Tartrate TAB* 25 MG PO SCH ×2 (07:57→21:46)
[2019-01-07] MEDS: Nystatin TOP POWDER* 15 GM BTL TOPICAL SCH ×2 (07:58→21:49)
[2019-01-07] MEDS: Levalbuterol 1.25MG/0.5ML NEB INH PRN ×2 (08:33→23:32)
[2019-01-07] MEDS: Tiotropium CAP.INH* CAP.INH/18 MCG (USE ORDER SET !) INH SCH (08:33)
--- NOTE | 2019-01-07 13:44 | PN ---
Progress Note - Progress Note Date of Service: 01/07/19 Note: Pt was about to talk with case maker about her discharge planning and going to [facility] when her eyes ;'rolled back" and she became nonverbal x several seconds, regained consciousness without nay complaints, AAOx3 not aware what happened.Her vitals taken right after the episode were stable and telem monitor review was also unremarkable. Spoke with Dr. Ramírez who will see pt in consult Pt will also have EEG and neurochecks
[2019-01-07 15:48] LABS: Magnesium 2.3 mg/dL (1.9-2.7)
--- NOTE | 2019-01-07 16:18 | CONS ---
CONSULTATION REPORT: DATE OF CONSULTATION: 01/07/19 ADDENDUM: Obtained additional history from Gloria the raw material planner who walked in and found her. When she went into the room, Jess was ashen in color and did not appear to breathing, was taking agonal breaths. She tried to arouse her and was not able to. Subsequently, her nurse was contacted and when they yelled in her ear and shook her she finally responded. It sounds most likely to me that she was having Terry-Corey breathing. I suspect she may have severe sleep apnea given her poor pulmonary function. In addition to prior recommendations, I recommend that she have a overnight oximetry study and probably will need outpatient sleep study. [id number]/[facility] #: [id number] HODA
--- NOTE | 2019-01-07 16:18 | DS ---
CC: Dr. Parkinson; Dr. Gleason * DISCHARGE SUMMARY: DATE OF ADMISSION: 12/30/18 DATE OF DISCHARGE: 01/07/19 PRIMARY CARE PROVIDER: Dr. Parkinson DISCHARGE DIAGNOSES: 1. Generalized weakness status post fall from recliner. 2. Acute exacerbation of chronic diastolic congestive heart failure. 3. Severe sepsis with suspected intra-abdominal source in patient who developed fever, leukocytosis, and hypotension in conjunction with nausea, vomiting and diarrhea. 4. Acute gastrointestinal bleed presumed due to diarrhea. SECONDARY DIAGNOSES: 1. History of paroxysmal atrial fibrillation. 2. History of chronic diastolic congestive heart failure. 3. History of bilateral lower extremity lymphedema. 4. History of bezoar syndrome. 5. Osteoarthritis. 6. Chronic obstructive pulmonary disease, on oxygen at 2 L at home. 7. 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 MEDICATIONS AT DISCHARGE: Include: 1. Flagyl 500 mg 3 times a day for a total of 4 days, then stop. 2. Probiotic 1 tablet daily. 3. Zyrtec 10 mg daily. 4. Voltaren gel 1% apply to affected area. 5. Diltiazem ER 180 mg daily. 6. Lasix 40 mg daily. 7. Gabapentin 600 mg 3 times a day. 8. Robitussin syrup on a p.r.n. basis. 9. Hydrocodone/acetaminophen 5/325 mg 1 tablet b.i.d. p.r.n. 10. Xopenex nebulizer 1.25 mg q.i.d. p.r.n. 11. Prinivil 5 mg daily. 12. Mag ox 400 mg daily. 13. Metoprolol tartrate 25 mg b.i.d. 14. Zofran on a p.r.n. basis at 4 mg. 15. Protonix 40 mg daily. 16. Spiriva 1 inhalation daily. 17. Coumadin as previously taken at 2.5 mg q.p.m. 18. Acetaminophen on a p.r.n. basis. LABORATORY DATA AND STUDIES PERFORMED DURING THE HOSPITAL STAY: Includes: On ; sodium of 141, potassium 3.8, chloride 101, carbon dioxide 38, BUN 31, creatinine 0.9. White blood cell count of 7.9, hemoglobin of 10.0, hematocrit of 32 and platelets of 255. Microbiology test showed stool negative for C. diff, positive for blood. Stool cultures are pending at the time of dictation. Blood cultures were negative for growth. Urine cultures were negative for growth CT of the abdomen and pelvis obtained on 01/02/19. Impression: Severe cardiomegaly as on the prior exam. Interstitial edema in the right lung base with peripheral thickened interlobular septa as well as mild linear subsegmental atelectasis. Left pleural effusion with a ring of calcification. Between this and the magnitude of cardiomegaly, there is complete atelectasis of the visualized left lower lobe. Distention of the IVC consistent with high volume state. Moderate sized umbilical level transverse colon containing hernia exiting through a 4 cm fascial defect without associated inflammatory change or obstruction. Negative for ascites or free air. Non-pertinent abscess collection evident. Negative for obstructive uropathy." Brain CT obtained on 01/02/19. Impression: "No acute intracranial pathology." Transthoracic echocardiogram showed EF of 55% to 60% with moderate mitral regurgitation and moderate tricuspid regurgitation, no pericardial effusion and comparing with study from November 2017, no visible change. Chest x-ray obtained on 01/02/19. Impression: "Cardiomegaly with progressive interstitial edema." CONDITION ON DISCHARGE: Stable. DISPOSITION ON DISCHARGE: Home. CONSULTATION DURING THE HOSPITAL STAY: Dr. Thornton from Gastroenterology. 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 She was brought into the ED. She was noted to have shortness of breath as well as nausea and vomiting. She had generalized weakness and initially she was admitted due to generalized weakness and acute on chronic diastolic right-sided heart failure. The patient also had moderately elevated troponin that was deemed to be due to demand ischemia with a maximum of 0.06, which she had done in the past. During the course of her hospital stay, she developed a fever of over 101 degrees and transient hypotension. She developed nausea, vomiting as well as diarrhea. Her stool was heme positive although was not grossly bloody or melenic. Due to the above symptoms, CT of abdomen and pelvis was performed and was grossly unremarkable apart from noted pulmonary edema. The patient received intravenous fluids due to the hypotension and that exacerbated her CHF. She was also placed on broad spectrum antibiotics. After treatment with broad spectrum antibiotics as well as placing patient on Reglan as per GI recommendation, patient's nausea, vomiting resolved. She still continued to have 1 very loose bowel movement a day by the time of discharge. Her stool cultures so far have not resulted yet but they were negative for C. diff. The patient has had no abdominal pain and she has been tolerating regular diet. In regards to her CHF, that had normalized after intravenous Lasix and the patient is back on her 40 mg of p.o. Lasix, which is her home dose. Due to her continuation of loose bowel movements, I am not going to increase her Lasix dose for going home. Despite the patient's so far sepsis workup negative, we suspect that it was severe sepsis due to intra-abdominal source. Due to her continuation of loose bowel movements, I will continue the patient on Flagyl for another 4 days at home. In regards to the patient's atrial fibrillation, the patient had been in and out of atrial fibrillation throughout her hospital stay. Her INR was initially supratherapeutic but her Coumadin was held and was restarted by the time of discharge. Her INR on the date of discharge is 2.7. In regards to the patient's chronic hypoxemic respiratory failure, the patient continues to be on 3 L of oxygen by the time of discharge which is her baseline. The patient had generalized deconditioning and fell out of her recliner. She underwent physical therapy evaluation. As per patient's verbal report, she was noted to be ambulating close to her baseline with a rolling walker. At this point, the patient wants to go home and she is not interested in rehabilitation. She has visiting nurses to see her at home as well as aide 3 times a week. She is also planning to call [facility] to increase her aide hours. She also is going to be discharged home with recommendation to follow up with primary care provider in 4 to 7 days. PHYSICAL EXAMINATION AT THE TIME OF DISCHARGE: Blood pressure of 100/75, heart rate of 88 and irregularly irregular, respiratory rate 22, oxygen saturation 95 % on 3 L of oxygen nasal cannula, temperature 98.0. General: The patient is a very pleasant 63-year-old female who is in no acute distress, alert, awake and oriented x3. HEENT: Head atraumatic, normocephalic. Eyes: Pupils are equal, reactive to light and accommodation. The patient has strabismus in the left eye. Neck: Supple. No JVD. No bruit bilaterally. Cardiovascular: Irregularly irregular rhythm. No murmur. Respiratory: Clear to auscultation bilaterally. Abdomen: Soft, nontender. Bowel sounds are present in all 4 quadrants. Extremities: There is +1 nonpitting pedal edema bilaterally. Pulses are poorly palpable due to venous status changes and lymphedema, but there is no clubbing and no cyanosis. Evaluation of the skin: No ecchymotic areas or rashes noted. Psychiatric Evaluation: Alert and oriented x3 with no evidence of anxiety or depression. Please note that this is a short summary of the patient's hospital stay. Please refer to further medical records for details. TIME SPENT: Approximately 45 minutes was spent on the patient's discharge. [id number]/[facility] #: [id number] MTDD
--- NOTE | 2019-01-07 16:43 | CONS ---
ADDENDUM NOW INCLUDED ON THIS REPORT NEUROLOGY CONSULTATION DATE OF CONSULT: 01/07/2019. She is an inpatient, room 411. REFERRING PHYSICIAN: Dr. Mercado. CHIEF COMPLAINT: Episode of unresponsiveness. HISTORY OF PRESENT ILLNESS: Jess Roy is a 63-year-old woman who presented to the hospital with generalized weakness on December 30. She was found to be in congestive heart failure. Subsequently, she became septic with a source not found. It was felt to possibly be due to an abdominal source. She had diarrhea and a fever and elevated white blood cell count. She was treated with Metronidazole and Ceftriaxone. She was much improved and was getting ready for discharge today. She had an episode of observed unresponsiveness. According to Corina, her nurse, her eyes rolled up and she did not respond to her surroundings. There was no change in her skin color and she is on telemetry and her heart rhythm remained normal. Blood pressure was checked right after she came out of it and it was unremarkable. Jess does not recall what happened during the episode. She did not have any premonitory symptoms. There was no sense of dizziness or lightheadedness. She was not particularly confused after the event. Her nurse, Corina, estimated it lasted less than a minute. There is no prior history of seizures. She does have a history of multiple cerebral infarctions when she had TTP over a decade ago. PAST MEDICAL HISTORY: Notable for chronic atrial fibrillation on anticoagulation, COPD on chronic oxygen therapy, left leg lymphedema from prior lymph node dissection decades ago, TTP with resultant strokes in 1986, congestive heart failure, bezoar syndrome. CURRENT MEDICATIONS: 1. Zyrtec 10 mg p.o. daily. 2. Diltiazem 180 mg p.o. daily. 3. Colace 100 mg p.o. b.i.d. 4. Lasix 40 mg p.o. daily. 5. Gabapentin 600 mg p.o. t.i.d. 6. Levalbuterol 1.25 mg inhaler q.i.d. prn. 7. Magnesium Oxide 400 mg p.o. daily. 8. Reglan 5 mg IV q.6 hours prn nausea. 9. Reglan 5 mg p.o. b.i.d. 10. Metoprolol 25 mg p.o. b.i.d. 11. Zofran 4 mg IV q.6 hours prn nausea. 12. Protonix 40 mg p.o. b.i.d. 13. Spiriva inhaler one daily. 14. Warfarin 5 mg p.o. daily. ALLERGIES: ALBUTEROL, AMOXICILLIN, CLAVULANIC ACID. REVIEW OF SYSTEMS: Negative for headache. She has chronic visual loss on her right side since her strokes. She normally ambulates with a cane or a walker at home. She lives at [facility]. She quit smoking six years ago. She did not bite her tongue. She has chronic aching in her left leg. PHYSICAL EXAM: She is a somewhat pale woman with oxygen by nasal cannula. Heart tones sound regular and I do not hear murmurs. Lungs reveal wheezes at the bases. There are no cervical bruits. Neurological exam: Pupil react equally from 4 down to 2-1/2 mm. She has exotropia of the left eye. Eye movements are otherwise full. Visual williamson normal for dense right homonymous hemianopia. Facial musculature is notable for mild flattening of the left nasal labial fold. Facial sensation to light touch is intact and symmetric. Speech is mildly dysarthric. Tongue protrudes in the midline. Palate pulls to the right. Motor exam reveals a mild spastic catch in the left leg and arm. She has a left pronator drift and downward drift of the left leg. She has good strength in the right arm and leg. There is no rest tremor. Finger taps are slower in the left hand than the right. Reflexes are brisker on the left side than the right and she has a left Babinski sign. She is alert and amnestic for the episode, but otherwise provides good history. Memory seems relatively preserved and language is simple but fluent. DIAGNOSTIC STUDIES/LAB DATA: From earlier today is notable for a CBC with a stable hemoglobin at 10.0 and an otherwise unremarkable CBC. Chemistry is notable for a low magnesium of 1.6 on January 03. Chemistry from today is notable for an elevated carbon dioxide of 38 which is similar to this past week. C-reactive protein on January 05 was 103.2. Albumin was low at 2.9. INR this morning was 2.77. CT scan of the brain from January 02 was reviewed. It reveals an old left posterior cerebral artery infarction and a right frontal lobe infarction. IMPRESSION: Impression is that of either an episode of hypotension or possibly a seizure. She had an EEG a little earlier which I reviewed. It reveals excess artifact and is technically very limited. It reveals diffuse slowing where there are readable portions. RECOMMENDATIONS: I recommend to repeat her EEG and get an MRI of the brain as well. Recommend rechecking her magnesium level. I do not recommend anticonvulsants at this point as the diagnosis is uncertain. I will continue to follow her along with you. ADDENDUM: DATE OF CONSULTATION: 01/07/19 Obtained additional history from Gloria the shutdown planner who walked in and found her. When she went into the room, Jess was ashen in color and did not appear to breathing, was taking agonal breaths. She tried to arouse her and was not able to. Subsequently, her nurse was contacted and when they yelled in her ear and shook her she finally responded. It sounds most likely to me that she was having Terry-Corey breathing. I suspect she may have severe sleep apnea given her poor pulmonary function. In addition to prior recommendations, I recommend that she have a overnight oximetry study and probably will need outpatient sleep study. [id number]/[facility] #: [id number] A- [id number]/[facility] #: [id number] HODA
[2019-01-07] MEDS ORDERED: Warfarin TAB(*) 5 MG PO SCH (17:00)
[2019-01-07] MEDS ORDERED: LORazepam TAB(*) 0.5 MG PO ONE (17:35)
[2019-01-07] MEDS ORDERED: LORazepam TAB(*) 1 MG PO PRN (17:35)
--- NOTE | 2019-01-07 17:59 | EEG ---
ELECTROENCEPHALOGRAM REPORT: DATE OF STUDY: 01/07/19 LOCATION: She is an inpatient in room 411. REFERRED PROVIDER: Dr. Mercado. CLINICAL PROBLEM: Episode of unresponsiveness approximately an hour before this recording. MEDICATIONS: Include: 1. Metoclopramide. 2. Flagyl. 3. Gabapentin. 4. Warfarin. 5. Diltiazem. REPORT: This 19-channel EEG is technically limited because of excessive muscle artifact and some movement artifact, particularly involving the right hemisphere. What background rhythms are visible are notable for mixed theta and delta pattern in the left posterior and parasagittal hemisphere. A few glimpses of right hemisphere activity appear to be in the theta range. The patient is awake and ultimately opens one or both eyes. CLINICAL IMPRESSION: Very technically limited EEG due to excessive muscle artifact. There is diffuse slowing in those portions of the tracing which are readable. Repeat tracing perhaps when the patient is more alert is recommended. [id number]/[facility] #: [id number] MTDD
[2019-01-07] MEDS: Metoclopramide IV* 5 MG/ML 2 ML VIAL IV PRN (23:16)
[2019-01-08 07:24] LABS: Hematocrit 31 % (35-47); Hemoglobin 9.9 g/dL (12.0-16.0); Mean Corpuscular HGB Conc 32 g/dL (31-36); Mean Corpuscular Hemoglobin 28 pg (27-31); Mean Corpuscular Volume 88 fL (80-97); Mean Platelet Volume 10.6 fL (7.4-10.4); Platelet Count 286 10^3/uL (150-450); Red Blood Count 3.58 10^6 /uL (3.70-4.87); Red Cell Distribution Width 19 % (10-15); White Blood Count 7.2 10^3/uL (3.5-10.8)
[2019-01-08 07:37] LABS: INR 2.98 (0.82-1.09)
[2019-01-08 07:43] LABS: BUN/Creatinine Ratio 29.5 (8-20); Calcium 9.2 mg/dL (8.6-10.3); EGFR Non-African American 64.5 (>60); Potassium 3.9 mmol/L (3.5-5.0)
[2019-01-08] MEDS: Tiotropium CAP.INH* CAP.INH/18 MCG (USE ORDER SET !) INH SCH (08:07)
[2019-01-08] MEDS: Furosemide TAB* 20 MG PO SCH (08:28)
[2019-01-08] MEDS: Magnesium Oxide TAB* 400 MG PO SCH (08:28)
[2019-01-08] MEDS: Diltiazem CD CAP* 180 MG PO SCH (08:28)
[2019-01-08] MEDS: Metoclopramide TAB* 10 MG PO SCH ×2 (08:29→15:54)
[2019-01-08] MEDS: Pantoprazole TAB * 40 MG TAB PO SCH ×2 (08:29→21:51)
[2019-01-08] MEDS: Gabapentin CAP(*) 300 MG PO SCH ×3 (08:29→21:51)
[2019-01-08] MEDS: Metoprolol Tartrate TAB* 25 MG PO SCH ×2 (08:29→21:51)
[2019-01-08] MEDS: Cetirizine* 10 MG TAB PO SCH (08:29)
[2019-01-08 08:57] LABS: ABS Basophils 0.1 10^3/ul (0-0.2); ABS Eosinophils 0.2 10^3/ul (0-0.6); ABS Monocytes 1.4 10^3/ul (0-0.8); ABS Neutrophils 4.5 10^3/ul (1.5-7.7); Eosinophil % 2.9 %; Lymphocyte % 13.6 %; Nucleated Red Blood Cells % 0.2
[2019-01-08] MEDS: Nystatin TOP POWDER* 15 GM BTL TOPICAL SCH ×2 (09:24→21:57)
[2019-01-08] MEDS: Al Hydrox/Mg Hydrox/Simet LIQ* 30 ML UDC PO PRN (11:20)
--- NOTE | 2019-01-08 13:36 | EEG ---
CC: Dr. Mercado * ELECTROENCEPHALOGRAPHY: DATE OF STUDY: 01/08/19 REFERRING PHYSICIAN: Dr. Ramírez. LOCATION: She is an inpatient in room 411. CLINICAL PROBLEM: Episode of unresponsiveness the day before this recording. The patient has COPD. MEDICATIONS: Include: 1. Zofran. 2. Lorazepam, but none recently. 3. Spiriva. 4. Furosemide. 5. Diltiazem. 6. Protonix. 7. Metoprolol. 8. Warfarin. 9. Gabapentin. 10. Reglan. REPORT: This 19-channel EEG is remarkable for background rhythms consisting of an occipital rhythm approaching the 8 cycles per second, which is fairly symmetric. There is some muscle artifact particularly earlier in the tracing. There is some mixed theta activity seen centrally and bitemporally. The patient is clinically awake. Activation procedure is not attempted. The patient may drowse with an increase in theta and delta abandons in the temporal regions and centrally, but does not enter stage II sleep. There are no clinical events. There are no focal or epileptiform abnormalities. CLINICAL IMPRESSION: Abnormal EEG due to generalized slowing of background rhythms consistent with mild diffuse cerebral dysfunction. There are no focal or epileptiform features to this recording. [id number]/[facility] #: [id number] [facility]
[2019-01-08] MEDS ORDERED: Warfarin TAB(*) 2.5 MG PO SCH (17:00)
--- NOTE | 2019-01-08 17:46 | PN ---
Subjective Date of Service: 01/08/19 Interval History: Pt feels well. O2 was increased to 4L after overnight pulse Ox revealed hypoxemia in >20 % time recorded Family History: Unchanged from Admission Social History: Unchanged from Admission Past Medical History: Unchanged from Admission Objective Active Medications: Acetaminophen (Tylenol Supp*) 650 mg MI Q4H PRN PRN Reason: FEVER/PAIN Last Admin: 01/02/19 03:24 Dose: 650 mg Al Hydrox/Mg Hydrox/Simethicone (Maalox Plus*) 30 ml PO Q6H PRN PRN Reason: INDIGESTION Last Admin: 01/08/19 11:20 Dose: 30 ml Bisacodyl (Dulcolax Supp*) 10 mg MI DAILY PRN PRN Reason: CONSTIPATION Cetirizine HCl (Zyrtec*) 10 mg PO DAILY [facility] Last Admin: 01/08/19 08:29 Dose: 10 mg Diltiazem HCl (Cardizem Cd Cap*) 180 mg PO DAILY [facility] Last Admin: 01/08/19 08:28 Dose: 180 mg Docusate Sodium (Colace Cap*) 100 mg PO BID PRN PRN Reason: CONSTIPATION Last Admin: 12/31/18 20:34 Dose: 100 mg Furosemide (Lasix Tab*) 40 mg PO DAILY [facility] Last Admin: 01/08/19 08:28 Dose: 40 mg Gabapentin (Neurontin Cap(*)) 600 mg PO TID [facility] Last Admin: 01/08/19 14:08 Dose: 600 mg Levalbuterol HCl (Xopenex 1.25 Mg/0.5 Ml Neb.[place]*) 1.25 mg INH QID PRN PRN Reason: SOB/WHEEZING Last Admin: 01/07/19 23:32 Dose: 1.25 mg Lorazepam (Ativan Tab(*)) 0.5 mg PO ONCE PRN PRN Reason: ANXIETY Magnesium Oxide (Magox 400 Tab*) 400 mg PO DAILY [facility] Last Admin: 01/08/19 08:28 Dose: 400 mg Metoclopramide HCl (Reglan Iv*) 5 mg IV Q6H PRN PRN Reason: NAUSEA/VOMITING Last Admin: 01/07/19 23:16 Dose: 5 mg Metoclopramide HCl (Reglan Tab*) 5 mg PO 0800,1600 [facility] Last Admin: 07/02/19 15:54 Dose: 5 mg Metoprolol Tartrate (Lopressor Tab*) 25 mg PO BID [facility] Last Admin: 01/08/19 08:29 Dose: 25 mg Nystatin (Nystatin Top Powder*) 1 applic TOPICAL BID [facility] Last Admin: 01/08/19 09:24 Dose: 1 applic Ondansetron HCl (Zofran Inj*) 4 mg IV Q6H PRN PRN Reason: NAUSEA Pantoprazole Sodium (Protonix Tab*) 40 mg PO BID [facility] Last Admin: 01/08/19 08:29 Dose: 40 mg Polyethylene Glycol/Electrolytes (Miralax*) 17 gm PO DAILY PRN PRN Reason: CONSTIPATION Last Admin: 12/31/18 20:35 Dose: 17 gm Senna (Senokot Tab*) 1 tab PO DAILY PRN PRN Reason: CONSTIPATION Last Admin: 12/31/18 20:34 Dose: 1 tab Tiotropium [place] (Spiriva Cap.Inh*) 1 cap INH DAILY [facility] Last Admin: 01/08/19 08:07 Dose: Not Given Warfarin Sodium (Coumadin Tab(*)) 2.5 mg PO DAILY@1700 [facility]; Protocol Last Admin: 01/08/19 15:55 Dose: 2.5 mg Vital Signs - 8 hr 01/08/19 01/08/19 01/08/19 10:45 11:00 14:08 Temperature 97.1 F Pulse Rate 98 Respiratory 16 20 16 Rate Blood Pressure 105/72 (mmHg) O2 Sat by Pulse 91 Oximetry 01/08/19 01/08/19 15:19 17:15 Temperature 98.0 F Pulse Rate 98 Respiratory 16 16 Rate Blood Pressure 118/84 (mmHg) O2 Sat by Pulse 90 Oximetry Oxygen Devices in Use Now: Nasal Cannula Appearance: 63 yo f in nAD, aAOx3 Eyes: No Scleral Icterus, PERRLA Ears/Nose/Mouth/Throat: NL Teeth, Lips, Gums, Mucous Membranes Moist Neck: NL Appearance and Movements; NL JVP, Trachea Midline Respiratory: Symmetrical Chest Expansion and Respiratory Effort, Clear to Auscultation Cardiovascular: - - irregular Abdominal: NL Sounds; No Tenderness; No Distention, No Hepatosplenomegaly Lymphatic: No Cervical Adenopathy Extremities: No Clubbing, Cyanosis, - - nonpitting pedal edema b/l-mild improvement Skin: No Nodules or Sclerosis Neurological: Alert and Oriented x 3, NL Muscle Strength and Tone Result Diagrams: 01/08/19 06:35 01/08/19 06:35 Microbiology and Other Data: Microbiology 12/30/18 05:55 Urine Culture - Final Urine No Growth (<1,000 CFU/mL) Diagnostic Imaging: TTE: Echo 55-60%, dilated LA CTH: Unchanged encephalomalacia chronic hygromas Assess/Plan/Problems-Billing Assessment: Mrs Roy is a 63 yo F AFib on AC, COPD and chronic hypoxic respiratory failure ( on at 2L at home), HFpEF, hx of CVA with residual L weakness, hx of lymphedema, who presented to the ED 12/30 after a fall out of her recliner and weakness. She was found to be in decompensated heart failure, and her hospital course has been complicated by severe sepsis of presumed abdominal source and possible GIB. - Patient Problems (1) Syncope Comment: occured when pt was sitting up on 01/07/19. she was brefly cyanotic and unresponsive when sitting in a chair with "eyes rolled back", regained consciousness within seconds. No arrythmia on telem. Evaluated by Dr. Ramírez: EEG nonconclusive, MRI showed known old CVA. Pulse oxymetry showed significant desaturation at night. D/w DR. Ramírez: suspected that pt feel asleep in a chair and got hypoxemic. will increase 02 to 4L, recommended outpatient sleep study (2) Severe sepsis Comment: - Of unclear etiology, but suspect intraabdominal source. - On 01/02 patient developed fever 101, leukocytosis 17K, altered MS, hypotension (SBP in the low 70s), compatible with severe sepsis. - Source is unclear - urine and blood cultures show no growth to date; CxR showed vascular congestion, but no acute infiltrate. - CRP elevated at 103. - CT abd/pelvis did not show source, but she did have GI symptoms, and responed to Caftriaxone /Falgyl - Ceftriaxone d/c'd. Flagyl will be cont empirically for the next 4 days. C. diff neg (3) Acute diastolic CHF (congestive heart failure) Comment: - Echo showed EF 55-60%, with no wall motion abnormalities. - Furosemide was held due to sepsis/hypotension.Restarted 01/07/19 - No signs of fluid overload at this time. (4) Afib Comment: - Continue Diltiazem. - Warfarin on hold due to possible GI bleed, restarted 01/07/19 after Hb stable for several days (5) GI bleed Comment: - Patient has a h/o GI bleed in 2012; EGD at that time showed blood and a bezoar, but no clear source of bleeding. - Had GI complaints - d/w Dr Jossue Potts, resolved on Metoclopramide 5mg BID. - Stool for occult blood is positive. - Continue PPI - H/H stable now - as per GI -no indication for EGD. (6) Physical deconditioning Comment: - PT input appreciated - d/c to [facility] tomorrow (7) DVT prophylaxis Comment: - Warfarin restarted,cont daily INR's Status and Disposition: Inpatient.
[2019-01-08] MEDS: metroNIDAZOLE * 500 MG TABLET PO SCH (18:15)
[2019-01-09] MEDS: metroNIDAZOLE * 500 MG TABLET PO SCH ×2 (02:22→10:31)
[2019-01-09 06:28] LABS: INR 3.01 (0.82-1.09)
[2019-01-09 06:30] LABS: Hematocrit 32 % (35-47); Mean Corpuscular HGB Conc 31 g/dL (31-36); Mean Corpuscular Hemoglobin 28 pg (27-31); Mean Corpuscular Volume 88 fL (80-97); Mean Platelet Volume 10.4 fL (7.4-10.4); Platelet Count 313 10^3/uL (150-450); Red Blood Count 3.63 10^6 /uL (3.70-4.87); Red Cell Distribution Width 20 % (10-15); White Blood Count 7.4 10^3/uL (3.5-10.8)
[2019-01-09 06:40] LABS: BUN/Creatinine Ratio 26.3 (8-20); Blood Urea Nitrogen 26 mg/dL (6-24); Calcium 9.4 mg/dL (8.6-10.3); Chloride 99 mmol/L (101-111); EGFR African American 68.1 (>60); EGFR Non-African American 56.3 (>60); Glucose 141 mg/dL (70-100); Potassium 4.4 mmol/L (3.5-5.0); Sodium 141 mmol/L (135-145)
[2019-01-09 06:48] LABS: CO2 Carbon Dioxide 43 mmol/L (22-32)
[2019-01-09 07:13] LABS: ABS Basophils 0.1 10^3/ul (0-0.2); ABS Eosinophils 0.4 10^3/ul (0-0.6); ABS Monocytes 1.2 10^3/ul (0-0.8); ABS Neutrophils 4.8 10^3/ul (1.5-7.7); Eosinophil % 4.9 %; Lymphocyte % 13.5 %; Nucleated Red Blood Cells % 0.1
[2019-01-09] MEDS: Tiotropium CAP.INH* CAP.INH/18 MCG (USE ORDER SET !) INH SCH (07:14)
[2019-01-09] MEDS: Gabapentin CAP(*) 300 MG PO SCH (08:17)
[2019-01-09] MEDS: Furosemide TAB* 20 MG PO SCH (08:18)
[2019-01-09] MEDS: Pantoprazole TAB * 40 MG TAB PO SCH (08:18)
[2019-01-09] MEDS: Cetirizine* 10 MG TAB PO SCH (08:18)
[2019-01-09] MEDS: Metoprolol Tartrate TAB* 25 MG PO SCH (08:19)
[2019-01-09] MEDS: Diltiazem CD CAP* 180 MG PO SCH (08:19)
[2019-01-09] MEDS: Metoclopramide TAB* 10 MG PO SCH (08:19)
[2019-01-09] MEDS: Magnesium Oxide TAB* 400 MG PO SCH (08:19)
[2019-01-09] MEDS: Nystatin TOP POWDER* 15 GM BTL TOPICAL SCH (08:21)
[2019-01-09 11:52] VITALS: BP 111/46
--- NOTE | 2019-01-09 12:21 | DS ---
CC: [facility]; Dr. Parkinson; Dr. Ramírez * DISCHARGE SUMMARY: ADDENDUM: DATE OF ADMISSION: 12/30/18 DATE OF DISCHARGE: To [facility] for rehab on 01/09/19. DISPOSITION AT DISCHARGE: [facility] Rehabilitation. CONDITION ON DISCHARGE: Stable. PRIMARY CARE PROVIDER: Dr. Parkinson. DISCHARGE DIAGNOSES: Please note in addition to the discharge diagnoses included in discharge summary dictated on 01/07/19, the patient had an episode of syncope/near syncope when she was transiently unresponsive when sitting in a chair and with notable skin pallor. She regained consciousness spontaneously within seconds. MEDICATIONS: Medications at discharge were revised and those now include: 1. Zyrtec 10 mg daily. 2. Voltaren gel 1% 1 application topically to affected area daily. 3. Cardizem CD 180 mg. 4. Neurontin 600 mg 3 times a day. 5. Guaifenesin 500 mg on a p.r.n. basis for cough. 6. Hydrocodone/acetaminophen 5/325 mg 1 tablet b.i.d. 7. Lisinopril 5 mg daily. 8. Mag ox 400 mg daily. 9. Lopressor 25 mg b.i.d. 10. Zofran 4 mg every 6 hours p.r.n. 11. Protonix 40 mg daily. 12. Spiriva 1 inhalation daily. 13. Acetaminophen 650 mg every 4 hours p.r.n. 14. Probiotic 1 tablet b.i.d. 15. Furosemide 20 mg every other day alternating with 40 mg every other day. 16. Imodium 2 mg daily for more than 3 bowel movements a day. 17. Flagyl 500 mg 3 times a day for 4 days total. 18. Coumadin 2.5 mg q.p.m. to be held on 01/09/19 to be restarted on 01/10/19 with next INR to be drawn on 01/11/19. DIAGNOSTIC STUDIES/LAB DATA: Laboratory data performed during the patient's past 2 hospital stays included: On 01/09/19; sodium 141, potassium 3.4, chloride 99, carbon dioxide 43, BUN 26, creatinine 0.99. CBC on 01/09/19 showed white blood cell count 7.4, hemoglobin 10.0, hematocrit of 32, and platelets of 313. CONSULTATIONS: In the past 2 days of hospital stay included Dr. Ramírez from Neurology. Brain MRI obtained on 01/07/19, impression: "No acute intracranial pathology. Other chronic findings as above." Please note that in the body of the report the patient was noted to have chronic frontal and left occipital encephalomalacia with vacuo dilatation of the right lateral ventricle. No hydronephrosis and severe nonspecific T2 FLAIR hyperintensities of the periventricular and subcortical white matter most likely secondary to chronic small vessel ischemic change. No intracranial hemorrhage or extra axial fluid collection noted. No restricted diffusion to suggest acute infarct. The patient's EEG obtained on 01/07/19, impression: "Very technically limited EEG due to excessive muscle artifact. There is severe slowing of those partials of the tracing, which are readable. Repeat tracing perhaps when the patient is more alert is recommended." Repeat EEG obtained on 01/08/19, impression: "Of note EEG due to generalized slowing of the background rhythms consistent with mild diffuse cerebral dysfunction. There are no focal or epileptiform features in this recording." Overnight pulse oximetry performed on 2 L of oxygen showed oxygen saturation below 90% at 36% and continuous saturation below 88% was a total of 8 minutes and 24 seconds. After that continuous pulse ox was performed on 2 L oxygen that the patient had been using up to that point her oxygen was increased to 40 just continuously at discharge. HOSPITALIZATION COURSE: Please note that this an addendum to discharge summary dictated by myself on 01/07/19. Shortly, after preparation of the patient's discharge summary I spoke with Physical Therapy and Physical Therapy's impression was different than the patient's. The patient's impression was that she was doing very well and she was able to ambulate independently with a walker. Physical Therapy stated that patient unfortunately required 2 person assist to walk as she required short-term rehabilitation placement. The patient 's discharge was held on 01/07/19. When the caser shoe parts went to see the patient to talk about short-term rehab possibility, the patient was sitting in a chair, pale with her eyes rolled back and unresponsive. She regained response within seconds. Her vitals were unremarkable and library monitor did not show any abnormalities during the episode. The patient herself did not member what happened, but she was not altered and neurologically at baseline when she was seen right afterwards. At this point, Dr. Wilson was consulted from Neurology and noted that it is likely that the patient had obstructive sleep apnea and had transient hypoxemia that caused the syncope. The EEG that was performed did not show any epileptiform abnormalities. The patient's MRI did not show any evidence of new stroke apart from her old CVA that was noted. The patient pulse oximetry proved the neurologist's suspicion that the patient has obstructive sleep apnea and at this point the patient's chronic oxygen, which she uses continuously was increased to 4 L. The patient was also recommended to have an outpatient sleep study performed. By the time of discharge, she is still has loose bowel movements once a day. I did include a Imodium to her discharge to use if she has more than 3 loose bowel movements a day. She also was noted to have on her basic metabolic panel and Lasix was decreased and change to 40 mg every other day alternating with 20 mg every other day. Her INR on the day of discharge was noted to be 3.01 and at that point, her Coumadin is to be held for a day and then restarted tomorrow with recommendation to repeat an INR in 2 days. Her Flagyl is to be continued for another 4 days then to be stopped. Please also note that the patient's stool testing was negative for C. diff as well Shiga toxin and no other enteric pathogens were noted. PHYSICAL EXAMINATION AT THE TIME OF DISCHARGE: Blood pressure of 106/60, heart of 62 and irregular, respiratory rate 19, oxygen saturation 96% on 4 L of oxygen nasal cannula, temperature is 97.9. General: The patient is a very pleasant 63-year-old obese female who is not in acute distress, alert and oriented x3. HEENT: Head atraumatic, normocephalic. Eyes, pupils equal reactive to light and accommodation. Oropharynx clear. Mucosa moist. Neck: Supple. No JVD. No bruit bilaterally. Cardiovascular: Irregular rate and rhythm. No murmur. Respiratory: Scant crackles at bilateral bases otherwise clear. Abdomen: Soft, nontender. Bowel sounds are present in all 4 quadrants. Notable for bilateral chronic lymphedema. Pulses are poorly palpable due to edema, but present bilaterally. There is no clubbing, no cyanosis, but positive for venous stasis discoloration of bilateral distal lower extremities. Neuro Evaluation: Cranial nerves II through XII intact. Motor strength is 5/5 bilaterally. Psychiatric Evaluation: The patient is alert and oriented x3 with no evidence of anxiety or depression. Please note that this is a short summary of the patient's hospital stay. Please refer to further medical records for details. TIME SPENT: Approximately 40 minutes was spent on the patient's discharge. [id number]/CPS #: [id number] MTDD
== END 2019-01-09 14:10 | DRG 291 ==
LOC: ED 03:24 → MEDTELE 09:51 → ICU 01-02 20:31 → MED 01-04 02:08
PROVIDERS: ADMIT Internal Medicine; ATTEND Internal Medicine
PROC: 4A00X4Z Measurement of Central Nervous Electrical Activity, External Approach (ICD-10-PCS; principal; 2019-01-07)
DX: I13.0 Hypertensive heart and chronic kidney disease with heart failure and stage 1 through stage 4 chronic kidney disease, or unspecified chronic kidney disease (principal); A41.9 Sepsis, unspecified organism; I50.33 Acute on chronic diastolic (congestive) heart failure; J96.21 Acute and chronic respiratory failure with hypoxia; R65.20 Severe sepsis without septic shock; K92.2 Gastrointestinal hemorrhage, unspecified; I24.8 Other forms of acute ischemic heart disease; I48.91 Unspecified atrial fibrillation; J44.9 Chronic obstructive pulmonary disease, unspecified; G47.30 Sleep apnea, unspecified; I89.0 Lymphedema, not elsewhere classified; E05.90 Thyrotoxicosis, unspecified without thyrotoxic crisis or storm; K21.9 Gastro-esophageal reflux disease without esophagitis; F32.9 Major depressive disorder, single episode, unspecified; M19.90 Unspecified osteoarthritis, unspecified site; N18.9 Chronic kidney disease, unspecified; I48.0 Paroxysmal atrial fibrillation; I50.810 Right heart failure, unspecified; Z66 Do not resuscitate; W05.0XXA Fall from non-moving wheelchair, initial encounter; Y92.009 Unspecified place in unspecified non-institutional (private) residence as the place of occurrence of the external cause; Z86.73 Personal history of transient ischemic attack (TIA), and cerebral infarction without residual deficits; Z88.0 Allergy status to penicillin; Z88.1 Allergy status to other antibiotic agents; Z88.8 Allergy status to other drugs, medicaments and biological substances; Z86.718 Personal history of other venous thrombosis and embolism; Z86.711 Personal history of pulmonary embolism; Z90.49 Acquired absence of other specified parts of digestive tract; Z90.81 Acquired absence of spleen; R79.1 Abnormal coagulation profile; Z99.81 Dependence on supplemental oxygen
CPT/HCPCS: 36415; 36600; 70450; 70551; 71045; 71046; 74178; 80048; 80053; 80061; 80320; 81003; 81015; 82140; 82272; 82803; 83605; 83735; 83880; 84443; 84484; 85014; 85018; 85025; 85060; 85610; 86140; 87040; 87045; 87046; 87077; 87086; 87493; 87641; 87899; 93005; 93306; 94640; 94762; 95816; 95819; 99284; A9270-GY; C8929; G0480; G8978-GP-CJ; G8978-GP-CK; G8978-GP-CL; G8979-GP-CI; G8987-GO-CK; G8988-GO-CI; J0696; J1940; J2270; J2765; J3370; J3475; J3480; J3490; Q9967

== ENCOUNTER 2019-01-17 10:06 | Emergency (ER) | payer MEDICARE ==
[2019-01-17] MEDS ORDERED: Acetaminophen TAB* 325 MG PO ONE (10:28)
--- NOTE | 2019-01-17 10:28 | ED ---
Complex/Multi-Sys Presentation - HPI Summary HPI Summary: Patient is a 63-year-old female who presents emergency Department from [facility] for left arm and left hip pain. Patient states she fell yesterday and struck the left side her head off of a doorway and injured her left hip and left arm. Reportedly staff went to speak with patient this morning and felt like she was not speaking correctly and tender to the emergency department for evaluation. Patient reportedly has a history of CVA and has mild aphasia. Patient states she was speaking to staff but just speaking quietly. Patient states she tried to get out of bed this morning but was unable to secondary to left hip pain. Patient denies headache, neck pain, chest pain, shortness breath , abdominal pain. Symptoms are moderate in severity. Movement makes symptoms worse. Rest makes symptoms better. Patient is anticoagulated on Coumadin. - History Of Current Complaint Chief Complaint: EDGeneral Time Seen by Provider: 01/17/19 10:10 Hx Obtained From: Patient - Allergies/Home Medications Allergies/Adverse Reactions: Allergies Allergy/AdvReac Type Severity Reaction Status Date / Time albuterol AdvReac Tachycardia Verified 01/17/19 10:18 amoxicillin [From Augmentin] AdvReac vomiting Verified 01/17/19 10:18 and diarrhea clavulanic acid AdvReac vomiting Verified 01/17/19 10:18 [From Augmentin] and diarrhea Home Medications: Home Medications L. Acidophilus/Pectin, [place] [Acidophilus Capsule] 1 cap PO DAILY 01/17/19 [ History Confirmed 01/17/19] Warfarin TAB(*) [Coumadin TAB(*)] 2 mg PO QPM 01/17/19 [History Confirmed ] guaiFENesin [Mucinex] 600 mg PO BEDTIME PRN 01/17/19 [History Confirmed 01/17/19 ] PMH/Surg Hx/FS Hx/Imm Hx Previously Healthy: Yes Endocrine/Hematology History: Reports: Hx Anticoagulant Therapy, Hx Thyroid Disease - HYPERTHYROID, goiter, radioactive iodine treatment, Hx Anemia Denies: Hx Blood Disorders, Hx Blood Transfusions, Hx Bone Marrow Disease, Hx Diabetes, Hx Systemic Lupus Erythematosus, Hx Sickle Cell Disease, Hx Unexplained Bleeding - hemetemesis, Other Endocrine/Hematological Disorders Cardiovascular History: Reports: Hx Congestive Heart Failure, Hx Deep Vein Thrombosis, Hx Embolism, Other Cardiovascular Problems/Disorders - DVT, IVF FILTER, LV DIASTOLIC DYSFUNCTION Denies: Hx Aneurysm, Hx Angina, Hx Angioplasty, Hx Auto Implanted Cardiovert Defib, Hx Cardiac Arrest, Hx Cardiomegaly, Hx Congenital Heart Disease, Hx Hypercholesterolemia, Hx Hypotension, Hx Hypertension, Hx Pacemaker/ICD, Hx Peripheral Vascular Disease, Hx Rheumatic Fever, Hx Syncope, Hx Valvular Heart Disease Respiratory History: Reports: Hx Asthma, Hx Chronic Bronchitis - frequent bronchitis, not chronic, Hx Chronic Obstructive Pulmonary Disease (COPD) - chronic hypoxic resp failure, on 2L O2, Hx Pneumonia, Hx Pulmonary Edema, Hx Pulmonary Embolism, Hx Seasonal Allergies, Hx Sleep Apnea - has BIPAP at home, Other Respiratory Problems/Disorders - wears O2 at home Denies: Hx Cystic Fibrosis, Hx Lung Cancer, Hx Pleural Effusion GI History: Reports: Hx Gall Bladder Disease - removed 1979, Hx Gastroesophageal Reflux Disease, Hx Gastrointestinal Bleed - October 2012 admission, Hx Hiatal Hernia, Other GI Disorders - s/p bariatric surgery, history of bezoars Denies: Hx Cirrhosis, Hx Crohn's Disease, Hx Diverticulosis, Hx Irritable Bowel, Hx Jaundice, Hx Obstructive Bowel, Hx Ileostomy, Hx Pyloric Stenosis, Hx Ulcer History: Denies: Hx Dialysis, Hx Renal Disease Musculoskeletal History: Reports: Hx Arthritis, Hx Back Problems - neck, Hx Bursitis, Other Musculoskeletal History - lymphedema Denies: Hx Rheumatoid Arthritis, Hx Congenital Bone Abnormalities, Hx Fibromyalgia, Hx Gout, Hx Orthopedic Injury, Hx Osteoporosis, Hx Scoliosis, Hx Tendonitis Sensory History: Reports: Hx Contacts or Glasses, Hx Vision Problem - r/t stroke Denies: Hx Cataracts, Hx Eye Injury, Hx Eye Prosthesis, Hx Glaucoma, Hx Legally Blind, Hx Macular Degeneration, Hx Deafness, Hx Hearing Aid, Hx Hearing Problem, Other Sensory Impairments Opthamlomology History: Reports: Hx Contacts or Glasses, Hx Vision Problem - r/ t stroke Denies: Hx Cataracts, Hx Eye Injury, Hx Eye Prosthesis, Hx Glaucoma, Hx Legally Blind, Hx Macular Degeneration, Other Sensory Impairments Neurological History: Denies: Hx Dementia, Hx Developmental Delay, Hx Headaches, Hx Migraine, Hx Nerve Disease, Hx Seizures, Hx Spinal Cord Injury, Hx Transient Ischemic Attacks (TIA), Other Neuro Impairments/Disorders Psychiatric History: Reports: Hx Depression - since of her sister/PCG Denies: Hx Panic Disorder - Surgical History Surgery Procedure, Year, and Place: Cholecystectomy; splenectomy; stomach stapling surgery 1978; avery filter placed ,2 exploratory surgeries for unexplained bleeding in 1996;blood clot removed from right arm 2012;. GROIN - SKIN GRAFTING DUE TO BLEEDING AND INFECTION. TONSILECTOMY Hx Anesthesia Reactions: No - Immunization History Date of Tetanus Vaccine: unknown Date of Influenza Vaccine: UTD Infectious Disease History: No Infectious Disease History: Denies: Hx Clostridium Difficile, Hx Hepatitis, Hx Human Immunodeficiency Virus (HIV), Hx Shingles, Hx Tuberculosis, Traveled Outside the [place] in Last 30 Days - Family History Known Family History: Positive: Other - parents fhx gastric ulcers, Non- Contributory Family History: parents fhx gastric ulcers - Social History Occupation: Retired Lives: At [facility] Alcohol Use: None Hx Substance Use: No Substance Use Type: Reports: None Substance Use Comment - Amount & Last Used: hydrocodone Hx Tobacco Use: Yes Smoking Status (MU): Unknown if Ever Smoked Type: Cigarettes Amount Used/How Often: 1-2 Length of Time of Smoking/Using Tobacco: 32 Have You Smoked in the Last Year: No Review of Systems Constitutional: Negative Negative: Fever, Chills Eyes: Negative ENT: Negative Cardiovascular: Negative Negative: Palpitations, Chest Pain Respiratory: Negative Negative: Shortness Of Breath, Cough Gastrointestinal: Negative Negative: Abdominal Pain, Vomiting, Diarrhea Genitourinary: Negative Positive: Other - left arm and left hip pain Positive: Bruising Neurological: Negative Negative: Headache All Other Systems Reviewed And Are Negative: Yes Physical Exam Triage Information Reviewed: Yes Vital Signs On Initial Exam: Initial Vitals Temp Pulse Resp BP Pulse Ox 97.6 F 76 20 117/60 94 01/17/19 10:14 01/17/19 10:14 01/17/19 10:14 01/17/19 10:14 01/17/19 10:14 Vital Signs Reviewed: Yes Appearance: Positive: Well-Appearing - Pt. sitting up in bed in NAD. Chronic O2. Appears older that stated age. Answers most questions appropriately, stutters at times. Skin: Positive: Warm, Dry Head/Face: Positive: Other - Contusion note to left forehead Eyes: Positive: Normal, EOMI, PIO, Conjunctiva Clear Neck: Positive: Supple Respiratory/Lung Sounds: Positive: Wheezes - mild expiratory wheeze through out. Cardiovascular: Positive: Normal, RRR Abdomen Description: Positive: Nontender, Soft Musculoskeletal: Positive: Other - Pain on palpation to left hip. Large area of ecchymosis over distal humerous with pain on palpation. Neurological: Positive: Normal, Alert, Oriented to Person Place, Time, CN Intact II-III Psychiatric: Positive: Affect/Mood Appropriate - Criss Coma Scale Best Eye Response: 4 - Spontaneous Best Motor Response: 6 - Obeys Commands Best Verbal Response: 5 - Oriented Coma Scale Total: 15 Diagnostics - Vital Signs Vital Signs Temp Pulse Resp BP Pulse Ox 01/17/19 10:14 97.6 F 76 20 117/60 94 - Laboratory Result Diagrams: 01/17/19 11:35 01/17/19 11:35 Lab Statement: Any lab studies that have been ordered have been reviewed, and results considered in the medical decision making process. Complex Multi-Symp Course/Dx Course Of Treatment: Pt. presenting for evaluation after a fall that occurred yesterday. Pt. states she has speech changes and mild left sided weakness that is chronic from a prior CVA. Pt. is afebrile with stable VS. Labs and imaging ordered. Tylenol given for hip pain. ECG done at 1120 shows afib at a rate of 71 , left axis deviation, no stemi, similar to prior tracing. labs show chronic anemia. WBC mildly elevated. CO2 chronically elevated at 42, cr 1.34, bun 39, BNP mildly elevated at 425. U/A nitrate negative, will send for culture. XR per radiology IMPRESSION: CARDIOMEGALY WITH PULMONARY INTERSTITIAL EDEMA. Which appears chronic. Hip and humerous xray negative for acute findings. Pt. re- examined and still c/o hip pain. Reportedly pt. occasionally uses a walker. Attempted to walk pt. but she was unable to secondary to hip pain. CT scan obtained to r/o occult fx and is negative per radiology. On re-exam pt. notes she is due for her xopenex treatment and it was ordered. Will dc pt. back to [facility]. To f.u with PCP in 1-2 days. Tylenol for pain as directed. Return to ER if sxs change or worsen. - Diagnoses Differential Diagnoses/HQI/PQRI: CVA, Metabolic Abnormality, Urinary Tract Infection Provider Diagnoses: Fall, Hip pain, Head contusion Discharge - Sign-Out/Discharge Documenting (check all that apply): Patient Departure Patient Received Moderate/Deep Sedation with Procedure: No - Discharge Plan Condition: Good Disposition: HOME Patient Education Materials: Contusion in Adults (ED), Hip Pain (ED) Referrals: Scott Parkinson MD [Primary Care Provider] - As Soon As Possible Additional Instructions: Follow up with PCP in 1-2 days Return to ER if symptoms change or worsen - Billing Disposition and Condition Condition: GOOD Disposition: Home
[2019-01-17 11:43] LABS: Urine Appearance Clear; Urine Bacteria Absent (Absent); Urine Bilirubin Negative (Negative); Urine Blood 2+ (Negative); Urine Color Amber; Urine Glucose Negative (Negative); Urine Ketones Negative (Negative); Urine Nitrite Negative (Negative); Urine Protein 1+(30 mg/dL) (Negative); Urine Red Blood Cell 2+(6-10/hpf) (Absent); Urine Specific Gravity 1.019 (1.010-1.030); Urine Squamous Epithelial Cell Present (Absent); Urine Urobilinogen Negative (Negative); Urine White Blood Cell Trace(0-5/hpf) (Absent)
[2019-01-17 11:47] LABS: Hematocrit 30 % (35-47); Hemoglobin 9.2 g/dL (12.0-16.0); Mean Corpuscular HGB Conc 31 g/dL (31-36); Mean Corpuscular Hemoglobin 27 pg (27-31); Mean Corpuscular Volume 87 fL (80-97); Mean Platelet Volume 10.5 fL (7.4-10.4); Platelet Count 440 10^3/uL (150-450); Red Blood Count 3.39 10^6 /uL (3.70-4.87); Red Cell Distribution Width 19 % (10-15); White Blood Count 12.8 10^3/uL (3.5-10.8)
[2019-01-17 11:51] LABS: INR 3.49 (0.82-1.09)
[2019-01-17 12:05] LABS: Albumin 3.2 g/dL (3.2-5.2); Albumin/Globulin Ratio 0.9 (1-3); BUN/Creatinine Ratio 23.1 (8-20); Calcium 10.1 mg/dL (8.6-10.3); EGFR Non-African American 39.7 (>60); Globulin 3.6 g/dL (2-4); Magnesium 2.3 mg/dL (1.9-2.7); Potassium 4.8 mmol/L (3.5-5.0); Total Protein 6.8 g/dL (6.4-8.9)
[2019-01-17 12:06] LABS: Troponin I 0.01 ng/mL (<0.04)
[2019-01-17 12:14] LABS: ABS Basophils 0.1 10^3/ul (0-0.2); ABS Eosinophils 0.1 10^3/ul (0-0.6); ABS Monocytes 1.4 10^3/ul (0-0.8); ABS Neutrophils 10.1 10^3/ul (1.5-7.7); Lymphocyte % 8.1 %; Nucleated Red Blood Cells % 0.1
[2019-01-17] MEDS ORDERED: Levalbuterol 1.25MG/0.5ML NEB INH ONE (14:53)
[2019-01-17 16:20] VITALS: BP 114/60
== END 2019-01-17 18:48 | disposition home or self-care (01) ==
LOC: ED 10:06
DX: S00.93XA Contusion of unspecified part of head, initial encounter (principal); M25.552 Pain in left hip; W19.XXXA Unspecified fall, initial encounter; I69.920 Aphasia following unspecified cerebrovascular disease; E05.90 Thyrotoxicosis, unspecified without thyrotoxic crisis or storm; I50.30 Unspecified diastolic (congestive) heart failure; J44.9 Chronic obstructive pulmonary disease, unspecified; Z88.1 Allergy status to other antibiotic agents; Z88.8 Allergy status to other drugs, medicaments and biological substances; Z79.01 Long term (current) use of anticoagulants; Z86.718 Personal history of other venous thrombosis and embolism; Z87.891 Personal history of nicotine dependence; M85.88 Other specified disorders of bone density and structure, other site; I51.7 Cardiomegaly; J81.1 Chronic pulmonary edema
CPT/HCPCS: 36415; 70450; 71045; 72192; 80053; 81003; 81015; 83605; 83735; 83880; 84484; 85025; 85610; 87086; 93005; 99284; A9270-GY

== ENCOUNTER 2019-01-20 09:45 | Inpatient (IN) | payer MEDICARE ==
--- NOTE | 2019-01-20 10:22 | ED ---
Shortness of Breath - HPI Summary HPI Summary: A 63 y/o female presents to [facility] with a chief complaint of SOB for the past two weeks. She also has bilateral lower extremity edema and has been requiring more O2 at home. She has an O2 Sat of 94 while on 5L of O2. At triage she rated her pain as a 5/10 in severity. - History of Current Complaint Chief Complaint: EDRespiratoryDistress Time Seen by Provider: 01/20/19 10:13 Hx Obtained From: Patient, EMS Onset/Duration: Gradual Onset, Lasting Weeks, Still Present Timing: Constant Current Severity: Moderate Dyspnea At: Rest Aggravating Factors: Nothing Alleviating Factors: Nothing Associated Signs & Symptoms: Edema - Allergy/Home Medications Allergies/Adverse Reactions: Allergies Allergy/AdvReac Type Severity Reaction Status Date / Time albuterol AdvReac Tachycardia Verified 01/17/19 10:18 amoxicillin [From Augmentin] AdvReac vomiting Verified 01/17/19 10:18 and diarrhea clavulanic acid AdvReac vomiting Verified 01/17/19 10:18 [From Augmentin] and diarrhea Home Medications: Home Medications oxyCODONE/Acetamin 5/325 MG* [Percocet 5/325 TAB*] 1 tab PO BID 01/20/19 [ History Confirmed 01/20/19] PMH/Surg Hx/FS Hx/Imm Hx Endocrine/Hematology History: Reports: Hx Anticoagulant Therapy, Hx Thyroid Disease - HYPERTHYROID, goiter, radioactive iodine treatment, Hx Anemia Denies: Hx Blood Disorders, Hx Blood Transfusions, Hx Bone Marrow Disease, Hx Diabetes, Hx Systemic Lupus Erythematosus, Hx Sickle Cell Disease, Hx Unexplained Bleeding - hemetemesis, Other Endocrine/Hematological Disorders Cardiovascular History: Reports: Hx Congestive Heart Failure, Hx Deep Vein Thrombosis, Hx Embolism, Other Cardiovascular Problems/Disorders - DVT, IVF FILTER, LV DIASTOLIC DYSFUNCTION Denies: Hx Aneurysm, Hx Angina, Hx Angioplasty, Hx Auto Implanted Cardiovert Defib, Hx Cardiac Arrest, Hx Cardiomegaly, Hx Congenital Heart Disease, Hx Hypercholesterolemia, Hx Hypotension, Hx Hypertension, Hx Pacemaker/ICD, Hx Peripheral Vascular Disease, Hx Rheumatic Fever, Hx Syncope, Hx Valvular Heart Disease Respiratory History: Reports: Hx Asthma, Hx Chronic Bronchitis - frequent bronchitis, not chronic, Hx Chronic Obstructive Pulmonary Disease (COPD) - chronic hypoxic resp failure, on 2L O2, Hx Pneumonia, Hx Pulmonary Edema, Hx Pulmonary Embolism, Hx Seasonal Allergies, Hx Sleep Apnea - has BIPAP at home, Other Respiratory Problems/Disorders - wears O2 at home Denies: Hx Cystic Fibrosis, Hx Lung Cancer, Hx Pleural Effusion GI History: Reports: Hx Gall Bladder Disease - removed 1979, Hx Gastroesophageal Reflux Disease, Hx Gastrointestinal Bleed - October 2012 admission, Hx Hiatal Hernia, Other GI Disorders - s/p bariatric surgery, history of bezoars Denies: Hx Cirrhosis, Hx Crohn's Disease, Hx Diverticulosis, Hx Irritable Bowel, Hx Jaundice, Hx Obstructive Bowel, Hx Ileostomy, Hx Pyloric Stenosis, Hx Ulcer History: Denies: Hx Dialysis, Hx Renal Disease Musculoskeletal History: Reports: Hx Arthritis, Hx Back Problems - neck, Hx Bursitis, Other Musculoskeletal History - lymphedema Denies: Hx Rheumatoid Arthritis, Hx Congenital Bone Abnormalities, Hx Fibromyalgia, Hx Gout, Hx Orthopedic Injury, Hx Osteoporosis, Hx Scoliosis, Hx Tendonitis Sensory History: Reports: Hx Contacts or Glasses, Hx Vision Problem - r/t stroke Denies: Hx Cataracts, Hx Eye Injury, Hx Eye Prosthesis, Hx Glaucoma, Hx Legally Blind, Hx Macular Degeneration, Hx Deafness, Hx Hearing Aid, Hx Hearing Problem, Other Sensory Impairments Opthamlomology History: Reports: Hx Contacts or Glasses, Hx Vision Problem - r/ t stroke Denies: Hx Cataracts, Hx Eye Injury, Hx Eye Prosthesis, Hx Glaucoma, Hx Legally Blind, Hx Macular Degeneration, Other Sensory Impairments Neurological History: Reports: Hx CVA Denies: Hx Dementia, Hx Developmental Delay, Hx Headaches, Hx Migraine, Hx Nerve Disease, Hx Seizures, Hx Spinal Cord Injury, Hx Transient Ischemic Attacks (TIA), Other Neuro Impairments/Disorders Psychiatric History: Reports: Hx Depression - since of her sister/PCG Denies: Hx Panic Disorder - Surgical History Surgery Procedure, Year, and Place: Cholecystectomy; splenectomy; stomach stapling surgery 1978; avery filter placed ,2 exploratory surgeries for unexplained bleeding in 1996;blood clot removed from right arm 2012;. GROIN - SKIN GRAFTING DUE TO BLEEDING AND INFECTION. TONSILECTOMY Hx Anesthesia Reactions: No - Immunization History Date of Tetanus Vaccine: unknown Date of Influenza Vaccine: UTD Infectious Disease History: No Infectious Disease History: Denies: Hx Clostridium Difficile, Hx Hepatitis, Hx Human Immunodeficiency Virus (HIV), Hx Shingles, Hx Tuberculosis, Traveled Outside the [place] in Last 30 Days - Family History Known Family History: Positive: Other - parents fhx gastric ulcers Family History: parents fhx gastric ulcers - Social History Alcohol Use: None Hx Substance Use: No Substance Use Type: Reports: None Substance Use Comment - Amount & Last Used: hydrocodone Hx Tobacco Use: Yes Smoking Status (MU): Former Smoker Type: Cigarettes Amount Used/How Often: 1-2 Length of Time of Smoking/Using Tobacco: 32 Have You Smoked in the Last Year: No Review of Systems Negative: Fever, Chills Positive: Shortness Of Breath Positive: Edema - bilateral lower extremities All Other Systems Reviewed And Are Negative: Yes Physical Exam - Summary Physical Exam Summary: VITAL SIGNS: Reviewed. O2 Sat is 94% on 5L O2. GENERAL: Patient is a well-developed and nourished FEMALE who is lying comfortable in the stretcher. Patient is not in any acute respiratory distress and is able to speak in full sentences. HEAD AND FACE: No signs of trauma. No ecchymosis, hematomas or skull depressions. No sinus tenderness. EYES: PERRLA, EOMI x 2, No injected conjunctiva, no nystagmus. EARS: Hearing grossly intact. Ear canals and tympanic membranes are within normal limits. MOUTH: Oropharynx within normal limits. NECK: Supple, trachea is midline, no adenopathy, no JVD, no carotid bruit, no c- spine tenderness, neck with full ROM. CHEST: Symmetric, no tenderness at palpation. LUNGS: Bilateral crackles. CVS: Regular rate and rhythm, S1 and S2 present, no murmurs or gallops appreciated. ABDOMEN: Soft, non-tender. No signs of distention. No rebound, no guarding, and no masses palpated. Bowel sounds are normal. EXTREMITIES: RLE edema left more than right NEURO: Alert and oriented x 3. No acute neurological deficits. Speech is normal and follows commands. SKIN: Dry and warm. Triage Information Reviewed: Yes Vital Signs On Initial Exam: Initial Vitals Temp Pulse Resp BP Pulse Ox 99.1 F 90 24 126/77 92 01/20/19 09:51 01/20/19 09:51 01/20/19 09:51 01/20/19 09:51 01/20/19 09:51 Vital Signs Reviewed: Yes Diagnostics - Vital Signs Vital Signs Temp Pulse Resp BP Pulse Ox 01/20/19 09:51 99.1 F 90 24 126/77 92 - Laboratory Result Diagrams: 01/21/19 07:10 01/21/19 07:10 Lab Statement: Any lab studies that have been ordered have been reviewed, and results considered in the medical decision making process. - Radiology CXR Radiology Interpretation Completed By: Radiologist Summary of Radiographic Findings: 1. ATELECTASIS VERSUS CONSOLIDATION OF THE LEFT LUNG. 2. LEFT PLEURAL EFFUSION. 3. CARDIOMEGALY. ED physician has reviewed this imaging report. - EKG 11:03 Cardiac Rate: Other Rate - Atrial fibrillation at 104 bpm EKG Rhythm: Atrial Fibrillation EKG Comparison: No Significant Change Summary of EKG Findings: Atrial fibrillation at 104 bpm similar to previous EKG done 01/18/19. Re-Evaluation - Re-Evaluation First Eval Re-Evaluation Time: 10:29 Change: Unchanged Comment: Pt is still nauseous, Symptoms are not improving. Course/Dx - Course Assessment/Plan: This patient is a 63-year-old female who was transferred from [facility] complaining that the patient is having severe shortness of breath since yesterday. The patient was unable to give history since the patient has some severe respiratory distress and is unable to speak in full sentences. Therefore we started an IV access, the place the patient in the night monitor and I started the patient on 5 L of oxygen. Blood test results without any significant abnormality except for slight anemia, platelets of 458, absolute monos 1.9, arnold 93, carbon dioxide is 39, BUN is 36, creatinine 1.52, troponin 0.04, CRP is 116 and the BNP is more than 1300. Chest x-ray impression: Atelectasis versus consolidation of the left lung. Left pleural effusion. Cardiomegaly. Since the patient has these abnormal findings and he started the patient with an BiPAP. In the ED course I started the patient with cefepime and levofloxacin for possible pneumonia. I also started the patient Lasix for the CHF exacerbation. I believe that the patient has an increased troponin probably secondary to CHF exacerbation. ABG: pH of 7.33, PCO2 80, PO2 78, O2 sat 97. The patient also has had a slight increase in BUN and creatinine possibly secondary to intravascular the patient and extra- vascular overloading. At this point I discussed my physical exam and findings with Dr. Torres who accepted the patient for admission. - Diagnoses Provider Diagnoses: CHF exacerbation, Pneumonia, Renal insufficiency, Hypercapnia - Physician Notifications Discussed Care of Patient With: Richard Torres Time Discussed With Above Provider: 11:48 Instructed by Provider To: Admit As Inpatient - Critical Care Time Critical Care Time: 30-74 min Discharge - Sign-Out/Discharge Documenting (check all that apply): Patient Departure - admit All imaging exams completed and their final reports reviewed: Yes Patient Received Moderate/Deep Sedation with Procedure: No - Discharge Plan Condition: Fair Disposition: ADMITTED TO [facility] - Billing Disposition and Condition Condition: FAIR Disposition: Admitted to [facility] - Attestation Statements Document Initiated by Angelina: Yes Documenting Scribe: Syd Le Provider For Whom Angelina is Documenting (Include Credential): Roberth Smyth MD Scribe Attestation: Syd Clancy scribed for Roberth Smyth MD on 01/21/19 at 2020. Scribe Documentation Reviewed: Yes Provider Attestation: The documentation as recorded by the Syd case accurately reflects the service I personally performed and the decisions made by Roberth beltran MD Status of Scribe Document: Viewed
[2019-01-20] MEDS ORDERED: Cefepime(*) 2 GM in NS 0.9% 50 ML* 50 ML IVPB ONE (10:45)
[2019-01-20] MEDS ORDERED: Levofloxacin 750 MG IVPREMIX(* 750 MG/150 ML BAG IVPB ONE (10:45)
[2019-01-20 10:59] LABS: Hematocrit 33 % (35-47); Hemoglobin 10.2 g/dL (12.0-16.0); Mean Corpuscular HGB Conc 31 g/dL (31-36); Mean Corpuscular Hemoglobin 28 pg (27-31); Mean Corpuscular Volume 89 fL (80-97); Mean Platelet Volume 10.6 fL (7.4-10.4); Platelet Count 458 10^3/uL (150-450); Red Blood Count 3.68 10^6 /uL (3.70-4.87); Red Cell Distribution Width 19 % (10-15); White Blood Count 9.9 10^3/uL (3.5-10.8)
[2019-01-20] MEDS ORDERED: Cefepime* 2 GM in Dextrose 50mL Q24H (Duplex) IV ONE (11:00)
[2019-01-20 11:16] LABS: ALT 7 U/L (7-52); AST 20 U/L (13-39); Albumin 3.3 g/dL (3.2-5.2); Albumin/Globulin Ratio 0.8 (1-3); Alkaline Phosphatase 69 U/L (34-104); Anion Gap 8 mmol/L (2-11); BUN/Creatinine Ratio 23.7 (8-20); Blood Urea Nitrogen 36 mg/dL (6-24); C Reactive Protein 116.98 mg/L (<8.01); CO2 Carbon Dioxide 39 mmol/L (22-32); Chloride 93 mmol/L (101-111); Creatine Kinase 45 U/L (10-223); EGFR African American 41.5 (>60); EGFR Non-African American 34.3 (>60); Globulin 3.9 g/dL (2-4); Glucose 90 mg/dL (70-100); Sodium 140 mmol/L (135-145); Total Protein 7.2 g/dL (6.4-8.9)
[2019-01-20 11:21] LABS: CKMB ng/mL 1.3 ng/mL (0.6-6.3)
[2019-01-20 11:36] LABS: ABS Basophils 0.1 10^3/ul (0-0.2); ABS Monocytes 1.9 10^3/ul (0-0.8); Eosinophil % 0.1 %; Large Platelets Present; Lymphocyte % 9.7 %; Nucleated Red Blood Cells % 0.3
[2019-01-20 11:48] LABS: Troponin I 0.04 ng/mL (<0.04)
[2019-01-20] MEDS ORDERED: Furosemide IV* 10 MG/ML 2 ML VIAL (20 MG) IV ONE (11:48)
[2019-01-20] MEDS ORDERED: Levalbuterol 1.25MG/0.5ML NEB INH PRN (12:39)
[2019-01-20] MEDS ORDERED: Loperamide CAP* 2 MG PO PRN (12:39)
[2019-01-20] MEDS ORDERED: Ondansetron TAB* 4 MG PO PRN (12:39)
[2019-01-20] MEDS ORDERED: Acetaminophen TAB* 325 MG PO PRN (12:39)
[2019-01-20] MEDS ORDERED: guaiFENesin ER TAB 600 MG PO PRN (12:39)
[2019-01-20] MEDS ORDERED: Diclofenac 1% GEL (NF) 100 GM TUBE TOPICAL PRN (12:39)
--- NOTE | 2019-01-20 12:56 | HP ---
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 Negative: Cough , Dry, Hemoptysis, Pleuritic Pain, Sputum, Wheezing Cardiovascular: Positive: Orthopnea, Edema. Negative: Chest Pain, Palpitations , Paroxysmal Noc. Dyspnea, Light Headedness, Other Gastrointestinal: Negative: Nausea, Vomiting, Abdominal Pain, Diarrhea, Constipation, Melena, Hematochezia, Other Musculoskeletal: Positive: Back Pain - chronic Skin: Negative: Rash, Lesions, Sigifredo, Bruising, Other Neurological: Negative: Weakness, Numbness, Incoordination, Change in Speech, Confusion, Seizures, Other - Medications/Allergies Allergies/Adverse Reactions: Allergies Allergy/AdvReac Type Severity Reaction Status Date / Time albuterol AdvReac Tachycardia Verified 01/17/19 10:18 amoxicillin [From Augmentin] AdvReac vomiting Verified 01/17/19 10:18 and diarrhea clavulanic acid AdvReac vomiting Verified 01/17/19 10:18 [From Augmentin] and diarrhea Medications: Current Medications Acetaminophen (Tylenol Tab*) 650 mg PO Q4H PRN PRN Reason: FEVER/PAIN Hydrocodone Bitart/Acetaminophen ([place] 5-325 Tab*) 1 tab PO BID [facility] Cetirizine HCl (Zyrtec*) 10 mg PO DAILY [facility] Diclofenac Sodium (Voltaren 1% Gel (Nf)) 1 applic TOPICAL QID PRN; Protocol PRN Reason: PAIN - ARTHRITIS Diltiazem HCl (Cardizem Cd Cap*) 180 mg PO DAILY [facility] Furosemide (Lasix Iv*) 60 mg IV ONCE ONE Stop: 01/20/19 16:01 Furosemide (Lasix Iv*) 60 mg IV ONCE ONE Stop: 01/20/19 23:01 Gabapentin (Neurontin Cap(*)) 600 mg PO TID [facility] Guaifenesin (Mucinex*) 600 mg PO BEDTIME PRN PRN Reason: COUGH Heparin Sodium (Porcine) (Heparin Vial(*)) 5,000 units SUBCUT Q8HR [facility] Levalbuterol HCl (Levalbuterol Hcl) 1.25 mg INH QID PRN PRN Reason: SOB/WHEEZING Lisinopril (Prinivil Tab*) 5 mg PO DAILY [facility] Loperamide HCl (Imodium Cap*) 2 mg PO DAILY PRN PRN Reason: DIARRHEA Magnesium Oxide (Magox 400 Tab*) 400 mg PO DAILY [facility] Metoprolol Tartrate (Lopressor Tab*) 25 mg PO BID [facility] Ondansetron HCl (Zofran Tab*) 4 mg PO Q6HR PRN PRN Reason: NAUSEA Oxycodone/Acetaminophen (Percocet 5/325 Tab*) 1 tab PO BID [facility] Pantoprazole Sodium (Protonix Tab*) 40 mg PO DAILY [facility] Pharmacy Profile Note (Coumadin Per Pharmacy*) 0 note FOLLOW UP .PER PHARMACY PROTOC [facility]; Protocol Tiotropium [place] (Spiriva Cap.Inh*) 1 cap INH DAILY [facility] Warfarin Sodium (Coumadin Tab(*)) 2 mg PO QPM [facility]; Protocol Exam - Exam Vital Signs: Vital Signs (72 hours) 01/20/19 01/20/19 01/20/19 09:50 09:51 10:00 Temperature 37.3 C Pulse Rate 112 90 105 Respiratory 24 28 Rate Blood Pressure 126/77 126/77 (mmHg) O2 Sat by Pulse 92 92 89 Oximetry 01/20/19 01/20/19 01/20/19 10:20 10:50 10:59 Temperature Pulse Rate 109 105 112 Respiratory 28 28 34 Rate Blood Pressure 136/78 122/80 (mmHg) O2 Sat by Pulse 91 93 94 Oximetry 01/20/19 01/20/19 01/20/19 11:00 11:20 11:39 Temperature Pulse Rate 111 104 107 Respiratory 31 31 34 Rate Blood Pressure 134/78 116/62 (mmHg) O2 Sat by Pulse 91 95 96 Oximetry 01/20/19 01/20/19 01/20/19 11:59 12:00 12:20 Temperature Pulse Rate 95 126 Respiratory 30 30 36 Rate Blood Pressure 107/69 (mmHg) O2 Sat by Pulse 92 93 Oximetry 01/20/19 12:39 Temperature Pulse Rate 98 Respiratory 38 Rate Blood Pressure 127/71 (mmHg) O2 Sat by Pulse 87 Oximetry General: Alert, Oriented x3, Mild distress HEENT: Atraumatic, PERRLA, EOMI, Mucous membr. moist/pink Lungs: Other - Rales on right, decreased sounds on left Cardiovascular: Normal S1, Normal S2 - irregular, Other Abdomen: Normal bowel sounds, Soft, No tenderness, No hepatospenomegaly, No masses Extremities: Other - +4 LE edema Neurological: Other - baseline motor Psych/Mental Status: Mood NL Assessment/Plan - Assessment/Plan Assessment: Acute on chronic combined hypoxic and hypercapnic respiratory failure Plan: Left lung almost completely atelectatic. Likely a combination of her propensity to drop it from COPD as well as her obvious volume overload. Will place on BiPAP to oxygenate/ventilate and recruit lung as we bronchdilate and diurese. I am not convinced that she is infected but its hard to ignore the fact that we cannot see what is under the opacified left hemithorax and will therefore continue Abx. Appropriate cultures have been sent. Bronchodilators and repeat ABG. Denies any CP and does not look in marked distress. Is speaking to me through the BiPAP and is apporpate. Will continue the balance of her extensive outpt medication regimen and hopefully there is nothing more siniister hiding underneath that partial collapse. If we are unsuccessful with diuresis will consider thoracentesis but the fluid is everywhere. Will add doppler LE, await her INR. Critical care time 60 minutes
[2019-01-20 13:32] LABS: INR 6.76 (0.82-1.09)
[2019-01-20] MEDS ORDERED: Heparin VIAL(*) 5000 UNITS/ML VIAL (FIVE THOUSAND) SUBCUT SCH (14:00)
[2019-01-20] MEDS: Cefepime 1 GM in Dextrose(*) 1 GM/50 ML BAG IV SCH (15:48)
[2019-01-20] MEDS: Gabapentin CAP(*) 300 MG PO SCH ×2 (15:48→22:06)
[2019-01-20 15:57] LABS: Urine Appearance Cloudy; Urine Bacteria Absent (Absent); Urine Bilirubin Negative (Negative); Urine Blood 3+ (Negative); Urine Color Yellow; Urine Glucose Negative (Negative); Urine Ketones Negative (Negative); Urine Nitrite Negative (Negative); Urine Protein Negative (Negative); Urine Red Blood Cell 3+(>10/hpf) (Absent); Urine Squamous Epithelial Cell Present (Absent); Urine Urobilinogen Negative (Negative); Urine White Blood Cell Trace(0-5/hpf) (Absent)
[2019-01-20] MEDS ORDERED: Furosemide IV* 10 MG/ML 10 ML VIAL (100 MG) IV ONE ×2 (16:00→23:00)
[2019-01-20] MEDS ORDERED: Warfarin TAB(*) 2 MG PO SCH (18:00)
[2019-01-20 18:32] LABS: BUN/Creatinine Ratio 28.1 (8-20); Calcium 8.1 mg/dL (8.6-10.3); EGFR Non-African American 44.7 (>60); Magnesium 1.9 mg/dL (1.9-2.7); Potassium 4.3 mmol/L (3.5-5.0)
[2019-01-20 18:43] LABS: Troponin I 0.03 ng/mL (<0.04)
[2019-01-20] MEDS: oxyCODONE/Acetamin 5/325 MG* TAB PO SCH (22:06)
[2019-01-20] MEDS: Metoprolol Tartrate TAB* 25 MG PO SCH (22:06)
[2019-01-20] MEDS: HYDROcodone/ACETAMIN 5-325 MG* 1 TAB PO SCH (22:06)
[2019-01-21] MEDS ORDERED: methylPREDNISolone 125 MG* 2 ML VIAL IV ONE (02:16)
--- NOTE | 2019-01-21 02:19 | PN ---
Hospitalist Progress Note Date of Service: 01/21/19 Called by RN that pt again with increasing O2 requirements. Mentation good. Wheeze on exam. Noted to be admitted today for COPD exacerbation. Will initiate on steroids. Already on antibiotics and furosemide IV, with BiPAP and nebs.
[2019-01-21] MEDS ORDERED: methylPREDNISolone 125 MG* 2 ML VIAL ONE (02:24)
[2019-01-21] MEDS: Cefepime 1 GM in Dextrose(*) 1 GM/50 ML BAG IV SCH (02:29)
[2019-01-21 07:30] LABS: Hematocrit 33 % (35-47); Hemoglobin 10.3 g/dL (12.0-16.0); Mean Corpuscular HGB Conc 31 g/dL (31-36); Mean Corpuscular Hemoglobin 27 pg (27-31); Mean Corpuscular Volume 88 fL (80-97); Mean Platelet Volume 10.4 fL (7.4-10.4); Platelet Count 432 10^3/uL (150-450); Red Blood Count 3.76 10^6 /uL (3.70-4.87); Red Cell Distribution Width 19 % (10-15); White Blood Count 11.5 10^3/uL (3.5-10.8)
[2019-01-21] MEDS: Tiotropium CAP.INH* CAP.INH/18 MCG (USE ORDER SET !) INH SCH (07:30)
[2019-01-21 07:33] LABS: ABS Basophils 0.1 10^3/ul (0-0.2); ABS Lymphocytes 0.4 10^3/ul (1.0-4.8); ABS Monocytes 0.4 10^3/ul (0-0.8); ABS Neutrophils 10.7 10^3/ul (1.5-7.7); ABS Nucleated RBC 0.1 10^3/ul; Lymphocyte % 3.1 %; Nucleated Red Blood Cells % 0.4
[2019-01-21 07:38] LABS: Albumin 3.1 g/dL (3.2-5.2); Albumin/Globulin Ratio 0.8 (1-3); BUN/Creatinine Ratio 26.5 (8-20); Calcium 9.7 mg/dL (8.6-10.3); EGFR African American 43.2 (>60); EGFR Non-African American 35.7 (>60); Potassium 4.7 mmol/L (3.5-5.0); Total Bilirubin 0.8 mg/dL (0.2-1.0); Total Protein 7.1 g/dL (6.4-8.9)
[2019-01-21] MEDS ORDERED: Lisinopril TAB* 5 MG PO SCH (09:00)
[2019-01-21] MEDS ORDERED: Pantoprazole TAB * 40 MG TAB PO SCH (09:00)
[2019-01-21] MEDS ORDERED: predniSONE TAB* 20 MG PO SCH (09:00)
[2019-01-21] MEDS ORDERED: Spiriva Inhaler DEVICE* 1 EACH DEVICE INH ONE (09:00)
[2019-01-21 09:25] LABS: INR 5.67 (0.82-1.09)
--- NOTE | 2019-01-21 10:58 | PN ---
Date of Service: 01/21/19 Critical Care Services: Did well overnight, will try off BiPAP this AM. Vital Signs: Temp Pulse Resp BP SpO2 FiO2 35.7 C 138 19 100/51 96 70 01/21/19 07:51 01/21/19 09:31 01/21/19 09:31 01/21/19 09:31 01/21/19 09:31 01/21 07:29 Physical Exam: Gen: A little lethargic this AM but responsive and appropriate on BiPAP HEENT: NCAT, BiPAP mask in place Lungs: Improved left aeration compared to yesterday Cardiac: S1S2 irregular Abdomen: soft, NT, ND, +BS Extremities: decreased LE edema Neuro: A&O, grossly non-focal to baseline Fluid Balance (Past 24 Hours): I= O= Net Intake & Output 01/19/19 01/20/19 01/21/19 01/22/19 06:59 06:59 06:59 06:59 Intake Total 376 0 Output Total 2145 250 Balance -1769 -250 Weight 105 kg Intake: IV Fluids 266 NS (0.9%) 66 IVPB 110 NS (0.9%) 110 Oral 0 0 Output: Urine 85 [place] 2060 250 Labs: Laboratory Results - last 24 hr 01/20/19 01/20/19 01/20/19 10:35 10:41 10:41 WBC 9.9 RBC 3.68 L Hgb 10.2 L Hct 33 L MCV 89 MCH 28 MCHC 31 RDW 19 H Plt Count 458 H MPV 10.6 H Neut % (Auto) 70.6 Lymph % (Auto) 9.7 [place] % (Auto) 18.7 Eos % (Auto) 0.1 Baso % (Auto) 0.9 Absolute Neuts (auto) 7.0 Absolute Lymphs (auto) 1.0 Absolute Monos (auto) 1.9 H Absolute Eos (auto) 0.0 Absolute Basos (auto) 0.1 Absolute Nucleated RBC 0.0 Nucleated RBC % 0.3 Large Platelets Present INR (Anticoag Therapy) Patient Temperature ABG pH 7.33 L ABG pH (Temp Correct) ABG pCO2 80 H* ABG pCO2 (Temp Corrct ABG pO2 78 L ABG pO2 (Temp Correct ABG HCO3 34.6 H ABG O2 Saturation 97.0 ABG Base Excess 12.5 H Respiration Rate O2 Delivery Device Ventilator Type Vent Mode FiO2 Inspiratory Time PEEP Pressure Support Pressure Control EPAP IPAP BiPAP Sodium 140 Potassium 5.0 Chloride 93 L Carbon Dioxide 39 H Anion Gap 8 BUN 36 H Creatinine 1.52 H Est GFR ( Amer) 41.5 Est GFR (Non-Af Amer) 34.3 BUN/Creatinine Ratio 23.7 H Glucose 90 Lactic Acid Calcium 10.0 Magnesium Total Bilirubin 0.90 AST 20 ALT 7 Alkaline Phosphatase 69 Total Creatine Kinase 45 CK-MB (CK-2) 1.3 Troponin I 0.04 H* C-Reactive Protein 116.98 H B-Natriuretic Peptide Total Protein 7.2 Albumin 3.3 Globulin 3.9 Albumin/Globulin Ratio 0.8 L Urine Color Urine Appearance Urine pH Ur Specific [place] Urine Protein Urine Ketones Urine Blood Urine Nitrate Urine Bilirubin Urine Urobilinogen Ur Leukocyte Esterase Urine WBC (Auto) Urine RBC (Auto) Ur Squamous Epith Cells Urine Bacteria Hyaline Casts Urine Glucose 01/20/19 01/20/19 01/20/19 10:41 10:41 12:15 WBC RBC Hgb Hct MCV MCH MCHC RDW Plt Count MPV Neut % (Auto) Lymph % (Auto) [place] % (Auto) Eos % (Auto) Baso % (Auto) Absolute Neuts (auto) Absolute Lymphs (auto) Absolute Monos (auto) Absolute Eos (auto) Absolute Basos (auto) Absolute Nucleated RBC Nucleated RBC % Large Platelets INR (Anticoag Therapy) Patient Temperature Not Reportable ABG pH 7.35 ABG pH (Temp Correct) Not Reportable ABG pCO2 75 H* ABG pCO2 (Temp Corrct Not Reportable ABG pO2 79 L ABG pO2 (Temp Correct Not Reportable ABG HCO3 34.5 H ABG O2 Saturation 97.8 ABG Base Excess 12.3 H Respiration Rate 14 O2 Delivery Device bipap Ventilator Type Not Reportable Vent Mode st FiO2 50 Inspiratory Time Not Reportable PEEP Not Reportable Pressure Support Not Reportable Pressure Control Not Reportable EPAP 8 IPAP 18 BiPAP Not Reportable Sodium Potassium Chloride Carbon Dioxide Anion Gap BUN Creatinine Est GFR ( Amer) Est GFR (Non-Af Amer) BUN/Creatinine Ratio Glucose Lactic Acid 1.3 Calcium Magnesium Total Bilirubin AST ALT Alkaline Phosphatase Total Creatine Kinase CK-MB (CK-2) Troponin I C-Reactive Protein B-Natriuretic Peptide > 1300 H Total Protein Albumin Globulin Albumin/Globulin Ratio Urine Color Urine Appearance Urine pH Ur Specific [place] Urine Protein Urine Ketones Urine Blood Urine Nitrate Urine Bilirubin Urine Urobilinogen Ur Leukocyte Esterase Urine WBC (Auto) Urine RBC (Auto) Ur Squamous Epith Cells Urine Bacteria Hyaline Casts Urine Glucose 01/20/19 01/20/19 01/20/19 12:53 12:53 15:14 WBC RBC Hgb Hct MCV MCH MCHC RDW Plt Count MPV Neut % (Auto) Lymph % (Auto) [place] % (Auto) Eos % (Auto) Baso % (Auto) Absolute Neuts (auto) Absolute Lymphs (auto) Absolute Monos (auto) Absolute Eos (auto) Absolute Basos (auto) Absolute Nucleated RBC Nucleated RBC % Large Platelets INR (Anticoag Therapy) 6.76 H* Patient Temperature ABG pH ABG pH (Temp Correct) ABG pCO2 ABG pCO2 (Temp Corrct ABG pO2 ABG pO2 (Temp Correct ABG HCO3 ABG O2 Saturation ABG Base Excess Respiration Rate O2 Delivery Device Ventilator Type Vent Mode FiO2 Inspiratory Time PEEP Pressure Support Pressure Control EPAP IPAP BiPAP Sodium Potassium Chloride Carbon Dioxide Anion Gap BUN Creatinine Est GFR ( Amer) Est GFR (Non-Af Amer) BUN/Creatinine Ratio Glucose Lactic Acid Calcium Magnesium Total Bilirubin AST ALT Alkaline Phosphatase Total Creatine Kinase CK-MB (CK-2) Troponin I 0.03 C-Reactive Protein B-Natriuretic Peptide Total Protein Albumin Globulin Albumin/Globulin Ratio Urine Color Yellow Urine Appearance Cloudy Urine pH 5.0 Ur Specific [place] 1.010 Urine Protein Negative Urine Ketones Negative Urine Blood 3+ A Urine Nitrate Negative Urine Bilirubin Negative Urine Urobilinogen Negative Ur Leukocyte Esterase Negative Urine WBC (Auto) Trace(0-5/hpf) Urine RBC (Auto) 3+(>10/hpf) A Ur Squamous Epith Cells Present A Urine Bacteria Absent Hyaline Casts Present A Urine Glucose Negative 01/20/19 01/20/19 01/21/19 16:30 18:05 07:10 WBC 11.5 H RBC 3.76 Hgb 10.3 L Hct 33 L MCV 88 MCH 27 MCHC 31 RDW 19 H Plt Count 432 MPV 10.4 Neut % (Auto) 92.5 Lymph % (Auto) 3.1 [place] % (Auto) 3.8 Eos % (Auto) 0.0 Baso % (Auto) 0.6 Absolute Neuts (auto) 10.7 H Absolute Lymphs (auto) 0.4 L Absolute Monos (auto) 0.4 Absolute Eos (auto) 0.0 Absolute Basos (auto) 0.1 Absolute Nucleated RBC 0.1 Nucleated RBC % 0.4 Large Platelets INR (Anticoag Therapy) Patient Temperature Not Reportable ABG pH 7.38 ABG pH (Temp Correct) Not Reportable ABG pCO2 69 H ABG pCO2 (Temp Corrct Not Reportable ABG pO2 85 ABG pO2 (Temp Correct Not Reportable ABG HCO3 34.6 H ABG O2 Saturation 98.1 H ABG Base Excess 12.5 H Respiration Rate 14 O2 Delivery Device Bipap Ventilator Type Not Reportable Vent Mode Not Reportable FiO2 50 Inspiratory Time Not Reportable PEEP Not Reportable Pressure Support Not Reportable Pressure Control Not Reportable EPAP 8 IPAP 25 BiPAP Not Reportable Sodium 140 Potassium 4.3 Chloride 101 Carbon Dioxide 35 H Anion Gap 4 BUN 34 H Creatinine 1.21 H Est GFR ( Amer) 54.0 Est GFR (Non-Af Amer) 44.7 BUN/Creatinine Ratio 28.1 H Glucose 115 H Lactic Acid Calcium 8.1 L Magnesium 1.9 Total Bilirubin AST ALT Alkaline Phosphatase Total Creatine Kinase CK-MB (CK-2) Troponin I 0.03 C-Reactive Protein B-Natriuretic Peptide Total Protein Albumin Globulin Albumin/Globulin Ratio Urine Color Urine Appearance Urine pH Ur Specific [place] Urine Protein Urine Ketones Urine Blood Urine Nitrate Urine Bilirubin Urine Urobilinogen Ur Leukocyte Esterase Urine WBC (Auto) Urine RBC (Auto) Ur Squamous Epith Cells Urine Bacteria Hyaline Casts Urine Glucose 01/21/19 01/21/19 07:10 07:10 WBC RBC Hgb Hct MCV MCH MCHC RDW Plt Count MPV Neut % (Auto) Lymph % (Auto) [place] % (Auto) Eos % (Auto) Baso % (Auto) Absolute Neuts (auto) Absolute Lymphs (auto) Absolute Monos (auto) Absolute Eos (auto) Absolute Basos (auto) Absolute Nucleated RBC Nucleated RBC % Large Platelets INR (Anticoag Therapy) 5.67 H* Patient Temperature ABG pH ABG pH (Temp Correct) ABG pCO2 ABG pCO2 (Temp Corrct ABG pO2 ABG pO2 (Temp Correct ABG HCO3 ABG O2 Saturation ABG Base Excess Respiration Rate O2 Delivery Device Ventilator Type Vent Mode FiO2 Inspiratory Time PEEP Pressure Support Pressure Control EPAP IPAP BiPAP Sodium 141 Potassium 4.7 Chloride 92 L Carbon Dioxide 44 H* Anion Gap 5 BUN 39 H Creatinine 1.47 H Est GFR ( Amer) 43.2 Est GFR (Non-Af Amer) 35.7 BUN/Creatinine Ratio 26.5 H Glucose 132 H Lactic Acid Calcium 9.7 Magnesium Total Bilirubin 0.80 AST 20 ALT 7 Alkaline Phosphatase 73 Total Creatine Kinase CK-MB (CK-2) Troponin I C-Reactive Protein B-Natriuretic Peptide Total Protein 7.1 Albumin 3.1 L Globulin 4.0 Albumin/Globulin Ratio 0.8 L Urine Color Urine Appearance Urine pH Ur Specific [place] Urine Protein Urine Ketones Urine Blood Urine Nitrate Urine Bilirubin Urine Urobilinogen Ur Leukocyte Esterase Urine WBC (Auto) Urine RBC (Auto) Ur Squamous Epith Cells Urine Bacteria Hyaline Casts Urine Glucose Studies: CXR with improved aeration on left Doppler LE negative for DVT Nutrition: Regular diet Impression: Improving 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 Continue lasix. CXR better with lasix and PPV. COPD exacerbation being treated as well along with ABx. Still too much lung invisible to exclude pneumonia but will downgrade to Levaquin monotx tomorrow if nothing new. The bigger discussion this AM is that she seems resolute about comfort care. She seems to have excellent insight and is communicating very clearly that she is simply tired and would like to abandon her medication regimen in favor of symptomatic treatment only that enhances her comfort. She clearly reiterates her DNR/DNI and adds that she is not to be placed on non- invasive ventilation again. This conversation was in the presence of nursing and was a reiteration of her wishes that she had expressed to nursing earlier this AM. Will accept the DNR/DNI/No NIPPV as appropriate. I believe she has the insight and is appropriate regarding Comfort/Hospice but will ask Palliative to speak to her as well to have a greater comfort that this decision is with full insight. Continue current management for now. Refusing all PO meds. Critical Care Time: 40 minutes
[2019-01-21] MEDS: Cetirizine* 10 MG TAB PO SCH (12:22)
[2019-01-21] MEDS: HYDROcodone/ACETAMIN 5-325 MG* 1 TAB PO SCH ×2 (12:22→23:17)
[2019-01-21] MEDS: Diltiazem CD CAP* 180 MG PO SCH (12:22)
[2019-01-21] MEDS: oxyCODONE/Acetamin 5/325 MG* TAB PO SCH ×2 (12:22→22:24)
[2019-01-21] MEDS: Metoprolol Tartrate TAB* 25 MG PO SCH (12:22)
[2019-01-21] MEDS: Gabapentin CAP(*) 300 MG PO SCH ×3 (12:22→23:17)
[2019-01-21] MEDS: Magnesium Oxide TAB* 400 MG PO SCH (12:22)
--- NOTE | 2019-01-21 12:40 | CONSULT ---
Palliative / Hospice Consult Ordering Provider: Richard Torres - PCP-Iggy Referal Reason: Goals of care/aftercare - Subjective Code Status: DNR Advance Directives Location: In Chart MOLST Part A Completed: Yes - on chart MOLST Part E Completed:: Yes - on chart - History or Present Illness History or Present Illness: 63 yo female with COPD resident of [facility] since her last hospitalization presents with SOB. 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 Pt is a smoker, no etoh, never no children retired with disability from [employer] in 1986. Studies CXR-L pleural effusion atelectasis vs consolidation L lung, EKG- LVH, doppler neg, H/H 10.3/33 , BUN/Cr 39/1.47, egfr 35.7, Ca 9.7, alb 3.1 & tprot 7.1. Pt is admitted with diagnosis of acute on chronic respiratory failure. All history is from the pt and medical records. Pt doesn't want any intervention. Lab Values: Abnormal Lab Results 01/20/19 01/20/19 01/20/19 10:41 12:53 12:53 WBC 9.9 RBC 3.68 L Hgb 10.2 L Hct 33 L MCV 89 MCH 28 MCHC 31 RDW 19 H Plt Count 458 H MPV 10.6 H Neut % (Auto) 70.6 Lymph % (Auto) 9.7 [place] % (Auto) 18.7 Eos % (Auto) 0.1 Baso % (Auto) 0.9 Absolute Neuts (auto) 7.0 Absolute Lymphs (auto) 1.0 Absolute Monos (auto) 1.9 H Absolute Eos (auto) 0.0 Absolute Basos (auto) 0.1 Absolute Nucleated RBC 0.0 Nucleated RBC % 0.3 Large Platelets Present INR (Anticoag Therapy) 6.76 H* Patient Temperature ABG pH ABG pH (Temp Correct) ABG pCO2 ABG pCO2 (Temp Corrct ABG pO2 ABG pO2 (Temp Correct ABG HCO3 ABG O2 Saturation ABG Base Excess Respiration Rate O2 Delivery Device Ventilator Type Vent Mode FiO2 Inspiratory Time PEEP Pressure Support Pressure Control EPAP IPAP BiPAP Sodium Potassium Chloride Carbon Dioxide Anion Gap BUN Creatinine Est GFR ( Amer) Est GFR (Non-Af Amer) BUN/Creatinine Ratio Glucose Calcium Magnesium Total Bilirubin AST ALT Alkaline Phosphatase Troponin I 0.03 Total Protein Albumin Globulin Albumin/Globulin Ratio Urine Color Urine Appearance Urine pH Ur Specific [place] Urine Protein Urine Ketones Urine Blood Urine Nitrate Urine Bilirubin Urine Urobilinogen Ur Leukocyte Esterase Urine WBC (Auto) Urine RBC (Auto) Ur Squamous Epith Cells Urine Bacteria Hyaline Casts Urine Glucose 01/20/19 01/20/19 01/20/19 15:14 16:30 18:05 WBC RBC Hgb Hct MCV MCH MCHC RDW Plt Count MPV Neut % (Auto) Lymph % (Auto) [place] % (Auto) Eos % (Auto) Baso % (Auto) Absolute Neuts (auto) Absolute Lymphs (auto) Absolute Monos (auto) Absolute Eos (auto) Absolute Basos (auto) Absolute Nucleated RBC Nucleated RBC % Large Platelets INR (Anticoag Therapy) Patient Temperature Not Reportable ABG pH 7.38 ABG pH (Temp Correct) Not Reportable ABG pCO2 69 H ABG pCO2 (Temp Corrct Not Reportable ABG pO2 85 ABG pO2 (Temp Correct Not Reportable ABG HCO3 34.6 H ABG O2 Saturation 98.1 H ABG Base Excess 12.5 H Respiration Rate 14 O2 Delivery Device Bipap Ventilator Type Not Reportable Vent Mode Not Reportable FiO2 50 Inspiratory Time Not Reportable PEEP Not Reportable Pressure Support Not Reportable Pressure Control Not Reportable EPAP 8 IPAP 25 BiPAP Not Reportable Sodium 140 Potassium 4.3 Chloride 101 Carbon Dioxide 35 H Anion Gap 4 BUN 34 H Creatinine 1.21 H Est GFR ( Amer) 54.0 Est GFR (Non-Af Amer) 44.7 BUN/Creatinine Ratio 28.1 H Glucose 115 H Calcium 8.1 L Magnesium 1.9 Total Bilirubin AST ALT Alkaline Phosphatase Troponin I 0.03 Total Protein Albumin Globulin Albumin/Globulin Ratio Urine Color Yellow Urine Appearance Cloudy Urine pH 5.0 Ur Specific [place] 1.010 Urine Protein Negative Urine Ketones Negative Urine Blood 3+ A Urine Nitrate Negative Urine Bilirubin Negative Urine Urobilinogen Negative Ur Leukocyte Esterase Negative Urine WBC (Auto) Trace(0-5/hpf) Urine RBC (Auto) 3+(>10/hpf) A Ur Squamous Epith Cells Present A Urine Bacteria Absent Hyaline Casts Present A Urine Glucose Negative 01/21/19 01/21/19 01/21/19 07:10 07:10 07:10 WBC 11.5 H RBC 3.76 Hgb 10.3 L Hct 33 L MCV 88 MCH 27 MCHC 31 RDW 19 H Plt Count 432 MPV 10.4 Neut % (Auto) 92.5 Lymph % (Auto) 3.1 [place] % (Auto) 3.8 Eos % (Auto) 0.0 Baso % (Auto) 0.6 Absolute Neuts (auto) 10.7 H Absolute Lymphs (auto) 0.4 L Absolute Monos (auto) 0.4 Absolute Eos (auto) 0.0 Absolute Basos (auto) 0.1 Absolute Nucleated RBC 0.1 Nucleated RBC % 0.4 Large Platelets INR (Anticoag Therapy) 5.67 H* Patient Temperature ABG pH ABG pH (Temp Correct) ABG pCO2 ABG pCO2 (Temp Corrct ABG pO2 ABG pO2 (Temp Correct ABG HCO3 ABG O2 Saturation ABG Base Excess Respiration Rate O2 Delivery Device Ventilator Type Vent Mode FiO2 Inspiratory Time PEEP Pressure Support Pressure Control EPAP IPAP BiPAP Sodium 141 Potassium 4.7 Chloride 92 L Carbon Dioxide 44 H* Anion Gap 5 BUN 39 H Creatinine 1.47 H Est GFR ( Amer) 43.2 Est GFR (Non-Af Amer) 35.7 BUN/Creatinine Ratio 26.5 H Glucose 132 H Calcium 9.7 Magnesium Total Bilirubin 0.80 AST 20 ALT 7 Alkaline Phosphatase 73 Troponin I Total Protein 7.1 Albumin 3.1 L Globulin 4.0 Albumin/Globulin Ratio 0.8 L Urine Color Urine Appearance Urine pH Ur Specific [place] Urine Protein Urine Ketones Urine Blood Urine Nitrate Urine Bilirubin Urine Urobilinogen Ur Leukocyte Esterase Urine WBC (Auto) Urine RBC (Auto) Ur Squamous Epith Cells Urine Bacteria Hyaline Casts Urine Glucose Laboratory Last Values WBC 11.5 10^3/uL (3.5-10.8) H 01/21/19 07:10 RBC 3.76 10^6 /uL (3.70-4.87) 01/21/19 07:10 Hgb 10.3 g/dL (12.0-16.0) L 01/21/19 07:10 Hct 33 % (35-47) L 01/21/19 07:10 MCV 88 fL (80-97) 01/21/19 07:10 MCH 27 pg (27-31) 01/21/19 07:10 MCHC 31 g/dL (31-36) 01/21/19 07:10 RDW 19 % (10-15) H 01/21/19 07:10 Plt Count 432 10^3/uL (150-450) 01/21/19 07:10 MPV 10.4 fL (7.4-10.4) 01/21/19 07:10 Neut % (Auto) 92.5 % 01/21/19 07:10 Lymph % (Auto) 3.1 % 01/21/19 07:10 [place] % (Auto) 3.8 % 01/21/19 07:10 Eos % (Auto) 0.0 % 01/21/19 07:10 Baso % (Auto) 0.6 % 01/21/19 07:10 Absolute Neuts (auto) 10.7 10^3/ul (1.5-7.7) H 01/21/19 07:10 Absolute Lymphs (auto) 0.4 10^3/ul (1.0-4.8) L 01/21/19 07:10 Absolute Monos (auto) 0.4 10^3/ul (0-0.8) 01/21/19 07:10 Absolute Eos (auto) 0.0 10^3/ul (0-0.6) 01/21/19 07:10 Absolute Basos (auto) 0.1 10^3/ul (0-0.2) 01/21/19 07:10 Absolute Nucleated RBC 0.1 10^3/ul 01/21/19 07:10 Nucleated RBC % 0.4 01/21/19 07:10 Large Platelets Present 01/20/19 10:41 INR (Anticoag Therapy) 5.67 (0.82-1.09) H* 01/21/19 07:10 Patient Temperature Not Reportable 01/20/19 16:30 ABG pH 7.38 (7.35-7.45) 01/20/19 16:30 ABG pH (Temp Correct) Not Reportable 01/20/19 16:30 ABG pCO2 69 mmHg (35-45) H 01/20/19 16:30 ABG pCO2 (Temp Corrct Not Reportable 01/20/19 16:30 ABG pO2 85 mmHg (80-100) 01/20/19 16:30 ABG pO2 (Temp Correct Not Reportable 01/20/19 16:30 ABG HCO3 34.6 mmol/L (19-31) H 01/20/19 16:30 ABG O2 Saturation 98.1 % (94.0-98.0) H 01/20/19 16:30 ABG Base Excess 12.5 mmol/L (-2.0-2.0) H 01/20/19 16:30 Respiration Rate 14 01/20/19 16:30 O2 Delivery Device Bipap 01/20/19 16:30 Ventilator Type Not Reportable 01/20/19 16:30 Vent Mode Not Reportable 01/20/19 16:30 FiO2 50 01/20/19 16:30 Inspiratory Time Not Reportable 01/20/19 16:30 PEEP Not Reportable 01/20/19 16:30 Pressure Support Not Reportable 01/20/19 16:30 Pressure Control Not Reportable 01/20/19 16:30 EPAP 8 01/20/19 16:30 IPAP 25 01/20/19 16:30 BiPAP Not Reportable 01/20/19 16:30 Sodium 141 mmol/L (135-145) 01/21/19 07:10 Potassium 4.7 mmol/L (3.5-5.0) 01/21/19 07:10 Chloride 92 mmol/L (101-111) L 01/21/19 07:10 Carbon Dioxide 44 mmol/L (22-32) H* 01/21/19 07:10 Anion Gap 5 mmol/L (2-11) 01/21/19 07:10 BUN 39 mg/dL (6-24) H 01/21/19 07:10 Creatinine 1.47 mg/dL (0.51-0.95) H 01/21/19 07:10 Est GFR ( Amer) 43.2 (>60) 01/21/19 07:10 Est GFR (Non-Af Amer) 35.7 (>60) 01/21/19 07:10 BUN/Creatinine Ratio 26.5 (8-20) H 01/21/19 07:10 Glucose 132 mg/dL (70-100) H 01/21/19 07:10 Lactic Acid 1.3 mmol/L (0.5-2.0) 01/20/19 10:41 Calcium 9.7 mg/dL (8.6-10.3) 01/21/19 07:10 Magnesium 1.9 mg/dL (1.9-2.7) 01/20/19 18:05 Total Bilirubin 0.80 mg/dL (0.2-1.0) 01/21/19 07:10 AST 20 U/L (13-39) 01/21/19 07:10 ALT 7 U/L (7-52) 01/21/19 07:10 Alkaline Phosphatase 73 U/L (34-104) 01/21/19 07:10 Total Creatine Kinase 45 U/L (10-223) 01/20/19 10:41 CK-MB (CK-2) 1.3 ng/mL (0.6-6.3) 01/20/19 10:41 Troponin I 0.03 ng/mL (<0.04) 01/20/19 18:05 C-Reactive Protein 116.98 mg/L (<8.01) H 01/20/19 10:41 B-Natriuretic Peptide > 1300 pg/mL (<=100) H 01/20/19 10:41 Total Protein 7.1 g/dL (6.4-8.9) 01/21/19 07:10 Albumin 3.1 g/dL (3.2-5.2) L 01/21/19 07:10 Globulin 4.0 g/dL (2-4) 01/21/19 07:10 Albumin/Globulin Ratio 0.8 (1-3) L 01/21/19 07:10 Urine Color Yellow 01/20/19 15:14 Urine Appearance Cloudy 01/20/19 15:14 Urine pH 5.0 (5-9) 01/20/19 15:14 Ur Specific [place] 1.010 (1.010-1.030) 01/20/19 15:14 Urine Protein Negative (Negative) 01/20/19 15:14 Urine Ketones Negative (Negative) 01/20/19 15:14 Urine Blood 3+ (Negative) A 01/20/19 15:14 Urine Nitrate Negative (Negative) 01/20/19 15:14 Urine Bilirubin Negative (Negative) 01/20/19 15:14 Urine Urobilinogen Negative (Negative) 01/20/19 15:14 Ur Leukocyte Esterase Negative (Negative) 01/20/19 15:14 Urine WBC (Auto) Trace(0-5/hpf) (Absent) 01/20/19 15:14 Urine RBC (Auto) 3+(>10/hpf) (Absent) A 01/20/19 15:14 Ur Squamous Epith Cells Present (Absent) A 01/20/19 15:14 Urine Bacteria Absent (Absent) 01/20/19 15:14 Hyaline Casts Present (Absent) A 01/20/19 15:14 Urine Glucose Negative (Negative) 01/20/19 15:14 - Objective Active Medications: Acetaminophen (Tylenol Tab*) 650 mg PO Q4H PRN PRN Reason: FEVER/PAIN Hydrocodone Bitart/Acetaminophen ([place] 5-325 Tab*) 1 tab PO BID [facility] Last Admin: 01/21/19 12:22 Dose: Not Given Cetirizine HCl (Zyrtec*) 10 mg PO DAILY [facility] Last Admin: 01/21/19 12:22 Dose: Not Given Diltiazem HCl (Cardizem Cd Cap*) 180 mg PO DAILY [facility] Last Admin: 01/21/19 12:22 Dose: Not Given Furosemide (Lasix Iv*) 60 mg IV 0800,1700 [facility] Gabapentin (Neurontin Cap(*)) 600 mg PO TID [facility] Last Admin: 01/21/19 12:22 Dose: Not Given Guaifenesin (Mucinex*) 600 mg PO BEDTIME PRN PRN Reason: COUGH Cefepime HCl (Maxipime 1 Gm In Dextrose Duplex (*)) 1 gm in 50 mls @ 100 mls/ hr IV Q12H [facility] Last Admin: 01/21/19 02:29 Dose: 100 mls/hr Levofloxacin/Dextrose (Levaquin 750 Mg Ivpremix(*)) 750 mg in 150 mls @ 100 mls /hr IVPB Q24H [facility]; Protocol Stop: 01/26/19 13:59 Levalbuterol HCl (Xopenex 1.25 Mg/0.5 Ml Neb.[place]*) 1.25 mg INH QID PRN PRN Reason: SOB/WHEEZING Last Admin: 01/20/19 22:46 Dose: 1.25 mg Lisinopril (Prinivil Tab*) 5 mg PO DAILY [facility] Last Admin: 01/21/19 12:22 Dose: Not Given Loperamide HCl (Imodium Cap*) 2 mg PO DAILY PRN PRN Reason: DIARRHEA Magnesium Oxide (Magox 400 Tab*) 400 mg PO DAILY [facility] Last Admin: 01/21/19 12:22 Dose: Not Given Metoprolol Tartrate (Lopressor Tab*) 25 mg PO BID [facility] Last Admin: 01/21/19 12:22 Dose: Not Given Ondansetron HCl (Zofran Tab*) 4 mg PO Q6HR PRN PRN Reason: NAUSEA Oxycodone/Acetaminophen (Percocet 5/325 Tab*) 1 tab PO BID [facility] Last Admin: 01/21/19 12:22 Dose: Not Given Pantoprazole Sodium (Protonix Tab*) 40 mg PO DAILY [facility] Last Admin: 01/21/19 12:22 Dose: Not Given Pharmacy Profile Note (Coumadin Per Pharmacy*) 0 note FOLLOW UP .PER PHARMACY PROTOC [facility]; Protocol Prednisone (Deltasone Tab*) 40 mg PO DAILY [facility] Last Admin: 01/21/19 12:23 Dose: Not Given Tiotropium [place] (Spiriva Cap.Inh*) 1 cap INH DAILY [facility] Last Admin: 01/21/19 07:30 Dose: Not Given Vital Signs: Vital Signs: Temp Pulse Resp BP Pulse Ox 97.5 F 138 19 100/51 96 01/21/19 11:56 01/21/19 09:31 01/21/19 09:31 01/21/19 09:31 01/21/19 09:31 Patient Weight: Weight 105 kg Intake and Output: Intake & Output 01/19/19 01/20/19 01/21/19 01/22/19 06:59 06:59 06:59 06:59 Intake Total 376 0 Output Total 2145 250 Balance -1769 -250 Weight 105 kg Intake: IV Fluids 266 NS (0.9%) 66 IVPB 110 NS (0.9%) 110 Oral 0 0 Output: Urine 85 [place] 2060 250 ADLs: Meal Record Start: 01/20/19 13: 01 Freq: ,,18 Status: Active Protocol: Created 01/20/19 13:01 System (Rec: 01/20/19 13:01 System [id number]) Document 01/21/19 09:00 [id number] (Rec: 01/21/19 09:57 [id number] ICU-C15) Intake and Output Start: 01/20/19 10: 00 Freq: Q1HR Status: Active Protocol: Created 01/20/19 10:00 System (Rec: 01/20/19 10:00 System [id number]) Document 01/20/19 16:00 [id number] (Rec: 01/20/19 16:33 [id number] ICU-C25) Document 01/20/19 17:00 [id number] (Rec: 01/20/19 17:08 [id number] ICU-C25) Document 01/20/19 18:00 [id number] (Rec: 01/20/19 18:27 [id number] ICU-C25) Document 01/20/19 19:00 [id number] (Rec: 01/21/19 00:23 [id number] ICU-C15) Document 01/20/19 20:00 [id number] (Rec: 01/21/19 00:48 [id number] ICU-C15) Document 01/20/19 21:00 [id number] (Rec: 01/21/19 00:50 [id number] ICU-C15) Document 01/20/19 22:00 [id number] (Rec: 01/21/19 00:52 [id number] ICU-C15) Document 01/20/19 23:00 [id number] (Rec: 01/21/19 00:59 [id number] ICU-C15) Document 01/21/19 00:00 [id number] (Rec: 01/21/19 01:40 [id number] ICU-C15) Document 01/21/19 01:00 [id number] (Rec: 01/21/19 01:43 [id number] ICU-C15) Document 01/21/19 02:00 [id number] (Rec: 01/21/19 02:44 [id number] ICU-C15) Document 01/21/19 03:00 [id number] (Rec: 01/21/19 03:56 [id number] ICU-C15) Document 01/21/19 03:57 [id number] (Rec: 01/21/19 04:15 [id number] ICU-C15) Document 01/21/19 05:00 [id number] (Rec: 01/21/19 05:10 [id number] ICU-C15) Document 01/21/19 07:00 [id number] (Rec: 01/21/19 07:44 [id number] ICU-M34) Document 01/21/19 09:00 [id number] (Rec: 01/21/19 09:57 [id number] ICU-C15) Intake and Output Start: 01/20/19 13: 01 Freq: Q1HR Status: Active Protocol: Created 01/20/19 13:01 System (Rec: 01/20/19 13:01 System [id number]) Head: Normal Eyes: No Scleral Icterus Ears/Nose/Mouth/Throat: Clear Oropharnyx Cardiovascular: NL Sounds; No Murmurs; No JVD Respiratory: Symmetrical Chest Expansion and Respiratory Effort - diffuse wheezing and rhochi Abdominal: NL Sounds; No Tenderness; No Distention Neurological: Alert and Oriented x 3 - Assessment Assessment: 63 yo with COPD , ? infiltrate refusing interventions requesting to be placed on comfort care - Plan Consult Plan (MU): Hospice Plan: Long discussion with pt who is tired and wants to . She is refusing medical intervention because she feels she has no quality of life and she wants to join her family members who have . Her sister 2 1/2yrs ago with cancer on hospice and she misses her. She has been living at [facility]. We discussed hospice and brochure was given. She is interested in the residence otherwise she would go to [facility] with hospice referral. Emphasized she can sign off hospice at anytime. She was just hospitalized with decompensated heart failure 12/30-01/09. She doesn't want to keep coming back to the hospital. I offered her carry all driver visit which she accepted but refused psyche evaluation and antidepressants. Spoke with her sister in [place] and updated her on the situation. Pt is able to make her own decisions at this time. Pt is polite not withdrawn and answers all question. Spoke with case management and referral is being [facility] to [facility]. Hospice eligibilty is based on COPD, CHF and kidney disease declining treatment. KPS 40%. PPS 50% - Time On Unit Date of Evaluation: 01/21/19 Hospice Consult Time in: 12:00 Hospice Consult Time Out: 13:00 Hospice Consult Time Total: 60 > 50% of Time Spend In Counseling or Coordinating Care: Yes
[2019-01-21] MEDS ORDERED: Haloperidol TAB* 0.5 MG PO PRN (12:54)
[2019-01-21] MEDS ORDERED: Atropine 1% (ORAL/SL)* 15 ML BTL SL PRN (12:54)
[2019-01-21] MEDS ORDERED: LORazepam TAB(*) 1 MG SL PRN (12:54)
[2019-01-21] MEDS ORDERED: Morphine ORAL CONCENTRATE* 5 MG/0.25 ML ORAL.SYRIN PO PRN (12:54)
[2019-01-21] MEDS ORDERED: Scopolamine 1.5 mg* PATCH TRANSDERM SCH (13:00)
--- NOTE | 2019-01-21 13:05 | PN ---
Hospitalist Progress Note Date of Service: 01/21/19 Discussed with Intensivisit and Palliative car physician. Patient to be transferred out of the ICU, will take over the case. Now wants comfort measures. Patient seen at bedside in ICU. "I am at peace with god" She would like comfort measures. No treatment for pneumonia. Comfort measures initiated.
[2019-01-21] MEDS ORDERED: Haloperidol TAB* 2 MG PO PRN (13:14)
[2019-01-21] MEDS ORDERED: Levofloxacin 750 MG IVPREMIX(* 750 MG/150 ML BAG IVPB SCH (14:00)
[2019-01-21] MEDS: Furosemide IV* 10 MG/ML 10 ML VIAL (100 MG) IV SCH (18:59)
[2019-01-21 23:17] VITALS: BP 119/51
[2019-01-22] MEDS: Tiotropium CAP.INH* CAP.INH/18 MCG (USE ORDER SET !) INH SCH (07:32)
[2019-01-22] MEDS: HYDROcodone/ACETAMIN 5-325 MG* 1 TAB PO SCH ×2 (07:50→08:00)
[2019-01-22] MEDS: Cetirizine* 10 MG TAB PO SCH ×2 (07:50→07:59)
[2019-01-22] MEDS: Furosemide IV* 10 MG/ML 10 ML VIAL (100 MG) IV SCH (07:50)
[2019-01-22] MEDS: oxyCODONE/Acetamin 5/325 MG* TAB PO SCH ×2 (07:51→08:00)
[2019-01-22] MEDS: Gabapentin CAP(*) 300 MG PO SCH ×3 (07:51→15:13)
[2019-01-22] MEDS: Diltiazem CD CAP* 180 MG PO SCH ×2 (07:52→07:59)
[2019-01-22] MEDS: Magnesium Oxide TAB* 400 MG PO SCH ×2 (07:52→08:00)
--- NOTE | 2019-01-22 12:17 | PN ---
Subjective Date of Service: 01/22/19 Interval History: patient seen today, in bed. awake polite and oriented. She is asking for hospice and palliative care. Discussed with case investigator and reviewed palliative care consult and patient is eligible for hospice and end of life care. I assessed the patient, she is fully awake alert, not in any acute distress and able to make her own decisions. she is not withdrawn but content with her decision Objective Active Medications: Acetaminophen (Tylenol Tab*) 650 mg PO Q4H PRN PRN Reason: FEVER/PAIN Hydrocodone Bitart/Acetaminophen ([place] 5-325 Tab*) 1 tab PO BID [facility] Last Admin: 01/22/19 08:00 Dose: Not Given Atropine Sulfate (Atropine 1% (Oral/Sl)*) 2 drop SL Q2H PRN PRN Reason: Terminal Secretions Cetirizine HCl (Zyrtec*) 10 mg PO DAILY [facility] Last Admin: 01/22/19 07:59 Dose: Not Given Diltiazem HCl (Cardizem Cd Cap*) 180 mg PO DAILY [facility] Last Admin: 01/22/19 07:59 Dose: Not Given Furosemide (Lasix Iv*) 60 mg IV 0800,1700 [facility] Last Admin: 01/22/19 07:50 Dose: 60 mg Gabapentin (Neurontin Cap(*)) 600 mg PO TID [facility] Last Admin: 01/22/19 07:59 Dose: Not Given Guaifenesin (Mucinex*) 600 mg PO BEDTIME PRN PRN Reason: COUGH Haloperidol (Haldol Tab*) 0.5 mg PO Q2H PRN PRN Reason: AGITATION Levalbuterol HCl (Xopenex 1.25 Mg/0.5 Ml Neb.[place]yanne*) 1.25 mg INH QID PRN PRN Reason: SOB/WHEEZING Last Admin: 01/20/19 22:46 Dose: 1.25 mg Loperamide HCl (Imodium Cap*) 2 mg PO DAILY PRN PRN Reason: DIARRHEA Lorazepam (Ativan Tab(*)) 1 mg SL Q8H PRN PRN Reason: Anxiety/Agitation Magnesium Oxide (Magox 400 Tab*) 400 mg PO DAILY [facility] Last Admin: 01/22/19 08:00 Dose: Not Given Morphine Sulfate (Morphine Oral Concentrate*) 5 mg PO Q2H PRN PRN Reason: Pain or Dyspnea Ondansetron HCl (Zofran Tab*) 4 mg PO Q6HR PRN PRN Reason: NAUSEA Oxycodone/Acetaminophen (Percocet 5/325 Tab*) 1 tab PO BID [facility] Last Admin: 01/22/19 08:00 Dose: Not Given Scopolamine (Transderm-Scop 1.5 Mg Patch*) 1 patch TRANSDERM Q72H [facility] Last Admin: 01/21/19 13:31 Dose: Not Given Tiotropium [place] (Spiriva Cap.Inh*) 1 cap INH DAILY [facility] Last Admin: 01/22/19 07:32 Dose: 1 cap Vital Signs - 8 hr 01/22/19 01/22/19 06:26 07:33 Pulse Rate 102 Respiratory 22 20 Rate O2 Sat by Pulse 93 Oximetry Oxygen Devices in Use Now: Nasal Cannula Appearance: dyspneic and soft voice Eyes: No Scleral Icterus Ears/Nose/Mouth/Throat: Clear Oropharnyx Respiratory: Symmetrical Chest Expansion and Respiratory Effort Abdominal: - - obese Extremities: - - edema Neurological: Alert and Oriented x 3 Result Diagrams: 01/21/19 07:10 01/21/19 07:10 Microbiology and Other Data: Microbiology 01/20/19 10:45 Aerobic Blood Culture - Preliminary Blood Venous No Growth Day 2 Anaerobic Blood Culture - Preliminary No Growth Day 2 01/20/19 10:41 Aerobic Blood Culture - Preliminary Blood Venous No Growth Day 2 Anaerobic Blood Culture - Preliminary No Growth Day 2 01/20/19 15:14 Urine Culture - Final Urine No Growth (<1,000 CFU/mL) 01/20/19 15:14 Nasal Screen MRSA (PCR) - Final Nasal Mrsa Not Detected Assess/Plan/Problems-Billing Assessment: - Patient Problems (1) Acute diastolic CHF (congestive heart failure) Current Visit: No Status: Acute Code(s): I50.31 - ACUTE DIASTOLIC ( CONGESTIVE) HEART FAILURE SNOMED Code(s): 531179027 Comment: - Echo showed EF 55-60%, with no wall motion abnormalities. - Patient decided to pursue confort care and does not want further aggressive treatment given her quality of life - Seen and evaluated by palliative care. Agree and eligible for hospice care. Will discharge to [facility] and to be evaluated by hospice once admitted to [facility] (2) Acute respiratory failure with hypoxia Current Visit: No Status: Acute Code(s): J96.01 - ACUTE RESPIRATORY FAILURE WITH HYPOXIA SNOMED Code(s): 50247242 Comment: Acute on Chronic, now back to home O2 requirement. IV steroids due to increased SOB, IV antibiotics. Treatment for HAP. Unable to determin pathogen. No growth on blood culture. Sputum culture pending if possible. Negative urine antigens. Home lasix dose. No signs of fluid overload. (3) Afib Current Visit: No Status: Acute Code(s): I48.91 - UNSPECIFIED ATRIAL FIBRILLATION SNOMED Code(s): 85370639 Comment: - Continue Diltiazem. - Off warfarin due to prior history of GI bleed - Echo showed EF 55-60%, with no wall motion abnormalities. - Patient decided to pursue confort care and does not want further aggressive treatment given her quality of life - Seen and evaluated by palliative care. Agree and eligible for hospice care. Will discharge to [facility] and to be evaluated by hospice once admitted to [facility] (4) History of CVA (cerebrovascular accident) Current Visit: No Status: Acute Code(s): Z86.73 - PRSNL HX OF TIA (TIA), AND CEREB INFRC W/O RESID DEFICITS SNOMED Code(s): 929771918 (5) COPD (chronic obstructive pulmonary disease) Current Visit: No Status: Chronic Code(s): J44.9 - CHRONIC OBSTRUCTIVE PULMONARY DISEASE, UNSPECIFIED SNOMED Code(s): 80257866 Comment: - Continue prn inhalers - Oxygen supplementations - Patient decided to pursue confort care and does not want further aggressive treatment given her quality of life - Seen and evaluated by palliative care. Agree and eligible for hospice care. Will discharge to [facility] and to be evaluated by hospice once admitted to [facility] (6) GERD (gastroesophageal reflux disease) Current Visit: No Status: Chronic Code(s): K21.9 - GASTRO-ESOPHAGEAL REFLUX DISEASE WITHOUT ESOPHAGITIS SNOMED Code(s): 316403169 (7) HTN (hypertension) Current Visit: No Status: Chronic Code(s): I10 - ESSENTIAL (PRIMARY) HYPERTENSION SNOMED Code(s): 95215169
--- NOTE | 2019-01-22 13:59 | DS ---
CC: Dr. Scott Parkinson * DISCHARGE SUMMARY: DATE OF ADMISSION: 01/20/19 DATE OF DISCHARGE: 01/22/19 PRIMARY CARE PROVIDER: Dr. Scott Parkinson. FINAL DISCHARGE DIAGNOSES: 1. Acute on chronic combined respiratory failure secondary to congestive heart failure. 2. Chronic obstructive pulmonary disease. 3. Chronic atrial fibrillation. 4. Gastroesophageal reflux disease. HOSPITAL COURSE: The patient presented to the intensive care service on for acute hypoxic respiratory failure secondary to combined CHF as well as COPD, who required aggressive resuscitation with BiPAP. Neb treatment. On , she was transferred to the medical service on the floor under comfort care measures as documented by the providers on 01/21/19. She was seen and palliative care consult was obtained with Dr. Mary Campo who kindly saw and evaluated the patient. I had a long discussion with the patient and it was documented well that given the patient's underlying mental status and not withdrawn, polite, able to provide adequate history, she clearly verbalized her wishes to pursue hospice and comfort care. She misses her family and she does not believe that she does have a quality of life given her multiple comorbid conditions and frequent hospitalization. Hence, the patient was deemed appropriate for hospice care. Referral was made and discussed the case today myself and the multidisciplinary team during the transplant case manager round. I believe that [facility] will accept the patient, open for hospice care once she is back at their facility. I saw and visited the patient myself this morning 01/22/19. I reviewed her decision and she clearly documented and verbalized to me that she wished to pursue hospice comfort care. She and willing and eager to meet their and she wants to be united with her family who also . At this time given the patient's mental status, she is awake, she is alert and oriented. She knows she is in [facility]. She knows she is dying. She is asking to pursue hospice and comfort and she knows that she will be returning back to [facility]. With that, I deemed the patient stable, although her condition is guarded giving her comorbid condition, but she will be referred back to [facility] and will defer hospice evaluation upon arrival. PHYSICAL EXAM: Vital Signs: Temperature 98.5, pulse 102, respiratory rate 18, satting 93% on 4 L nasal cannula. Generally, she is awake, alert, oriented to place and person, not to time. She is pleasant, polite, soft spoken. She is slightly dyspneic with some sentences, but she is tolerating nasal cannula and she is self oriented and functioning herself. Lungs: Positive crackles at bases, slightly labored with exertion. Cardiovascular: S1, S2. Positive for murmur. Abdomen: Obese, soft. Extremities: +3 edema. LOANS CONSULTANT: Awake, alert, follows commands. Generalized weak lower extremities, but moving her upper extremity intact. Follows simple commands. DIAGNOSTIC STUDIES/LAB DATA: She had the following while inpatient, CBC. INR was 5.6. ABG was acidotic with hypercapnia on presentation on 01/20/19. After 4 hours of BiPAP, she is down to 7.38, pCO2 of 69. Chemistry, multiple, last was yesterday. No blood work this morning. Electrolytes, significant for bicarb of 44, BUN 39, creatinine 1.4. Blood cultures preliminary pending, official report is not released, but today so far negative. Chest x-ray on 01/20/19 and 01/21/19 suggestive of congestive heart failure, possible left upper lobe infiltrate, multiple EKGs. CONSULTATION: [employer] on admission. Palliative care consult Dr. Mary Campo. DISCHARGE MEDICATIONS: I reviewed her home medication and continued inpatient and I reconciled them as follows. She is to be maintained until further reassessment once she is accepted by hospital on the following medications: 1. Diltiazem 180 daily. 2. Gabapentin 600 t.i.d. 3. Mucinex 600 b.i.d. 4. Xopenex p.r.n. 5. Magnesium 400 daily. 6. Lopressor 25 b.i.d. 7. Zofran p.r.n. 8. Protonix 40 daily. 9. Spiriva 18 mcg daily. 10. Tylenol p.r.n. 11. Atropine sublingual 2 drops every 2 hours p.r.n. for secretion. 12. Lasix 40 mg daily, this is a change from 20 alternating with 40. This will be further titrated according to the [facility] and hospice eval. 13. Haldol 0.5 mg q.2 p.r.n. 14. Imodium p.r.n. 15. Lorazepam 1 mg sublingual q.8 hours p.r.n. 16. Roxanol 5 q.2 hours p.r.n. sublingual. 17. Scopolamine patch. DISCHARGE CONDITION: Guarded. Referred back to [facility]. Open for hospice care upon arrival. [id number]/CPS #: [id number]
== END 2019-01-22 17:00 | DRG 189 ==
LOC: ED 09:45 → ICU 12:23 → MED 01-21 16:27
PROVIDERS: ADMIT Internal Medicine Critical Care Medicine; ATTEND Internal Medicine
PROC: 5A09457 Assistance with Respiratory Ventilation, 24-96 Consecutive Hours, Continuous Positive Airway Pressure (ICD-10-PCS; principal; 2019-01-20)
DX: J96.22 Acute and chronic respiratory failure with hypercapnia (principal); I50.31 Acute diastolic (congestive) heart failure; I69.354 Hemiplegia and hemiparesis following cerebral infarction affecting left non-dominant side; J98.11 Atelectasis; J44.1 Chronic obstructive pulmonary disease with (acute) exacerbation; I11.0 Hypertensive heart disease with heart failure; J96.21 Acute and chronic respiratory failure with hypoxia; I48.2 Chronic atrial fibrillation; E87.70 Fluid overload, unspecified; K21.9 Gastro-esophageal reflux disease without esophagitis; Z66 Do not resuscitate; Z87.891 Personal history of nicotine dependence; Z88.1 Allergy status to other antibiotic agents; Z88.8 Allergy status to other drugs, medicaments and biological substances; Z79.01 Long term (current) use of anticoagulants; Z79.1 Long term (current) use of non-steroidal anti-inflammatories (NSAID); Z79.891 Long term (current) use of opiate analgesic; Z79.899 Other long term (current) drug therapy
CPT/HCPCS: 36415; 36600; 71045; 80048; 80053; 81003; 81015; 82550; 82553; 82803; 83605; 83735; 83880; 84484; 85025; 85610; 86140; 87040; 87086; 87641; 93005; 93970; 94640; 94660; 99285; A9270-GY; J0692; J1940; J2930; J7512